=== PATIENT | male | born 1935 | race Caucasian/White ===

== ENCOUNTER 2017-09-28 14:34 | Emergency (ER) | payer MEDICARE ==
--- NOTE | 2017-09-28 15:14 | ERPHSYRPT ---
- History of Present Illness Time Seen by Provider: 09/28/17 15:03 Source: patient Exam Limitations: no limitations Patient Subjective Stated Complaint: APPROX 1300 TODAY PT BEGAN HAVING SOME VISUAL DISTURBANCES, REPORTS HEADACHE, REPORTS PRESSURE TO THE TEMPORAL REGION, STATES PREVIOUSLY LOST VISION IN THE LEFT EYE- 08/09/17 -STATES HE HAS MINMAL SIGHT WITH HIS RIGHT EYE CLOSED. STATES HE HAS HAD AN EEG RECENTLY WITH NO ACUTE FINDINGS. STATES HE HAS TROUBLE WITH PERIPHERAL VISION RECENTLY IN THE RIGHT EYE. Triage Nursing Assessment: PT IS AOX3, PUPILS PERRL, HAND DIRECTOR OF RETAIL OPERATIONS ARE STRONG AND EQUAL, FOOT PUSHES STRONG AND EQUAL BILAT, RESPS ARE EASY AND NON LABORED, LUNG SOUNDS ARE CLEAR THROUGHTOU ALL TRAMMELL. RADIAL PULSES STRONG AND EQUAL. PAIN TO THE BILAT TEMPORAL REGION DESCRIBED PRESSURE. Physician History: 82-year-old white male who states that he had a loss of vision in his left eye in August 2017. Arrives with complaint of a sudden onset of a blurry vision as if he was seeing heat waves, he states he could only see fingers directly in front of him associated with a frontal headache which occurred at approximately 3:00 lasted one hour. Patient states his vision is now clearing he does feel some stuffiness in his frontal head area. He has no nausea no vomiting he is having no problems moving. He feels like his vision changes around the right. He does state that he had a vision of loss in the left eye but had had a normal EEG in the past and carotids. Past medical history includes CVA, TIA, cataracts, pneumonia, hypercholesterolemia, high blood pressure, myocardial infarction, twisted bowel , pacer defibrillator, loss of vision in his left eye Past surgical history includes chest surgery, CABG, cardiac catheter, cardiac stent, defibrillator/pacer. Timing/Duration: today (1300 today) Severity: moderate Modifying Factors: Improves With: nothing Associated Symptoms: headaches, other (blurry vision left eye), No nausea, No vomiting, No abdominal pain, No shortness of breath, No heartburn, No diaphoresis, No cough, No chills, No chest pain, No fever, No syncope, No seizure, No weakness Allergies/Adverse Reactions: Iodinated Contrast- Oral and IV Dye Allergy (Verified 09/28/17 14:58) Iodine and Iodide Containing Produc Allergy (Verified 09/28/17 14:58) Home Medications: Albuterol 2.5 mg/3 ml Neb [Proventil 2.5 mg/3 ml Neb] 1 vial NEBULIZE Q6H 12/19/14 [History] Aspirin [Aspirin EC] 81 mg PO DAILY 12/19/14 [History] Lisinopril 10 mg [Zestril 10 MG] 10 mg PO HS 12/19/14 [History] Metoprolol Succinate 100 mg [Toprol Xl 100 MG] 100 mg PO HS 12/19/14 [ History] Rivaroxaban 10 mg Tablet [Xarelto 10 mg Tablet] 20 mg PO HS 12/19/14 [ History] Simvastatin [Zocor] 20 mg PO HS 12/19/14 [History] Spironolactone 25 mg [Aldactone 25 MG] 25 mg PO DAILY 12/19/14 [History] Tamsulosin HCl 0.4 mg [Flomax 0.4 MG] 0.4 mg PO DAILY 12/19/14 [History] Albuterol/Ipratropium 3ml Neb* [DUONEB 0.5-3 MG/3 ml Neb] 3 ml NEB QID [History] Cilostazol 100 mg [Pletal 100 MG] 50 mg PO BID 09/28/17 [History] Hx Tetanus, Diphtheria Vaccination/Date Given: No Hx Influenza Vaccination/Date Given: Yes Hx Pneumococcal Vaccination/Date Given: Yes Immunizations Up to Date: Yes - Review of Systems Constitutional: No Fever, No Chills Eyes: Vision Changes, No Discharge, No Eye Pain, No Eye Redness, No Itchy, No Photophobia, No Tearing, No Double Vision, No Foreign Body Sensation Ears, Nose, & Throat: No Symptoms, No Ear Pain, No Ear Discharge, No Hearing Changes, No Tinnitus, No Nose Pain, No Nose Congestion, No Nose Discharge, No Sinus Drainage, No Epistaxis, No Mouth Pain, No Mouth Swelling, No Loose Teeth, No Throat Pain, No Throat Swelling, No Hoarse, No Painful Swallowing, No Snoring Respiratory: No Cough, No Dyspnea Cardiac: No Chest Pain, No Edema, No Syncope Abdominal/Gastrointestinal: No Abdominal Pain, No Nausea, No Vomiting, No Diarrhea Genitourinary Symptoms: No Dysuria Musculoskeletal: No Back Pain, No Neck Pain Skin: No Rash Neurological: Headache, No Dizziness, No Focal Weakness, No Gait Changes, No Irritability, No Lethargy, No Paralysis, No Parasthesia, No Seizure, No Sensory Changes, No Speech Changes, No Tics, No Tremors, No Vertigo Psychological: No Symptoms Endocrine: No Symptoms All Other Systems: Reviewed and Negative - Past Medical History Pertinent Past Medical History: Yes Neurological History: Stroke, TIA ENT History: Cataracts Cardiac History: High Cholesterol, Hypertension, Myocardial Infarction (HI), Other Respiratory History: Pneumonia Endocrine Medical History: No Pertinent History Musculoskeletal History: No Pertinent History GI Medical History: Other History: No Pertinent History Psycho-Social History: No Pertinent History Male Reproductive Disorders: No Pertinent History Other Medical History: had a "twisted bowel". pacemaker/defibrillator. 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 - Past Surgical History Past Surgical History: Yes Neuro Surgical History: No Pertinent History Cardiac: CABG, Cardiac Catheterization, Cardiac Stent, Internal Defibrillator, Pacemaker Respiratory: Chest Surgery Gastrointestinal: No Pertinent History Genitourinary: No Pertinent History Musculoskeletal: No Pertinent History Male Surgical History: No Pertinent History - Social History Smoking Status: Never smoker Exposure to second hand smoke: No Drug Use: none Patient Lives Alone: No - Nursing Vital Signs Nursing Vital Signs: Initial Vital Signs Temperature 97.8 F 09/28/17 14:44 Pulse Rate 94 H 09/28/17 14:44 Respiratory Rate 20 09/28/17 14:44 Blood Pressure 154/69 09/28/17 14:44 O2 Sat by Pulse Oximetry 95 09/28/17 14:44 Pain Scale Pain Intensity 1 - Physical Exam General Appearance: no apparent distress, alert Eye Exam: PERRL/EOMI, eyes nml inspection Ears, Nose, Throat Exam: normal ENT inspection, TMs normal, pharynx normal, moist mucous membranes Neck Exam: normal inspection, non-tender, supple, full range of motion Respiratory Exam: normal breath sounds, lungs clear, No respiratory distress Cardiovascular Exam: regular rate/rhythm, normal heart sounds, normal peripheral pulses Gastrointestinal/Abdomen Exam: soft, normal bowel sounds, No tenderness, No mass Back Exam: normal inspection, normal range of motion, No CVA tenderness, No vertebral tenderness Extremity Exam: normal inspection, normal range of motion, pelvis stable Neurologic Exam: alert, oriented x 3, cooperative, normal mood/affect, nml cerebellar function, nml station & gait, sensation nml, No motor deficits Lymphatic Exam: No adenopathy SpO2 Interpretation: normal (95%) SpO2: 95 Oxygen Delivery: Room Air - Course Nursing assessment & vital signs reviewed: Yes EKG Interpreted by Me: RATE (80 bpm), Other (EKG atrial paced rhythm, 80 bpm, normal axis, right bundle babita block, PVC noted, no acute ST or T wave changes noted) - CT Exams Head CT Interpretation: Discussed w/radiologist (head CT: 1. Atrophy, old lacunar infarcts of the left caudate head/left external capsule, and old infarcts of the left parietal/left occipital lobes. 2. No acute intracranial abnormities. 3. Mild paranasal sinus disease. 4. Partial opacification of the right mastoid air cells presumably inflammatory) Ordered Tests: Active Orders 24 hr Category Date Time Status Accucheck STAT Care 09/28/17 15:07 Active EKG-ER Only STAT Care 09/28/17 15:07 Active IV Insertion STAT Care 09/28/17 15:07 Active Visual Acuity STAT Care 09/28/17 15:09 Active HEAD WITHOUT CONTRAST [CT] Stat Exams 09/28/17 15:08 Completed CBC W DIFF Stat Lab 09/28/17 15:15 Completed CMP Stat Lab 09/28/17 15:15 Completed PROTIME WITH INR Stat Lab 09/28/17 15:15 Completed PTT Stat Lab 09/28/17 15:15 Completed SED RATE [Erythrocyte Sedimentation Rate] Stat Lab 09/28/17 15:15 Completed Medication Summary Generic Name Dose Route Start Last Admin Trade Name Freq PRN Reason Stop Dose Admin Sodium Chloride 1,000 mls @ 100 mls/hr 09/28/17 17:15 09/28/17 17:18 Sodium Chloride 0.9% 1000 Ml IV 10/28/17 17:14 100 mls/hr .Q10H HARJINDER Administration Lab/Rad Data: Laboratory Result Diagrams 09/28/17 15:15 09/28/17 15:15 Laboratory Results 09/28/17 09/28/17 09/28/17 Range/Units 15:15 15:15 15:15 WBC (4.0-10.5) K/mm3 RBC (4.1-5.6) M/mm3 Hgb (12.5-18.0) gm/dl Hct (42-50) % MCV (78-100) fl MCH (26-32) pg MCHC (32-36) g/dl RDW (11.5-14.0) % Plt Count (150-450) K/mm3 MPV (6-9.5) fl Gran % (36.0-66.0) % Lymphocytes % (24.0-44.0) % Monocytes % (0.0-12.0) % Eosinophils % (0.00-5.0) % Basophils % (0.0-0.4) % Basophils # (0-0.4) ESR 17 H (0-15) mm/hr INR 1.47 (0.8-3.0) APTT 42.2 H (24.1-36.1) SECONDS Sodium 139 (136-145) mEq/L Potassium 4.0 (3.5-5.1) mEq/L Chloride 101 (98-107) mEq/L Carbon Dioxide 26.6 (21-32) mEq/L Anion Gap 15.1 H (5-15) MEQ/L BUN 17 (9-20) mg/dL Creatinine 1.41 H (0.55-1.30) mg/dl Estimated GFR 51 ML/MIN Glucose 109 (70-110) MG/DL Calcium 8.9 (8.5-10.1) mg/dL Total Bilirubin 0.30 (0.2-1.0) mg/dL AST 15 (15-37) U/L ALT 23 (12-78) U/L Alkaline Phosphatase 50 (46-116) U/L Serum Total Protein 6.8 (6.4-8.2) gm/dL Albumin 3.6 (3.4-5.0) g/dL 09/28/17 Range/Units 15:15 WBC 5.8 (4.0-10.5) K/mm3 RBC 3.71 L (4.1-5.6) M/mm3 Hgb 11.6 L (12.5-18.0) gm/dl Hct 35.9 L (42-50) % MCV 96.8 (78-100) fl MCH 31.2 (26-32) pg MCHC 32.3 (32-36) g/dl RDW 13.1 (11.5-14.0) % Plt Count 177 (150-450) K/mm3 MPV 9.6 H (6-9.5) fl Gran % 65.7 (36.0-66.0) % Lymphocytes % 19.2 L (24.0-44.0) % Monocytes % 12.0 (0.0-12.0) % Eosinophils % 2.4 (0.00-5.0) % Basophils % 0.7 (0.0-0.4) % Basophils # 0.04 (0-0.4) ESR (0-15) mm/hr INR (0.8-3.0) APTT (24.1-36.1) SECONDS Sodium (136-145) mEq/L Potassium (3.5-5.1) mEq/L Chloride (98-107) mEq/L Carbon Dioxide (21-32) mEq/L Anion Gap (5-15) MEQ/L BUN (9-20) mg/dL Creatinine (0.55-1.30) mg/dl Estimated GFR ML/MIN Glucose (70-110) MG/DL Calcium (8.5-10.1) mg/dL Total Bilirubin (0.2-1.0) mg/dL AST (15-37) U/L ALT (12-78) U/L Alkaline Phosphatase (46-116) U/L Serum Total Protein (6.4-8.2) gm/dL Albumin (3.4-5.0) g/dL - Progress Progress: improved Progress Note: 09/28/17 16:11 82-year-old white male with 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 Who is on Xaralto and aspirin. Patient arrives with complaints of vision disturbance described as blurry vision like heat waves in his right eye and a headache. Patient stable on arrival,. Patient's head CT remarkable for atrophy, old lacunar infarcts to the left caudate head, will left external capsule, and old infarcts in the left parietal/ left occipital lobes, no acute intracranial abnormalities on head CT Patient states his symptoms began at 1:00 lasted an hour. He states that 3:00 he feels as if his vision has returned to normal. 6Patient's vision is tested by the nurse right eye 20/50, left eye 20/200, both eyes 20/50. Patient states that his student counselor stated that he needed to see a neurologist. Will contact [facility] call this is where the patient wishes to be hospitalized if he is hospitalized. Impression 1 vision change 2. rule out CVA. 09/28/17 17:11 [facility] was contacted that I was informed that they did not have a neurologist available. I contacted Dr. Yepez who is consultant intern for Dr. Avelar she felt that the patient needed be transferred to [facility]. I discussed the case with , hospitalist at [address] [place] [address] I've discussed the case with him, as well as laboratory findings and radiographic findings. He accepted the patient for transfer diagnoses TIA rule out CVA, vision disturbance. Will give patient normal saline 100 mL per hour patient is already onXaralto and aspirin 81 mg a day. Patient is feeling much better at this time vitals are stable vision he states has returned to his normal - Departure Time of Disposition: 17:13 Departure Disposition: Transfer ([facility] Dr. Tilley) Clinical Impression: Vision disturbance, CVA versus TIA Condition: Fair Critical Care Time: No Referrals: YUE AVELAR MD [Primary Care Provider] -
[2017-09-28 15:22] LABS: BASOPHIL % 0.7 % (0.0-0.4); Eosinophil % 2.4 % (0.00-5.0); Granulocytes % 65.7 % (36.0-66.0); Lymphocytes % 19.2 % (24.0-44.0); Mean Cell Volume 96.8 fl (78-100); Mean Platelet Volume 9.6 fl (6-9.5); Platelet Count 177 K/mm3 (150-450); Red Blood Count 3.71 M/mm3 (4.1-5.6); Red Cell Distribution Width 13.1 % (11.5-14.0); White Blood Count 5.8 K/mm3 (4.0-10.5)
[2017-09-28 15:23] LABS: Mean Corpuscular Hemoglobin 31.2 pg (26-32)
[2017-09-28 15:39] LABS: INR 1.47 (0.8-3.0); PROTIME 16.4 SECONDS (8.83-12.87)
[2017-09-28 15:42] LABS: PTT 42.2 SECONDS (24.1-36.1)
[2017-09-28 15:46] LABS: ALBUMIN 3.6 g/dL (3.4-5.0); ANION GAP 15.1 MEQ/L (5-15); BILIRUBIN,TOTAL 0.3 mg/dL (0.2-1.0); Carbon Dioxide 26.6 mEq/L (21-32); Total Protein 6.8 gm/dL (6.4-8.2)
--- NOTE | 2017-09-28 15:53 | XRAY ---
Indication: Headache and difficulty right eye vision. Multiple contiguous axial images obtained through the head without contrast. Comparison: None Age-appropriate global atrophy and tiny remote lacunar infarcts left external capsule and left caudate head. Small focus of old left posterior parietal infarct. Minimal left occipital lobe encephalomalacia also presumed from old infarct. No acute intracranial hemorrhage, abnormal extra-axial fluid collection, or mass effect. Fourth ventricle is midline without hydrocephalus. Bony calvarium intact. Mild mucosal thickening of both ethmoid sinuses. Partial opacification of the inferior right mastoid air cells. Impression: 1. Atrophy, old lacunar infarcts of the left caudate head/left external capsule, and old infarcts of the left parietal/left occipital lobes. 2. No acute intracranial abnormalities. 3. Mild paranasal sinus disease. 4. Partial opacification of the right mastoid air cells presumed inflammatory. CT DI 67.41
[2017-09-28] MEDS ORDERED: Sodium Chloride 0.9% 1000 ML 1,000 ML ONE (17:13)
[2017-09-28] MEDS ORDERED: Sodium Chloride 0.9% 1000 ML 1,000 ML IV SCH (17:15)
[2017-09-28 17:52] VITALS: BP 133/54
[2017-09-28 17:58] VITALS: PULSE 83; O2SAT 95
[2017-09-28] MEDS ORDERED: NORCO 5/325 MG PO ONE (18:05)
[2017-09-28] MEDS ORDERED: NORCO 5/325 MG ONE (18:08)
== END 2017-09-28 18:19 | disposition short-term general hospital (02) ==
LOC: ED 14:34
DX: H53.9 Unspecified visual disturbance (principal); G45.9 Transient cerebral ischemic attack, unspecified; E78.00 Pure hypercholesterolemia, unspecified; I10 Essential (primary) hypertension; I25.2 Old myocardial infarction; Z95.810 Presence of automatic (implantable) cardiac defibrillator; Z95.1 Presence of aortocoronary bypass graft; Z98.61 Coronary angioplasty status
CPT/HCPCS: 36000; 36415; 70450; 80053; 82962; 85025; 85610; 85652; 85730; 93005; 96360; 99285; A9270-GY

== ENCOUNTER 2017-11-09 21:20 | Emergency (ER) | payer MEDICARE ==
[2017-11-09] MEDS ORDERED: Phenergan 25 MG INJ IV ONE (21:50)
[2017-11-09] MEDS ORDERED: Hydromorphone 1 mg/ml Ampule IV ONE (21:50)
--- NOTE | 2017-11-09 21:56 | ERPHSYRPT ---
- History of Present Illness Time Seen by Provider: 11/09/17 21:45 Historian: patient, family () Exam Limitations: no limitations Physician History: FOR ABOUT THE PAST 5 HOURS PT HAS HAD CONSTANT CRAMPING UPPER ABDOMINAL PAIN UP TO 10/10 IN SEVERITY WITH NAUSEA, CHILLS AND A MILD HEADACHE. LAST BM WAS TONIGHT & WNL. PT DENIES CHEST PAIN, SHORTNESS OF AIR, FEVER. Allergies/Adverse Reactions: Iodinated Contrast- Oral and IV Dye Allergy (Verified 09/28/17 14:58) Iodine and Iodide Containing Produc Allergy (Verified 09/28/17 14:58) Home Medications: Albuterol 2.5 mg/3 ml Neb [Proventil 2.5 mg/3 ml Neb] 1 vial NEBULIZE Q6H 12/19/14 [History] Aspirin [Aspirin EC] 81 mg PO DAILY 12/19/14 [History] Lisinopril 10 mg [Zestril 10 MG] 10 mg PO HS 12/19/14 [History] Metoprolol Succinate 100 mg [Toprol Xl 100 MG] 100 mg PO HS 12/19/14 [ History] Rivaroxaban 10 mg Tablet [Xarelto 10 mg Tablet] 20 mg PO HS 12/19/14 [ History] Simvastatin [Zocor] 20 mg PO HS 12/19/14 [History] Spironolactone 25 mg [Aldactone 25 MG] 25 mg PO DAILY 12/19/14 [History] Tamsulosin HCl 0.4 mg [Flomax 0.4 MG] 0.4 mg PO DAILY 12/19/14 [History] Albuterol/Ipratropium 3ml Neb* [DUONEB 0.5-3 MG/3 ml Neb] 3 ml NEB QID [History] Cilostazol 100 mg [Pletal 100 MG] 50 mg PO BID 09/28/17 [History] Hx Tetanus, Diphtheria Vaccination/Date Given: No Hx Influenza Vaccination/Date Given: Yes Hx Pneumococcal Vaccination/Date Given: Yes - Review of Systems Constitutional: Chills, No Fever Respiratory: No Dyspnea Cardiac: No Chest Pain Abdominal/Gastrointestinal: Abdominal Pain, Nausea Neurological: Headache All Other Systems: Reviewed and Negative - Past Medical History Pertinent Past Medical History: Yes Neurological History: Stroke, TIA ENT History: Cataracts Cardiac History: High Cholesterol, Hypertension, Myocardial Infarction (DE), Other Respiratory History: Pneumonia Endocrine Medical History: No Pertinent History Musculoskeletal History: No Pertinent History GI Medical History: Other History: No Pertinent History Psycho-Social History: No Pertinent History Male Reproductive Disorders: No Pertinent History Other Medical History: had a "twisted bowel". pacemaker/defibrillator. 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 - Past Surgical History Past Surgical History: Yes Neuro Surgical History: No Pertinent History Cardiac: CABG, Cardiac Catheterization, Cardiac Stent, Internal Defibrillator, Pacemaker Respiratory: Chest Surgery Gastrointestinal: No Pertinent History Genitourinary: No Pertinent History Musculoskeletal: No Pertinent History Male Surgical History: No Pertinent History - Social History Smoking Status: Never smoker Exposure to second hand smoke: No Drug Use: none Patient Lives Alone: No - Nursing Vital Signs Nursing Vital Signs: Initial Vital Signs Temperature 98.4 F 11/09/17 21:43 Pulse Rate 76 11/09/17 21:43 Respiratory Rate 20 11/09/17 21:43 Blood Pressure 144/50 11/09/17 21:43 O2 Sat by Pulse Oximetry 99 11/09/17 21:43 Pain Scale Pain Intensity 3 - Physical Exam General Appearance: alert Eye Exam: PERRL/EOMI Ears, Nose, Throat Exam: TMs normal, pharynx normal, moist mucous membranes Neck Exam: normal inspection Respiratory Exam: lungs clear Cardiovascular Exam: normal heart sounds Gastrointestinal/Abdomen Exam: soft, normal bowel sounds, tenderness (MODERATE UPPER ABDOMINAL TENDERNESS) Back Exam: normal inspection Extremity Exam: normal inspection, No pedal edema Neurologic Exam: alert, cooperative Skin Exam: warm, dry - Course Nursing assessment & vital signs reviewed: Yes - CT Exams Abdomen/Pelvis CT Interpretation: Tele-radiologist Report (CT FINDINGS SUGGESTIVE OF HIGH- GRADE SMALL BOWEL OBSTRUCTION.) Ordered Tests: Active Orders 24 hr Category Date Time Status Clean Catch Urine Specimen STAT Care 11/09/17 21:50 Active IV Insertion STAT Care 11/09/17 21:50 Active NG to Suction (Insertion) ROUTINE Care 11/09/17 23:35 Active ABDOMEN AND PELVIS W/0 CONTRAS [CT] Stat Exams 11/09/17 21:51 Taken AMYLASE Stat Lab 11/09/17 22:19 Completed CBC W DIFF Stat Lab 11/09/17 22:19 Completed CMP Stat Lab 11/09/17 22:19 Completed LIPASE Stat Lab 11/09/17 22:19 Completed MAGNESIUM Stat Lab 11/09/17 22:19 Completed PROTIME WITH INR Stat Lab 11/09/17 22:19 Completed PTT Stat Lab 11/09/17 22:19 Completed UA W/RFX UR CULTURE Stat Lab 11/09/17 21:51 Ordered Medication Summary Generic Name Dose Route Start Last Admin Trade Name Freq PRN Reason Stop Dose Admin Sodium Chloride 1,000 mls @ 100 mls/hr 11/09/17 22:00 11/09/17 22:22 Sodium Chloride 0.9% 1000 Ml IV 12/09/17 21:59 100 mls/hr .Q10H HARJINDER Administration Discontinued Medications Generic Name Dose Route Start Last Admin Trade Name Freq PRN Reason Stop Dose Admin Hydromorphone HCl 1 mg 11/09/17 21:50 11/09/17 22:23 Hydromorphone 1 Mg/Ml Ampule IV 11/09/17 21:51 1 mg STAT ONE Administration Hydromorphone HCl Confirm 11/09/17 22:19 Hydromorphone 1 Mg/Ml Ampule Administered 11/09/17 22:20 Dose 1 mg .ROUTE .STK-MED ONE Promethazine HCl 12.5 mg 11/09/17 21:50 11/09/17 22:23 Phenergan 25 Mg Inj IV 11/09/17 21:51 12.5 mg STAT ONE Administration Promethazine HCl Confirm 11/09/17 22:19 Phenergan 25 Mg Inj Administered 11/09/17 22:20 Dose 25 mg .ROUTE .STK-MED ONE Lab/Rad Data: Laboratory Result Diagrams 11/09/17 22:19 11/09/17 22:19 Laboratory Results 11/09/17 11/09/17 11/09/17 Range/Units 22:19 22:19 22:19 WBC (4.0-10.5) K/mm3 RBC (4.1-5.6) M/mm3 Hgb (12.5-18.0) gm/dl Hct (42-50) % MCV (78-100) fl MCH (26-32) pg MCHC (32-36) g/dl RDW (11.5-14.0) % Plt Count (150-450) K/mm3 MPV (6-9.5) fl Gran % (36.0-66.0) % Lymphocytes % (24.0-44.0) % Monocytes % (0.0-12.0) % Eosinophils % (0.00-5.0) % Basophils % (0.0-0.4) % Basophils # (0-0.4) INR 3.44 H (0.8-3.0) APTT 48.2 H (24.1-36.1) SECONDS Sodium (136-145) mEq/L Potassium (3.5-5.1) mEq/L Chloride (98-107) mEq/L Carbon Dioxide (21-32) mEq/L Anion Gap (5-15) MEQ/L BUN (9-20) mg/dL Creatinine (0.55-1.30) mg/dl Estimated GFR ML/MIN Glucose (70-110) MG/DL Calcium (8.5-10.1) mg/dL Magnesium 2.2 (1.8-2.4) mg/dL Total Bilirubin (0.2-1.0) mg/dL AST (15-37) U/L ALT (12-78) U/L Alkaline Phosphatase (46-116) U/L Serum Total Protein (6.4-8.2) gm/dL Albumin (3.4-5.0) g/dL Amylase (25-115) U/L Lipase (73-393) U/L 11/09/17 11/09/17 Range/Units 22:19 22:19 WBC 7.9 (4.0-10.5) K/mm3 RBC 3.88 L (4.1-5.6) M/mm3 Hgb 12.0 L (12.5-18.0) gm/dl Hct 37.9 L (42-50) % MCV 97.7 (78-100) fl MCH 30.9 (26-32) pg MCHC 31.7 L (32-36) g/dl RDW 13.9 (11.5-14.0) % Plt Count 157 (150-450) K/mm3 MPV 10.2 H (6-9.5) fl Gran % 78.7 H (36.0-66.0) % Lymphocytes % 11.8 L (24.0-44.0) % Monocytes % 7.2 (0.0-12.0) % Eosinophils % 1.9 (0.00-5.0) % Basophils % 0.4 (0.0-0.4) % Basophils # 0.03 (0-0.4) INR (0.8-3.0) APTT (24.1-36.1) SECONDS Sodium 140 (136-145) mEq/L Potassium 3.9 (3.5-5.1) mEq/L Chloride 101 (98-107) mEq/L Carbon Dioxide 31.4 (21-32) mEq/L Anion Gap 11.4 (5-15) MEQ/L BUN 17 (9-20) mg/dL Creatinine 1.28 (0.55-1.30) mg/dl Estimated GFR 57 ML/MIN Glucose 146 H (70-110) MG/DL Calcium 9.4 (8.5-10.1) mg/dL Magnesium (1.8-2.4) mg/dL Total Bilirubin 0.40 (0.2-1.0) mg/dL AST 25 (15-37) U/L ALT 16 (12-78) U/L Alkaline Phosphatase 53 (46-116) U/L Serum Total Protein 7.2 (6.4-8.2) gm/dL Albumin 3.9 (3.4-5.0) g/dL Amylase 32 (25-115) U/L Lipase 100 (73-393) U/L - Progress Discussed with : Other (SPOKE WITH DR ACOSTA([id number]) WHO ACCEPTED PT FOR TRANSFER TO [facility].) - Departure Time of Disposition: 00:52 Departure Disposition: Transfer ([facility]) Clinical Impression: SMALL BOWEL OBSTRUCTION., HTN, HX CVA Condition: Stable Critical Care Time: No Referrals: YUE AVELAR MD [Primary Care Provider] -
[2017-11-09] MEDS ORDERED: Sodium Chloride 0.9% 1000 ML 1,000 ML IV SCH (22:00)
[2017-11-09] MEDS ORDERED: Phenergan 25 MG INJ ONE (22:19)
[2017-11-09] MEDS ORDERED: Hydromorphone 1 mg/ml Ampule ONE (22:19)
[2017-11-09] MEDS ORDERED: Sodium Chloride 0.9% 1000 ML 1,000 ML ONE (22:19)
[2017-11-09 22:23] LABS: BASOPHIL % 0.4 % (0.0-0.4); Basophil (Absolute #) 0.03 (0-0.4); Eosinophil % 1.9 % (0.00-5.0); Eosinophil (Absolute #) 0.15 (0-0.5); Granulocytes % 78.7 % (36.0-66.0); Hematocrit 37.9 % (42-50); Lymphocyte (Absolute #) 0.93 (1.0-4.6); Lymphocytes % 11.8 % (24.0-44.0); Mean Cell Volume 97.7 fl (78-100); Mean Corpuscular Hemoglobin 30.9 pg (26-32); Mean Corpuscular Hgb Concent. 31.7 g/dl (32-36); Mean Platelet Volume 10.2 fl (6-9.5); Monocyte (Absolute #) 0.57 (0.0-1.3); Monocytes % 7.2 % (0.0-12.0); Platelet Count 157 K/mm3 (150-450); Red Blood Count 3.88 M/mm3 (4.1-5.6); Red Cell Distribution Width 13.9 % (11.5-14.0); White Blood Count 7.9 K/mm3 (4.0-10.5)
[2017-11-09 22:36] LABS: INR 3.44 (0.8-3.0)
[2017-11-09 22:45] LABS: ALBUMIN 3.9 g/dL (3.4-5.0); ANION GAP 11.4 MEQ/L (5-15); BILIRUBIN,TOTAL 0.4 mg/dL (0.2-1.0); Calcium 9.4 mg/dL (8.5-10.1); Carbon Dioxide 31.4 mEq/L (21-32); Creatinine 1 1.28 mg/dl (0.55-1.30); Potassium 3.9 mEq/L (3.5-5.1); Total Protein 7.2 gm/dL (6.4-8.2)
[2017-11-10 02:17] VITALS: BP 106/48; PULSE 66; O2SAT 97
--- NOTE | 2017-11-10 09:23 | XRAY ---
Indication: Abdominal pain. Nausea. Multiple contiguous axial images obtained through the abdomen and pelvis without contrast as ordered. Comparison: None. Lung bases hyperinflated with scattered calcific granulomas and left base dependent atelectasis. Heart is not enlarged. Stomach is markedly distended with food/fluid. Left abdominal jejunal small bowel loops are abnormally fluid distended up to 4 cm. The right abdominal small bowel loops are more normal in caliber. Findings concerning for partial obstruction versus focal ileus/enteritis. Normal appendix. Normal colonic bowel gas with scattered diverticulosis greatest in the descending colon. No free fluid/air. 1.5 cm right renal cortical cyst and small left urinary bladder diverticulum. Remaining liver, gallbladder, pancreas, spleen, adrenal glands, kidneys, ureters, and bladder appear unremarkable for noncontrast exam. Heavy aortoiliac calcifications without AAA. Osseous structures intact with mild lower lumbar degenerative changes. Tiny fatty left inguinal hernia. Impression: 1. Abnormal fluid distended left abdominal small bowel loops with normal caliber distal small bowel loops and normal colonic bowel gas. Rule out partial obstruction versus focal ileus/enteritis. 2. Colonic diverticulosis without diverticulitis. 3. Incidental right renal cyst and urinary bladder diverticulum. 4. Tiny fatty left inguinal hernia. Comment: Preliminary interpretation was made by [facility]. No discrepancy. CT DI 17.54
== END 2017-11-10 01:05 | disposition short-term general hospital (02) ==
LOC: ED 21:20
DX: K56.609 Unspecified intestinal obstruction, unspecified as to partial versus complete obstruction (principal); I10 Essential (primary) hypertension; Z86.73 Personal history of transient ischemic attack (TIA), and cerebral infarction without residual deficits; Z79.899 Other long term (current) drug therapy
CPT/HCPCS: 36000; 36415; 74176; 80053; 82150; 83690; 83735; 85025; 85610; 85730; 96360; 96361; 96374; 96375; 99285; J1170; J2550

== ENCOUNTER 2018-11-08 10:10 | Day surgery (SDC) | payer MEDICARE ==
--- NOTE | 2018-11-08 08:04 | HP ---
DATE OF SURGERY: 11/08/2018 HISTORY OF PRESENT ILLNESS: The patient is an 83 year-old with chronic skin lesion taken off by Dr. Tate in the past. He had bleeding nonhealing lesion in the past. There is a nonhealing scalp lesion or cyst in need of excision. PAST MEDICAL HISTORY: Multiple medical problems. Heart disease. Hypertension. Chronic obstructive pulmonary disease. History of bronchitis. Benign breast lesions in the past. Hypercholesterolemia. Hyperglycemia. Reflux. Atherosclerotic disease. History of transient ischemic attack in the past. CVA in the past. 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 Peripheral vascular disease. PAST SURGICAL HISTORY: Cardiac cath. Pacemaker. Cardiac stents. Hernia repair in the past. Lysis of adhesions from bowel obstruction in remote past. Multiple lesions removed from scrotal area per Dr. Tate in the past. MEDICATIONS: Breo Ellipta, Tamsulosin, Prean1 Susy Softgel vitamin, Combivent, Respimat, polyethylene glycol, Toprol XL, Os-Romario, vitamin D, Simvastatin, mucous relief tablet, albuterol sulfate, aspirin, lisinopril, allergy medicine [id number], Spironolactone and on Coumadin in the past. ALLERGIES: IV CONTRAST. FAMILY HISTORY: Heart disease, lung disease. History of myocardial infarction and transient ischemic attack in the past. Multiple medical problems as noted above. SOCIAL HISTORY: Former smoker. Denies alcohol abuse. REVIEW OF SYSTEMS: Twelve systems reviewed pertinent for as noted above per preadmission assessment. Pertinent for multiple medical problems noted above. PHYSICAL EXAMINATION: GENERAL: A chronically ill gentleman in no acute distress. HEENT: Scalp nonhealing lesion or cyst on his scalp of unclear etiology. Patient desires excision. NECK: No JVD. CHEST: Equal excursion. CVS: Regular rate and rhythm. ABDOMEN: Soft. EXTREMITIES: No current edema. NEURO: Alert, oriented. IMPRESSION: Nonhealing scalp lesion or cyst unclear etiology. The patient has cardiac clearance and will hold his thinner, will proceed with excisional biopsy of nonhealing scalp lesion or cyst which could require skin graft. Risks and benefits explained in detail including but not limited to bleeding or infection, risk of carcinoma with involved margins possibly requiring other treatments or wider excision, risk of nonhealing of the wound or skin graft pending given location and the type of spot on top of his scalp with skin graft donor site. General risk of aches, pains, burning or numbness and overall risk given all of his chronic skin changes with nonhealing. He may develop other lesion similar to, adjacent to or elsewhere on his body. He understands and agrees to the planned procedure, will proceed with excisional biopsy of nonhealing scalp lesion or cyst possible skin graft as an outpatient.
[~2018-11-08 10:10] MED LIST: Lactated Ringers 1,000 ML IV ONE; MINERAL OIL LIGHT 10 ML FOR SURGERY ONE; Sensorcaine 0.25% 10 ML ONE
[2018-11-08] MEDS ORDERED: DILAUDID 2 MG INJECTION IV ONE (10:11)
[2018-11-08] MEDS ORDERED: Decadron 4 MG INJ IV ONE (10:11)
[2018-11-08] MEDS ORDERED: DIPRIVAN 200 MG/20 ML IV ONE (10:11)
[2018-11-08] MEDS ORDERED: Zofran 4 MG/2 ML VIAL IV ONE (10:11)
[2018-11-08] MEDS ORDERED: SUBLIMAZE 100 MCG/2 ML IV ONE (10:11)
[2018-11-08] MEDS ORDERED: TORAdol 30 mg Injection IV ONE (10:11)
[2018-11-08] MEDS ORDERED: Lactated Ringers 1,000 ML IV SCH (11:00)
[2018-11-08] MEDS ORDERED: Lactated Ringers 1,000 ML IV ONE (11:03)
[2018-11-08] MEDS ORDERED: KEFZOL 1 GM ONE (12:34)
[2018-11-08] MEDS ORDERED: SUBLIMAZE 100 MCG/2 ML ONE (13:43)
[2018-11-08] MEDS ORDERED: TORAdol 30 mg Injection ONE (14:09)
[2018-11-08 16:28] VITALS: BP 116/66; PULSE 66; O2SAT 97
--- NOTE | 2018-11-09 08:28 | OP ---
SURGERY DATE/TIME: 11/08/2018 1235 PREOPERATIVE DIAGNOSIS: Nonhealing lesion or cyst scalp. History of chronic skin changes and/or skin cancer treated elsewhere. POSTOPERATIVE DIAGNOSIS: Nonhealing lesion or cyst scalp. History of chronic skin changes and/or skin cancer treated elsewhere, path pending. PROCEDURE: Excisional biopsy of nonhealing lesion or cyst scalp approximately 2.2 cm with margins with closure with both combination of intermediate closure in layers along with full thickness skin graft (approximately 2 cm/sq) with some donor site of left neck. SURGEON: Dr. Bertram Jeter. ANESTHESIA: General. ESTIMATED BLOOD LOSS: Minimal. INDICATIONS: As noted above. Risks and benefits explained in detail and not limited to and consent obtained. DESCRIPTION OF PROCEDURE AND FINDINGS: The patient is taken to the operating room. General anesthesia induced. The site had been confirmed and marked in the preoperative holding area. Prepped and draped in usual sterile fashion. After official time out and no disagreement with planned procedure, he seemed to have more loose skin towards the neck part of the scalp. It was elected to make a transverse incision. As it was unclear whether this is some sort of variation of atypical cyst versus malignancy, it was elected to go just to the outside of this tissue. Marking out to as normal appearing skin as the patient had available on the either side. A transverse incision made resulting in 2.2 cm with margins and about 4.5 cm long spindle-shaped excision pattern dissection carried down dissecting it off the underlying fascia and musculature. There was a small amount of cyst material but whether part of this was malignancy or part of it cyst unclear but will submit for pathology for further diagnosis. Again it measured about 2.2 cm with margins and about 4.5 cm spindle-shaped excision pattern. The flaps were undermined both anteriorly and posteriorly with the skin on the edges brought together in a new fashion with interrupted vertical mattress 2-0 Prolene. There was still not enough loose skin to close the center part. It was felt that this needs to be closed with skin graft from donor site of base of left neck and some loose wrinkle area. Careful spindle-shaped excision pattern allowing to widen the specimen. It was then defatted on the back table with scalpel to all for any drainage of this full thickness skin graft and sutured with interrupted 4-0 Prolene trying to get it down in the crevice of this defect. The flaps were then brought together as well as possible and skin graft used to cover the other place this was about 2 cm long by 1 cm wide so about 2 cm/sq skin graft coverage. The skin secured with Prolene and some mineral oil, Adaptic and small rolled Kittner sized gauze was then carefully tied as a compression dressing overlying the area about 1 cm wide compressing the graft down to the base of the wound as well as possible in interrupted fashion with 4-0 Prolene. Sterile dressings were then applied. Patient tolerated the procedure well. There were no immediate complications. 0.25% Marcaine local had been injected along the area. He was then extubated and transferred to the recovery room in stable condition. Findings were discussed with family out in the waiting area including the importance of avoiding taking this rolled gauze compression dressing off the graft otherwise if he needs to could change the outer dressing. Otherwise, he can change the neck dressing as needed starting tomorrow. He understands given his frail tissue there is a possibility may not heal and may become ischemic and fall off like a scab but it is worth a try and hopefully quicken the pace of healing. If skin graft fails to survive may like to try healing by secondary intent. I will see him back in the office next week. He was transferred to the recovery room in stable condition.
== END 2018-11-08 16:20 | disposition home or self-care (01) ==
LOC: SDC 10:10
PROVIDERS: ATTEND Surgery
DX: L72.0 Epidermal cyst (principal); L98.9 Disorder of the skin and subcutaneous tissue, unspecified; I10 Essential (primary) hypertension; I25.2 Old myocardial infarction; Z86.73 Personal history of transient ischemic attack (TIA), and cerebral infarction without residual deficits; Z79.01 Long term (current) use of anticoagulants; Z79.899 Other long term (current) drug therapy; I87.2 Venous insufficiency (chronic) (peripheral); I25.5 Ischemic cardiomyopathy; I48.0 Paroxysmal atrial fibrillation; E78.5 Hyperlipidemia, unspecified
CPT/HCPCS: 36415; 84132; 85610; 88305; 99100; J0690; J1100; J1170; J1885; J2405; J2704; J3010; A9270-GY

== ENCOUNTER 2019-03-29 09:37 | Inpatient (IN) | payer MEDICARE ==
[2019-03-29] MEDS ORDERED: MORPHINE SULFATE 4 MG INJ IV ONE (10:30)
[2019-03-29] MEDS ORDERED: Sodium Chloride 0.9% 1000 ML 1,000 ML IV SCH (10:30)
[2019-03-29] MEDS ORDERED: Zofran 4 MG/2 ML VIAL IV ONE (10:30)
--- NOTE | 2019-03-29 10:36 | ERPHSYRPT ---
- History of Present Illness Time Seen by Provider: 03/29/19 10:30 Historian: patient Exam Limitations: no limitations Patient Subjective Stated Complaint: Pt c/o of pain in the medial epigastric region that began yesterday evening and into today, hard to get information from , nausea, denies vomitting, has reflux, states that it feels like a lot of gas in his stomach Triage Nursing Assessment: Pt walks into the ER with a cane, grunting and stating that his stomach hurts, hypertensive, tender with palpatation in the epigastric region, rates pain 8/10, naseous, denies chest pain Physician History: 83-year-old white male arrives with complaint of pain in his epigastric region since last night he states he's had some nausea since this morning no vomiting. 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 August 09, 2017 Past surgical history includes CABG, cardiac catheter, cardiac stent, internal defibrillator, pacer, chest surgery Social history occasional alcohol denies tobacco or illicit drug use Timing/Duration: yesterday Activities at Onset: none Quality: cramping Abdominal Pain Onset Location: epigastric Pain Radiation: no radiation Severity of Pain-Max: moderate Severity of Pain-Current: moderate Modifying Factors: Improves With: nothing Associated Symptoms: other (nausea, contusion left jones), No back, No chest pain , No diaphoresis, No fever/chills, No fatigue, No headache, No heartburn, No loss of appetite, No nausea, No neck pain, No rash, No shortness of breath, No syncope, No testicular pain, No vomiting, No weakness Allergies/Adverse Reactions: Iodinated Contrast- Oral and IV Dye Allergy (Verified 03/29/19 10:24) Iodine and Iodide Containing Produc Allergy (Verified 11/08/18 10:26) Home Medications: Albuterol 2.5 mg/3 ml Neb [Proventil 2.5 mg/3 ml Neb] 1 vial NEBULIZE Q6H 12/19/14 [History] Aspirin [Aspirin EC] 81 mg PO DAILY 12/19/14 [History] Lisinopril 10 mg [Zestril 10 MG] 20 mg PO HS 12/19/14 [History] Metoprolol Succinate 100 mg [Toprol Xl 100 MG] 150 mg PO HS 12/19/14 [ History] Simvastatin [Zocor] 20 mg PO HS 12/19/14 [History] Spironolactone 25 mg [Aldactone 25 MG] 25 mg PO DAILY 12/19/14 [History] Tamsulosin HCl 0.4 mg [Flomax 0.4 MG] 0.4 mg PO DAILY 12/19/14 [History] Polyethylene Glycol 3350 [Clearlax] 17 gm PO DAILY 10/27/18 [History] Fluticasone/Umeclidin/Vilanter [Trelegy Ellipta 100-62.5-25] 1 each IH DAILY [History] Hx Tetanus, Diphtheria Vaccination/Date Given: No Hx Influenza Vaccination/Date Given: Yes Hx Pneumococcal Vaccination/Date Given: Yes - Review of Systems Constitutional: No Fever, No Chills Eyes: No Symptoms Ears, Nose, & Throat: No Symptoms Respiratory: No Cough, No Dyspnea Cardiac: No Chest Pain, No Edema, No Syncope Abdominal/Gastrointestinal: Abdominal Pain, Nausea, No Vomiting, No Diarrhea, No Constipation, No Hematemesis, No Hematochezia, No Melena, No Dysphagia, No Appetite Changes Genitourinary Symptoms: No Dysuria Musculoskeletal: No Back Pain, No Neck Pain Skin: Other (contusion left jones with hematoma after bottle fell on it) Neurological: No Dizziness, No Focal Weakness, No Sensory Changes Psychological: No Symptoms Endocrine: No Symptoms All Other Systems: Reviewed and Negative - Past Medical History Pertinent Past Medical History: Yes Neurological History: Stroke, TIA ENT History: Cataracts Cardiac History: Arrhythmia, High Cholesterol, Hypertension, Myocardial Infarction ([place]), Other Respiratory History: Pneumonia Endocrine Medical History: No Pertinent History Musculoskeletal History: No Pertinent History GI Medical History: Other History: No Pertinent History Psycho-Social History: No Pertinent History Male Reproductive Disorders: Prostate Problems Other Medical History: had a "twisted bowel". pacemaker/defibrillator. 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 - Past Surgical History Past Surgical History: Yes Neuro Surgical History: No Pertinent History Cardiac: CABG, Cardiac Catheterization, Cardiac Stent, Internal Defibrillator, Pacemaker, Other Respiratory: Chest Surgery Gastrointestinal: Hernia Repair Genitourinary: No Pertinent History Musculoskeletal: No Pertinent History Male Surgical History: No Pertinent History Other Surgical History: colonoscopy, right cea, - Social History Smoking Status: Former smoker Exposure to second hand smoke: Yes Drug Use: none Patient Lives Alone: No - Nursing Vital Signs Nursing Vital Signs: Initial Vital Signs Temperature 97.8 F 03/29/19 10:14 Pulse Rate 77 03/29/19 10:14 Blood Pressure 154/76 03/29/19 10:14 O2 Sat by Pulse Oximetry 95 03/29/19 10:14 Pain Scale Pain Intensity 8 - Physical Exam General Appearance: mild distress, alert Eye Exam: PERRL/EOMI, eyes nml inspection Ears, Nose, Throat Exam: normal ENT inspection, pharynx normal, moist mucous membranes Neck Exam: normal inspection, non-tender, supple, full range of motion Respiratory Exam: normal breath sounds, lungs clear, No respiratory distress Cardiovascular Exam: regular rate/rhythm, normal heart sounds, capillary refill <2 sec Gastrointestinal/Abdomen Exam: soft, tenderness, No mass Back Exam: normal inspection, normal range of motion, No CVA tenderness, No vertebral tenderness Extremity Exam: other (left anterior jones with hematoma approximately2 cm) Neurologic Exam: alert, oriented x 3, cooperative, 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 Fluid distended small bowel loops with synchronous fluid leveling, ileus versus enteritis. 2. New small hiatal hernia 3. New fecal stasis without obstruction. 4. Incidental clonic diverticulosis,, right renal cyst, urinary bladder diverticulum, and small fatty left inguinal hernia.) Ordered Tests: Active Orders 24 hr Category Date Time Status EKG-ER Only STAT Care 03/29/19 10:30 Active IV Insertion STAT Care 03/29/19 10:30 Active ABDOMEN AND PELVIS W/0 CONTRAS [CT] Stat Exams 03/29/19 10:30 Completed AMYLASE Stat Lab 03/29/19 10:55 Completed CBC W DIFF Stat Lab 03/29/19 10:55 Completed CMP Stat Lab 03/29/19 10:55 Completed LIPASE Stat Lab 03/29/19 10:55 Completed PROTIME WITH INR Stat Lab 03/29/19 10:55 Completed UA W/RFX UR CULTURE Stat Lab 03/29/19 11:50 Completed Medication Summary Generic Name Dose Route Start Last Admin Trade Name Freq PRN Reason Stop Dose Admin Sodium Chloride 1,000 mls @ 100 mls/hr 03/29/19 10:30 03/29/19 10:59 Sodium Chloride 0.9% 1000 Ml IV 04/28/19 10:29 100 mls/hr .Q10H HARJINDER Administration Discontinued Medications Generic Name Dose Route Start Last Admin Trade Name Freq PRN Reason Stop Dose Admin Morphine Sulfate 4 mg 03/29/19 10:30 03/29/19 10:59 Morphine Sulfate 4 Mg Inj IV 03/29/19 10:31 4 mg STAT ONE Administration Morphine Sulfate Confirm 03/29/19 10:46 Morphine Sulfate 4 Mg Inj Administered 03/29/19 10:47 Dose 4 mg .ROUTE .STK-MED ONE Ondansetron HCl 4 mg 03/29/19 10:30 03/29/19 10:59 Zofran 4 Mg/2 Ml Vial IV 03/29/19 10:31 4 mg STAT ONE Administration Ondansetron HCl Confirm 03/29/19 10:46 Zofran 4 Mg/2 Ml Vial Administered 03/29/19 10:47 Dose 4 mg .ROUTE .STK-MED ONE Lab/Rad Data: Laboratory Result Diagrams 03/29/19 10:55 03/29/19 10:55 Laboratory Results 03/29/19 03/29/19 03/29/19 Range/Units 11:50 10:55 10:55 WBC (4.0-10.5) K/mm3 RBC (4.1-5.6) M/mm3 Hgb (12.5-18.0) gm/dl Hct (42-50) % MCV (78-100) fl MCH (26-32) pg MCHC (32-36) g/dl RDW (11.5-14.0) % Plt Count (150-450) K/mm3 MPV (6-9.5) fl Gran % (36.0-66.0) % Eos # (Auto) (0-0.5) Absolute Lymphs (auto) (1.0-4.6) Absolute Monos (auto) (0.0-1.3) Lymphocytes % (24.0-44.0) % Monocytes % (0.0-12.0) % Eosinophils % (0.00-5.0) % Basophils % (0.0-0.4) % Absolute Granulocytes (1.4-6.9) Basophils # (0-0.4) PT 28.7 H (8.83-12.87) SECONDS INR 2.45 (0.8-3.0) Sodium 137 (137-145) mmol/L Potassium 4.7 (3.5-5.1) mmol/L Chloride 100 (98-107) mmol/L Carbon Dioxide 27 (22-30) mmol/L Anion Gap 14.2 (5-15) MEQ/L BUN 20 (9-20) mg/dL Creatinine 1.04 (0.66-1.25) mg/dL Estimated GFR > 60.0 ML/MIN Glucose 98 (74-106) mg/dL Calcium 9.6 (8.4-10.2) mg/dL Total Bilirubin 0.90 (0.2-1.3) mg/dL AST 29 (17-59) U/L ALT 17 (0-50) U/L Alkaline Phosphatase 63 (38-126) U/L Serum Total Protein 7.4 (6.3-8.2) g/dL Albumin 4.2 (3.5-5.0) g/dL Amylase 59 (30-110) U/L Lipase 63 (23-300) U/L Urine Color YELLOW (YELLOW) Urine Appearance CLEAR (CLEAR) Urine pH 6.0 (5-6) Ur Specific [place] 1.015 (1.005-1.025) Urine Protein NEGATIVE (Negative) Urine Ketones NEGATIVE (NEGATIVE) Urine Blood NEGATIVE (0-5) Shahram/ul Urine Nitrite NEGATIVE (NEGATIVE) Urine Bilirubin NEGATIVE (NEGATIVE) Urine Urobilinogen NEGATIVE (0-1) mg/dL Ur Leukocyte Esterase NEGATIVE (NEGATIVE) Urine WBC (Auto) NONE (0-5) /HPF Urine RBC (Auto) 0-2 (0-2) /HPF U Epithel Cells (Auto) NONE (FEW) /HPF Urine Bacteria (Auto) NONE (NEGATIVE) /HPF Urine Culture Reflexed NO (NO) Urine Glucose NEGATIVE (NEGATIVE) mg/dL 03/29/19 Range/Units 10:55 WBC 8.9 (4.0-10.5) K/mm3 RBC 4.32 (4.1-5.6) M/mm3 Hgb 14.1 (12.5-18.0) gm/dl Hct 43.7 (42-50) % MCV 101.2 H (78-100) fl MCH 32.6 H (26-32) pg MCHC 32.3 (32-36) g/dl RDW 13.1 (11.5-14.0) % Plt Count 158 (150-450) K/mm3 MPV 10.8 H (6-9.5) fl Gran % 78.7 H (36.0-66.0) % Eos # (Auto) 0.14 (0-0.5) Absolute Lymphs (auto) 0.90 L (1.0-4.6) Absolute Monos (auto) 0.82 (0.0-1.3) Lymphocytes % 10.2 L (24.0-44.0) % Monocytes % 9.3 (0.0-12.0) % Eosinophils % 1.6 (0.00-5.0) % Basophils % 0.2 (0.0-0.4) % Absolute Granulocytes 6.98 H (1.4-6.9) Basophils # 0.02 (0-0.4) PT (8.83-12.87) SECONDS INR (0.8-3.0) Sodium (137-145) mmol/L Potassium (3.5-5.1) mmol/L Chloride (98-107) mmol/L Carbon Dioxide (22-30) mmol/L Anion Gap (5-15) MEQ/L BUN (9-20) mg/dL Creatinine (0.66-1.25) mg/dL Estimated GFR ML/MIN Glucose (74-106) mg/dL Calcium (8.4-10.2) mg/dL Total Bilirubin (0.2-1.3) mg/dL AST (17-59) U/L ALT (0-50) U/L Alkaline Phosphatase (38-126) U/L Serum Total Protein (6.3-8.2) g/dL Albumin (3.5-5.0) g/dL Amylase (30-110) U/L Lipase (23-300) U/L Urine Color (YELLOW) Urine Appearance (CLEAR) Urine pH (5-6) Ur Specific [place] (1.005-1.025) Urine Protein (Negative) Urine Ketones (NEGATIVE) Urine Blood (0-5) Shahram/ul Urine Nitrite (NEGATIVE) Urine Bilirubin (NEGATIVE) Urine Urobilinogen (0-1) mg/dL Ur Leukocyte Esterase (NEGATIVE) Urine WBC (Auto) (0-5) /HPF Urine RBC (Auto) (0-2) /HPF U Epithel Cells (Auto) (FEW) /HPF Urine Bacteria (Auto) (NEGATIVE) /HPF Urine Culture Reflexed (NO) Urine Glucose (NEGATIVE) mg/dL - Progress Progress: improved Progress Note: 03/29/19 12:35 Patient feeling better but still some epigastric tenderness after IV normal saline morphine 4 mg and Zofran [address] of the abdomen remarkable for fluid distended small bowel loops with synchronous fluid leveling. L. he is to versus new enteritis. There is a new small hiatal hernia, new fecal stasis without obstruction, colonic diverticulosis right renal cyst urinary bladder diverticulum and small fatty left inguinal hernia Patient's labs essentially normal EKG no acute changes. I discussed the patient's case with Dr. Avelar he would like to place patient on observation keep him n.p.o. provide fluids pain medication and obtain surgery consult. - Departure Departure Disposition: Observation Clinical Impression: Abdominal pain Qualifiers: Abdominal location: epigastric Qualified Code(s): R10.13 - Epigastric pain Condition: Fair Critical Care Time: No Referrals: YUE AVELAR MD [Primary Care Provider] -
[2019-03-29] MEDS ORDERED: Sodium Chloride 0.9% 1000 ML 1,000 ML ONE (10:46)
[2019-03-29] MEDS ORDERED: MORPHINE SULFATE 4 MG INJ ONE (10:46)
[2019-03-29] MEDS ORDERED: Zofran 4 MG/2 ML VIAL ONE (10:46)
[2019-03-29 11:10] LABS: BASOPHIL % 0.2 % (0.0-0.4); Basophil (Absolute #) 0.02 (0-0.4); Eosinophil % 1.6 % (0.00-5.0); Eosinophil (Absolute #) 0.14 (0-0.5); Granulocyte Absolute (ANC) 6.98 (1.4-6.9); Granulocytes % 78.7 % (36.0-66.0); Hematocrit 43.7 % (42-50); Hemoglobin 14.1 gm/dl (12.5-18.0); Lymphocytes % 10.2 % (24.0-44.0); Mean Cell Volume 101.2 fl (78-100); Mean Corpuscular Hemoglobin 32.6 pg (26-32); Mean Corpuscular Hgb Concent. 32.3 g/dl (32-36); Mean Platelet Volume 10.8 fl (6-9.5); Monocyte (Absolute #) 0.82 (0.0-1.3); Monocytes % 9.3 % (0.0-12.0); Platelet Count 158 K/mm3 (150-450); Red Blood Count 4.32 M/mm3 (4.1-5.6); Red Cell Distribution Width 13.1 % (11.5-14.0); White Blood Count 8.9 K/mm3 (4.0-10.5)
[2019-03-29 11:16] LABS: INR 2.45 (0.8-3.0); PROTIME 28.7 SECONDS (8.83-12.87)
--- NOTE | 2019-03-29 11:17 | XRAY ---
Indication: Upper abdomen pain and nausea. Multiple contiguous axial images obtained through the abdomen and pelvis without contrast as ordered. Comparison: November 09, 2017. Lung bases again demonstrates bilateral calcified granulomas and dependent atelectasis, left greater than right. Heart is not enlarged. New small hiatal hernia. Noncontrasted stomach mildly distended with fluid leveling. Jejunal bowel loops again demonstrates mild fluid distention but less than before up to 3.5 cm in diameter. There is synchronous fluid leveling favoring ileus versus enteritis. Normal appendix. No free fluid/air. Mild diffuse scattered colonic fecal debris including rectum. There is mild diffuse scattered diverticulosis without diverticulitis. Stable small right renal cortical cyst and small left urinary bladder diverticulum. Remaining liver, gallbladder, pancreas, spleen, adrenal glands, kidneys, ureters, and bladder appear unremarkable for noncontrast exam. Stable heavy aortoiliac calcifications without AAA. Osseous structures again demonstrates osteopenia and old left lower rib fractures. Progressive worsening mild/moderate multilevel lumbar degenerative spondylosis. Stable small fatty left inguinal hernia. Impression: 1. Fluid distended small bowel loops with synchronous fluid leveling, ileus versus enteritis. 2. New small hiatal hernia. 3. New fecal stasis without obstruction. 4. Again incidental colonic diverticulosis, right renal cyst, urinary bladder diverticulum, and small fatty left inguinal hernia. CT DI 25.99
[2019-03-29 11:48] LABS: ALBUMIN 4.2 g/dL (3.5-5.0); ALKALINE PHOSPHATASE 63 U/L (38-126); AMYLASE 59 U/L (30-110); ANION GAP 14.2 MEQ/L (5-15); BLOOD UREA NITROGEN 20 mg/dL (9-20); CHLORIDE 100 mmol/L (98-107); Calcium 9.6 mg/dL (8.4-10.2); Carbon Dioxide 27 mmol/L (22-30); Creatinine 1 1.04 mg/dL (0.66-1.25); Glucose 98 mg/dL (74-106); LIPASE 63 U/L (23-300); Potassium 4.7 mmol/L (3.5-5.1); SGOT/AST 29 U/L (17-59); SGPT/ALT 17 U/L (0-50); SODIUM 137 mmol/L (137-145); Total Protein 7.4 g/dL (6.3-8.2)
[2019-03-29 12:07] LABS: Appearance CLEAR (CLEAR); Bilirubin NEGATIVE (NEGATIVE); Blood NEGATIVE Ery/ul (0-5); Glucose NEGATIVE (NEGATIVE); Ketones NEGATIVE (NEGATIVE); Leukocyte Esterase NEGATIVE (NEGATIVE); Nitrite NEGATIVE (NEGATIVE); Protein,Urine Dip NEGATIVE (Negative); RBC 0-2 /HPF (0-2); Specific Gravity 1.015 (1.005-1.025); Urobilinogen NEGATIVE mg/dL (0-1)
[2019-03-29] MEDS: Sodium Chloride 0.9% 1000 ML 1,000 ML IV SCH ×2 (13:45→20:57)
[2019-03-29] MEDS ORDERED: Miralax Powder 17GM PACKET PO PRN (16:01)
[2019-03-29] MEDS ORDERED: MEDICATION INTERVENTION MC SCH (16:15)
[2019-03-29] MEDS ORDERED: PROVENTIL 2.5 MG/3 ML NEB IH PRN (16:19)
[2019-03-29] MEDS: MORPHINE SULFATE 4 MG INJ IV PRN ×2 (17:06→21:11)
[2019-03-29] MEDS: Zofran 4 MG/2 ML VIAL IV PRN (17:23)
[2019-03-29] MEDS ORDERED: Coumadin 5 MG PO SCH (18:00)
[2019-03-29] MEDS: PATIENT OWN MEDICATION IH SCH (20:14)
[2019-03-29] MEDS: FLAGYL 500 MG IVPB 500 MG/100 ML BAG IV SCH (20:58)
[2019-03-29] MEDS: MEFOXIN 1 Gm/ D5W 50 Ml** 1 G/50 ML ML IV SCH (20:58)
[2019-03-29] MEDS: Toprol Xl 100 MG PO SCH (22:00)
[2019-03-29] MEDS: ZOCOR 20MG PO SCH (22:01)
[2019-03-29] MEDS: Zestril 10 MG PO SCH (22:01)
[2019-03-29] MEDS: Toprol Xl 50 MG PO SCH (22:01)
[2019-03-30] MEDS: Zofran 4 MG/2 ML VIAL IV PRN ×3 (02:20→22:29)
[2019-03-30] MEDS: MEFOXIN 1 Gm/ D5W 50 Ml** 1 G/50 ML ML IV SCH ×2 (03:24→07:40)
[2019-03-30] MEDS: FLAGYL 500 MG IVPB 500 MG/100 ML BAG IV SCH ×3 (05:02→22:23)
[2019-03-30] MEDS: MORPHINE SULFATE 4 MG INJ IV PRN ×2 (05:21→15:53)
--- NOTE | 2019-03-30 08:21 | CONS ---
CONSULT DATE: 03/29/2019 HISTORY: The patient is an 83 year-old gentleman who has past history reportedly of hernia repair per Dr. Worthington in the past. He had what sounds like chest wall reconstruction in the past as well. He had some cramping after eating some corn. He is passing flatus. He felt like he had a lot of gas. He had a CT scan show some fluid filled small bowel loops. No obvious hernia. No obvious anterior abdominal wall hernia. No free air collections. Radiologist questioned ileus versus enteritis, early partial obstruction could be in the differential but at this time he is passing flatus. PAST MEDICAL HISTORY: He had myocardial infarction in the past. He had a clot to his eye in the past. He is blind in one eye. He has been on Coumadin anticoagulation. He has a history of dysrhythmia, hyperlipidemia and hypertension. PAST SURGICAL HISTORY: Pacemaker/defibrillator. Cataract surgery. Chest wall reconstruction. Cardiac stents. Coronary artery bypass graft in the past. He had endarterectomy in the past. He had colonoscopy in the past. HOME MEDICATIONS: Albuterol, aspirin, lisinopril, metoprolol, simvastatin, Spironolactone, Tamsulosin, fluconazole, warfarin, polyethylene glycol. ALLERGIES: IV DYE IODINATED CONTRAST. FAMILY HISTORY: Negative in regards to this problem. SOCIAL HISTORY: Former smoker. No current alcohol abuse. REVIEW OF SYSTEMS: Twelve systems reviewed. No chest pain or palpitations. Again, he is passing flatus. He is feeling a little bit better. He was a little vague on details of surgical history. He did have prior hernia repair and chest wall reconstruction. I do not have the old records here. Dr. Worthington apparently did some sort of hernia repair or reconstruction on him in the past. Otherwise twelve systems reviewed negative or noncontributory as above and per preadmission questionnaire. PHYSICAL EXAMINATION: GENERAL: No acute distress. Hemodynamically stable, nontoxic. HEENT: Sclera nonicteric. NECK: No JVD. CHEST: Equal excursion, nonlabored breathing. CVS: Regular rate and rhythm. ABDOMEN: Soft. No significant tenderness on my exam. Mild distension. No rebound. No guarding. No peritoneal signs. No palpable incarcerated hernia. EXTREMITIES: No edema. NEURO: Alert, oriented. He is blind in one eye from what he said was from a clot going to his eye. A little bit limited historian. LAB DATA AND TESTS: CT scan as noted above. No free air. Question incarcerated hernia currently. His international normalized ratio is elevated being on Coumadin. He did receive a dose of Coumadin today apparently. Liver function test lipase within normal limits. White count 8.9, hemoglobin 14.1, PLT 158,000. IMPRESSION: Nontoxic 83 year-old gentleman with multiple medical problems with some fluid filled bowel loops on CT scan. It could be anything from enteritis, ileus versus early partial obstruction. Either way he has NG in position now. He reports he is passing flatus. He is nontoxic, normal white count. No need for any emergent surgical intervention. I recommend bowel rest, continue IV hydration and continue conservative management. If he fails to improve in two or three days might need to consider other intervention but at this time given his multiple medical problems will hold his Coumadin that he receives tonight and transition to Lovenox temporarily until we make sure he continues to significantly improve. If he does have enteritis could try some empiric antibiotics otherwise no emergent surgery necessary at this time, continue medical management, conservative management for now.
[2019-03-30] MEDS ORDERED: MEFOXIN 1 Gm/ D5W 50 Ml** 1 G/50 ML ML IV SCH (09:00)
[2019-03-30] MEDS: Zestril 10 MG PO SCH ×2 (09:04→21:27)
[2019-03-30] MEDS: Aldactone 25 MG PO SCH (09:04)
[2019-03-30] MEDS: PROTONIX 40 MG IV IV SCH (09:04)
[2019-03-30] MEDS: WATER IV SCH ×3 (09:57→21:22)
[2019-03-30] MEDS: DEXTROSE IV SCH ×3 (09:57→21:22)
[2019-03-30] MEDS: MEFOXIN IV SCH ×3 (09:57→21:22)
[2019-03-30] MEDS: Sodium Chloride 0.9% 1000 ML 1,000 ML IV SCH ×2 (09:58→21:22)
[2019-03-30] MEDS ORDERED: PATIENT OWN MEDICATION IH SCH (10:00)
[2019-03-30] MEDS ORDERED: ECOTRIN 81 MG PO SCH (10:00)
[2019-03-30] MEDS ORDERED: NON-FORMULARY ITEM (Fluticasone/Umeclidin/Vilanter [Trelegy Ellipta 100-62.5-25] 1 EACH) IH SCH (10:00)
--- NOTE | 2019-03-30 12:55 | PCM.HP ---
History of Present Illness - Chief Complaint Chief Complaint: ABD pain for 3 days History of Present Illness: 83-year-old white male arrives with complaint of pain in his epigastric region since last night he states he's had some nausea since this morning no vomiting. 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 August 09, 2017 Past surgical history includes CABG, cardiac catheter, cardiac stent, internal defibrillator, pacer, chest surgery - Review of Systems Constitutional: No Fever, No Chills Eyes: No Symptoms Ears, Nose, & Throat: No Symptoms Respiratory: No Cough, No Short Of Breath Cardiac: No Chest Pain, No Edema, No Syncope Abdominal/Gastrointestinal: Abdominal Pain, No Nausea, No Vomiting, No Diarrhea Genitourinary Symptoms: No Dysuria Musculoskeletal: No Back Pain, No Neck Pain Skin: No Rash Neurological: No Dizziness, No Focal Weakness, No Sensory Changes Psychological: No Symptoms Endocrine: No Symptoms Hematologic/Lymphatic: No Symptoms Immunological/Allergic: No Symptoms Medications & Allergies Home Medications: Home Medication List Albuterol 2.5 mg/3 ml Neb [Proventil 2.5 mg/3 ml Neb] 1 vial NEBULIZE Q6H 12/19/14 [History Confirmed 03/29/19] Aspirin [Aspirin EC] 81 mg PO DAILY 12/19/14 [History Confirmed 03/29/19] Lisinopril 10 mg [Zestril 10 MG] 10 mg PO BID 12/19/14 [History Confirmed 03/29/19] Metoprolol Succinate 100 mg [Toprol Xl 100 MG] 150 mg PO HS 12/19/14 [ History Confirmed 03/29/19] Simvastatin [Zocor] 20 mg PO HS 12/19/14 [History Confirmed 03/29/19] Spironolactone 25 mg [Aldactone 25 MG] 25 mg PO DAILY 12/19/14 [History Confirmed 03/29/19] Tamsulosin HCl 0.4 mg [Flomax 0.4 MG] 0.4 mg PO DAILY 12/19/14 [History Confirmed 03/29/19] Polyethylene Glycol 3350 [Clearlax] 17 gm PO DAILY PRN 10/27/18 [History Confirmed 03/29/19] Fluticasone/Umeclidin/Vilanter [Trelegy Ellipta 100-62.5-25] 1 each IH DAILY [History Confirmed 03/29/19] Warfarin Sodium 2.5 mg [Coumadin 2.5 MG] 2.5 mg PO UD 03/29/19 [History Confirmed 03/29/19] Warfarin Sodium 5 mg [Coumadin 5 MG] 5 mg PO UD 03/29/19 [History Confirmed 03/29/19] Allergies/Adverse Reactions: Allergies Allergy/AdvReac Type Severity Reaction Status Date / Time Iodinated Contrast- Oral and Allergy Verified 03/29/19 10:24 IV Dye Iodine and Iodide Containing Allergy Verified 11/08/18 10:26 Produc - Past Medical History Past Medical History: Yes Neurological History: TIA ENT History: No Pertinent History Cardiac History: Arrhythmia, High Cholesterol, Hypertension, Myocardial Infarction (NM), Other Respiratory History: Asthma, COPD Endocrine Medical History: No Pertinent History Musculoskelatal History: No Pertinent History GI Medical History: Diverticulosis, Other History: No Pertinent History Pyscho-Social History: No Pertinent History Male Reproductive Disorders: Prostate Problems Comment: had a bowel obstruction x 2. pacemaker/defibrillator. 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 - Past Surgical History Past Surgical History: Yes Neuro Surgical History: No Pertinent History Cardiac History: CABG, Cardiac Catheterization, Cardiac Stent, Internal Defibrillator, Pacemaker, Other Respiratory Surgery: Chest Surgery GI Surgical History: Hernia Repair Genitourinary Surgical Hx: No Pertinent History Musculskeletal Surgical Hx: No Pertinent History Male Surgical History: No Pertinent History Other Surgical History: colonoscopy, right cea, - Social History Smoking Status: Former smoker How long have you smoked: 40 years Exposure to second hand smoke: No Alcohol: None Drug Use: none - Physical Exam Vital Signs: Vital Signs - 24 hr Temp Pulse Resp BP Pulse Ox 03/30/19 12:13 98.4 F 73 20 120/58 93 L 03/30/19 06:56 97.8 F 69 20 116/58 96 03/30/19 06:43 68 16 94 L 03/30/19 04:00 97.5 F 72 17 142/60 96 03/30/19 00:00 97.8 F 80 19 116/58 95 03/29/19 20:14 78 18 94 L 03/29/19 20:00 97.5 F 90 14 134/53 95 03/29/19 16:36 76 18 94 L 03/29/19 16:00 98.1 F 79 18 134/58 95 03/29/19 13:35 95 03/29/19 13:04 98.2 F 77 17 157/77 98 03/29/19 13:00 98.2 F 77 17 157/67 91 L Oxygen-Last 24 hours O2 Percentage 3 Liters = 32% O2 Percentage 2 Liters = 28% O2 Percentage 2 Liters = 28% O2 Percentage 2 Liters = 28% O2 Percentage 2 Liters = 28% O2 Percentage 2 Liters = 28% Oxygen Flowrate (L/min)-RT 2 General Appearance: no apparent distress, alert Neurologic Exam: alert, oriented x 3, cooperative, normal mood/affect, nml cerebellar function, nml station & gait, sensation nml, No motor deficits Eye Exam: PERRL/EOMI, eyes nml inspection Ears, Nose, Throat Exam: normal ENT inspection, TMs normal, pharynx normal, moist mucous membranes Neck Exam: normal inspection, non-tender, supple, full range of motion Respiratory Exam: normal breath sounds, lungs clear, No respiratory distress Cardiovascular Exam: regular rate/rhythm, normal heart sounds, normal peripheral pulses Gastrointestinal/Abdomen Exam: soft, normal bowel sounds, No tenderness, No mass Back Exam: normal inspection, normal range of motion, No CVA tenderness, No vertebral tenderness Extremity Exam: normal inspection, normal range of motion, pelvis stable Skin Exam: normal color, warm, dry, No rash Lymphatic Exam: No adenopathy Results - Labs Lab/Micro Results: Lab Results-Last 24 Hours 03/30/19 Range/Units 07:37 Troponin I < 0.012 (0.000-0.034) ng/mL - Radiology Impressions Radiology Exams & Impressions: Radiology Procedures Category Date Time Status ABDOMEN AND PELVIS W/0 CONTRAS [CT] Stat Exams 03/29/19 10:30 Completed - Other Procedures and Tests Respiratory Therapy 03/29/19 16:12 Oxygen NASAL CANNULA 2 lpm 03/30/19 07:00 Respiratory Therapy Assessment DAILY Assessment/Plan (1) Adynamic ileus Current Visit: Yes Status: Acute Assessment & Plan: Chief Complaint Diagnosis ABD pain Allergies Allergy/AdvReac Type Severity Reaction Status Date / Time Iodinated Contrast- Oral and Allergy Verified 03/29/19 10:24 IV Dye Iodine and Iodide Containing Allergy Verified 11/08/18 10:26 Produc Vital Signs (Last 24 hours) Temp Pulse Resp BP Pulse Ox 03/30/19 12:13 98.4 F 73 20 120/58 93 L 03/30/19 06:56 97.8 F 69 20 116/58 96 03/30/19 06:43 68 16 94 L 03/30/19 04:00 97.5 F 72 17 142/60 96 03/30/19 00:00 97.8 F 80 19 116/58 95 03/29/19 20:14 78 18 94 L 03/29/19 20:00 97.5 F 90 14 134/53 95 03/29/19 16:36 76 18 94 L 03/29/19 16:00 98.1 F 79 18 134/58 95 03/29/19 13:35 95 03/29/19 13:04 98.2 F 77 17 157/77 98 03/29/19 13:00 98.2 F 77 17 157/67 91 L Home Medications Medication Instructions Recorded Confirmed Last Taken Type Fluticasone/Umeclidin/Vilanter 1 each IH DAILY 03/29/19 03/29/19 03/28/19 History [Trelegy Ellipta 100-62.5-25] Warfarin Sodium 2.5 mg 2.5 mg PO UD 03/29/19 03/29/19 03/28/19 17:00 History [Coumadin 2.5 MG] Warfarin Sodium 5 mg [Coumadin 5 mg PO UD 03/29/19 03/29/19 03/28/19 History 5 MG] Current Medications Generic Name Dose Route Start Last Admin Trade Name Freq PRN Reason Stop Dose Admin Albuterol Sulfate 2.5 mg 03/29/19 19:00 Proventil 2.5 Mg/3 Ml Neb 04/28/19 18:59 Q6HRT HARJINDER Albuterol Sulfate 2.5 mg 03/29/19 16:19 Proventil 2.5 Mg/3 Ml Neb IH 04/28/19 16:18 Q4HPRN PRN SHORTNESS OF BREATH Enoxaparin Sodium 30 mg 03/30/19 14:00 Enoxaparin Sodium SQ 04/29/19 13:59 DAILY HARJINDER Sodium Chloride 1,000 mls @ 100 mls/hr 03/29/19 13:01 03/30/19 09:58 Sodium Chloride 0.9% 1000 Ml IV 04/28/19 13:00 100 mls/hr .Q10H HARJINDER Administration Metronidazole 500 mg in 100 mls @ 200 mls/hr 03/30/19 14:00 Flagyl 500 Mg Ivpb IV 04/29/19 13:59 Q8HT HARJINDER Cefoxitin Sodium 1 gm/ 50 mls @ 100 mls/hr 03/30/19 10:00 03/30/19 09:57 Dextrose IV 04/29/19 09:59 100 mls/hr Q6H HARJINDER Administration Lisinopril 10 mg 03/29/19 22:00 03/30/19 09:04 Zestril 10 Mg PO 04/28/19 21:59 10 mg BID HARJINDER Administration Metoprolol Succinate 100 mg 03/29/19 22:00 03/29/19 22:00 Toprol Xl 100 Mg PO 04/28/19 21:59 100 mg HS HARJINDER Administration Metoprolol Succinate 50 mg 03/29/19 22:00 03/29/19 22:01 Toprol Xl 50 Mg PO 04/28/19 21:59 50 mg HS HARJINDER Administration Morphine Sulfate 4 mg 03/29/19 13:01 03/30/19 05:21 Morphine Sulfate 4 Mg Inj IV 04/03/19 13:00 4 mg Q4H PRN PRN Administration PAIN Ondansetron HCl 4 mg 03/29/19 13:01 03/30/19 10:29 Zofran 4 Mg/2 Ml Vial IV 04/28/19 13:00 4 mg Q6H PRN PRN Administration NAUSEA/VOMITING Pantoprazole Sodium 40 mg 03/30/19 10:00 03/30/19 09:04 Protonix 40 Mg Iv IV 04/29/19 09:59 40 mg Q24H10 HARJINDER Administration Trelegy Ellipta 1 each 03/29/19 17:00 03/29/19 20:14 Inhaler IH 04/28/19 16:59 1 each DAILY HARJINDER Administration Polyethylene Glycol 17 gm 03/29/19 16:01 Miralax Powder 17gm Packet PO 04/28/19 16:00 DAILY PRN PRN CONSTIPATION Simvastatin 20 mg 03/29/19 22:00 03/29/19 22:01 Zocor 20mg PO 04/28/19 21:59 20 mg HS HARJINDER Administration Spironolactone 25 mg 03/30/19 10:00 03/30/19 09:04 Aldactone 25 Mg PO 04/29/19 09:59 25 mg DAILY HARJINDER Administration Tamsulosin HCl 0.4 mg 03/30/19 17:00 Flomax 0.4 Mg PO 04/29/19 16:59 DAILY HARJINDER Discontinued Medications Generic Name Dose Route Start Last Admin Trade Name Freq PRN Reason Stop Dose Admin Aspirin 81 mg 03/30/19 10:00 03/30/19 11:14 Ecotrin 81 Mg PO 04/29/19 09:59 Not Given DAILY HARJINDER Sodium Chloride 1,000 mls @ 100 mls/hr 03/29/19 10:30 03/29/19 10:59 Sodium Chloride 0.9% 1000 Ml IV 04/28/19 10:29 100 mls/hr .Q10H HARJINDER Administration Sodium Chloride Confirm 03/29/19 10:46 Sodium Chloride 0.9% 1000 Ml Administered 03/29/19 10:47 Dose 1,000 mls @ ud .ROUTE .STK-MED ONE Cefoxitin Sodium 1 g in 50 mls @ 100 mls/hr 03/29/19 20:42 03/30/19 07:40 Mefoxin 1 Gm/ D5w 50 Ml IV 04/28/19 20:41 Not Given Q6HT HARJINDER Metronidazole 500 mg in 100 mls @ 200 mls/hr 03/29/19 20:45 03/30/19 05:02 Flagyl 500 Mg Ivpb IV 04/28/19 20:44 200 mls/hr Q8H HARJINDER Administration Cefoxitin Sodium 1 g in 50 mls @ 100 mls/hr 03/30/19 09:00 03/30/19 10:10 Mefoxin 1 Gm/ D5w 50 Ml IV 04/29/19 08:59 Not Given Q6H [facility] Miscellaneous Information 1 each 03/29/19 16:15 Medication Intervention 04/28/19 16:14 .RT TO CHECK ON HARJINDER Morphine Sulfate 4 mg 03/29/19 10:30 03/29/19 10:59 Morphine Sulfate 4 Mg Inj IV 03/29/19 10:31 4 mg STAT ONE Administration Morphine Sulfate Confirm 03/29/19 10:46 Morphine Sulfate 4 Mg Inj Administered 03/29/19 10:47 Dose 4 mg .ROUTE .STK-MED ONE Ondansetron HCl 4 mg 03/29/19 10:30 03/29/19 10:59 Zofran 4 Mg/2 Ml Vial IV 03/29/19 10:31 4 mg STAT ONE Administration Ondansetron HCl Confirm 03/29/19 10:46 Zofran 4 Mg/2 Ml Vial Administered 03/29/19 10:47 Dose 4 mg .ROUTE .STK-MED ONE Warfarin Sodium 2.5 mg 03/30/19 18:00 Coumadin 2.5 Mg PO 04/29/19 17:59 MoWe [facility] Warfarin Sodium 5 mg 03/29/19 18:00 03/29/19 17:02 Coumadin 5 Mg PO 04/28/19 17:59 5 mg SuTuThFrSa [facility] Administration Intake & Output (Last 24 hours) 03/28/19 03/29/19 03/30/19 03/31/19 11:59 11:59 11:59 11:59 Intake Total 1920 Output Total 1445 Balance 475 Weight 89.811 kg 88 kg Laboratory Results (Last 24 hours) 03/30/19 07:37 Troponin I < 0.012 Orders (Last 24 hours) Category Date Time Status Bedrest with BRP/BSC ROUTINE Activity 03/29/19 13:01 Active Up in Chair BID Activity 03/30/19 12:54 Active Call Admit Doctor for Orders ON ADMISSION Care 03/29/19 13:01 Active Code Status Order ROUTINE Care 03/29/19 13:01 Active IV Care Q6H Care 03/29/19 13:01 Active Ice Chips Only TOLERATED Care 03/30/19 12:52 Active Telemetry q6h Care 03/29/19 13:01 Active Weight,Daily 0600 Care 03/29/19 13:01 Active Consult Surgery ROUTINE Cons 03/29/19 13:01 Completed Linotypist/Discharge Plan ROUTINE Cons 03/29/19 13:42 Active NPO except Meds Diet 03/30/19 07:34 Active Nutritional Admission Screen Diet 03/29/19 13:42 Active TROPONIN Stat Lab 03/30/19 07:37 Completed Albuterol 2.5 mg/3 ml Neb [Proventil 2.5 mg/3 ml Neb Med 03/29/19 16:19 Active ] 2.5 mg IH Q4HPRN PRN Albuterol 2.5 mg/3 ml Neb [Proventil 2.5 mg/3 ml Neb Med 03/29/19 19:00 Active ] 2.5 mg IH Q6HRT Aspirin EC 81 mg [Ecotrin 81 mg] Med 03/30/19 10:00 Discontinued 81 mg PO DAILY Cefoxitin Sodium 1 gm/50 ml [MEFOXIN 1 Gm/ D5W 50 Ml* Med 03/30/19 09:00 Discontinued *] 1 g in 50 ml IV Q6H Cefoxitin Sodium 1 gm/50 ml [MEFOXIN 1 Gm/ D5W 50 Ml* Med 03/29/19 20:42 Discontinued *] 1 g in 50 ml IV Q6HT Cefoxitin Sodium 2 gm [Mefoxin 2 gm] 1 gm Med 03/30/19 10:00 Active D5w 50 ml [Dextrose 5%/Water IV Soln. 50 ML] 50 ml IV Q6H Enoxaparin Sodium [Enoxaparin Sodium] Med 03/30/19 14:00 Ordered 30 mg SQ DAILY Lisinopril 10 mg [Zestril 10 MG] Med 03/29/19 22:00 Active 10 mg PO BID Medication Intervention Med 03/29/19 16:15 Discontinued 1 each MC .RT TO CHECK ON Metoprolol Succinate 100 mg [Toprol Xl 100 MG] Med 03/29/19 22:00 Active 100 mg PO HS Metoprolol Succinate 50 mg [Toprol Xl 50 MG] Med 03/29/19 22:00 Active 50 mg PO HS Metronidazole 500 mg Premix [Flagyl 500 mg Ivpb] Med 03/29/19 20:45 Discontinued 500 mg in 100 ml IV Q8H Metronidazole 500 mg Premix [Flagyl 500 mg Ivpb] Med 03/30/19 14:00 Active 500 mg in 100 ml IV Q8HT Morphine Sulfate 4 mg Inj Med 03/29/19 13:01 Active 4 mg IV Q4H PRN PRN NaCl 0.9% 1000 ml [Sodium Chloride 0.9% 1000 ML] 1,000 Med 03/29/19 13:01 Active ml IV 100 mls/hr Ondansetron HCl 4 mg/2 ml [Zofran 4 MG/2 ML VIAL] Med 03/29/19 13:01 Active 4 mg IV Q6H PRN PRN Pantoprazole 40 mg [Protonix 40 mg IV] Med 03/30/19 10:00 Active 40 mg IV Q24H10 Patient Own Med [Patient Own Medication] Med 03/29/19 17:00 Active 1 each IH DAILY Polyethylene Glycol 3350 17 gm [Miralax Powder 17GM Med 03/29/19 16:01 Active PACKET] 17 gm PO DAILY PRN PRN Simvastatin 20Mg [Zocor 20Mg] Med 03/29/19 22:00 Active 20 mg PO HS Spironolactone 25 mg [Aldactone 25 MG] Med 03/30/19 10:00 Active 25 mg PO DAILY Tamsulosin HCl 0.4 mg [Flomax 0.4 MG] Med 03/30/19 17:00 Active 0.4 mg PO DAILY Warfarin Sodium 2.5 mg [Coumadin 2.5 MG] Med 03/30/19 18:00 Discontinued 2.5 mg PO MoWe Warfarin Sodium 5 mg [Coumadin 5 MG] Med 03/29/19 18:00 Discontinued 5 mg PO SuTuThFrSa EKG STAT RT 03/30/19 07:26 Completed Oxygen NASAL CANNULA 2 lpm RT 03/29/19 16:12 Active Pulse Oximetry CONTINUOUS RT 03/29/19 13:01 Active RT Screen per Nursing Assess ONCE RT 03/29/19 13:42 Completed Respiratory Therapy Assessment DAILY RT 03/30/19 07:00 Active Patient Care Notes (Last 24 hours) 03/30/19 12:06 Nursing Note by CARLENE VELAZQUEZ DR. CALLED AND NOTIFIED OF PT'S COMPLAINT OF CHEST/EPIGASTRIC PAIN. REPORTED EKG AND TROPONIN BOTH NEGATIVE. NEW ORDER RECEIVED FOR PROTONIX IV. Addendum entered by CARLENE VELAZQUEZ 03/30/19 12:09: CALLED AT 0930. Initialized on 03/30/19 12:06 - END OF NOTE 03/29/19 20:50 (created 03/30/19 06:18) Nursing Note by Rohith Childers 2015 Dr Corona muniz, he questioned pts blood thinners, would like the Coumadin to be held temp, orders on chart entered Initialized on 03/30/19 06:18 - END OF NOTE 03/29/19 17:37 Nursing Note by Maggie Goldsmith Pt. C/o intermittent ABD pain and nausea. Given PRN Morphine and Zofran per MD order. Pt. Tolerated well. NG continues with LIS. Pt tolerating well Initialized on 03/29/19 17:37 - END OF NOTE 03/29/19 15:44 Nursing Note by Maggie Goldsmith O2 weaned and oxygen sats 93% at this time. Pt. denies SOB. RT notified of RA status. Initialized on 03/29/19 15:44 - END OF NOTE 03/29/19 14:50 Nursing Note by Maggie Goldsmith Called and spoke to Dr Godinez. Reviewed home medicationsU and resumed all medications at this time. Updated Dr Godinez on the new order for NG Tube, LIS. Initialized on 03/29/19 14:50 - END OF NOTE 03/29/19 14:00 (created 03/29/19 14:52) Nursing Note by Maggie Goldsmith Rec'd order from Dr Ugarte office to anchor NG tube, LIS. Patient updated and informed of new orders. Pt remains NPO at this time. Initialized on 03/29/19 14:52 - END OF NOTE Code(s): K56.0 - PARALYTIC ILEUS
[2019-03-30] MEDS: ENOXAPARIN SODIUM SQ SCH (14:03)
[2019-03-30] MEDS: PATIENT OWN MEDICATION IH SCH ×2 (14:57→21:13)
[2019-03-30] MEDS: Flomax 0.4 MG PO SCH (17:41)
[2019-03-30] MEDS ORDERED: Coumadin 2.5 MG PO SCH (18:00)
[2019-03-30] MEDS: Toprol Xl 100 MG PO SCH (21:27)
[2019-03-30] MEDS: ZOCOR 20MG PO SCH (21:27)
[2019-03-30] MEDS: Toprol Xl 50 MG PO SCH (21:27)
[2019-03-31] MEDS: MORPHINE SULFATE 4 MG INJ IV PRN (02:23)
[2019-03-31] MEDS: DEXTROSE IV SCH ×4 (04:29→21:21)
[2019-03-31] MEDS: WATER IV SCH ×4 (04:29→21:21)
[2019-03-31] MEDS: MEFOXIN IV SCH ×4 (04:29→21:21)
[2019-03-31 05:41] LABS: Hematocrit 36.6 % (42-50); Hemoglobin 11.6 gm/dl (12.5-18.0); Mean Cell Volume 104.3 fl (78-100); Mean Corpuscular Hgb Concent. 31.7 g/dl (32-36); Mean Platelet Volume 10.1 fl (6-9.5); Platelet Count 111 K/mm3 (150-450); Red Blood Count 3.51 M/mm3 (4.1-5.6); White Blood Count 6.4 K/mm3 (4.0-10.5)
[2019-03-31] MEDS: FLAGYL 500 MG IVPB 500 MG/100 ML BAG IV SCH ×3 (05:52→21:21)
[2019-03-31 09:08] LABS: ANION GAP 15.7 MEQ/L (5-15); BLOOD UREA NITROGEN 21 mg/dL (9-20); CHLORIDE 104 mmol/L (98-107); Calcium 8.1 mg/dL (8.4-10.2); Carbon Dioxide 20 mmol/L (22-30); Creatinine 1 1.06 mg/dL (0.66-1.25); Glucose 82 mg/dL (74-106); SODIUM 136 mmol/L (137-145)
--- NOTE | 2019-03-31 09:13 | XRAY ---
Indication: Abdomen pain. Comparison: CT abdomen/pelvis March 29, 2019. 2 views of the abdomen demonstrates new NG tube tip in the stomach. There is again mild diffuse scattered colonic fecal debris without focal bowel dilatation, obstruction, or free air. Solid organs unremarkable. Again extensive scattered vascular calcifications. Osseous structures intact again with mild osteopenia and degenerative changes throughout the spine. Lung bases clear again with incidental calcified granulomas and blunting of left costophrenic angle. Impression: 1. New NG tube tip in the stomach. 2. Again mild diffuse fecal stasis and scattered arteriosclerotic disease.
[2019-03-31] MEDS: Aldactone 25 MG PO SCH (09:30)
[2019-03-31] MEDS: ENOXAPARIN SODIUM SQ SCH (09:30)
[2019-03-31] MEDS: Zestril 10 MG PO SCH ×2 (09:31→21:21)
[2019-03-31] MEDS: Flomax 0.4 MG PO SCH (09:31)
[2019-03-31] MEDS: PROTONIX 40 MG IV IV SCH (09:31)
--- NOTE | 2019-03-31 11:59 | PCM.NOTE ---
Date and Time: 03/31/19 1159 Subjective Assessment: doing ok - Review of Systems Constitutional: No Fever, No Chills Eyes: No Symptoms Ears, Nose, & Throat: No Symptoms Respiratory: No Cough, No Short Of Breath Cardiac: No Chest Pain, No Edema, No Syncope Abdominal/Gastrointestinal: No Abdominal Pain, No Nausea, No Vomiting, No Diarrhea Genitourinary Symptoms: No Dysuria Musculoskeletal: No Back Pain, No Neck Pain Skin: No Rash Neurological: No Dizziness, No Focal Weakness, No Sensory Changes Psychological: No Symptoms Endocrine: No Symptoms Hematologic/Lymphatic: No Symptoms Immunological/Allergic: No Symptoms Objective Exam General Appearance: no apparent distress, alert Neurologic Exam: alert, oriented x 3, cooperative, normal mood/affect, nml cerebellar function, sensation nml, No motor deficits Skin Exam: normal color, warm, dry Eye Exam: PERRL, EOMI, eyes nml inspection Ears, Nose, Throat Exam: normal ENT inspection, pharynx normal, moist mucous membranes Neck Exam: normal inspection, non-tender, supple, full range of motion Respiratory Exam: normal breath sounds, lungs clear, No respiratory distress Cardiovascular Exam: regular rate/rhythm, normal heart sounds Gastrointestinal/Abdomen Exam: soft, No tenderness, No mass Extremity Exam: normal inspection, normal range of motion Back Exam: normal inspection, normal range of motion, No CVA tenderness, No vertebral tenderness Male Genitalia Exam: deferred Rectal Exam: deferred OBJECTIVE DATA Vital Signs: Vital Signs - 24 hr Temp Pulse Resp BP Pulse Ox 03/31/19 11:29 98.2 F 75 18 117/56 94 L 03/31/19 07:14 98.4 F 79 19 100/55 93 L 03/31/19 07:05 72 18 93 L 03/31/19 04:17 98.2 F 76 20 98/47 93 L 03/31/19 00:00 98.0 F 77 18 104/56 95 03/30/19 21:14 80 16 96 03/30/19 19:59 99.2 F 78 16 138/60 90 L 03/30/19 16:14 98.2 F 79 20 109/53 95 03/30/19 12:13 98.4 F 73 20 120/58 93 L Oxygen-Last 24 hours O2 Percentage 4 Liters = 36% O2 Percentage 4 Liters = 36% O2 Percentage 4 Liters = 36% O2 Percentage 4 Liters = 36% O2 Percentage 3 Liters = 32% O2 Percentage 3 Liters = 32% O2 Percentage 3 Liters = 32% Pain Assessment - Last Documented Pain Intensity 2 Pain Scale Used 0-10 Pain Scale Intake and Output: Intake & Output 03/28/19 03/29/19 03/30/19 03/31/19 11:59 11:59 11:59 11:59 Intake Total 1920 2795 Output Total 1445 1300 Balance 475 1495 Weight 89.811 kg 88 kg 87 kg Lab Results: Lab Results-Last 24 Hours 03/31/19 03/31/19 Range/Units 05:30 05:30 WBC 6.4 (4.0-10.5) K/mm3 RBC 3.51 L (4.1-5.6) M/mm3 Hgb 11.6 L (12.5-18.0) gm/dl Hct 36.6 L (42-50) % MCV 104.3 H (78-100) fl MCH 33.0 H (26-32) pg MCHC 31.7 L (32-36) g/dl RDW 13.0 (11.5-14.0) % Plt Count 111 L (150-450) K/mm3 MPV 10.1 H (6-9.5) fl Sodium 136 L (137-145) mmol/L Potassium 4.0 (3.5-5.1) mmol/L Chloride 104 (98-107) mmol/L Carbon Dioxide 20 L (22-30) mmol/L Anion Gap 15.7 H (5-15) MEQ/L BUN 21 H (9-20) mg/dL Creatinine 1.06 (0.66-1.25) mg/dL Estimated GFR > 60.0 ML/MIN Glucose 82 (74-106) mg/dL Calcium 8.1 L D (8.4-10.2) mg/dL Radiology Exams: Radiology Procedures Category Date Time Status ABDOMEN 2 VIEW Routine Exams 03/31/19 08:00 Completed Multi-Disciplinary Progress Notes: Multi-Disciplinary Progress Notes 03/30/19 12:55 (created 03/30/19 13:11) Case Management Note by Nahed Moya DR. ROUNDED AND EVALUATED, DISCUSSED DX AND TREATMENT OF PARALYTIC ILEUS WITH PT AND FAMILY. ALL QUESTIONS WERE ANSWERED BY DR. AVELAR, FAMILY VERBALIZED UNDERSTANDING AND ABLE TO REPEAT INFORMATION BACK. NO ADDNL NEEDS IDENTIFIED AT PRESENT TIME. PT IS PLANNING TO RETURN HOME WITH TO PRE EPISODIC LEVEL OF FNX, NORMALLY INDEPENDENT WITH ALL ADL'S. Initialized on 03/30/19 13:11 - END OF NOTE Assessment/Plan (1) Adynamic ileus Current Visit: Yes Status: Acute Code(s): K56.0 - PARALYTIC ILEUS
[2019-03-31] MEDS: Sodium Chloride 0.9% 1000 ML 1,000 ML IV SCH (12:33)
[2019-03-31] MEDS: PATIENT OWN MEDICATION IH SCH (19:51)
[2019-03-31] MEDS: Toprol Xl 100 MG PO SCH (21:21)
[2019-03-31] MEDS: Toprol Xl 50 MG PO SCH (21:21)
[2019-03-31] MEDS: ZOCOR 20MG PO SCH (21:21)
[2019-04-01] MEDS: Sodium Chloride 0.9% 1000 ML 1,000 ML IV SCH (00:13)
[2019-04-01] MEDS: DEXTROSE IV SCH (04:22)
[2019-04-01] MEDS: MEFOXIN IV SCH (04:22)
[2019-04-01] MEDS: WATER IV SCH (04:22)
[2019-04-01] MEDS: PROVENTIL 2.5 MG/3 ML NEB IH SCH ×2 (06:08→06:09)
[2019-04-01] MEDS: FLAGYL 500 MG IVPB 500 MG/100 ML BAG IV SCH (06:46)
[2019-04-01] MEDS: Aldactone 25 MG PO SCH (09:38)
[2019-04-01] MEDS: Zestril 10 MG PO SCH (09:38)
[2019-04-01] MEDS: Flomax 0.4 MG PO SCH (09:38)
[2019-04-01] MEDS: PROTONIX 40 MG IV IV SCH (09:40)
[2019-04-01] MEDS: ENOXAPARIN SODIUM SQ SCH (09:43)
--- NOTE | 2019-04-01 12:46 | PCM.DS ---
Discharge Summary Date of Admission: 03/29/19 20:15 Admitting Physician: YUE AVELAR Consults: Consults on Case 03/29/19 13:01 Consult Surgery ROUTINE Primary Care Provider: YUE AVELAR Allergies Allergies Iodinated Contrast- Oral and IV Dye Allergy (Verified 03/29/19 10:24) Iodine and Iodide Containing Produc Allergy (Verified 11/08/18 10:26) Hospital Summary - Hospital Course Hospital Course: Last Vital Signs Temp 97.9 F 04/01/19 07:42 Pulse 71 04/01/19 07:42 Resp 16 04/01/19 07:42 BP 100/54 04/01/19 07:42 Pulse Ox 91 L 04/01/19 07:42 Allergies Iodinated Contrast- Oral and IV Dye Allergy (Verified 03/29/19 10:24) Iodine and Iodide Containing Produc Allergy (Verified 11/08/18 10:26) Active Medications Albuterol Sulfate (Proventil 2.5 Mg/3 Ml Neb) 2.5 mg IH Q6HRT HARJINDER Stop: 04/28/19 18:59 Last Admin: 04/01/19 06:09 Dose: Not Given Albuterol Sulfate (Proventil 2.5 Mg/3 Ml Neb) 2.5 mg IH Q4HPRN PRN PRN Reason: SHORTNESS OF BREATH Stop: 04/28/19 16:18 Enoxaparin Sodium (Enoxaparin Sodium) 30 mg SQ DAILY [facility] Stop: 04/29/19 13:59 Last Admin: 04/01/19 09:43 Dose: 30 mg Sodium Chloride (Sodium Chloride 0.9% 1000 Ml) 1,000 mls @ 100 mls/hr IV .Q10H HARJINDER Stop: 04/28/19 13:00 Last Admin: 04/01/19 00:13 Dose: 100 mls/hr Metronidazole (Flagyl 500 Mg Ivpb) 500 mg in 100 mls @ 200 mls/hr IV Q8HT HARJINDER Stop: 04/29/19 13:59 Last Admin: 04/01/19 06:46 Dose: 200 mls/hr Cefoxitin Sodium 1 gm/ (Dextrose) 50 mls @ 100 mls/hr IV Q6H HARJINDER Stop: 04/29/19 09:59 Last Admin: 04/01/19 04:22 Dose: 100 mls/hr Lisinopril (Zestril 10 Mg) 10 mg PO BID [facility] Stop: 04/28/19 21:59 Last Admin: 04/01/19 09:38 Dose: 10 mg Metoprolol Succinate (Toprol Xl 100 Mg) 100 mg PO HS [facility] Stop: 04/28/19 21:59 Last Admin: 03/31/19 21:21 Dose: 100 mg Metoprolol Succinate (Toprol Xl 50 Mg) 50 mg PO HS [facility] Stop: 04/28/19 21:59 Last Admin: 03/31/19 21:21 Dose: 50 mg Morphine Sulfate (Morphine Sulfate 4 Mg Inj) 4 mg IV Q4H PRN PRN PRN Reason: PAIN Stop: 04/03/19 13:00 Last Admin: 03/31/19 02:23 Dose: 4 mg Ondansetron HCl (Zofran 4 Mg/2 Ml Vial) 4 mg IV Q6H PRN PRN PRN Reason: NAUSEA/VOMITING Stop: 04/28/19 13:00 Last Admin: 03/30/19 22:29 Dose: 4 mg Pantoprazole Sodium (Protonix 40 Mg Iv) 40 mg IV Q24H10 [facility] Stop: 04/29/19 09:59 Last Admin: 04/01/19 09:40 Dose: 40 mg Trelegy Ellipta (Inhaler) 1 each IH 1700 [facility] Stop: 04/29/19 16:59 Last Admin: 03/31/19 19:51 Dose: 1 each Polyethylene Glycol (Miralax Powder 17gm Packet) 17 gm PO DAILY PRN PRN PRN Reason: CONSTIPATION Stop: 04/28/19 16:00 Simvastatin (Zocor 20mg) [address] [facility] Stop: 04/28/19 21:59 Last Admin: 03/31/19 21:21 Dose: 20 mg Spironolactone (Aldactone 25 Mg) 25 mg PO DAILY [facility] Stop: 04/29/19 09:59 Last Admin: 04/01/19 09:38 Dose: 25 mg Tamsulosin HCl (Flomax 0.4 Mg) 0.4 mg PO DAILY [facility] Stop: 04/29/19 16:59 Last Admin: 04/01/19 09:38 Dose: 0.4 mg Intake & Output 04/01/19 04/02/19 11:59 11:59 Intake Total 2216 Output Total 2200 Balance 16 Weight 87.6 kg Orders 04/01/19 Lunch Regular Diet Chief Complaint Diagnosis PARALYTIC ILEUS Allergies Allergy/AdvReac Type Severity Reaction Status Date / Time Iodinated Contrast- Oral and Allergy Verified 03/29/19 10:24 IV Dye Iodine and Iodide Containing Allergy Verified 11/08/18 10:26 Produc Vital Signs (Last 24 hours) Temp Pulse Resp BP Pulse Ox 04/01/19 07:42 97.9 F 71 16 100/54 91 L 04/01/19 04:15 98.6 F 72 16 112/58 95 04/01/19 00:00 97.9 F 79 18 101/53 94 L 03/31/19 20:00 98.7 F 80 18 93/47 97 03/31/19 19:54 80 18 97 03/31/19 16:00 98.2 F 75 18 117/56 94 L Home Medications Medication Instructions Recorded Confirmed Last Taken Type Fluticasone/Umeclidin/Vilanter 1 each IH DAILY 03/29/19 03/29/19 03/28/19 History [Trelegy Ellipta 100-62.5-25] Warfarin Sodium 2.5 mg 2.5 mg PO UD 03/29/19 03/29/19 03/28/19 17:00 History [Coumadin 2.5 MG] Warfarin Sodium 5 mg [Coumadin 5 mg PO UD 03/29/19 03/29/19 03/28/19 History 5 MG] Current Medications Generic Name Dose Route Start Last Admin Trade Name Freq PRN Reason Stop Dose Admin Albuterol Sulfate 2.5 mg 03/29/19 19:00 04/01/19 06:09 Proventil 2.5 Mg/3 Ml Neb IH 04/28/19 18:59 Not Given Q6HRT HARJINDER Albuterol Sulfate 2.5 mg 03/29/19 16:19 Proventil 2.5 Mg/3 Ml Neb IH 04/28/19 16:18 Q4HPRN PRN SHORTNESS OF BREATH Enoxaparin Sodium 30 mg 03/30/19 14:00 04/01/19 09:43 Enoxaparin Sodium SQ 04/29/19 13:59 30 mg DAILY [facility]JINDER Administration Sodium Chloride 1,000 mls @ 100 mls/hr 03/29/19 13:01 04/01/19 00:13 Sodium Chloride 0.9% 1000 Ml IV 04/28/19 13:00 100 mls/hr .Q10H HARJINDER Administration Metronidazole 500 mg in 100 mls @ 200 mls/hr 03/30/19 14:00 04/01/19 06:46 Flagyl 500 Mg Ivpb IV 04/29/19 13:59 200 mls/hr Q8HT HARJINDER Administration Cefoxitin Sodium 1 gm/ 50 mls @ 100 mls/hr 03/30/19 10:00 04/01/19 04:22 Dextrose IV 04/29/19 09:59 100 mls/hr Q6H HARJINDER Administration Lisinopril 10 mg 03/29/19 22:00 04/01/19 09:38 Zestril 10 Mg PO 04/28/19 21:59 10 mg BID HARJINDER Administration Metoprolol Succinate 100 mg 03/29/19 22:00 03/31/19 21:21 Toprol Xl 100 Mg PO 04/28/19 21:59 100 mg HS HARJINDER Administration Metoprolol Succinate 50 mg 03/29/19 22:00 03/31/19 21:21 Toprol Xl 50 Mg PO 04/28/19 21:59 50 mg HS HARJINDER Administration Morphine Sulfate 4 mg 03/29/19 13:01 03/31/19 02:23 Morphine Sulfate 4 Mg Inj IV 04/03/19 13:00 4 mg Q4H PRN PRN Administration PAIN Ondansetron HCl 4 mg 03/29/19 13:01 03/30/19 22:29 Zofran 4 Mg/2 Ml Vial IV 04/28/19 13:00 4 mg Q6H PRN PRN Administration NAUSEA/VOMITING Pantoprazole Sodium 40 mg 03/30/19 10:00 04/01/19 09:40 Protonix 40 Mg Iv IV 04/29/19 09:59 40 mg Q24H10 [facility]JINDER Administration Trelegy Ellipta 1 each 03/30/19 17:00 03/31/19 19:51 Inhaler IH 04/29/19 16:59 1 each 1700 [facility] Administration Polyethylene Glycol 17 gm 03/29/19 16:01 Miralax Powder 17gm Packet PO 04/28/19 16:00 DAILY PRN PRN CONSTIPATION Simvastatin 20 mg 03/29/19 22:00 03/31/19 21:21 Zocor 20mg PO 04/28/19 21:59 20 mg HS HARJINDER Administration Spironolactone 25 mg 03/30/19 10:00 04/01/19 09:38 Aldactone 25 Mg PO 04/29/19 09:59 25 mg DAILY [facility] Administration Tamsulosin HCl 0.4 mg 03/30/19 17:00 04/01/19 09:38 Flomax 0.4 Mg PO 04/29/19 16:59 0.4 mg DAILY [facility] Administration Discontinued Medications Generic Name Dose Route Start Last Admin Trade Name Freq PRN Reason Stop Dose Admin Aspirin 81 mg 03/30/19 10:00 03/30/19 11:14 Ecotrin 81 Mg PO 04/29/19 09:59 Not Given DAILY [facility] Sodium Chloride 1,000 mls @ 100 mls/hr 03/29/19 10:30 03/29/19 10:59 Sodium Chloride 0.9% 1000 Ml IV 04/28/19 10:29 100 mls/hr .Q10H HARJINDER Administration Sodium Chloride Confirm 03/29/19 10:46 Sodium Chloride 0.9% 1000 Ml Administered 03/29/19 10:47 Dose 1,000 mls @ ud .ROUTE .STK-MED ONE Cefoxitin Sodium 1 g in 50 mls @ 100 mls/hr 03/29/19 20:42 03/30/19 07:40 Mefoxin 1 Gm/ D5w 50 Ml IV 04/28/19 20:41 Not Given Q6HT HARJINDER Metronidazole 500 mg in 100 mls @ 200 mls/hr 03/29/19 20:45 03/30/19 05:02 Flagyl 500 Mg Ivpb IV 04/28/19 20:44 200 mls/hr Q8H HARJINDER Administration Cefoxitin Sodium 1 g in 50 mls @ 100 mls/hr 03/30/19 09:00 03/30/19 10:10 Mefoxin 1 Gm/ D5w 50 Ml IV 04/29/19 08:59 Not Given Q6H [facility] Miscellaneous Information 1 each 03/29/19 16:15 Medication Intervention 04/28/19 16:14 .RT TO CHECK ON HARJINDER Morphine Sulfate 4 mg 03/29/19 10:30 03/29/19 10:59 Morphine Sulfate 4 Mg Inj IV 03/29/19 10:31 4 mg STAT ONE Administration Morphine Sulfate Confirm 03/29/19 10:46 Morphine Sulfate 4 Mg Inj Administered 03/29/19 10:47 Dose 4 mg .ROUTE .STK-MED ONE Ondansetron HCl 4 mg 03/29/19 10:30 03/29/19 10:59 Zofran 4 Mg/2 Ml Vial IV 03/29/19 10:31 4 mg STAT ONE Administration Ondansetron HCl Confirm 03/29/19 10:46 Zofran 4 Mg/2 Ml Vial Administered 03/29/19 10:47 Dose 4 mg .ROUTE .STK-MED ONE Trelegy Ellipta 1 each 03/29/19 17:00 03/30/19 14:57 Inhaler IH 04/28/19 16:59 Not Given DAILY [facility] Warfarin Sodium 2.5 mg 03/30/19 18:00 Coumadin 2.5 Mg PO 04/29/19 17:59 MoWe [facility] Warfarin Sodium 5 mg 03/29/19 18:00 03/29/19 17:02 Coumadin 5 Mg PO 04/28/19 17:59 5 mg [id number] [facility] Administration Intake & Output (Last 24 hours) 03/30/19 03/31/19 04/01/19 04/02/19 11:59 11:59 11:59 11:59 Intake Total 1920 2795 2216 Output Total 1445 1300 2200 Balance 475 1495 16 Weight 88 kg 87 kg 87.6 kg Orders (Last 24 hours) Category Date Time Status Full Liquid Diet Diet 03/31/19 Dinner Completed Regular Diet Diet 04/01/19 Lunch Active - Vitals & Intake/Output Vital Signs: Vital Signs Temperature 97.9 F 04/01/19 07:42 Pulse Rate 71 04/01/19 07:42 Respiratory Rate 16 04/01/19 07:42 Blood Pressure 100/54 04/01/19 07:42 O2 Sat by Pulse Oximetry 91 L 04/01/19 07:42 Oxygen-Last Documented O2 Percentage 4 Liters = 36% Intake & Output: Intake & Output 03/30/19 03/31/19 04/01/19 04/02/19 11:59 11:59 11:59 11:59 Intake Total 1920 2795 2216 Output Total 1445 1300 2200 Balance 475 1495 16 Weight 88 kg 87 kg 87.6 kg - Lab Result Diagrams: 03/31/19 05:30 03/31/19 05:30 - Radiology Exams Ordered Rad Exams-Entire Visit: Radiology Procedures Category Date Time Status ABDOMEN 2 VIEW Routine Exams 03/31/19 08:00 Completed - Procedures and Test Procedures and Tests throughout Hospitalization: Therapy Orders & Screens 03/29/19 07:00 Respiratory MDI DAILY Comment: Yvonne 1 inhalation Daily Diagnosis: ABD pain 03/29/19 13:42 RT Screen per Nursing Assess ONCE Comment: Protocol Order Physician Instructions: Greater than 3 points order RT Admission Screen Reason For Exam: Triggered on Admission Diagnosis: ABD pain Diagnosis: ABD pain Pneumonia: No Home O2: No Asthma: Yes CHF: Yes Home CPAP/BIPAP: No Home Nebs/MDI: Yes Total Points: 12 03/29/19 16:12 Oxygen NASAL CANNULA 2 lpm Comment: Jennifergy 1 inhalation Daily Diagnosis: ABD pain 03/30/19 07:00 Respiratory Therapy Assessment DAILY Comment: Yvonne Reeves inhalation Daily Diagnosis: ABD pain 03/30/19 07:26 EKG STAT Comment: Diagnosis: ABD pain Discharge Exam General Appearance: no apparent distress, alert Neurologic Exam: alert, oriented x 3, cooperative, normal mood/affect, nml cerebellar function, sensation nml, No motor deficits Eye Exam: PERRL, EOMI, eyes nml inspection Ears, Nose, Throat Exam: normal ENT inspection, pharynx normal, moist mucous membranes Neck Exam: normal inspection, non-tender, supple, full range of motion Respiratory Exam: normal breath sounds, lungs clear, No respiratory distress Cardiovascular Exam: regular rate/rhythm, normal heart sounds Gastrointestinal/Abdomen Exam: soft, No tenderness, No mass Male Genitalia Exam: deferred Rectal Exam: deferred Back Exam: normal inspection, normal range of motion, No CVA tenderness, No vertebral tenderness Extremity Exam: normal inspection, normal range of motion Skin Exam: normal color, warm, dry Final Diagnosis/Problem List - Final Discharge Diagnosis/Problem (1) Adynamic ileus Current Visit: Yes Status: Resolved Code(s): K56.0 - PARALYTIC ILEUS - Discharge Discharge Date: 04/01/19 Disposition: Home, Self-Care Condition: Stable Prescriptions: Continue Aspirin [Aspirin EC] 81 mg PO DAILY Spironolactone 25 mg [Aldactone 25 MG] 25 mg PO DAILY Tamsulosin HCl 0.4 mg [Flomax 0.4 MG] 0.4 mg PO DAILY Metoprolol Succinate 100 mg [Toprol Xl 100 MG] 150 mg PO HS Lisinopril 10 mg [Zestril 10 MG] 10 mg PO BID Simvastatin [Zocor] 20 mg PO HS Albuterol 2.5 mg/3 ml Neb [Proventil 2.5 mg/3 ml Neb] 1 vial NEBULIZE Q6H Polyethylene Glycol 3350 [Clearlax] 17 gm PO DAILY PRN PRN Reason: Constipation Fluticasone/Umeclidin/Vilanter [Trelegy Ellipta 100-62.5-25] 1 each IH DAILY Warfarin Sodium 5 mg [Coumadin 5 MG] 5 mg PO UD Warfarin Sodium 2.5 mg [Coumadin 2.5 MG] 2.5 mg PO UD Follow up with: YUE AVELAR MD [Primary Care Provider] - 1 Week
[2019-04-01 13:31] VITALS: BP 97/51; PULSE 78; O2SAT 92
== END 2019-04-01 13:40 | disposition home or self-care (01) | DRG 390 ==
LOC: ED 09:37 → MED SURG 12:53 → UNDODISOB 13:00 → OBSVTOIN 20:15
PROVIDERS: ADMIT General Practice; ATTEND General Practice
DX: K56.0 Paralytic ileus (principal); I10 Essential (primary) hypertension; E78.00 Pure hypercholesterolemia, unspecified; J44.9 Chronic obstructive pulmonary disease, unspecified; H54.40 Blindness, one eye, unspecified eye; Z79.01 Long term (current) use of anticoagulants; Z86.73 Personal history of transient ischemic attack (TIA), and cerebral infarction without residual deficits; Z79.899 Other long term (current) drug therapy; Z95.1 Presence of aortocoronary bypass graft; I25.2 Old myocardial infarction
CPT/HCPCS: 36415; 74021; 74176; 80048; 80053; 81001; 82150; 83690; 84484; 85025; 85027; 85610; 93005; 94640; 94762; 96360; 96374; 96375; 99284; 99285; J0694; J1650; J2270; J2405; A9270-GY

== ENCOUNTER 2019-07-14 16:59 | Emergency (ER) | payer MEDICARE ==
[2019-07-14 17:13] VITALS: BP 121/79; PULSE 81; O2SAT 96
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
[2019-07-14 17:34] LABS: BASOPHIL % 0.3 % (0.0-0.4); Basophil (Absolute #) 0.02 (0-0.4); Eosinophil (Absolute #) 0.18 (0-0.5); Granulocyte Absolute (ANC) 3.96 (1.4-6.9); Hematocrit 34.4 % (42-50); Hemoglobin 11.1 gm/dl (12.5-18.0); Lymphocyte (Absolute #) 1.15 (1.0-4.6); Lymphocytes % 18.9 % (24.0-44.0); Mean Cell Volume 103.9 fl (78-100); Mean Corpuscular Hemoglobin 33.5 pg (26-32); Mean Corpuscular Hgb Concent. 32.3 g/dl (32-36); Monocyte (Absolute #) 0.78 (0.0-1.3); Monocytes % 12.8 % (0.0-12.0); Platelet Count 171 K/mm3 (150-450); Red Blood Count 3.31 M/mm3 (4.1-5.6); Red Cell Distribution Width 12.8 % (11.5-14.0); White Blood Count 6.1 K/mm3 (4.0-10.5)
[2019-07-14 17:40] LABS: INR 4.2 (0.8-3.0); PROTIME 48.9 SECONDS (8.83-12.87)
[2019-07-14 17:45] LABS: ANION GAP 15.8 MEQ/L (5-15); BILIRUBIN,TOTAL 0.3 mg/dL (0.2-1.3); Calcium 8.7 mg/dL (8.4-10.2); Creatinine 1 2.19 mg/dL (0.66-1.25); Potassium 4.8 mmol/L (3.5-5.1); Total Protein 6.8 g/dL (6.3-8.2)
--- NOTE | 2019-07-15 08:41 | XRAY ---
Indication: Pain and swelling following injury. Comparison: None 3 views of the right hand demonstrates osteopenia and moderate/advanced degenerative changes of all IP joints. Mild 3rd PIP joint erosions/remodeling with heterotopic ossification, possible erosive osteoarthritis vs rheumatoid arthritis vs psoriatic arthritis. Additional moderate degenerative changes 1st metacarpal triquetrum scaphoid articulation. Mild diffuse soft tissue swelling/edema and faint vascular calcifications. Remaining hand unremarkable.
== END 2019-07-14 18:14 | disposition home or self-care (01) ==
LOC: ED 16:59
DX: R79.1 Abnormal coagulation profile (principal); N28.9 Disorder of kidney and ureter, unspecified; S60.221A Contusion of right hand, initial encounter; I10 Essential (primary) hypertension
CPT/HCPCS: 36415; 73130; 80053; 85025; 85610; 99283

== ENCOUNTER 2020-04-04 21:06 | Observation (INO) | payer MEDICARE ==
--- NOTE | 2020-04-04 21:09 | ERPHSYRPT ---
- History of Present Illness Time Seen by Provider: 04/04/20 21:08 Source: patient, family Exam Limitations: no limitations Physician History: Is an 84-year-old gentleman who recently underwent a left side axillofemoral bypass graft. He has bruising present from that procedure and a left lower leg medial thigh incision site post his surgical procedure. Patient has significant history of peripheral vascular disease. Patient is on Coumadin, he has history of COPD and hypertension. Patient notes to the emergency department with right hip pain and sciatica. He has had this in the past. Patient denies any acute trauma or fall or injury. Patient is on pain medication post his surgical procedure but it did does not seem to be helping his right hip pain and sciatica. He denies shortness of breath, he denies chest pain, he denies abdominal pain. Pain is described as a 2 out of 10 when he is laying still. However, when he moves the right hip there is shooting pain is an 8 or 9. Timing/Duration: today Method of Injury: other (Denies injury) Quality: sharp, stabbing (Right hip and buttock) Back Pain Radiation: buttocks (Right side) Severity of Pain-Max: moderate Severity of Pain-Current: moderate Associated Symptoms: muscle spasms, No urinary incontinence, No loss of bowel control, No numbness in legs/feet, No weakness, No lower back pain Previous symptoms: no prior history Allergies/Adverse Reactions: Iodinated Contrast Media Allergy (Verified 04/05/20 00:01) Iodine and Iodide Containing Produc Allergy (Verified 04/05/20 00:01) Home Medications: Albuterol 2.5 mg/3 ml Neb [Proventil 2.5 mg/3 ml Neb] 1 vial NEBULIZE Q6H 12/19/14 [History] Aspirin [Aspirin EC] 81 mg PO DAILY 12/19/14 [History] Lisinopril 10 mg [Zestril 10 MG] 10 mg PO DAILY 12/19/14 [History] Tamsulosin HCl 0.4 mg [Flomax 0.4 MG] 0.4 mg PO DAILY 12/19/14 [History] Polyethylene Glycol 3350 [Clearlax] 17 gm PO DAILY PRN 10/27/18 [History] Warfarin Sodium 2.5 mg [Coumadin 2.5 MG] 2.5 mg PO UD 03/29/19 [History] Warfarin Sodium 5 mg [Coumadin 5 MG] 5 mg PO UD 03/29/19 [History] Furosemide 40 mg [Lasix 40 MG] 1 tab PO DAILY 04/05/20 [History] Gabapentin 1 tab PO BID 04/05/20 [History] Hydrocodone Bit/Acetaminophen [Hydrocodon-Acetaminoph 7.5-325] 2 tab PO Q6H PRN 04/05/20 [History] Metoprolol Succinate 1 tab PO BID 04/05/20 [History] Rosuvastatin Calcium 1 tab PO HS 04/05/20 [History] Sotalol HCl 80 mg [Betapace 80 MG] 1 tab PO DAILY 04/05/20 [History] Hx Tetanus, Diphtheria Vaccination/Date Given: No Hx Influenza Vaccination/Date Given: Yes Hx Pneumococcal Vaccination/Date Given: Yes Travel Risk - International Travel Have you traveled outside of the country in past 3 weeks: No Have you or anyone close to you been diagnosed with or: No Do your reside in a community with a known COVID-19 case?: Yes If Yes where:: [facility] - Coronavirus Screening Has patient experienced Coronavirus symptoms: No - Review of Systems Constitutional: No Symptoms Eyes: No Symptoms Ears, Nose, & Throat: No Symptoms Respiratory: No Symptoms Cardiac: No Symptoms Abdominal/Gastrointestinal: No Symptoms Genitourinary Symptoms: No Symptoms Musculoskeletal: Other (Right hip pain) Skin: No Symptoms Neurological: No Symptoms Psychological: No Symptoms Endocrine: No Symptoms Hematologic/Lymphatic: No Symptoms Immunological/Allergic: No Symptoms All Other Systems: Reviewed and Negative - Past Medical History Pertinent Past Medical History: Yes Neurological History: Stroke ENT History: No Pertinent History Cardiac History: Coronary Artery Disease, Hypertension Respiratory History: CHF, COPD Endocrine Medical History: No Pertinent History Musculoskeletal History: Osteoarthritis GI Medical History: Diverticulosis, Other History: No Pertinent History Psycho-Social History: No Pertinent History Male Reproductive Disorders: Prostate Problems Other Medical History: 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 ABOUT 1- 2 YEARS AGO HAD ANOTHER STROKE WHICH TOOK HIS VISION IN HIS LEFT EYE. - Past Surgical History Past Surgical History: Yes Neuro Surgical History: No Pertinent History Cardiac: CABG, Cardiac Catheterization, Cardiac Stent, Internal Defibrillator, Pacemaker, Other Respiratory: Chest Surgery Gastrointestinal: Hernia Repair Genitourinary: No Pertinent History Musculoskeletal: No Pertinent History Male Surgical History: No Pertinent History Other Surgical History: colonoscopy, right cea, - Social History Smoking Status: Former smoker How long have you smoked: 40 years Exposure to second hand smoke: No Drug Use: none Patient Lives Alone: No - Nursing Vital Signs Nursing Vital Signs: Initial Vital Signs Temperature 98.4 F 04/04/20 21:06 Pulse Rate 75 04/04/20 21:06 Respiratory Rate 18 04/04/20 21:06 Blood Pressure 119/63 04/04/20 21:06 O2 Sat by Pulse Oximetry 94 L 04/04/20 21:06 Pain Scale Pain Intensity 2 - Physical Exam General Appearance: mild distress, alert, anxiety Eye Exam: PERRL/EOMI, eyes nml inspection Ears, Nose, Throat Exam: normal ENT inspection, moist mucous membranes Neck Exam: normal inspection, non-tender, supple, full range of motion, thyromegaly Respiratory Exam: normal breath sounds, lungs clear, airway intact, No chest tenderness, No respiratory distress Cardiovascular Exam: regular rate/rhythm, normal heart sounds, normal peripheral pulses Gastrointestinal Exam: soft, normal bowel sounds, No tenderness Rectal Exam: not done Back Exam: normal inspection, normal range of motion, No CVA tenderness, No vertebral tenderness Extremity Exam: pelvis stable, limited range of motion (Right hip) Neurologic Exam: alert, oriented x 3, cooperative, 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 Incision site is healing well with sutures in place), other Lymphatic Exam: No adenopathy SpO2 Interpretation: normal O2 Delivery: Room Air Ordered Tests: Active Orders 24 hr Category Date Time Status HIP UNI (2V) INCL PEL IF DONE Stat Exams 04/04/20 21:56 Taken BMP Stat Lab 04/04/20 22:20 Completed CBC Stat Lab 04/04/20 22:20 Completed PT INR [PROTIME WITH INR] Stat Lab 04/04/20 22:20 Completed Transfer Order Routine Transfer 04/05/20 Ordered Medication Summary Discontinued Medications Generic Name Dose Route Start Last Admin Trade Name Lety PRN Reason Stop Dose Admin Sodium Chloride 500 mls @ 500 mls/hr 04/04/20 23:16 04/04/20 23:31 Sodium Chloride 0.9% 500 Ml IV 04/05/20 00:15 500 mls/hr .Q1H ONE Administration Sodium Chloride Confirm 04/04/20 23:26 Sodium Chloride 0.9% 500 Ml Administered 04/04/20 23:27 Dose 500 mls @ ud IV .STK-MED ONE Lorazepam 0.5 mg 04/04/20 22:00 04/04/20 22:30 Ativan 2 Mg/1 Ml Vial IV 04/04/20 22:01 0.5 mg STAT ONE Administration Lorazepam Confirm 04/04/20 22:24 Ativan 2 Mg/1 Ml Vial Administered 04/04/20 22:25 Dose 2 mg .ROUTE .STK-MED ONE Methylprednisolone Sodium Succinate 125 mg 04/04/20 21:59 04/04/20 22:29 Solu-Medrol 125 Mg IV 04/04/20 22:00 125 mg STAT ONE Administration Methylprednisolone Sodium Succinate Confirm 04/04/20 22:25 Solu-Medrol 125 Mg Administered 04/04/20 22:26 Dose 125 mg .ROUTE .STK-MED ONE Morphine Sulfate 2 mg 04/04/20 22:01 04/04/20 22:32 Morphine Sulfate 2 Mg Inj IV 04/04/20 22:02 2 mg STAT ONE Administration Morphine Sulfate Confirm 04/04/20 22:24 Morphine Sulfate 2 Mg Inj Administered 04/04/20 22:25 Dose 2 mg .ROUTE .STK-MED ONE Ondansetron HCl 4 mg 04/04/20 21:59 04/04/20 22:28 Zofran 4 Mg/2 Ml Vial IV 04/04/20 22:00 4 mg STAT ONE Administration Ondansetron HCl Confirm 04/04/20 22:24 Zofran 4 Mg/2 Ml Vial Administered 04/04/20 22:25 Dose 4 mg .ROUTE .STK-MED ONE Lab/Rad Data: Laboratory Result Diagrams 04/04/20 22:20 04/04/20 22:20 Laboratory Results 04/04/20 04/04/20 04/04/20 Range/Units 22:20 22:20 22:20 WBC 11.3 H (4.0-10.5) K/mm3 RBC 3.17 L (4.1-5.6) M/mm3 Hgb 10.1 L (12.5-18.0) gm/dl Hct 33.0 L (42-50) % MCV 104.1 H (78-100) fl MCH 31.9 (26-32) pg MCHC 30.6 L (32-36) g/dl RDW 15.4 H (11.5-14.0) % Plt Count 232 (150-450) K/mm3 MPV 10.9 (7.5-11.0) fl PT 21.6 H (8.83-12.87) SECONDS INR 1.89 (0.8-3.0) Sodium 136 L (137-145) mmol/L Potassium 4.9 (3.5-5.1) mmol/L Chloride 95 L (98-107) mmol/L Carbon Dioxide 31 H (22-30) mmol/L Anion Gap 14.8 (5-15) MEQ/L BUN 30 H (9-20) mg/dL Creatinine 1.21 (0.66-1.25) mg/dL Estimated GFR > 60.0 ML/MIN Glucose 125 H (74-106) mg/dL Calcium 8.7 (8.4-10.2) mg/dL - Progress Progress: improved, re-examined Progress Note: 04/04/20 23:17 Patient states that his pain is significantly improved.. Patient is very sleepy at this time his blood pressure is lower than when he came in. Likely this is secondary to his medication. We will give him a IV bolus. I will give Dr. flores a call and determine whether or not the patient can come into the hospital for monitoring and arrangements for physical therapy and discharge planning. 04/05/20 00:51 X-ray of pelvis and hip reveals no acute fracture or dislocation. Medical screening exam: Patient is hemodynamically stable. However, he is weak and having intractable pain in his right hip which has improved since he has been in the emergency department. However he is 84 years old as is his . She will be unable to care for him. Patient and his family would like him to be evaluated for physical therapy as well as possible longer term care and rehabilitation. I discussed with Dr. Flores this patient's history, condition, laboratory work-up and x-ray results. We will bring the patient in on a observation basis. We will obtain consultations with discharge planning as well as physical therapy. We will provide the patient with pain control. Did discuss this with the patient and the patient's spouse. I did tell them that there is no guarantee that he would qualify for a 3-day stay but he will be admitted now and be evaluated, managed and consultations will be obtained 04/05/20 00:54 Counseled pt/family regarding: lab results, diagnosis - Departure Departure Disposition: Observation Clinical Impression: Weakness, Hip pain, right Condition: Stable Critical Care Time: No Referrals: YUE AVELAR MD [Primary Care Provider] -
[2020-04-04] MEDS ORDERED: solu-MEDROL 125 MG IV ONE (21:59)
[2020-04-04] MEDS ORDERED: Zofran 4 MG/2 ML VIAL IV ONE (21:59)
[2020-04-04] MEDS ORDERED: Ativan 2 MG/1 ML VIAL IV ONE (22:00)
[2020-04-04] MEDS ORDERED: MORPHINE SULFATE 2 MG INJ IV ONE (22:01)
[2020-04-04 22:24] LABS: Hemoglobin 10.1 gm/dl (12.5-18.0); Mean Cell Volume 104.1 fl (78-100); Mean Corpuscular Hemoglobin 31.9 pg (26-32); Mean Corpuscular Hgb Concent. 30.6 g/dl (32-36); Mean Platelet Volume 10.9 fl (7.5-11.0); Platelet Count 232 K/mm3 (150-450); Red Blood Count 3.17 M/mm3 (4.1-5.6); Red Cell Distribution Width 15.4 % (11.5-14.0); White Blood Count 11.3 K/mm3 (4.0-10.5)
[2020-04-04] MEDS ORDERED: Ativan 2 MG/1 ML VIAL ONE (22:24)
[2020-04-04] MEDS ORDERED: Zofran 4 MG/2 ML VIAL ONE (22:24)
[2020-04-04] MEDS ORDERED: MORPHINE SULFATE 2 MG INJ ONE (22:24)
[2020-04-04] MEDS ORDERED: solu-MEDROL 125 MG ONE (22:25)
[2020-04-04 22:43] LABS: INR 1.89 (0.8-3.0); PROTIME 21.6 SECONDS (8.83-12.87)
[2020-04-04 22:48] LABS: ANION GAP 14.8 MEQ/L (5-15); BLOOD UREA NITROGEN 30 mg/dL (9-20); CHLORIDE 95 mmol/L (98-107); Calcium 8.7 mg/dL (8.4-10.2); Carbon Dioxide 31 mmol/L (22-30); Creatinine 1 1.21 mg/dL (0.66-1.25); Glucose 125 mg/dL (74-106); Potassium 4.9 mmol/L (3.5-5.1); SODIUM 136 mmol/L (137-145)
[2020-04-04] MEDS ORDERED: Sodium Chloride 0.9% 500 ML 500 ML IV ONE ×2 (23:16→23:26)
[2020-04-05] MEDS ORDERED: Ativan 2 MG/1 ML VIAL IV PRN (01:52)
[2020-04-05] MEDS ORDERED: Zofran 4 MG/2 ML VIAL IV PRN (01:52)
[2020-04-05] MEDS ORDERED: solu-MEDROL 125 MG IV SCH (01:52)
[2020-04-05] MEDS: Sodium Chloride 0.9% 1000 ML 1,000 ML IV SCH ×2 (04:09→17:58)
[2020-04-05 05:47] LABS: Absolute Neutrophil Ct (ANC) 9.69 (1.4-6.9); BASOPHIL % 0.1 % (0.0-0.4); Basophil (Absolute #) 0.01 (0-0.4); Eosinophil (Absolute #) 0 (0-0.5); Hematocrit 28.8 % (42-50); Lymphocyte (Absolute #) 0.43 (1.0-4.6); Lymphocytes % 4.1 % (24.0-44.0); Mean Cell Volume 104.7 fl (78-100); Mean Corpuscular Hemoglobin 31.3 pg (26-32); Mean Corpuscular Hgb Concent. 29.9 g/dl (32-36); Mean Platelet Volume 10.8 fl (7.5-11.0); Monocyte (Absolute #) 0.27 (0.0-1.3); Monocytes % 2.6 % (0.0-12.0); Neutrophil % 93.2 % (36.0-66.0); Platelet Count 155 K/mm3 (150-450); Red Blood Count 2.75 M/mm3 (4.1-5.6); Red Cell Distribution Width 14.9 % (11.5-14.0); White Blood Count 10.4 K/mm3 (4.0-10.5)
[2020-04-05 05:53] LABS: ANION GAP 11.9 MEQ/L (5-15); BLOOD UREA NITROGEN 31 mg/dL (9-20); CHLORIDE 97 mmol/L (98-107); Calcium 8.2 mg/dL (8.4-10.2); Carbon Dioxide 31 mmol/L (22-30); Creatinine 1 1.19 mg/dL (0.66-1.25); Glucose 151 mg/dL (74-106); Hemoglobin 8.6 gm/dl (12.5-18.0); Potassium 4.5 mmol/L (3.5-5.1); SODIUM 135 mmol/L (137-145)
[2020-04-05] MEDS ORDERED: NORCO 5/325 MG PO PRN (06:35)
[2020-04-05] MEDS: solu-MEDROL 125 MG IV SCH ×3 (07:51→22:36)
[2020-04-05] MEDS ORDERED: NORCO 7.5/325 MG TAB PO PRN (08:55)
[2020-04-05 09:11] LABS: Slide Review 1 YES
--- NOTE | 2020-04-05 09:18 | XRAY ---
Indication: Right hip pain. Comparison: None AP pelvis and 2 view right hip demonstrates mild osteopenia, mild bilateral hip degenerative joint space narrowing, mild lower lumbar degenerative spondylosis, and extensive arteriosclerotic calcifications with partially visualized left femoral stent graft. No other bony, articular, or soft tissue abnormalities.
[2020-04-05] MEDS ORDERED: PROVENTIL 2.5 MG/3 ML NEB IH ONE (09:39)
[2020-04-05] MEDS: PROVENTIL 2.5 MG/3 ML NEB IH SCH ×3 (09:42→19:59)
[2020-04-05 10:00] LABS: Iron 24 ug/dL (49-181); Iron Saturation 9 % (20-39); TIBC 271 ug/dL (261-497)
[2020-04-05] MEDS ORDERED: GABAPENTIN PO SCH (10:00)
[2020-04-05] MEDS: Lasix 40 MG PO SCH (10:16)
[2020-04-05] MEDS: ECOTRIN 81 MG PO SCH (10:16)
[2020-04-05] MEDS: Flomax 0.4 MG PO SCH (10:16)
[2020-04-05] MEDS: NEURONTIN 300 MG PO SCH ×2 (10:16→22:38)
[2020-04-05] MEDS: Zestril 10 MG PO SCH (10:16)
[2020-04-05] MEDS: Betapace 80 MG PO SCH (10:17)
[2020-04-05] MEDS: Toprol-Xl 25MG Tablets PO SCH ×2 (10:17→22:40)
[2020-04-05] MEDS: Miralax Powder 17GM PACKET PO PRN (10:17)
[2020-04-05 10:41] LABS: Ferritin 87.5 ng/mL (17.9-464)
[2020-04-05] MEDS ORDERED: NORCO 7.5/325 MG TAB PO ONE (14:02)
[2020-04-05] MEDS: Coumadin 5 MG PO SCH (17:56)
[2020-04-05] MEDS ORDERED: ROSUVASTATIN CALCIUM PO SCH (22:00)
[2020-04-05] MEDS: ZOCOR 20MG PO SCH (22:37)
[2020-04-05] MEDS: NORCO 7.5/325 MG TAB PO PRN (22:38)
[2020-04-06] MEDS: PROVENTIL 2.5 MG/3 ML NEB IH SCH ×4 (02:05→18:48)
[2020-04-06 07:13] LABS: Absolute Neutrophil Ct (ANC) 14.23 (1.4-6.9); BASOPHIL % 0.1 % (0.0-0.4); Basophil (Absolute #) 0.01 (0-0.4); Eosinophil (Absolute #) 0 (0-0.5); Hematocrit 26.1 % (42-50); Hemoglobin 7.9 gm/dl (12.5-18.0); Lymphocyte (Absolute #) 0.54 (1.0-4.6); Lymphocytes % 3.5 % (24.0-44.0); Mean Cell Volume 104.8 fl (78-100); Mean Corpuscular Hemoglobin 31.7 pg (26-32); Mean Corpuscular Hgb Concent. 30.3 g/dl (32-36); Monocyte (Absolute #) 0.58 (0.0-1.3); Monocytes % 3.8 % (0.0-12.0); Neutrophil % 92.6 % (36.0-66.0); Platelet Count 199 K/mm3 (150-450); Red Blood Count 2.49 M/mm3 (4.1-5.6); Red Cell Distribution Width 15.1 % (11.5-14.0); White Blood Count 15.4 K/mm3 (4.0-10.5)
[2020-04-06 07:57] LABS: INR 2.6 (0.8-3.0)
[2020-04-06 09:19] LABS: ANION GAP 11.9 MEQ/L (5-15); BLOOD UREA NITROGEN 45 mg/dL (9-20); CHLORIDE 104 mmol/L (98-107); Calcium 8.2 mg/dL (8.4-10.2); Carbon Dioxide 29 mmol/L (22-30); Creatinine 1 1.16 mg/dL (0.66-1.25); Glucose 130 mg/dL (74-106); Potassium 4.5 mmol/L (3.5-5.1); SODIUM 140 mmol/L (137-145)
[2020-04-06] MEDS: Miralax Powder 17GM PACKET PO PRN (09:58)
[2020-04-06] MEDS: DELTASONE 20 MG PO SCH (09:59)
[2020-04-06] MEDS: Zestril 10 MG PO SCH (09:59)
[2020-04-06] MEDS: Lasix 40 MG PO SCH (09:59)
[2020-04-06] MEDS: FEOSOL 325 MG PO SCH ×2 (09:59→21:44)
[2020-04-06] MEDS: Betapace 80 MG PO SCH (09:59)
[2020-04-06] MEDS: Flomax 0.4 MG PO SCH (09:59)
[2020-04-06] MEDS: ECOTRIN 81 MG PO SCH (09:59)
[2020-04-06] MEDS: NEURONTIN 300 MG PO SCH ×2 (10:00→21:46)
[2020-04-06] MEDS: Toprol-Xl 25MG Tablets PO SCH ×2 (10:00→21:45)
--- NOTE | 2020-04-06 10:42 | HP ---
HISTORY OF PRESENT ILLNESS: This is an 84 year old male who presented to the emergency department complaining of generalized weakness and right hip pain. He had been recently discharged from [facility] after having a left axillary-femoral bypass as he has a history of significant peripheral artery disease. The patient reports he is on Coumadin. He is unable to take care of himself at home. REVIEW OF SYSTEMS: He said he has right hip pain. No chest pain. No shortness of breath. He has sutures in his left arm. He reports he is supposed to have a follow up to have those removed. He has good appetite. No other concerns. He reports the pain medication is helping control his right hip pain. PAST MEDICAL HISTORY: Peripheral artery disease. Hyperlipidemia. PAST SURGICAL HISTORY: The patient reports he has had multiple surgeries and does not elaborate on the list. SOCIAL HISTORY: He lives with his . He denies any tobacco or alcohol use. FAMILY HISTORY: Noncontributory. PHYSICAL EXAMINATION: VITAL SIGNS: Temperature current 97.5F, heart rate 70, respiratory rate 22, blood pressure 126/58. Oxygen saturation 93% on room air. GENERAL: He is sitting up a pleasant talkative man in no acute distress. CVS: His heart has a regular rate and rhythm. No murmurs, gallops or rubs are appreciated. CHEST: Clear to auscultation bilaterally. EXTREMITIES: Left arm has a healing scar with sutures in place. No clubbing, cyanosis or edema. SKIN: Warm, dry and intact. LABORATORY DATA AND TESTS: He had a hip x-ray that did not show any acute fracture. Please see the radiologist report. ASSESSMENT AND PLAN: 1) PERIPHERAL ARTERY DISEASE WITH RECENT INTERVENTION: Will continue with Coumadin, will plan to check daily INR. He needs rehab but the rehab facility has told us that they would like to have a more recent COVID test so this is being sent off. 2) RIGHT HIP PAIN: Better controlled on hydrocodone. Again, he could not have any NSAID's because he is on Coumadin. 3) ANEMIA: Will plan to recheck his hemoglobin in the morning. He did report to me that he required transfusions at [facility]. 4) CODE STATUS: He reports that he wants to be SUPPORTIVE CARE ONLY. 5) GENERALIZED WEAKNESS: Again, he is going to require therapy to be able to be strong enough to take care of himself at home.
--- NOTE | 2020-04-06 18:10 | PCM.NOTE ---
Date and Time: 04/06/201805 Subjective Assessment: Patient does not have any concerns today. He states his right hip pain has gotten better. He would still like to go to [facility] for rehab. - Review of Systems Constitutional: Weakness Respiratory: No Symptoms Cardiac: No Symptoms Abdominal/Gastrointestinal: No Symptoms Genitourinary Symptoms: No Symptoms Objective Exam General Appearance: no apparent distress, other ( at bedside) Neurologic Exam: alert, cooperative Skin Exam: normal color, warm, other (sutues in place on left arm) Wound Assessment: Skin/Wound Assessment Wound/Incision Assessment Start: 04/05/20 03: 22 Text: Status: Active Freq: Q6H Protocol: Document 04/06/20 03:00 KX (Rec: 04/06/20 03:57 KX [id number]) Wound/Incision Assessment Left Lower Anterior Other Wound Assessment Shift Assessment Wound Type Stasis Ulcer Dressing Status Dry & Intact Drainage Amount None Surrounding Tissue Chevak Comment CHRONIC WOUND Left Lower Medial Ankle Wound Assessment Shift Assessment Wound Type Stasis Ulcer Wound Stage Non Pressure Wound Dressing Status Dry & Intact Drainage Amount None Surrounding Tissue [place] Comment CHRONIC WOUND Left Upper Medial Thigh Wound Assessment Shift Assessment Wound Type Incision Drainage Amount None General Appearance Sutures Intact Surrounding Tissue [place] Left Medial Arm Wound Assessment Shift Assessment Wound Type Incision Drainage Amount None General Appearance Sutures Intact Surrounding Tissue [place] Wound Photo Photo Taken No Respiratory Exam: normal breath sounds, lungs clear, No crackles/rales, No rhonchi, No wheezing Cardiovascular Exam: regular rate/rhythm, normal heart sounds, No murmur, No friction rub, No gallop Gastrointestinal/Abdomen Exam: soft, normal bowel sounds, No tenderness, No distention, No mass Extremity Exam: other (no c/c/e) OBJECTIVE DATA Vital Signs: Vital Signs - 24 hr Temp Pulse Resp BP Pulse Ox 04/06/20 16:00 97.4 F 67 20 119/58 100 04/06/20 13:53 74 22 94 L 04/06/20 12:00 97.6 F 75 18 124/60 96 04/06/20 07:59 97.9 F 70 20 102/50 98 04/06/20 07:41 71 18 94 L 04/06/20 04:00 97.7 F 70 20 110/54 95 04/06/20 00:00 97.8 F 70 18 107/44 94 L 04/05/20 20:01 68 17 93 L 04/05/20 20:00 97.9 F 64 16 99/47 93 L Oxygen-Last 24 hours Oxygen Flowrate (L/min)-RT 5 Oxygen Flowrate (L/min)-RT 2 Pain Assessment - Last Documented Pain Intensity 0 Pain Scale Used 0-10 Pain Scale Intake and Output: Intake & Output 04/04/20 04/05/20 04/06/20 04/07/20 06:59 06:59 06:59 06:59 Intake Total 3284 840 Output Total 300 450 Balance 2984 390 Weight 94.8 kg 96 kg Lab Results: Lab Results-Last 24 Hours 04/06/20 04/06/20 04/06/20 Range/Units 06:22 06:22 06:22 WBC 15.4 H (4.0-10.5) K/mm3 RBC 2.49 L (4.1-5.6) M/mm3 Hgb 7.9 L (12.5-18.0) gm/dl Hct 26.1 L (42-50) % MCV 104.8 H (78-100) fl MCH 31.7 (26-32) pg MCHC 30.3 L (32-36) g/dl RDW 15.1 H (11.5-14.0) % Plt Count 199 (150-450) K/mm3 MPV 11.0 (7.5-11.0) fl Gran % 92.6 H (36.0-66.0) % Eos # (Auto) 0 (0-0.5) Absolute Lymphs (auto) 0.54 L (1.0-4.6) Absolute Monos (auto) 0.58 (0.0-1.3) Lymphocytes % 3.5 L (24.0-44.0) % Monocytes % 3.8 (0.0-12.0) % Eosinophils % 0.0 (0.00-5.0) % Basophils % 0.1 (0.0-0.4) % Absolute Granulocytes 14.23 H (1.4-6.9) Basophils # 0.01 (0-0.4) PT 30.0 H (8.83-12.87) SECONDS INR 2.60 D (0.8-3.0) Sodium 140 (137-145) mmol/L Potassium 4.5 (3.5-5.1) mmol/L Chloride 104 (98-107) mmol/L Carbon Dioxide 29 (22-30) mmol/L Anion Gap 11.9 (5-15) MEQ/L BUN 45 H (9-20) mg/dL Creatinine 1.16 (0.66-1.25) mg/dL Estimated GFR > 60.0 ML/MIN Glucose 130 H (74-106) mg/dL Calcium 8.2 L (8.4-10.2) mg/dL Slides for Path Review Radiology Exams: Radiology Procedures Category Date Time Status HIP UNI (2V) INCL PEL IF DONE Stat Exams 04/04/20 21:56 Completed Multi-Disciplinary Progress Notes: Multi-Disciplinary Progress Notes 04/06/20 15:34 Case Management Note by Nahed Moya SPOKE WITH RONEL AT [facility], REPORTS THAT THEY WILL BE READY FOR PT SOON COVID-19 TESTING COMES BACK AND IS NEGATIVE. PLEASE SEND A COPY OF LAB ALONG WITH THE HOSPITAL POST ACUTE CARE TRANSFER FORM. Initialized on 04/06/20 15:34 - END OF NOTE 04/06/20 02:05 Respiratory Note by Rhoith Cabello PT STATED HE DID NOT WANT TO BE WOKE UP IN THE NIGHT FOR A NEB TX. HE AGREED TO CALL FOR RT IF HE FELT SOB OR IN NEED OF ONE. Initialized on 04/06/20 02:05 - END OF NOTE Assessment/Plan (1) Peripheral artery disease Current Visit: Yes Status: Acute Code(s): I73.9 - PERIPHERAL VASCULAR DISEASE, UNSPECIFIED (2) Hip pain, right Current Visit: Yes Status: Acute Assessment & Plan: Improved with current treatment; weaned IV steroids to oral steroids. Pain medication ordered. Code(s): M25.551 - PAIN IN RIGHT HIP (3) Anemia Current Visit: Yes Status: Acute Qualifiers: Iron deficiency anemia type: chronic blood loss Assessment & Plan: Will recheck cbc in am. If still dropping lower then will need transfusion. Iron levels low. Iron replacement oral started. Code(s): D64.9 - ANEMIA, UNSPECIFIED (4) Weakness Current Visit: Yes Status: Acute Assessment & Plan: Plan for rehab before return home. Code(s): R53.1 - WEAKNESS
[2020-04-06] MEDS: Coumadin 5 MG PO SCH (18:11)
[2020-04-06] MEDS: ZOCOR 20MG PO SCH (21:44)
[2020-04-07] MEDS: PROVENTIL 2.5 MG/3 ML NEB IH SCH ×4 (02:59→18:59)
[2020-04-07 06:46] LABS: Absolute Neutrophil Ct (ANC) 12.94 (1.4-6.9); BASOPHIL % 0.1 % (0.0-0.4); Basophil (Absolute #) 0.02 (0-0.4); Eosinophil % 0.1 % (0.00-5.0); Eosinophil (Absolute #) 0.01 (0-0.5); Hemoglobin 8.6 gm/dl (12.5-18.0); Lymphocyte (Absolute #) 0.83 (1.0-4.6); Lymphocytes % 5.7 % (24.0-44.0); Mean Cell Volume 106.6 fl (78-100); Mean Corpuscular Hemoglobin 31.6 pg (26-32); Mean Corpuscular Hgb Concent. 29.7 g/dl (32-36); Mean Platelet Volume 11.3 fl (7.5-11.0); Monocyte (Absolute #) 0.87 (0.0-1.3); Monocytes % 5.9 % (0.0-12.0); Neutrophil % 88.2 % (36.0-66.0); Platelet Count 216 K/mm3 (150-450); Red Blood Count 2.72 M/mm3 (4.1-5.6); Red Cell Distribution Width 15.5 % (11.5-14.0); White Blood Count 14.7 K/mm3 (4.0-10.5)
[2020-04-07 07:09] LABS: INR 3.32 (0.8-3.0)
--- NOTE | 2020-04-07 08:47 | PCM.NOTE ---
Date and Time: 04/07/20 0846 Subjective Assessment: Patient reported to his nurse last night that he has trouble swallowing. When I asked him, he stated it had been going on for about 2 months and will go down if he takes more sips of water. He reports it feels like it gets stuck in his chest area. He has never had a scope or imaging for this. I called radiology and they do not do esophograms on the weekend here. The patient does not want this to keep him here and is ready to go to [facility] as soon as possible. His covid test which is required for him to go is not back yet. Objective Exam General Appearance: no apparent distress Neurologic Exam: alert, cooperative, normal mood/affect Skin Exam: normal color, warm, dry, other (sutures in place in left forearm) Wound Assessment: Skin/Wound Assessment Wound/Incision Assessment Start: 04/05/20 03: 22 Text: Status: Active Freq: Q6H Protocol: Document 04/07/20 03:00 SG (Rec: 04/07/20 03:59 SG [id number]) Wound/Incision Assessment Left Lower Anterior Other Wound Assessment Shift Assessment Wound Type Stasis Ulcer Dressing Status Dry & Intact Drainage Amount Minimal Drainage Description Purulent Drainage Odor None/Absent General Appearance Draining Surrounding Tissue Hymera Macerated Primary Dressing tegaderm Comment chronic wound from PVD Left Lower Medial Ankle Wound Assessment Shift Assessment Wound Type Stasis Ulcer Wound Stage Non Pressure Wound Dressing Status Dry & Intact Drainage Amount None General Appearance Well Approximated Surrounding Tissue Hymera Primary Dressing tegaderm Comment chronic wound from PVD Left Upper Medial Thigh Wound Assessment Shift Assessment Wound Type Incision Drainage Amount None General Appearance Well Approximated Sutures Intact Open to air Surrounding Tissue Hymera Left Medial Arm Wound Assessment Shift Assessment Wound Type Incision Drainage Amount None General Appearance Well Approximated Sutures Intact Open to air Surrounding Tissue Hymera Wound Photo Photo Taken No Respiratory Exam: normal breath sounds, lungs clear, No crackles/rales, No rhonchi, No wheezing Cardiovascular Exam: regular rate/rhythm, normal heart sounds, No murmur, No friction rub, No gallop Gastrointestinal/Abdomen Exam: soft, normal bowel sounds OBJECTIVE DATA Vital Signs: Vital Signs - 24 hr Temp Pulse Resp BP Pulse Ox 04/07/20 07:02 98.6 F 72 17 115/54 97 04/07/20 05:58 75 24 2 L 04/07/20 04:19 97.7 F 70 19 108/54 94 L 04/06/20 23:23 98.0 F 77 16 135/54 97 04/06/20 20:44 100 04/06/20 20:00 97.7 F 75 16 136/59 99 04/06/20 18:49 74 16 100 04/06/20 16:00 97.4 F 67 20 119/58 100 04/06/20 13:53 74 22 94 L 04/06/20 12:00 97.6 F 75 18 124/60 96 Pain Assessment - Last Documented Pain Intensity 0 Pain Scale Used 0-10 Pain Scale Intake and Output: Intake & Output 04/05/20 04/06/20 04/07/20 04/08/20 06:59 06:59 06:59 06:59 Intake Total 3284 1520 Output Total 300 1150 Balance 2984 370 Weight 94.8 kg 96 kg Lab Results: Lab Results-Last 24 Hours 04/06/20 04/07/20 04/07/20 Range/Units 06:22 06:10 06:10 WBC 14.7 H (4.0-10.5) K/mm3 RBC 2.72 L (4.1-5.6) M/mm3 Hgb 8.6 L (12.5-18.0) gm/dl Hct 29.0 L (42-50) % MCV 106.6 H (78-100) fl MCH 31.6 (26-32) pg MCHC 29.7 L (32-36) g/dl RDW 15.5 H (11.5-14.0) % Plt Count 216 (150-450) K/mm3 MPV 11.3 H (7.5-11.0) fl Gran % 88.2 H (36.0-66.0) % Eos # (Auto) 0.01 (0-0.5) Absolute Lymphs (auto) 0.83 L (1.0-4.6) Absolute Monos (auto) 0.87 (0.0-1.3) Lymphocytes % 5.7 L (24.0-44.0) % Monocytes % 5.9 (0.0-12.0) % Eosinophils % 0.1 (0.00-5.0) % Basophils % 0.1 (0.0-0.4) % Absolute Granulocytes 12.94 H (1.4-6.9) Basophils # 0.02 (0-0.4) PT 39.0 H (8.83-12.87) SECONDS INR 3.32 H (0.8-3.0) Sodium 140 (137-145) mmol/L Potassium 4.5 (3.5-5.1) mmol/L Chloride 104 (98-107) mmol/L Carbon Dioxide 29 (22-30) mmol/L Anion Gap 11.9 (5-15) MEQ/L BUN 45 H (9-20) mg/dL Creatinine 1.16 (0.66-1.25) mg/dL Estimated GFR > 60.0 ML/MIN Glucose 130 H (74-106) mg/dL Calcium 8.2 L (8.4-10.2) mg/dL Multi-Disciplinary Progress Notes: Multi-Disciplinary Progress Notes 04/06/20 15:34 Case Management Note by Nahed Moya SPOKE WITH RONEL AT [facility], REPORTS THAT THEY WILL BE READY FOR PT SOON COVID-19 TESTING COMES BACK AND IS NEGATIVE. PLEASE SEND A COPY OF LAB ALONG WITH THE HOSPITAL POST ACUTE CARE TRANSFER FORM. Initialized on 04/06/20 15:34 - END OF NOTE Assessment/Plan (1) Peripheral artery disease Current Visit: Yes Status: Acute Assessment & Plan: Continue current medication; patient had recent surgical intervention at [facility]. Code(s): I73.9 - PERIPHERAL VASCULAR DISEASE, UNSPECIFIED (2) Hip pain, right Current Visit: Yes Status: Acute Assessment & Plan: Much improved patient reports. Code(s): M25.551 - PAIN IN RIGHT HIP (3) Anemia Current Visit: Yes Status: Acute Qualifiers: Iron deficiency anemia type: chronic blood loss Assessment & Plan: Stable. Code(s): D64.9 - ANEMIA, UNSPECIFIED (4) Weakness Current Visit: Yes Status: Acute Assessment & Plan: Awaiting covid test results for possible discharge to [facility]. Code(s): R53.1 - WEAKNESS
[2020-04-07] MEDS: Zestril 10 MG PO SCH (10:55)
[2020-04-07] MEDS: Betapace 80 MG PO SCH (10:55)
[2020-04-07] MEDS: Lasix 40 MG PO SCH (10:55)
[2020-04-07] MEDS: NEURONTIN 300 MG PO SCH ×2 (10:55→22:12)
[2020-04-07] MEDS: DELTASONE 20 MG PO SCH (10:56)
[2020-04-07] MEDS: FEOSOL 325 MG PO SCH ×2 (10:56→22:12)
[2020-04-07] MEDS: ECOTRIN 81 MG PO SCH (10:56)
[2020-04-07] MEDS: Toprol-Xl 25MG Tablets PO SCH ×2 (10:57→22:12)
[2020-04-07] MEDS: Flomax 0.4 MG PO SCH (10:57)
[2020-04-07] MEDS ORDERED: PHARMACY DOSING REQUEST MC ONE (11:58)
[2020-04-07] MEDS ORDERED: Coumadin 5 MG PO SCH (18:00)
[2020-04-07] MEDS ORDERED: Coumadin 2.5 MG PO SCH ×2 (18:00)
[2020-04-07] MEDS: ZOCOR 20MG PO SCH (22:11)
[2020-04-08] MEDS: PROVENTIL 2.5 MG/3 ML NEB IH SCH ×2 (01:04→10:30)
[2020-04-08 07:52] LABS: INR 4.3 (0.8-3.0)
[2020-04-08] MEDS: ECOTRIN 81 MG PO SCH (08:15)
[2020-04-08] MEDS: NORCO 7.5/325 MG TAB PO PRN (08:15)
[2020-04-08] MEDS: FEOSOL 325 MG PO SCH (08:15)
[2020-04-08] MEDS: Flomax 0.4 MG PO SCH (08:15)
[2020-04-08] MEDS: Lasix 40 MG PO SCH (08:16)
[2020-04-08] MEDS: DELTASONE 20 MG PO SCH (08:16)
[2020-04-08] MEDS: NEURONTIN 300 MG PO SCH (08:16)
[2020-04-08] MEDS: Betapace 80 MG PO SCH (08:16)
[2020-04-08] MEDS: Toprol-Xl 25MG Tablets PO SCH (08:17)
[2020-04-08] MEDS: Zestril 10 MG PO SCH (08:17)
[2020-04-08] MEDS ORDERED: NORCO 7.5/325 MG TAB PO PRN (08:29)
[2020-04-08 11:31] VITALS: BP 114/52; PULSE 70; O2SAT 95
--- NOTE | 2020-04-08 11:43 | PCM.DCORD ---
- Discharge Discharge Date: 04/08/20 Disposition: Home, Self-Care Condition: Fair Prescriptions: New Ferrous Sulfate 325 mg [Feosol 325 mg] 325 mg PO UD #30 tablet Continue Aspirin [Aspirin EC] 81 mg PO DAILY Tamsulosin HCl 0.4 mg [Flomax 0.4 MG] 0.4 mg PO DAILY Lisinopril 10 mg [Zestril 10 MG] 10 mg PO DAILY Albuterol 2.5 mg/3 ml Neb [Proventil 2.5 mg/3 ml Neb] 1 vial NEBULIZE Q6H Polyethylene Glycol 3350 [Clearlax] 17 gm PO DAILY PRN PRN Reason: Constipation Sotalol HCl 80 mg [Betapace 80 MG] 1 tab PO DAILY Rosuvastatin Calcium 1 tab PO HS Metoprolol Succinate 1 tab PO BID Hydrocodone Bit/Acetaminophen [Hydrocodon-Acetaminoph 7.5-325] 2 tab PO Q6H PRN PRN Reason: Pain Gabapentin 1 tab PO BID Furosemide 40 mg [Lasix 40 MG] 1 tab PO DAILY Warfarin Sodium 2.5 mg [Coumadin 2.5 MG] 2.5 mg PO UD #1 Warfarin Sodium 5 mg [Coumadin 5 MG] 5 mg PO UD #0 Additional Instructions: Do not take your coumadin today; check your INR at home tomorrow (04/09/20). Follow your detail manager's orders on further coumadin. Use your walker for ambulation. Return to ER or Dr. Avelar's office for any chest pain, shortness of breath, back pain or any other concerns. Keep your follow up with your surgeon to have your sutures removed. Follow up with: YUE AVELAR MD [Primary Care Provider] - 1 Week
[2020-04-08] MEDS ORDERED: Coumadin 5 MG PO SCH (18:00)
[2020-04-09] MEDS ORDERED: Coumadin 5 MG PO SCH (18:00)
[2020-04-09] MEDS ORDERED: Coumadin 2.5 MG PO SCH ×2 (18:00)
--- NOTE | 2020-04-10 17:10 | DS ---
DISCHARGE DIAGNOSIS: 1. PERIPHERAL ARTERY DISEASE. 2. RIGHT HIP PAIN. 3. ANEMIA DUE TO IRON DEFICIENCY. 4. GENERALIZED WEAKNESS. DISCHARGE PHYSICAL EXAM: VITALS: Temperature current 98.0, heart rate 70, respiratory rate 18, O2 saturation 95% on room air, BP 114/52. GENERAL: The patient is a pleasant, talkative man sitting up in no acute distress. CVS: He has a regular rate and rhythm. No murmurs, gallops, or rubs are appreciated. CHEST: Clear to auscultation bilaterally. No crackles or wheezes. ABDOMEN: Soft, nontender, nondistended with normal bowel sounds. EXTREMITIES: No clubbing, cyanosis, or edema. SKIN: Warm, dry, and intact. He does have sutures in place in his left forearm, left upper thigh, and special dressing on his left lower leg from a procedure that he had done at [facility] recently. HOSPITAL COURSE: 1. Peripheral artery disease. He was continued on his home medications. He recently had a procedure concerning the peripheral artery disease and has follow-up scheduled with his surgeon to have the sutures removed. 2. Right hip pain. He came in with right hip pain with the inability to care for himself at home requesting rehab stay. The patient reports the pain is gone now. He was given some IV steroids and then oral prednisone, but I am not discharging him on either of these as his pain is much better. He will need to follow-up with his regular doctor. The patient was schedule to go to [facility] as soon as his COVID test was negative. His COVID test did come back negative, but the patient states he is feeling so much better that he does not want to go to [facility] and his family is comfortable with him coming home as well, so he will be discharged to home. 3. Anemia. His Hgb at time of discharge was 8.6. He had had iron levels checked. His iron saturation was low 9, iron level 24, TIBC was normal at 271. He had a hemoccult that was negative. I started him on ferrous sulfate and gave him a prescription to take as an outpatient of ferrous sulfate 325 mg PO bid qod and he will need to follow-up with his primary care provider. 4. Weakness. Again, he reports he is able to care for himself now at home, so will plan to discharge him home per his wishes. 5. Long-term anticoagulation. His INR was elevated at time of discharge at 4.3. We told him not to take his Coumadin tonight, to recheck his INR at home. He says he can do this at home and then his client relationship consultant manages this and they will be able to tell him what to take next. DISCHARGE MEDICATIONS: Please see the discharge order. DISPOSITION: Patient is being discharged to home. FOLLOW-UP: He is to follow-up with his primary care doctor.
== END 2020-04-08 13:02 | disposition home or self-care (01) ==
LOC: ED 21:06 → MED SURG 04-05 01:40
PROVIDERS: ADMIT Internal Medicine; ATTEND Internal Medicine
DX: I73.9 Peripheral vascular disease, unspecified (principal); M25.551 Pain in right hip; D50.9 Iron deficiency anemia, unspecified; R53.1 Weakness; E78.5 Hyperlipidemia, unspecified; I83.023 Varicose veins of left lower extremity with ulcer of ankle; Z79.899 Other long term (current) drug therapy; Z79.01 Long term (current) use of anticoagulants; Z11.59 Encounter for screening for other viral diseases
CPT/HCPCS: 36000; 36415; 73502; 80048; 82270; 82607; 82728; 83540; 83550; 85025; 85027; 85610; 94150; 94640; 94762; 96360; 96374; 96375; 99285; G0378; U0003; J2060; J2270; J2405; J2930; J7609; A9270-GY

== ENCOUNTER 2020-06-22 07:30 | Emergency (ER) | payer MEDICARE ==
[2020-06-22 07:35] VITALS: O2SAT 98
[2020-06-22 08:12] VITALS: BP 126/61; PULSE 90
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
== END 2020-06-22 08:40 | disposition home or self-care (01) ==
LOC: ED 07:30
DX: K59.00 Constipation, unspecified (principal)
CPT/HCPCS: 99283

== ENCOUNTER 2022-01-06 04:46 | Inpatient (IN) | payer MEDICARE ==
[2022-01-06] MEDS ORDERED: DUONEB 0.5-3 MG/3 ml Neb IH ONE ×2 (04:51→04:55)
[2022-01-06] MEDS ORDERED: Zofran 4 MG/2 ML VIAL ONE (04:51)
[2022-01-06] MEDS ORDERED: Zofran 4 MG/2 ML VIAL IV ONE (04:52)
[2022-01-06] MEDS ORDERED: Lasix 40 MG/4 ML IV ONE (04:58)
[2022-01-06] MEDS ORDERED: NITRO-BID 2% UD PACKETS TOP ONE (05:00)
--- NOTE | 2022-01-06 05:06 | ERPHSYRPT ---
- History of Present Illness Source: patient, EMS Exam Limitations: no limitations Timing/Duration: today Severity of Dyspnea-Max: moderate Severity of Dyspnea-Current: moderate Possible Cause: frequent episodes Modifying Factors: Improves With: oxygen Associated Symptoms: edema, wheezing Hx Tetanus, Diphtheria Vaccination/Date Given: Yes Hx Influenza Vaccination/Date Given: Yes Hx Pneumococcal Vaccination/Date Given: No <SHAYE THAKKAR - Last Filed: 01/06/22 06:28> <LEXI COVINGTON - Last Filed: 01/06/22 10:30> - History of Present Illness Time Seen by Provider: 01/06/22 05:01 Physician History: pt developed n and V with SOBreath tonight and has Hx of CHF. No abd pain or tenderness. Fluid long term up chest with rales. LE edema. (SHAYE THAKKAR) Allergies/Adverse Reactions: Iodinated Contrast Media Allergy (Verified 04/05/20 00:01) Iodine and Iodide Containing Produc Allergy (Verified 04/05/20 00:01) Home Medications: Albuterol 2.5 mg/3 ml Neb [Proventil 2.5 mg/3 ml Neb] 1 vial NEBULIZE Q6H 12/19/14 [History] Aspirin [Aspirin EC] 81 mg PO DAILY 12/19/14 [History] Lisinopril 10 mg [Zestril 10 MG] 10 mg PO DAILY 12/19/14 [History] Tamsulosin HCl 0.4 mg [Flomax 0.4 MG] 0.4 mg PO DAILY 12/19/14 [History] Polyethylene Glycol 3350 [Clearlax] 17 gm PO DAILY PRN 10/27/18 [History] Furosemide 40 mg [Lasix 40 MG] 1 tab PO DAILY 04/05/20 [History] Gabapentin 1 tab PO BID 04/05/20 [History] Metoprolol Succinate 1 tab PO BID 04/05/20 [History] Rosuvastatin Calcium 1 tab PO HS 04/05/20 [History] Albuterol/Ipratropium cc [Combivent Inhaler COMMON CANISTER] 15 gm IH QID 11/13/21 [History] Docusate Sodium [Dulcolax Stool Softener] 100 mg PO DAILY PRN PRN 11/13/21 [History] - Review of Systems Constitutional: No Fever, No Chills Eyes: No Symptoms Ears, Nose, & Throat: No Symptoms Respiratory: No Cough, No Dyspnea Cardiac: Edema, No Chest Pain, No Syncope Abdominal/Gastrointestinal: Nausea, Vomiting, No Abdominal Pain, No Diarrhea Genitourinary Symptoms: No Dysuria Musculoskeletal: No Back Pain, No Neck Pain Skin: No Symptoms, No Rash Neurological: No Dizziness, No Focal Weakness, No Sensory Changes Psychological: No Symptoms Endocrine: No Symptoms All Other Systems: Reviewed and Negative <SHAYE THAKKAR - Last Filed: 01/06/22 06:28> - Past Medical History Pertinent Past Medical History: Yes Neurological History: Stroke ENT History: No Pertinent History Cardiac History: Coronary Artery Disease, Hypertension Respiratory History: CHF, COPD Endocrine Medical History: No Pertinent History Musculoskeletal History: Osteoarthritis GI Medical History: Diverticulosis, Other History: No Pertinent History Psycho-Social History: No Pertinent History Male Reproductive Disorders: Prostate Problems Other Medical History: 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 ABOUT 1- 2 YEARS AGO HAD ANOTHER STROKE WHICH TOOK HIS VISION IN HIS LEFT EYE. - Past Surgical History Past Surgical History: Yes Neuro Surgical History: No Pertinent History Cardiac: CABG, Cardiac Catheterization, Cardiac Stent, Internal Defibrillator, Pacemaker, Other Respiratory: Chest Surgery Gastrointestinal: Hernia Repair Genitourinary: No Pertinent History Musculoskeletal: No Pertinent History Male Surgical History: No Pertinent History Other Surgical History: colonoscopy, right cea, - Social History Smoking Status: Former smoker How long have you smoked: 10 yrs Exposure to second hand smoke: No Drug Use: none Patient Lives Alone: No <SHAYE THAKKAR - Last Filed: 01/06/22 06:28> - Physical Exam General Appearance: no apparent distress, alert Eye Exam: PERRL/EOMI Neck Exam: normal inspection, supple Respiratory Exam: airway intact, accessory muscle use, crackles/rales, wheezing Cardiovascular/Chest Exam: normal heart sounds, regular rate/rhythm, edema Abdominal/Gastrointestinal Exam: soft, No tenderness, No distention, No mass Rectal Exam: deferred Extremity Exam: non-tender, normal range of motion, normal inspection, no calf tenderness, no pedal edema Peripheral Pulses Exam: carotid (R): 2+, carotid (L): 2+, femoral (R): 2+, femoral (L): 2+, dorsalis-pedis (R): 2+, dorsalis-pedis (L): 2+ Neurologic Exam: alert, oriented x 3, cooperative, pot sander II-XII nml as tested, sensation nml, No motor deficits Skin Exam: normal color, warm, No dry SpO2 Interpretation: borderline oxygenation SpO2: 94 O2 Delivery: Oxymask <SHAYE THAKKAR - Last Filed: 01/06/22 06:28> - Nursing Vital Signs Nursing Vital Signs: Initial Vital Signs Temperature 100.9 F 01/06/22 04:46 Pulse Rate 142 H 01/06/22 04:46 Respiratory Rate 30 H 01/06/22 04:46 Blood Pressure 157/71 01/06/22 04:46 O2 Sat by Pulse Oximetry 91 L 01/06/22 04:46 Pain Scale Pain Intensity 0 - Course Nursing assessment & vital signs reviewed: Yes EKG Interpreted by Me: Sinus Rhythm, Non-specific ST Changes - Radiology Exams Chest X-ray Interpretation: Reviewed by me, Infiltrates <SHAYE THAKKAR - Last Filed: 01/06/22 06:28> - Course EKG Interpreted by Me: Sinus Rhythm <LEXI COVINGTON - Last Filed: 01/06/22 10:30> Ordered Tests: Active Orders 24 hr Category Date Time Status EKG-ER Only STAT Care 01/06/22 04:52 Active EKG-ER Only STAT Care 01/06/22 07:52 Active IV Insertion STAT Care 01/06/22 04:52 Active Oxygen-ED Only High Flow per RT 50% Care 01/06/22 04:55 Active Pulse Oximetry (ED) STAT Care 01/06/22 04:55 Active CHEST 1 VIEW (PORTABLE) Stat Exams 01/06/22 04:52 Completed CHEST WITHOUT CONTRAST [CT] Stat Exams 01/06/22 07:27 Completed PULMONARY PERF VENTILATION [NUCMED] Stat Exams 01/06/22 06:36 Ordered AMYLASE Stat Lab 01/06/22 05:20 Completed BLOOD CULTURE Stat Lab 01/06/22 05:15 Received CBC W DIFF Stat Lab 01/06/22 05:20 Completed CMP Stat Lab 01/06/22 05:20 Completed CULTURE,URINE Stat Lab 01/06/22 07:45 Received D-DIMER QUANTITATIVE Stat Lab 01/06/22 05:20 Completed LIPASE Stat Lab 01/06/22 05:20 Completed Lactic Acid Stat Lab 01/06/22 05:05 Completed NT PRO BNP Stat Lab 01/06/22 05:20 Completed PT INR [PROTIME WITH INR] Stat Lab 01/06/22 06:12 Completed TROPONIN Q3H Lab 01/06/22 05:20 Completed TROPONIN Q3H Lab 01/06/22 07:45 Completed TROPONIN Q3H Lab 01/06/22 11:00 Ordered TROPONIN Q3H Lab 01/06/22 14:00 Ordered TROPONIN Q3H Lab 01/06/22 17:00 Ordered UA W/RFX UR CULTURE Stat Lab 01/06/22 07:45 Completed Respiratory Therapy Assessment DAILY RT 01/06/22 05:06 Active Medication Summary Generic Name Dose Route Start Last Admin Trade Name Freq PRN Reason Stop Dose Admin Sodium Chloride 1,000 mls @ 50 mls/hr 01/06/22 05:00 01/06/22 05:27 Sodium Chloride 0.9% 1000 Ml IV 02/05/22 04:59 50 mls/hr .Q20H HARJINDER Administration Discontinued Medications Generic Name Dose Route Start Last Admin Trade Name Freq PRN Reason Stop Dose Admin Albuterol/Ipratropium Confirm 01/06/22 04:51 Ipratropium/Albuterol Sulfate 3 Ml Ampul.Neb Administered 01/06/22 04:52 Dose 3 ml IH .STK-MED ONE Albuterol/Ipratropium 3 ml 01/06/22 04:55 01/06/22 04:54 Ipratropium/Albuterol Sulfate 3 Ml Ampul.Neb IH 01/06/22 04:56 3 ml STAT ONE Administration Furosemide 40 mg 01/06/22 04:58 01/06/22 05:27 Furosemide 40 Mg/4 Ml Vial IV 01/06/22 04:59 40 mg STAT ONE Administration Furosemide Confirm 01/06/22 05:25 Furosemide 40 Mg/4 Ml Vial Administered 01/06/22 05:26 Dose 40 mg .ROUTE .STK-MED ONE Ceftriaxone Sodium/Dextrose 1 g in 50 mls @ 100 mls/hr 01/06/22 05:24 01/06/22 07:17 Rocephin 1 Gm-D5w 50 Ml Bag IV 01/06/22 05:53 Infused STAT STA Infusion Ceftriaxone Sodium/Dextrose Confirm 01/06/22 05:36 Rocephin 1 Gm-D5w 50 Ml Bag Administered 01/06/22 05:37 Dose 1 g in 50 mls @ ud IV .STK-MED ONE Nitroglycerin 1 gm 01/06/22 05:00 01/06/22 05:27 Nitroglycerin 1 Gm Packet TOP 01/06/22 05:01 1 gm STAT ONE Administration Nitroglycerin Confirm 01/06/22 05:24 Nitroglycerin 1 Gm Packet Administered 01/06/22 05:25 Dose 1 gm .ROUTE .STK-MED ONE Ondansetron HCl Confirm 01/06/22 04:51 Ondansetron Hcl 4 Mg/2 Ml Vial Administered 01/06/22 04:52 Dose 4 mg .ROUTE .STK-MED ONE Ondansetron HCl 4 mg 01/06/22 04:52 01/06/22 05:28 Ondansetron Hcl 4 Mg/2 Ml Vial IV 01/06/22 04:53 4 mg STAT ONE Administration Lab/Rad Data: Laboratory Result Diagrams 01/06/22 05:20 01/06/22 05:20 Laboratory Results 01/06/22 01/06/22 01/06/22 Range/Units 07:45 07:45 07:45 WBC (4.0-10.5) K/mm3 RBC (4.1-5.6) M/mm3 Hgb (12.5-18.0) gm/dl Hct (42-50) % MCV (78-100) fl MCH (26-32) pg MCHC (32-36) g/dl RDW (11.5-14.0) % Plt Count (150-450) K/mm3 MPV (7.5-11.0) fl Gran % (36.0-66.0) % Eos # (Auto) (0-0.5) Absolute Lymphs (auto) (1.0-4.6) Absolute Monos (auto) (0.0-1.3) Lymphocytes % (24.0-44.0) % Monocytes % (0.0-12.0) % Eosinophils % (0.00-5.0) % Basophils % (0.0-0.4) % Absolute Granulocytes (1.4-6.9) Basophils # (0-0.4) PT (9.4-12.5) SECONDS INR (0.8-3.0) D-Dimer (215-500) ng/mL Sodium (137-145) mmol/L Potassium (3.5-5.1) mmol/L Chloride (98-107) mmol/L Carbon Dioxide (22-30) mmol/L Anion Gap (5-15) MEQ/L BUN (9-20) mg/dL Creatinine (0.66-1.25) mg/dL Estimated GFR ML/MIN Glucose (74-106) mg/dL Lactic Acid (0.4-2.0) Calcium (8.4-10.2) mg/dL Total Bilirubin (0.2-1.3) mg/dL AST (17-59) U/L ALT (0-50) U/L Alkaline Phosphatase (38-126) U/L Troponin I 0.051 H* (0.000-0.034) ng/mL NT-Pro-B Natriuret Pep (0-1800) pg/mL Serum Total Protein (6.3-8.2) g/dL Albumin (3.5-5.0) g/dL Amylase (30-110) U/L Lipase (23-300) U/L Urine Color RED (YELLOW) Urine Appearance SLIGHTLY CLOUDY (CLEAR) Urine pH 5.0 (5-6) Ur Specific Huffman 1.011 (1.005-1.025) Urine Protein 30 (Negative) Urine Ketones NEGATIVE (NEGATIVE) Urine Blood MODERATE (0-5) Shahram/ul Urine Nitrite NEGATIVE (NEGATIVE) Urine Bilirubin NEGATIVE (NEGATIVE) Urine Urobilinogen NEGATIVE (0-1) mg/dL Ur Leukocyte Esterase SMALL (NEGATIVE) Urine WBC (Auto) >100 (0-5) /HPF Urine RBC (Auto) 3-5 (0-2) /HPF U Epithel Cells (Auto) FEW (FEW) /HPF Urine Bacteria (Auto) FEW (NEGATIVE) /HPF Urine Mucus (Auto) SLIGHT (NEGATIVE) /HPF Urine Culture Reflexed YES (NO) Urine Glucose NEGATIVE (NEGATIVE) mg/dL Influenza Type A Ag NEGATIVE (NEGATIVE) Influenza Type B Ag NEGATIVE (NEGATIVE) RSV (PCR) NEGATIVE (Negative) SARS-CoV-2 (PCR) NEGATIVE (NEGATIVE) 01/06/22 01/06/22 01/06/22 Range/Units 06:12 05:20 05:20 WBC (4.0-10.5) K/mm3 RBC (4.1-5.6) M/mm3 Hgb (12.5-18.0) gm/dl Hct (42-50) % MCV (78-100) fl MCH (26-32) pg MCHC (32-36) g/dl RDW (11.5-14.0) % Plt Count (150-450) K/mm3 MPV (7.5-11.0) fl Gran % (36.0-66.0) % Eos # (Auto) (0-0.5) Absolute Lymphs (auto) (1.0-4.6) Absolute Monos (auto) (0.0-1.3) Lymphocytes % (24.0-44.0) % Monocytes % (0.0-12.0) % Eosinophils % (0.00-5.0) % Basophils % (0.0-0.4) % Absolute Granulocytes (1.4-6.9) Basophils # (0-0.4) PT 21.5 H (9.4-12.5) SECONDS INR 1.82 (0.8-3.0) D-Dimer 1965 H* (215-500) ng/mL Sodium (137-145) mmol/L Potassium (3.5-5.1) mmol/L Chloride (98-107) mmol/L Carbon Dioxide (22-30) mmol/L Anion Gap (5-15) MEQ/L BUN (9-20) mg/dL Creatinine (0.66-1.25) mg/dL Estimated GFR ML/MIN Glucose (74-106) mg/dL Lactic Acid (0.4-2.0) Calcium (8.4-10.2) mg/dL Total Bilirubin (0.2-1.3) mg/dL AST (17-59) U/L ALT (0-50) U/L Alkaline Phosphatase (38-126) U/L Troponin I (0.000-0.034) ng/mL NT-Pro-B Natriuret Pep 1640 (0-1800) pg/mL Serum Total Protein (6.3-8.2) g/dL Albumin (3.5-5.0) g/dL Amylase (30-110) U/L Lipase (23-300) U/L Urine Color (YELLOW) Urine Appearance (CLEAR) Urine pH (5-6) Ur Specific Huffman (1.005-1.025) Urine Protein (Negative) Urine Ketones (NEGATIVE) Urine Blood (0-5) Shahram/ul Urine Nitrite (NEGATIVE) Urine Bilirubin (NEGATIVE) Urine Urobilinogen (0-1) mg/dL Ur Leukocyte Esterase (NEGATIVE) Urine WBC (Auto) (0-5) /HPF Urine RBC (Auto) (0-2) /HPF U Epithel Cells (Auto) (FEW) /HPF Urine Bacteria (Auto) (NEGATIVE) /HPF Urine Mucus (Auto) (NEGATIVE) /HPF Urine Culture Reflexed (NO) Urine Glucose (NEGATIVE) mg/dL Influenza Type A Ag (NEGATIVE) Influenza Type B Ag (NEGATIVE) RSV (PCR) (Negative) SARS-CoV-2 (PCR) (NEGATIVE) 01/06/22 01/06/22 01/06/22 Range/Units 05:20 05:20 05:20 WBC 9.7 (4.0-10.5) K/mm3 RBC 4.42 (4.1-5.6) M/mm3 Hgb 14.2 (12.5-18.0) gm/dl Hct 45.3 (42-50) % MCV 102.5 H (78-100) fl MCH 32.1 H (26-32) pg MCHC 31.3 L (32-36) g/dl RDW 14.4 H (11.5-14.0) % Plt Count 165 (150-450) K/mm3 MPV 10.0 (7.5-11.0) fl Gran % 87.5 H (36.0-66.0) % Eos # (Auto) 0.07 (0-0.5) Absolute Lymphs (auto) 0.85 L (1.0-4.6) Absolute Monos (auto) 0.28 (0.0-1.3) Lymphocytes % 8.8 L (24.0-44.0) % Monocytes % 2.9 (0.0-12.0) % Eosinophils % 0.7 (0.00-5.0) % Basophils % 0.1 (0.0-0.4) % Absolute Granulocytes 8.49 H (1.4-6.9) Basophils # 0.01 (0-0.4) PT (9.4-12.5) SECONDS INR (0.8-3.0) D-Dimer (215-500) ng/mL Sodium 138 (137-145) mmol/L Potassium 4.3 (3.5-5.1) mmol/L Chloride 97 L (98-107) mmol/L Carbon Dioxide 31 H (22-30) mmol/L Anion Gap 14.0 (5-15) MEQ/L BUN 22 H (9-20) mg/dL Creatinine 1.32 H (0.66-1.25) mg/dL Estimated GFR 54.4 ML/MIN Glucose 94 (74-106) mg/dL Lactic Acid (0.4-2.0) Calcium 8.8 (8.4-10.2) mg/dL Total Bilirubin 1.20 (0.2-1.3) mg/dL AST 28 (17-59) U/L ALT 20 (0-50) U/L Alkaline Phosphatase 85 (38-126) U/L Troponin I < 0.012 (0.000-0.034) ng/mL NT-Pro-B Natriuret Pep (0-1800) pg/mL Serum Total Protein 7.7 (6.3-8.2) g/dL Albumin 4.4 (3.5-5.0) g/dL Amylase 48 (30-110) U/L Lipase 48 (23-300) U/L Urine Color (YELLOW) Urine Appearance (CLEAR) Urine pH (5-6) Ur Specific Huffman (1.005-1.025) Urine Protein (Negative) Urine Ketones (NEGATIVE) Urine Blood (0-5) Shahram/ul Urine Nitrite (NEGATIVE) Urine Bilirubin (NEGATIVE) Urine Urobilinogen (0-1) mg/dL Ur Leukocyte Esterase (NEGATIVE) Urine WBC (Auto) (0-5) /HPF Urine RBC (Auto) (0-2) /HPF U Epithel Cells (Auto) (FEW) /HPF Urine Bacteria (Auto) (NEGATIVE) /HPF Urine Mucus (Auto) (NEGATIVE) /HPF Urine Culture Reflexed (NO) Urine Glucose (NEGATIVE) mg/dL Influenza Type A Ag (NEGATIVE) Influenza Type B Ag (NEGATIVE) RSV (PCR) (Negative) SARS-CoV-2 (PCR) (NEGATIVE) 01/06/22 Range/Units 05:05 WBC (4.0-10.5) K/mm3 RBC (4.1-5.6) M/mm3 Hgb (12.5-18.0) gm/dl Hct (42-50) % MCV (78-100) fl MCH (26-32) pg MCHC (32-36) g/dl RDW (11.5-14.0) % Plt Count (150-450) K/mm3 MPV (7.5-11.0) fl Gran % (36.0-66.0) % Eos # (Auto) (0-0.5) Absolute Lymphs (auto) (1.0-4.6) Absolute Monos (auto) (0.0-1.3) Lymphocytes % (24.0-44.0) % Monocytes % (0.0-12.0) % Eosinophils % (0.00-5.0) % Basophils % (0.0-0.4) % Absolute Granulocytes (1.4-6.9) Basophils # (0-0.4) PT (9.4-12.5) SECONDS INR (0.8-3.0) D-Dimer (215-500) ng/mL Sodium (137-145) mmol/L Potassium (3.5-5.1) mmol/L Chloride (98-107) mmol/L Carbon Dioxide (22-30) mmol/L Anion Gap (5-15) MEQ/L BUN (9-20) mg/dL Creatinine (0.66-1.25) mg/dL Estimated GFR ML/MIN Glucose (74-106) mg/dL Lactic Acid 1.5 (0.4-2.0) Calcium (8.4-10.2) mg/dL Total Bilirubin (0.2-1.3) mg/dL AST (17-59) U/L ALT (0-50) U/L Alkaline Phosphatase (38-126) U/L Troponin I (0.000-0.034) ng/mL NT-Pro-B Natriuret Pep (0-1800) pg/mL Serum Total Protein (6.3-8.2) g/dL Albumin (3.5-5.0) g/dL Amylase (30-110) U/L Lipase (23-300) U/L Urine Color (YELLOW) Urine Appearance (CLEAR) Urine pH (5-6) Ur Specific Huffman (1.005-1.025) Urine Protein (Negative) Urine Ketones (NEGATIVE) Urine Blood (0-5) Shahram/ul Urine Nitrite (NEGATIVE) Urine Bilirubin (NEGATIVE) Urine Urobilinogen (0-1) mg/dL Ur Leukocyte Esterase (NEGATIVE) Urine WBC (Auto) (0-5) /HPF Urine RBC (Auto) (0-2) /HPF U Epithel Cells (Auto) (FEW) /HPF Urine Bacteria (Auto) (NEGATIVE) /HPF Urine Mucus (Auto) (NEGATIVE) /HPF Urine Culture Reflexed (NO) Urine Glucose (NEGATIVE) mg/dL Influenza Type A Ag (NEGATIVE) Influenza Type B Ag (NEGATIVE) RSV (PCR) (Negative) SARS-CoV-2 (PCR) (NEGATIVE) - Progress Progress: improved, re-examined Air Movement: good Blood Culture(s) Obtained: No Antibiotics given: Yes Counseled pt/family regarding: lab results, diagnosis, need for follow-up, rad results <SHAYE THAKKAR - Last Filed: 01/06/22 06:28> <LEXI COVINGTON - Last Filed: 01/06/22 10:30> - Progress Progress Note: 01/06/22 06:10 discussed the additional risks for CT PE with pts slight at border RFTs and pt wishes to continue. However iodine allergy noted, so ventilation perfusion test order instead to help rule out PE. Will also check INR to see if therapeutic on coumadin Tx. 01/06/22 06:28 Pt will be turned over to Dr. Colindres at change of shift to complete workup and make final disposition, after discussion of remaining pending tests and current findings. 01/06/22 06:37 (SHAYE THAKKAR) 01/06/22 07:30 Assumed care of pt at 7:00AM w fever/N/chills/dyspnea. Pt has h/o CHF/Afib on coumadin. WF on 10L O2 oximask Lung rales at bases B Heart tachy Abdomen obese, soft, NTTP B pretibial erythema 01/06/22 10:[address] Escudero (LEXI COVINGTON) <SHAYE THAKKAR - Last Filed: 01/06/22 06:28> - Departure Departure Disposition: Observation Critical Care Time: Yes Critical Care Time(excluding separately billable procedures): Critical 30-74 mins <LEXI COVINGTON - Last Filed: 01/06/22 10:30> - Departure Clinical Impression: CHF (congestive heart failure), UTI (urinary tract infection), Elevated troponin, Pneumonia Condition: Stable Referrals: [facility]SAIX [Primary Care Provider] - Follow up/PCP as directed Instructions: Heart Failure
[2022-01-06 05:23] LABS: Absolute Neutrophil Ct (ANC) 8.49 (1.4-6.9); Basophil (Absolute #) 0.01 (0-0.4); Eosinophil % 0.7 % (0.00-5.0); Eosinophil (Absolute #) 0.07 (0-0.5); Hematocrit 45.3 % (42-50); Hemoglobin 14.2 gm/dl (12.5-18.0); Lymphocyte (Absolute #) 0.85 (1.0-4.6); Lymphocytes % 8.8 % (24.0-44.0); Mean Cell Volume 102.5 fl (78-100); Mean Corpuscular Hemoglobin 32.1 pg (26-32); Mean Corpuscular Hgb Concent. 31.3 g/dl (32-36); Monocyte (Absolute #) 0.28 (0.0-1.3); Monocytes % 2.9 % (0.0-12.0); Neutrophil % 87.5 % (36.0-66.0); Platelet Count 165 K/mm3 (150-450); Red Blood Count 4.42 M/mm3 (4.1-5.6); Red Cell Distribution Width 14.4 % (11.5-14.0); White Blood Count 9.7 K/mm3 (4.0-10.5)
[2022-01-06] MEDS ORDERED: ROCEPHIN 1 Gm-D5w 50 ml Bag** 1 G/50 ML IVPB IV STA (05:24)
[2022-01-06] MEDS ORDERED: NITRO-BID 2% UD PACKETS ONE (05:24)
[2022-01-06] MEDS ORDERED: Lasix 40 MG/4 ML ONE (05:25)
[2022-01-06] MEDS: Sodium Chloride 0.9% 1000 ML 1,000 ML IV SCH (05:27)
[2022-01-06] MEDS ORDERED: ROCEPHIN 1 Gm-D5w 50 ml Bag** 1 G/50 ML IVPB IV ONE (05:36)
[2022-01-06 05:39] LABS: ALBUMIN 4.4 g/dL (3.5-5.0); BILIRUBIN,TOTAL 1.2 mg/dL (0.2-1.3); Calcium 8.8 mg/dL (8.4-10.2); Creatinine 1 1.32 mg/dL (0.66-1.25); EST GLOMERULAR FILTRATION RATE 54.4 ML/MIN; Potassium 4.3 mmol/L (3.5-5.1); Total Protein 7.7 g/dL (6.3-8.2)
[2022-01-06 06:38] LABS: INR 1.82 (0.8-3.0); PROTIME 21.5 SECONDS (9.4-12.5)
[2022-01-06 08:07] LABS: Appearance SLIGHTLY CLOUDY (CLEAR); Bacteria FEW /HPF (NEGATIVE); Bilirubin NEGATIVE (NEGATIVE); Blood MODERATE Ery/ul (0-5); Epithelial Cells FEW /HPF (FEW); Glucose NEGATIVE (NEGATIVE); Ketones NEGATIVE (NEGATIVE); Leukocyte Esterase SMALL (NEGATIVE); Mucus SLIGHT /HPF (NEGATIVE); Nitrite NEGATIVE (NEGATIVE); Protein,Urine Dip 30 (Negative); Specific Gravity 1.011 (1.005-1.025); Urobilinogen NEGATIVE mg/dL (0-1); WBC >100 /HPF (0-5)
--- NOTE | 2022-01-06 08:45 | XRAY ---
Indication: Short of breath. Abnormal chest radiograph. Multiple contiguous axial images obtained through the chest without contrast. Comparison: March 04, 2019. Heart is now borderline enlarged again with scattered coronary calcifications, CABG surgery, and left AICD. No pericardial effusion/thickening. 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 Stable tiny mediastinal and bilateral hilar calcified nodes. No pathologic mediastinal lymphadenopathy. Lungs again demonstrates scattered pleural parenchymal fibrosis/scarring and tiny calcified granulomas. Moderate bilateral dependent atelectasis. New mild interstitial edema and tiny bilateral effusions. No suspicious pulmonary mass, nodule, or pneumothorax. Bony thorax again dense areas osteopenia, partial resection right 9 rib, and old left rib fractures. New finding subacute to chronic appearing T12 superior endplate fracture with approximately 25% height loss. Limited upper abdomen unremarkable. Impression: 1. New borderline cardiomegaly, interstitial edema, and bilateral effusions favoring cardiac decompensation/CHF. Superimposed pneumonia not completely excluded. 2. Stable diffuse scattered arteriosclerotic disease with 2 cm aortic arch saccular-like aneurysm. 3. New finding CABG subacute to chronic appearing T12 endplate fracture. 4. Again scattered pulmonary fibrosis/scarring, chronic bony findings, and old granulomatous disease.
--- NOTE | 2022-01-06 08:45 | XRAY ---
Indication: Short of breath. Comparison: June 18, 2021. Portable chest now demonstrates borderline cardiomegaly, central vascular congestion, interstitial edema, and tiny bibasilar effusions favoring cardiac decompensation/CHF. Superimposed pneumonia not completely excluded. Again incidental CABG, left AICD, osteopenia, and old granulomatous disease.
[2022-01-06 08:56] LABS: INFLUENZA A NEGATIVE (NEGATIVE); INFLUENZA B NEGATIVE (NEGATIVE); RESPIRATORY SYNCTIAL VIRUS NEGATIVE (Negative); SARS-CoV-2 Xpert Express NEGATIVE (NEGATIVE)
[2022-01-06] MEDS ORDERED: Zofran 4 MG/2 ML VIAL IV PRN (10:32)
[2022-01-06] MEDS ORDERED: TYLENOL 325 MG PO PRN (10:32)
[2022-01-06] MEDS ORDERED: BABY ASPIRIN 81 MG CHEW PO ONE (10:37)
[2022-01-06] MEDS ORDERED: BABY ASPIRIN 81 MG CHEW ONE (10:56)
[2022-01-06] MEDS: DUONEB 0.5-3 MG/3 ml Neb IH SCH ×4 (11:43→19:33)
[2022-01-06] MEDS ORDERED: Zosyn 3.375 GM Vial 3.375 GM in Sodium Chloride 100ML MINI-BAG PLUS 100 ML IV SCH (12:00)
[2022-01-06] MEDS: Zosyn 2.25 GM 2.25 GM in Sodium Chloride 100ML MINI-BAG PLUS 100 ML IV SCH ×2 (13:16→18:49)
[2022-01-06] MEDS: PROTONIX 40 MG IV IV SCH (13:17)
--- NOTE | 2022-01-06 13:26 | XRAY ---
Indication: Short of breath, low blood oxygen, chest discomfort, and elevated d-dimer. COPD. Comparison: None Patient received 5.6 mCi technetium 99 MAA for the perfusion portion of exam. Patient inhaled 36.7 mCi aerosolized technetium 99 DTPA for the ventilation portion. Multiple planar images obtained. Perfusion images demonstrate homogeneous radiopharmaceutical activity. Right midlung demonstrates linear perfusion defect anteriorly, possible subsegmental atelectasis. No other segmental or subsegmental perfusion defect. Ventilation images demonstrates homogeneous radiopharmaceutical activity. Right midlung demonstrates matched linear ventilation defect anteriorly. No other ventilation defect. Impression: Right midlung matched linear ventilation/perfusion defect, possible subsegmental atelectasis. PIOPED criteria for pulmonary embolus is low probability.
--- NOTE | 2022-01-06 17:20 | PCM.BN ---
Brief Admission Note - Admission Note Brief Admisson Note: Patient admitted @ 01/06/22 11:10 to [facility]. Medication List reviewed and reconciled. Coumadin dose is 3 mg daily but INR low in ER and will give 5mg today and do daily INR and call PCP for dose Coumadin until regulated. Cellulitis,PVD ptn agrees to Podiatry consult.
[2022-01-06] MEDS ORDERED: Colace 100 MG PO PRN (17:22)
[2022-01-06] MEDS ORDERED: Miralax Powder 17GM PACKET PO PRN (17:22)
[2022-01-06] MEDS ORDERED: Coumadin 5 MG PO SCH ×2 (18:00)
[2022-01-06] MEDS: Flomax 0.4 MG PO SCH (18:48)
[2022-01-06] MEDS: ECOTRIN 81 MG PO SCH (18:48)
[2022-01-06] MEDS: Lasix 40 MG/4 ML IV SCH (18:48)
[2022-01-06] MEDS: Advair Hfa 115/21 Common canister IH SCH (19:37)
[2022-01-06] MEDS: ZOCOR 20MG PO SCH (21:31)
[2022-01-06] MEDS: Toprol-Xl 25MG Tablets PO SCH (21:31)
[2022-01-06] MEDS: NEURONTIN 300 MG PO SCH (21:31)
[2022-01-06] MEDS ORDERED: NON-FORMULARY ITEM (Rosuvastatin Calcium [Rosuvastatin Calcium] 10 MG Tablet) PO SCH (22:00)
[2022-01-06] MEDS ORDERED: NON-FORMULARY ITEM (Gabapentin [Gabapentin] 600 MG Tablet) PO SCH (22:00)
[2022-01-07] MEDS: Zosyn 2.25 GM 2.25 GM in Sodium Chloride 100ML MINI-BAG PLUS 100 ML IV SCH ×4 (00:41→17:17)
[2022-01-07] MEDS: Sodium Chloride 0.9% 1000 ML 1,000 ML IV SCH (04:35)
[2022-01-07 05:03] LABS: INR 2.11 (0.8-3.0); PROTIME 24.9 SECONDS (9.4-12.5)
[2022-01-07 05:09] LABS: ALBUMIN 3.4 g/dL (3.5-5.0); ANION GAP 7.4 MEQ/L (5-15); BILIRUBIN,TOTAL 0.7 mg/dL (0.2-1.3); Calcium 7.8 mg/dL (8.4-10.2); Creatinine 1 1.4 mg/dL (0.66-1.25); EST GLOMERULAR FILTRATION RATE 50.8 ML/MIN; Potassium 3.2 mmol/L (3.5-5.1); Total Protein 6.2 g/dL (6.3-8.2)
[2022-01-07] MEDS: Lasix 40 MG/4 ML IV SCH ×2 (06:21→17:17)
[2022-01-07] MEDS: DUONEB 0.5-3 MG/3 ml Neb IH SCH ×3 (07:32→19:07)
[2022-01-07] MEDS: Advair Hfa 115/21 Common canister IH SCH ×2 (07:36→19:07)
--- NOTE | 2022-01-07 08:08 | PCM.CONS ---
Podiatry HPI - Consult Date of Consultation Date: 01/07/22 Reason for Consult: Bilateral leg ulcers, PVD, Calf pain, elevated d-dimer Consulting Provider: ADELE MORROW DPM - [facility] History of Present Illness: is a 86 year old male. Mr. Jacobson is a very pleasant 86-year-old male who presents with admission for exacerbation of congestive heart failure, UTI, elevated troponins and pneumonia. Seen at bedside this a.m. for concerns of ulcerations to the bilateral lower extremity with corresponding cellulitis. On admission he does have elevated temperature pulse rate respiratory rate and oxygen saturation is 91 L he has stabilized over the last 24 hours. Patient has been seeing [facility] wound care for the last 2 months for the bilateral leg wounds. Patient does have an extensive history per subjective examination of vascular intervention from a surgical perspective that is no longer operable according to the patient. No vascular studies are on file as far as I can tell. Patient does have a a noted allergy to iodine. He endorses shortness of breath he denies any other pedal complaints at this time Medications & Allergies Home Medications: Home Medication List Albuterol 2.5 mg/3 ml Neb [Proventil 2.5 mg/3 ml Neb] 1 vial NEBULIZE Q6H 12/19/14 [History Confirmed 01/06/22] Aspirin [Aspirin EC] 81 mg PO DAILY 12/19/14 [History Confirmed 01/06/22] Tamsulosin HCl 0.4 mg [Flomax 0.4 MG] 0.4 mg PO DAILY 12/19/14 [History Confirmed 01/06/22] Polyethylene Glycol 3350 [Clearlax] 17 gm PO DAILY PRN 10/27/18 [History Confirmed 01/06/22] Furosemide 40 mg [Lasix 40 MG] 1 tab PO DAILY 04/05/20 [History Confirmed 01/06/22] Gabapentin 1 tab PO BID 04/05/20 [History Confirmed 01/06/22] Metoprolol Succinate 1 tab PO BID 04/05/20 [History Confirmed 01/06/22] Rosuvastatin Calcium 1 tab PO HS 04/05/20 [History Confirmed 01/06/22] Albuterol/Ipratropium cc [Combivent Inhaler COMMON CANISTER] 15 gm IH QID 11/13/21 [History Confirmed 01/06/22] Docusate Sodium [Dulcolax Stool Softener] 100 mg PO DAILY PRN PRN 11/13/21 [History Confirmed 01/06/22] Warfarin Sodium 1 tab PO DAILY 01/06/22 [History Confirmed 01/06/22] Allergies/Adverse Reactions: Allergies Allergy/AdvReac Type Severity Reaction Status Date / Time Iodinated Contrast Media Allergy Verified 04/05/20 00:01 Iodine and Iodide Containing Allergy Verified 04/05/20 00:01 Produc - Past Medical History Past Medical History: Yes Neurological History: Stroke ENT History: No Pertinent History Cardiac History: Coronary Artery Disease, Hypertension Respiratory History: CHF, COPD Endocrine Medical History: No Pertinent History Musculoskelatal History: Osteoarthritis GI Medical History: Diverticulosis, Other History: No Pertinent History Pyscho-Social History: No Pertinent History Male Reproductive Disorders: Prostate Problems Comment: 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 ABOUT 1-2 YEARS AGO HAD ANOTHER STROKE WHICH TOOK HIS VISION IN HIS LEFT EYE. - Past Surgical History Past Surgical History: Yes Neuro Surgical History: No Pertinent History Cardiac History: CABG, Cardiac Catheterization, Cardiac Stent, Internal Defibrillator, Pacemaker, Other Respiratory Surgery: Chest Surgery GI Surgical History: Hernia Repair Genitourinary Surgical Hx: No Pertinent History Musculskeletal Surgical Hx: No Pertinent History Male Surgical History: No Pertinent History Other Surgical History: colonoscopy, right cea, - Social History Smoking Status: Former smoker How long have you smoked: 10 yrs Exposure to second hand smoke: No Alcohol: None Drug Use: none Physical Exam - General General Appearance: no apparent distress, alert - Neuro Neurologic: Epicritic and protopathic - Vascular Peripheral Pulses: Posterior tibialis: 0, Dorsalis-Pedis: 0 Capillary Refill Time: Delayed Varicosities: Positive Edema: Non-pitting Skin Temperature: Warm to touch - Muscular Muscle Strength: 5/5 on all 4 quadrants - Narrative Narrative Physical Exam: Podiatry Physical Exam Results - Labs Lab/Micro Results: Lab Results-Last 24 Hours 01/06/22 01/06/22 01/06/22 Range/Units 07:45 07:45 07:45 PT (9.4-12.5) SECONDS INR (0.8-3.0) Sodium (137-145) mmol/L Potassium (3.5-5.1) mmol/L Chloride (98-107) mmol/L Carbon Dioxide (22-30) mmol/L Anion Gap (5-15) MEQ/L BUN (9-20) mg/dL Creatinine (0.66-1.25) mg/dL Estimated GFR ML/MIN Glucose (74-106) mg/dL Calcium (8.4-10.2) mg/dL Total Bilirubin (0.2-1.3) mg/dL AST (17-59) U/L ALT (0-50) U/L Alkaline Phosphatase (38-126) U/L Troponin I 0.051 H* (0.000-0.034) ng/mL Serum Total Protein (6.3-8.2) g/dL Albumin (3.5-5.0) g/dL Urine Color RED (YELLOW) Urine Appearance SLIGHTLY CLOUDY (CLEAR) Urine pH 5.0 (5-6) Ur Specific [place] 1.011 (1.005-1.025) Urine Protein 30 (Negative) Urine Ketones NEGATIVE (NEGATIVE) Urine Blood MODERATE (0-5) Shahram/ul Urine Nitrite NEGATIVE (NEGATIVE) Urine Bilirubin NEGATIVE (NEGATIVE) Urine Urobilinogen NEGATIVE (0-1) mg/dL Ur Leukocyte Esterase SMALL (NEGATIVE) Urine WBC (Auto) >100 (0-5) /HPF Urine RBC (Auto) 3-5 (0-2) /HPF U Epithel Cells (Auto) FEW (FEW) /HPF Urine Bacteria (Auto) FEW (NEGATIVE) /HPF Urine Mucus (Auto) SLIGHT (NEGATIVE) /HPF Urine Culture Reflexed YES (NO) Urine Glucose NEGATIVE (NEGATIVE) mg/dL Influenza Type A Ag NEGATIVE (NEGATIVE) Influenza Type B Ag NEGATIVE (NEGATIVE) RSV (PCR) NEGATIVE (Negative) SARS-CoV-2 (PCR) NEGATIVE (NEGATIVE) 01/06/22 01/06/22 01/06/22 Range/Units 11:11 14:01 16:05 PT (9.4-12.5) SECONDS INR (0.8-3.0) Sodium (137-145) mmol/L Potassium (3.5-5.1) mmol/L Chloride (98-107) mmol/L Carbon Dioxide (22-30) mmol/L Anion Gap (5-15) MEQ/L BUN (9-20) mg/dL Creatinine (0.66-1.25) mg/dL Estimated GFR ML/MIN Glucose (74-106) mg/dL Calcium (8.4-10.2) mg/dL Total Bilirubin (0.2-1.3) mg/dL AST (17-59) U/L ALT (0-50) U/L Alkaline Phosphatase (38-126) U/L Troponin I 0.079 H* 0.068 H* 0.056 H* (0.000-0.034) ng/mL Serum Total Protein (6.3-8.2) g/dL Albumin (3.5-5.0) g/dL Urine Color (YELLOW) Urine Appearance (CLEAR) Urine pH (5-6) Ur Specific [place] (1.005-1.025) Urine Protein (Negative) Urine Ketones (NEGATIVE) Urine Blood (0-5) Shahram/ul Urine Nitrite (NEGATIVE) Urine Bilirubin (NEGATIVE) Urine Urobilinogen (0-1) mg/dL Ur Leukocyte Esterase (NEGATIVE) Urine WBC (Auto) (0-5) /HPF Urine RBC (Auto) (0-2) /HPF U Epithel Cells (Auto) (FEW) /HPF Urine Bacteria (Auto) (NEGATIVE) /HPF Urine Mucus (Auto) (NEGATIVE) /HPF Urine Culture Reflexed (NO) Urine Glucose (NEGATIVE) mg/dL Influenza Type A Ag (NEGATIVE) Influenza Type B Ag (NEGATIVE) RSV (PCR) (Negative) SARS-CoV-2 (PCR) (NEGATIVE) 01/06/22 01/06/22 01/07/22 Range/Units 20:20 22:30 04:15 PT (9.4-12.5) SECONDS INR (0.8-3.0) Sodium 136 L (137-145) mmol/L Potassium 3.2 L D (3.5-5.1) mmol/L Chloride 98 (98-107) mmol/L Carbon Dioxide 34 H (22-30) mmol/L Anion Gap 7.4 (5-15) MEQ/L BUN 25 H (9-20) mg/dL Creatinine 1.40 H (0.66-1.25) mg/dL Estimated GFR 50.8 ML/MIN Glucose 95 (74-106) mg/dL Calcium 7.8 L (8.4-10.2) mg/dL Total Bilirubin 0.70 (0.2-1.3) mg/dL AST 32 (17-59) U/L ALT 12 (0-50) U/L Alkaline Phosphatase 52 (38-126) U/L Troponin I 0.042 H* 0.040 H* (0.000-0.034) ng/mL Serum Total Protein 6.2 L (6.3-8.2) g/dL Albumin 3.4 L (3.5-5.0) g/dL Urine Color (YELLOW) Urine Appearance (CLEAR) Urine pH (5-6) Ur Specific [place] (1.005-1.025) Urine Protein (Negative) Urine Ketones (NEGATIVE) Urine Blood (0-5) Shahram/ul Urine Nitrite (NEGATIVE) Urine Bilirubin (NEGATIVE) Urine Urobilinogen (0-1) mg/dL Ur Leukocyte Esterase (NEGATIVE) Urine WBC (Auto) (0-5) /HPF Urine RBC (Auto) (0-2) /HPF U Epithel Cells (Auto) (FEW) /HPF Urine Bacteria (Auto) (NEGATIVE) /HPF Urine Mucus (Auto) (NEGATIVE) /HPF Urine Culture Reflexed (NO) Urine Glucose (NEGATIVE) mg/dL Influenza Type A Ag (NEGATIVE) Influenza Type B Ag (NEGATIVE) RSV (PCR) (Negative) SARS-CoV-2 (PCR) (NEGATIVE) 01/07/22 Range/Units 04:15 PT 24.9 H (9.4-12.5) SECONDS INR 2.11 (0.8-3.0) Sodium (137-145) mmol/L Potassium (3.5-5.1) mmol/L Chloride (98-107) mmol/L Carbon Dioxide (22-30) mmol/L Anion Gap (5-15) MEQ/L BUN (9-20) mg/dL Creatinine (0.66-1.25) mg/dL Estimated GFR ML/MIN Glucose (74-106) mg/dL Calcium (8.4-10.2) mg/dL Total Bilirubin (0.2-1.3) mg/dL AST (17-59) U/L ALT (0-50) U/L Alkaline Phosphatase (38-126) U/L Troponin I (0.000-0.034) ng/mL Serum Total Protein (6.3-8.2) g/dL Albumin (3.5-5.0) g/dL Urine Color (YELLOW) Urine Appearance (CLEAR) Urine pH (5-6) Ur Specific [place] (1.005-1.025) Urine Protein (Negative) Urine Ketones (NEGATIVE) Urine Blood (0-5) Shahram/ul Urine Nitrite (NEGATIVE) Urine Bilirubin (NEGATIVE) Urine Urobilinogen (0-1) mg/dL Ur Leukocyte Esterase (NEGATIVE) Urine WBC (Auto) (0-5) /HPF Urine RBC (Auto) (0-2) /HPF U Epithel Cells (Auto) (FEW) /HPF Urine Bacteria (Auto) (NEGATIVE) /HPF Urine Mucus (Auto) (NEGATIVE) /HPF Urine Culture Reflexed (NO) Urine Glucose (NEGATIVE) mg/dL Influenza Type A Ag (NEGATIVE) Influenza Type B Ag (NEGATIVE) RSV (PCR) (Negative) SARS-CoV-2 (PCR) (NEGATIVE) Microbiology 01/06/22 05:15 Blood Culture - Preliminary Blood NO GROWTH TO DATE 01/06/22 05:00 Blood Culture - Preliminary Blood NO GROWTH TO DATE - Radiology Impressions Radiology Exams & Impressions: Radiology Procedures Category Date Time Status AMY/LIMB PRESSURES BILATERAL [US] Routine Exams 01/07/22 Ordered ARTERIAL BILAT LOWER EXTREMITY [US] Routine Exams 01/07/22 Ordered CHEST 1 VIEW (PORTABLE) Stat Exams 01/06/22 04:52 Completed CHEST WITHOUT CONTRAST [CT] Stat Exams 01/06/22 07:27 Completed PULMONARY PERF VENTILATION [NUCMED] Stat Exams 01/06/22 11:23 Completed ULTRASOUND BILATERAL LOWER EXTREMITY [VENOUS BILATERAL Exams 01/07/22 Ordered EXTREMITY] [US] Routine - Other Procedures and Tests Respiratory Therapy 01/06/22 19:41 Oxygen Nasal Cannula 5 lpm Assessment/Plan (1) Cellulitis of leg, except foot Current Visit: Yes Status: Acute Code(s): L03.119 - CELLULITIS OF UNSPECIFIED PART OF LIMB (2) Pain in right leg Current Visit: Yes Status: Acute Code(s): M79.604 - PAIN IN RIGHT LEG (3) Pain in left leg Current Visit: Yes Status: Acute Code(s): M79.605 - PAIN IN LEFT LEG (4) Chronic cutaneous venous stasis ulcer Current Visit: Yes Status: Acute Assessment & Plan: Initial patient examination evaluation. Patient's venous insufficiency ulcers are chronic at this time noting that he has been dealing with this for approximately 3 months. He has been seeing her [facility] wound care in that time. 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 The right leg demonstrates less occlusive disease however monophasic waveforms throughout the entire extremity. Ultrasound obtained demonstrating negative for DVT of the bilateral lower extremity. Patient would benefit from bilateral Unna boot therapy with minimal compression to the right moderate compression to the left. Patient does have an iodine allergy therefore Hibiclens versus chlorhexidine would be beneficial in sterilization of the wounds. Wounds draining serous fluid at this time would benefit from application of Aquacel Ag as an absorptive dressing. We will plan for dressing changes every other day to assess improvement of cellulitis. IV ABX per medicine appreciate recommendations. Cultures to be obtained of ulcers to anterior pretibial areas bilaterally We will continue to follow while in-house Code(s): I83.009 - VARICOSE VEINS OF UNSP LOWER EXTREMITY W ULCER OF UNSP SITE; L97.909 - NON-PRS CHRONIC ULC UNSP PRT OF UNSP LOW LEG W UNSP SEVERITY (5) Peripheral artery disease Current Visit: No Status: Acute Code(s): I73.9 - PERIPHERAL VASCULAR DISEASE, UNSPECIFIED (6) CHF (congestive heart failure) Current Visit: Yes Status: Acute Code(s): I50.9 - HEART FAILURE, UNSPECIFIED (7) UTI (urinary tract infection) Current Visit: Yes Status: Acute Code(s): N39.0 - URINARY TRACT INFECTION, SITE NOT SPECIFIED
[2022-01-07] MEDS: ECOTRIN 81 MG PO SCH (10:18)
[2022-01-07] MEDS: NEURONTIN 300 MG PO SCH ×2 (10:18→21:44)
[2022-01-07] MEDS: Flomax 0.4 MG PO SCH (10:18)
[2022-01-07] MEDS: K-LYTE 25 MEQ PO SCH (10:18)
[2022-01-07] MEDS: Toprol-Xl 25MG Tablets PO SCH ×2 (10:18→21:44)
[2022-01-07] MEDS: PROTONIX 40 MG IV IV SCH (10:18)
[2022-01-07] MEDS ORDERED: K-LYTE 25 MEQ PO ONE (10:20)
--- NOTE | 2022-01-07 12:13 | XRAY ---
Indication: Calf pain. Two-dimensional sonogram and color Doppler imaging of the major venous vessels of the left and right leg performed. Comparison: None No thrombus seen in the examined deep venous vessels of the left and right leg including greater saphenous vein. Veins demonstrate normal compressibility. Venous waveforms are normal with and without augmentation. Impression: Left and right legs negative for DVT.
--- NOTE | 2022-01-07 12:15 | XRAY ---
Indication: Calf pain. Bilateral ankle brachial index exam performed. Comparison: None Right arm brachial pressure is 114. Right ankle pressure is 113. Ankle-brachial index is 0.87 favoring mild ischemic disease. Left arm brachial pressure is 130. Left ankle pressure is 127. Ankle-brachial index is 0.98, normal. Impression: Right AMY 0.87 favors mild ischemic disease. Left AMY 0.98 is normal.
--- NOTE | 2022-01-07 12:32 | XRAY ---
Indication: Peripheral vascular disease. History left SFA stent. Two-dimensional sonogram and color Doppler imaging of the major arteries of the left and right leg performed. Comparison: None Examination of the left leg demonstrates patent common femoral and deep femoral arteries. Superficial femoral artery including mid to distal stent graft and popliteal artery is occluded. Mild arteriosclerotic disease in the remaining posterior tibial and dorsal pedal arteries. Patent arteries demonstrates monophasic arterial waveforms throughout the right leg. Examination of the right leg demonstrates mild scattered arteriosclerotic disease in the common femoral, deep femoral, superficial femoral, popliteal, posterior tibial, dorsal pedal arteries without critical stenosis/obstruction. Arterial waveforms are monophasic throughout the right leg. Impression: 1. Entire left superficial femoral including stent graft and popliteal arteries are occluded. 2. Right leg scattered arteriosclerotic disease without critical stenosis/obstruction. 3. CTA abdominal aorta with bilateral runoff may yield further information.
--- NOTE | 2022-01-07 14:06 | PCM.HP ---
History of Present Illness - Chief Complaint Chief Complaint: Pneumonia, UTI Cellulitis History of Present Illness: is an 86 year old male patient of Dr Godinez who presented to ER with nausea and vomiting/ dry heaves Medications & Allergies Home Medications: Home Medication List Albuterol 2.5 mg/3 ml Neb [Proventil 2.5 mg/3 ml Neb] 1 vial NEBULIZE Q6H 12/19/14 [History Confirmed 01/06/22] Aspirin [Aspirin EC] 81 mg PO DAILY 12/19/14 [History Confirmed 01/06/22] Tamsulosin HCl 0.4 mg [Flomax 0.4 MG] 0.4 mg PO DAILY 12/19/14 [History Confirmed 01/06/22] Polyethylene Glycol 3350 [Clearlax] 17 gm PO DAILY PRN 10/27/18 [History Confirmed 01/06/22] Furosemide 40 mg [Lasix 40 MG] 1 tab PO DAILY 04/05/20 [History Confirmed 01/06/22] Gabapentin 1 tab PO BID 04/05/20 [History Confirmed 01/06/22] Metoprolol Succinate 1 tab PO BID 04/05/20 [History Confirmed 01/06/22] Rosuvastatin Calcium 1 tab PO HS 04/05/20 [History Confirmed 01/06/22] Albuterol/Ipratropium cc [Combivent Inhaler COMMON CANISTER] 15 gm IH QID 11/13/21 [History Confirmed 01/06/22] Docusate Sodium [Dulcolax Stool Softener] 100 mg PO DAILY PRN PRN 11/13/21 [History Confirmed 01/06/22] Warfarin Sodium 1 tab PO DAILY 01/06/22 [History Confirmed 01/06/22] Allergies/Adverse Reactions: Allergies Allergy/AdvReac Type Severity Reaction Status Date / Time Iodinated Contrast Media Allergy Verified 04/05/20 00:01 Iodine and Iodide Containing Allergy Verified 04/05/20 00:01 Produc - Past Medical History Past Medical History: Yes Neurological History: Stroke ENT History: No Pertinent History Cardiac History: Coronary Artery Disease, Hypertension Respiratory History: CHF, COPD Endocrine Medical History: No Pertinent History Musculoskelatal History: Osteoarthritis GI Medical History: Diverticulosis, Other History: No Pertinent History Pyscho-Social History: No Pertinent History Male Reproductive Disorders: Prostate Problems Comment: 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 ABOUT 1-2 YEARS AGO HAD ANOTHER STROKE WHICH TOOK HIS VISION IN HIS LEFT EYE. - Past Surgical History Past Surgical History: Yes Neuro Surgical History: No Pertinent History Cardiac History: CABG, Cardiac Catheterization, Cardiac Stent, Internal Defibrillator, Pacemaker, Other Respiratory Surgery: Chest Surgery GI Surgical History: Hernia Repair Genitourinary Surgical Hx: No Pertinent History Musculskeletal Surgical Hx: No Pertinent History Male Surgical History: No Pertinent History Other Surgical History: colonoscopy, right cea, - Social History Smoking Status: Former smoker How long have you smoked: 10 yrs Exposure to second hand smoke: No Alcohol: None Drug Use: none - Physical Exam Vital Signs: Vital Signs - 24 hr Temp Pulse Resp BP Pulse Ox 01/07/22 13:48 96 01/07/22 11:49 96.5 F 71 22 115/54 96 01/07/22 07:33 69 16 97 01/07/22 07:15 98.0 F 75 16 125/61 94 L 01/07/22 04:00 97.1 F 70 18 114/52 96 01/07/22 00:00 97.5 F 72 18 135/62 92 L 01/06/22 19:49 96.9 F 69 20 112/57 95 01/06/22 19:43 69 20 95 01/06/22 19:28 96.9 F 71 18 112/57 96 01/06/22 16:00 98.2 F 70 16 112/58 98 Wound Assessment: Skin/Wound Assessment Wound/Incision Assessment Start: 01/06/22 19:50 Text: Status: Active Freq: Q6H Protocol: Document 01/07/22 08:00 DS (Rec: 01/07/22 11:00 DS [id number]) Wound/Incision Assessment Right Anterior Other Wound Assessment Shift Assessment Wound Type cellulitis open area Wound Stage Non Pressure Wound Drainage Amount None Wound Bed Greatest Portion Red (Granulation) Surrounding Tissue Dark Red Comment jones Left Anterior Other Wound Assessment Shift Assessment Wound Type cellulitis open area Wound Stage Non Pressure Wound Drainage Amount None General Appearance Open to air Wound Bed Greatest Portion Red (Granulation) Wound Bed Lesser Portion Red (Granulation) Surrounding Tissue Dark Red Comment jones open area. ble Wound Assessment Shift Assessment Wound Type Skin Tear Comment MEPLEX PLACED IN ED BY WOUND CARE-[facility] Wound Photo Photo Taken No Results - Labs Lab/Micro Results: Lab Results-Last 24 Hours 01/06/22 01/06/22 01/06/22 Range/Units 14:01 16:05 20:20 PT (9.4-12.5) SECONDS INR (0.8-3.0) Sodium (137-145) mmol/L Potassium (3.5-5.1) mmol/L Chloride (98-107) mmol/L Carbon Dioxide (22-30) mmol/L Anion Gap (5-15) MEQ/L BUN (9-20) mg/dL Creatinine (0.66-1.25) mg/dL Estimated GFR ML/MIN Glucose (74-106) mg/dL Calcium (8.4-10.2) mg/dL Total Bilirubin (0.2-1.3) mg/dL AST (17-59) U/L ALT (0-50) U/L Alkaline Phosphatase (38-126) U/L Troponin I 0.068 H* 0.056 H* 0.042 H* (0.000-0.034) ng/mL Serum Total Protein (6.3-8.2) g/dL Albumin (3.5-5.0) g/dL 01/06/22 01/07/22 01/07/22 Range/Units 22:30 04:15 04:15 PT 24.9 H (9.4-12.5) SECONDS INR 2.11 (0.8-3.0) Sodium 136 L (137-145) mmol/L Potassium 3.2 L D (3.5-5.1) mmol/L Chloride 98 (98-107) mmol/L Carbon Dioxide 34 H (22-30) mmol/L Anion Gap 7.4 (5-15) MEQ/L BUN 25 H (9-20) mg/dL Creatinine 1.40 H (0.66-1.25) mg/dL Estimated GFR 50.8 ML/MIN Glucose 95 (74-106) mg/dL Calcium 7.8 L (8.4-10.2) mg/dL Total Bilirubin 0.70 (0.2-1.3) mg/dL AST 32 (17-59) U/L ALT 12 (0-50) U/L Alkaline Phosphatase 52 (38-126) U/L Troponin I 0.040 H* (0.000-0.034) ng/mL Serum Total Protein 6.2 L (6.3-8.2) g/dL Albumin 3.4 L (3.5-5.0) g/dL Microbiology 01/06/22 07:45 Urine Culture - Preliminary Urine, Void GRAM NEGATIVE ID AND SENSITIVITY PENDING 01/06/22 05:15 Blood Culture - Preliminary Blood NO GROWTH TO DATE 01/06/22 05:00 Blood Culture - Preliminary Blood NO GROWTH TO DATE - Radiology Impressions Radiology Exams & Impressions: Radiology Procedures Category Date Time Status AMY/LIMB PRESSURES BILATERAL [US] Routine Exams 01/07/22 Completed ARTERIAL BILAT LOWER EXTREMITY [US] Routine Exams 01/07/22 Completed CHEST 1 VIEW (PORTABLE) Stat Exams 01/06/22 04:52 Completed CHEST WITHOUT CONTRAST [CT] Stat Exams 01/06/22 07:27 Completed PULMONARY PERF VENTILATION [NUCMED] Stat Exams 01/06/22 11:23 Completed ULTRASOUND BILATERAL LOWER EXTREMITY [VENOUS BILATERAL Exams 01/07/22 Completed EXTREMITY] [US] Routine - Other Procedures and Tests Respiratory Therapy 01/06/22 19:41 Oxygen Nasal Cannula 5 lpm
[2022-01-07] MEDS ORDERED: Coumadin 5 MG PO ONE ×2 (14:19→14:20)
[2022-01-07] MEDS ORDERED: Coumadin 5 MG PO SCH (18:00)
[2022-01-07] MEDS ORDERED: Advair Hfa 115/21 Mcg Inhaler IH ONE (19:06)
[2022-01-07] MEDS: ZOCOR 20MG PO SCH (21:46)
[2022-01-08] MEDS: Zosyn 2.25 GM 2.25 GM in Sodium Chloride 100ML MINI-BAG PLUS 100 ML IV SCH ×3 (00:23→11:42)
[2022-01-08] MEDS ORDERED: PROVENTIL Solution 2.5 MG/0.5 ML IH ONE (02:16)
[2022-01-08] MEDS ORDERED: PROVENTIL 2.5 MG/3 ML NEB IH PRN (02:21)
[2022-01-08] MEDS: Sodium Chloride 0.9% 1000 ML 1,000 ML IV SCH ×2 (03:14→22:54)
[2022-01-08 05:06] LABS: Absolute Neutrophil Ct (ANC) 5.24 (1.4-6.9); Basophil (Absolute #) 0.01 (0-0.4); Eosinophil % 2.1 % (0.00-5.0); Eosinophil (Absolute #) 0.15 (0-0.5); Hemoglobin 11.6 gm/dl (12.5-18.0); Lymphocyte (Absolute #) 0.79 (1.0-4.6); Mean Cell Volume 103.5 fl (78-100); Mean Corpuscular Hemoglobin 31.6 pg (26-32); Mean Corpuscular Hgb Concent. 30.5 g/dl (32-36); Mean Platelet Volume 10.2 fl (7.5-11.0); Monocyte (Absolute #) 0.96 (0.0-1.3); Monocytes % 13.4 % (0.0-12.0); Neutrophil % 73.4 % (36.0-66.0); Platelet Count 128 K/mm3 (150-450); Red Blood Count 3.67 M/mm3 (4.1-5.6); Red Cell Distribution Width 14.1 % (11.5-14.0); White Blood Count 7.2 K/mm3 (4.0-10.5)
[2022-01-08 05:27] LABS: INR 2.32 (0.8-3.0); PROTIME 27.4 SECONDS (9.4-12.5)
[2022-01-08 06:03] LABS: ALBUMIN 3.6 g/dL (3.5-5.0); ANION GAP 6.6 MEQ/L (5-15); BILIRUBIN,TOTAL 0.7 mg/dL (0.2-1.3); Calcium 7.5 mg/dL (8.4-10.2); Creatinine 1 1.22 mg/dL (0.66-1.25); EST GLOMERULAR FILTRATION RATE 59.6 ML/MIN; Potassium 3.4 mmol/L (3.5-5.1); Total Protein 6.7 g/dL (6.3-8.2)
[2022-01-08] MEDS: Lasix 40 MG/4 ML IV SCH ×2 (06:20→17:21)
[2022-01-08] MEDS: Advair Hfa 115/21 Common canister IH SCH ×2 (07:45→18:47)
[2022-01-08] MEDS: DUONEB 0.5-3 MG/3 ml Neb IH SCH ×3 (07:45→18:47)
[2022-01-08] MEDS: K-LYTE 25 MEQ PO SCH (09:56)
[2022-01-08] MEDS: NEURONTIN 300 MG PO SCH ×2 (09:56→21:45)
[2022-01-08] MEDS: Toprol-Xl 25MG Tablets PO SCH ×2 (09:57→21:45)
[2022-01-08] MEDS: ECOTRIN 81 MG PO SCH (09:57)
[2022-01-08] MEDS: Flomax 0.4 MG PO SCH (09:57)
[2022-01-08] MEDS: PROTONIX 40 MG IV IV SCH (09:58)
--- NOTE | 2022-01-08 13:13 | PCM.NOTE ---
Date and Time: 01/08/22 1311 Subjective Assessment: doing little better - Review of Systems Constitutional: No Fever, No Chills Eyes: No Symptoms Ears, Nose, & Throat: No Symptoms Respiratory: No Cough, No Short Of Breath Cardiac: No Chest Pain, No Edema, No Syncope Abdominal/Gastrointestinal: No Abdominal Pain, No Nausea, No Vomiting, No Diarrhea Genitourinary Symptoms: No Dysuria Musculoskeletal: No Back Pain, No Neck Pain Skin: Cellulitis, No Rash Neurological: No Dizziness, No Focal Weakness, No Sensory Changes Psychological: No Symptoms Endocrine: No Symptoms Hematologic/Lymphatic: No Symptoms Immunological/Allergic: No Symptoms Objective Exam General Appearance: no apparent distress, alert Neurologic Exam: alert, oriented x 3, cooperative, normal mood/affect, nml cerebellar function, sensation nml, No motor deficits Skin Exam: normal color, warm, dry Wound Assessment: Skin/Wound Assessment Wound/Incision Assessment Start: 01/06/22 19:50 Text: Status: Active Freq: Q6H Protocol: Document 01/08/22 08:00 (Rec: 01/08/22 09:04 [id number]) Wound/Incision Assessment Right Anterior Other Wound Assessment Shift Assessment Wound Type cellulitis open area Wound Stage Non Pressure Wound Dressing Status Dry & Intact Drainage Amount Minimal Drainage Description Serous Drainage Odor None/Absent Surrounding Tissue Bright Red,Shiny,Taut, Edematous Primary Dressing Bandaid Comment jones bandaid cdi Left Anterior Other Wound Assessment Shift Assessment Wound Type cellulitis open area Wound Stage Non Pressure Wound Drainage Amount None Surrounding Tissue Bright Red,Shiny,Taut, Edematous Primary Dressing Bandaid Comment jones open area. Bandaid cdi ble Wound Assessment Shift Assessment Wound Type Skin Tear Comment MEPLEX CDI Wound Photo Photo Taken No Eye Exam: PERRL, EOMI, eyes nml inspection Ears, Nose, Throat Exam: normal ENT inspection, pharynx normal, moist mucous membranes Neck Exam: normal inspection, non-tender, supple, full range of motion Respiratory Exam: diminished breath sounds, crackles/rales, rhonchi, No respiratory distress Cardiovascular Exam: regular rate/rhythm, normal heart sounds Gastrointestinal/Abdomen Exam: soft, No tenderness, No mass Extremity Exam: normal inspection, normal range of motion Back Exam: normal inspection, normal range of motion, No CVA tenderness, No vertebral tenderness Male Genitalia Exam: deferred Rectal Exam: deferred OBJECTIVE DATA Vital Signs: Vital Signs - 24 hr Temp Pulse Resp BP Pulse Ox 01/08/22 11:54 97.3 F 83 17 116/57 94 L 01/08/22 08:10 73 22 97 01/08/22 07:37 96.9 F 79 18 121/61 93 L 01/08/22 03:29 97.7 F 88 14 150/86 95 01/08/22 02:22 67 18 95 01/07/22 23:42 98.0 F 69 19 135/58 95 01/07/22 19:58 97.7 F 80 18 109/54 92 L 01/07/22 19:07 62 18 95 01/07/22 15:58 97.7 F 80 18 113/55 99 01/07/22 13:48 96 Pain Assessment - Last Documented Pain Intensity 0 Intake and Output: Intake & Output 01/06/22 01/07/22 01/08/22 01/09/22 11:59 11:59 11:59 11:59 Intake Total 2736 3701 360 Output Total 3850 2100 1500 Balance -1114 1601 -1140 Weight 92.8 kg Lab Results: Lab Results-Last 24 Hours 01/08/22 01/08/22 01/08/22 Range/Units 05:00 05:00 05:00 WBC 7.2 (4.0-10.5) K/mm3 RBC 3.67 L (4.1-5.6) M/mm3 Hgb 11.6 L (12.5-18.0) gm/dl Hct 38.0 L (42-50) % MCV 103.5 H (78-100) fl MCH 31.6 (26-32) pg MCHC 30.5 L (32-36) g/dl RDW 14.1 H (11.5-14.0) % Plt Count 128 L (150-450) K/mm3 MPV 10.2 (7.5-11.0) fl Gran % 73.4 H (36.0-66.0) % Eos # (Auto) 0.15 (0-0.5) Absolute Lymphs (auto) 0.79 L (1.0-4.6) Absolute Monos (auto) 0.96 (0.0-1.3) Lymphocytes % 11.0 L (24.0-44.0) % Monocytes % 13.4 H (0.0-12.0) % Eosinophils % 2.1 (0.00-5.0) % Basophils % 0.1 (0.0-0.4) % Absolute Granulocytes 5.24 (1.4-6.9) Basophils # 0.01 (0-0.4) PT 27.4 H (9.4-12.5) SECONDS INR 2.32 (0.8-3.0) Sodium 131 L (137-145) mmol/L Potassium 3.4 L (3.5-5.1) mmol/L Chloride 93 L (98-107) mmol/L Carbon Dioxide 34 H (22-30) mmol/L Anion Gap 6.6 (5-15) MEQ/L BUN 23 H (9-20) mg/dL Creatinine 1.22 (0.66-1.25) mg/dL Estimated GFR 59.6 ML/MIN Glucose 103 (74-106) mg/dL Calcium 7.5 L (8.4-10.2) mg/dL Total Bilirubin 0.70 (0.2-1.3) mg/dL AST 40 (17-59) U/L ALT 15 (0-50) U/L Alkaline Phosphatase 59 (38-126) U/L Serum Total Protein 6.7 (6.3-8.2) g/dL Albumin 3.6 (3.5-5.0) g/dL Radiology Exams: Radiology Procedures Category Date Time Status AMY/LIMB PRESSURES BILATERAL [US] Routine Exams 01/07/22 Completed ARTERIAL BILAT LOWER EXTREMITY [US] Routine Exams 01/07/22 Completed ULTRASOUND BILATERAL LOWER EXTREMITY [VENOUS BILATERAL Exams 01/07/22 Completed EXTREMITY] [US] Routine Multi-Disciplinary Progress Notes: Multi-Disciplinary Progress Notes 01/08/22 11:05 Case Management Note by Ariadne Flaherty S/W PATIENT AND - THEY BOTH CONTINUE TO DECLINE [facility]. THEY PLAN FOR PATIENT TO RETURN HOME TO HER PRIOR LEVEL OF FUNCTIONING Initialized on 01/08/22 11:05 - END OF NOTE Assessment/Plan (1) UTI (urinary tract infection) Current Visit: Yes Status: Acute Qualifiers: Urinary tract infection type: acute pyelonephritis Qualified Code(s): N10 - Acute pyelonephritis Code(s): N39.0 - URINARY TRACT INFECTION, SITE NOT SPECIFIED (2) CHF (congestive heart failure) Current Visit: Yes Status: Acute Qualifiers: Heart failure type: combined systolic and diastolic Heart failure chronicity: chronic Qualified Code(s): I50.42 - Chronic combined systolic (congestive) and diastolic (congestive) heart failure Code(s): I50.9 - HEART FAILURE, UNSPECIFIED (3) Chronic cutaneous venous stasis ulcer Current Visit: Yes Status: Acute Code(s): I83.009 - VARICOSE VEINS OF UNSP LOWER EXTREMITY W ULCER OF UNSP SITE; L97.909 - NON-PRS CHRONIC ULC UNSP PRT OF UNSP LOW LEG W UNSP SEVERITY (4) Elevated troponin Current Visit: Yes Status: Acute Code(s): R77.8 - OTHER SPECIFIED ABNO RMALITIES OF PLASMA PROTEINS
--- NOTE | 2022-01-08 16:51 | PCM.NOTE ---
Date and Time: 01/08/22 165 Subjective Assessment: Resting at chair side peacefully. Legs elevated to hip height. In no acute distress Physical Exam - General General Appearance: no apparent distress - Neuro Neurologic: Epicritic and protopathic - Vascular Peripheral Pulses: Posterior tibialis: 0, Dorsalis-Pedis: 0 Capillary Refill Time: < 3 seconds Varicosities: Positive Edema: Pitting Edema Degree: 3+ Skin: Supple, not atrophic Skin Temperature: Warm to touch - Narrative Narrative Physical Exam: Podiatry Physical Exam OBJECTIVE DATA Vital Signs: Vital Signs - 24 hr Temp Pulse Resp BP Pulse Ox 01/08/22 16:00 97.5 F 95 H 18 140/64 95 01/08/22 14:04 84 18 94 L 01/08/22 11:54 97.3 F 83 17 116/57 94 L 01/08/22 08:10 73 22 97 01/08/22 07:37 96.9 F 79 18 121/61 93 L 01/08/22 03:29 97.7 F 88 14 150/86 95 01/08/22 02:22 67 18 95 01/07/22 23:42 98.0 F 69 19 135/58 95 01/07/22 19:58 97.7 F 80 18 109/54 92 L 01/07/22 19:07 62 18 95 Pain Assessment - Last Documented Pain Intensity 0 Intake and Output: Intake & Output 01/06/22 01/07/22 01/08/22 01/09/22 11:59 11:59 11:59 11:59 Intake Total 2736 3701 360 Output Total 3850 2100 1500 Balance -1114 1601 -1140 Weight 92.8 kg Lab Results: Lab Results-Last 24 Hours 01/08/22 01/08/22 01/08/22 Range/Units 05:00 05:00 05:00 WBC 7.2 (4.0-10.5) K/mm3 RBC 3.67 L (4.1-5.6) M/mm3 Hgb 11.6 L (12.5-18.0) gm/dl Hct 38.0 L (42-50) % MCV 103.5 H (78-100) fl MCH 31.6 (26-32) pg MCHC 30.5 L (32-36) g/dl RDW 14.1 H (11.5-14.0) % Plt Count 128 L (150-450) K/mm3 MPV 10.2 (7.5-11.0) fl Gran % 73.4 H (36.0-66.0) % Eos # (Auto) 0.15 (0-0.5) Absolute Lymphs (auto) 0.79 L (1.0-4.6) Absolute Monos (auto) 0.96 (0.0-1.3) Lymphocytes % 11.0 L (24.0-44.0) % Monocytes % 13.4 H (0.0-12.0) % Eosinophils % 2.1 (0.00-5.0) % Basophils % 0.1 (0.0-0.4) % Absolute Granulocytes 5.24 (1.4-6.9) Basophils # 0.01 (0-0.4) PT 27.4 H (9.4-12.5) SECONDS INR 2.32 (0.8-3.0) Sodium 131 L (137-145) mmol/L Potassium 3.4 L (3.5-5.1) mmol/L Chloride 93 L (98-107) mmol/L Carbon Dioxide 34 H (22-30) mmol/L Anion Gap 6.6 (5-15) MEQ/L BUN 23 H (9-20) mg/dL Creatinine 1.22 (0.66-1.25) mg/dL Estimated GFR 59.6 ML/MIN Glucose 103 (74-106) mg/dL Calcium 7.5 L (8.4-10.2) mg/dL Total Bilirubin 0.70 (0.2-1.3) mg/dL AST 40 (17-59) U/L ALT 15 (0-50) U/L Alkaline Phosphatase 59 (38-126) U/L Serum Total Protein 6.7 (6.3-8.2) g/dL Albumin 3.6 (3.5-5.0) g/dL Radiology Exams: Radiology Procedures Category Date Time Status AMY/LIMB PRESSURES BILATERAL [US] Routine Exams 01/07/22 Completed ARTERIAL BILAT LOWER EXTREMITY [US] Routine Exams 01/07/22 Completed ULTRASOUND BILATERAL LOWER EXTREMITY [VENOUS BILATERAL Exams 01/07/22 Completed EXTREMITY] [US] Routine Multi-Disciplinary Progress Notes: Multi-Disciplinary Progress Notes 01/08/22 11:05 Case Management Note by Ariadne Flaherty S/W PATIENT AND - THEY BOTH CONTINUE TO DECLINE [facility]. THEY PLAN FOR PATIENT TO RETURN HOME TO HER PRIOR LEVEL OF FUNCTIONING Initialized on 01/08/22 11:05 - END OF NOTE Assessment/Plan (1) Cellulitis of leg, except foot Current Visit: Yes Status: Acute Assessment & Plan: Patient's venous insufficiency ulcers are chronic at this time noting that he has been dealing with this for approximately 3 months. He has been seeing her [facility] wound care in that time. 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 The right leg demonstrates less occlusive disease however monophasic waveforms throughout the entire extremity. Ultrasound obtained demonstrating negative for DVT of the bilateral lower extremity. Patient's power of business attorney is daughter Regina who defers compression therapy at this time at the behest of vascular surgeon who recommended no compression therapy. Vascular surgeon is Dr. Lexx Omer out [facility] in [place]. Will call with my current recommendations given vascular surgeons concerns. Patient does have an iodine allergy therefore Hibiclens versus chlorhexidine would be beneficial in sterilization of the wounds. Wounds draining serous fluid at this time would benefit from application of Aquacel Ag as an absorptive dressing. Dressing changes daily consisting of Hibiclens versus chlorhexidine to sterilize the wounds Aquacel Ag and a bandage. Avoid compression in the intermediate. Until issue has been discussed with Dr. Hallman.Nurse to change dressings IV ABX per medicine appreciate recommendations. Cultures to be obtained of ulcers to anterior pretibial areas bilaterally We will continue to follow while in-house Code(s): L03.119 - CELLULITIS OF UNSPECIFIED PART OF LIMB (2) Pain in right leg Current Visit: Yes Status: Acute Code(s): M79.604 - PAIN IN RIGHT LEG (3) Pain in left leg Current Visit: Yes Status: Acute Code(s): M79.605 - PAIN IN LEFT LEG (4) Chronic cutaneous venous stasis ulcer Current Visit: Yes Status: Acute Code(s): I83.009 - VARICOSE VEINS OF UNSP LOWER EXTREMITY W ULCER OF UNSP SITE; L97.909 - NON-PRS CHRONIC ULC UNSP PRT OF UNSP LOW LEG W UNSP SEVERITY (5) Peripheral artery disease Current Visit: No Status: Acute Code(s): I73.9 - PERIPHERAL VASCULAR DISEASE, UNSPECIFIED (6) CHF (congestive heart failure) Current Visit: Yes Status: Acute Qualifiers: Heart failure type: combined systolic and diastolic Heart failure chronicity: chronic Qualified Code(s): I50.42 - Chronic combined systolic (congestive) and diastolic (congestive) heart failure Code(s): I50.9 - HEART FAILURE, UNSPECIFIED (7) UTI (urinary tract infection) Current Visit: Yes Status: Acute Qualifiers: Urinary tract infection type: acute pyelonephritis Qualified Code(s): N10 - Acute pyelonephritis Code(s): N39.0 - URINARY TRACT INFECTION, SITE NOT SPECIFIED
[2022-01-08] MEDS: Coumadin 3 MG PO SCH (17:22)
[2022-01-08] MEDS: Merrem 1 GM 1 G in Sodium Chloride 100ML MINI-BAG PLUS 100 ML IV SCH (17:22)
[2022-01-08] MEDS ORDERED: Tums EX 750 MG ONE (19:48)
[2022-01-08] MEDS: ZOCOR 20MG PO SCH (21:45)
[2022-01-09] MEDS: Lasix 40 MG/4 ML IV SCH ×2 (06:26→18:03)
[2022-01-09] MEDS: DUONEB 0.5-3 MG/3 ml Neb IH SCH ×3 (06:50→18:53)
[2022-01-09] MEDS: Advair Hfa 115/21 Common canister IH SCH ×2 (06:50→18:56)
[2022-01-09] MEDS: K-LYTE 25 MEQ PO SCH (09:33)
[2022-01-09] MEDS: Toprol-Xl 25MG Tablets PO SCH ×2 (09:33→21:38)
[2022-01-09] MEDS: PROTONIX 40 MG IV IV SCH (09:33)
[2022-01-09] MEDS: NEURONTIN 300 MG PO SCH ×2 (09:34→21:38)
[2022-01-09] MEDS: ECOTRIN 81 MG PO SCH (09:34)
[2022-01-09] MEDS: Flomax 0.4 MG PO SCH (09:34)
[2022-01-09] MEDS: Coumadin 3 MG PO SCH (18:03)
[2022-01-09] MEDS: Merrem 1 GM 1 G in Sodium Chloride 100ML MINI-BAG PLUS 100 ML IV SCH (18:04)
[2022-01-09] MEDS: Sodium Chloride 0.9% 1000 ML 1,000 ML IV SCH (19:26)
[2022-01-09] MEDS: ZOCOR 20MG PO SCH (21:38)
[2022-01-10 05:02] LABS: Hemoglobin 11.2 gm/dl (12.5-18.0); Mean Cell Volume 102.8 fl (78-100); Mean Corpuscular Hemoglobin 31.1 pg (26-32); Mean Corpuscular Hgb Concent. 30.3 g/dl (32-36); Mean Platelet Volume 10.4 fl (7.5-11.0); Platelet Count 137 K/mm3 (150-450); Red Cell Distribution Width 13.8 % (11.5-14.0); White Blood Count 4.8 K/mm3 (4.0-10.5)
[2022-01-10 05:16] LABS: ALBUMIN 3.5 g/dL (3.5-5.0); ALKALINE PHOSPHATASE 64 U/L (38-126); ANION GAP 7.9 MEQ/L (5-15); BLOOD UREA NITROGEN 22 mg/dL (9-20); CHLORIDE 93 mmol/L (98-107); Carbon Dioxide 37 mmol/L (22-30); Creatinine 1 1.01 mg/dL (0.66-1.25); EST GLOMERULAR FILTRATION RATE > 60.0 ML/MIN; Glucose 105 mg/dL (74-106); SGOT/AST 39 U/L (17-59); SGPT/ALT 26 U/L (0-50); SODIUM 135 mmol/L (137-145); Total Protein 6.4 g/dL (6.3-8.2)
[2022-01-10] MEDS ORDERED: K-LYTE 25 MEQ PO ONE (05:41)
[2022-01-10] MEDS: Lasix 40 MG/4 ML IV SCH (05:47)
[2022-01-10] MEDS: DUONEB 0.5-3 MG/3 ml Neb IH SCH ×2 (06:47→12:33)
[2022-01-10] MEDS: Advair Hfa 115/21 Common canister IH SCH (06:47)
[2022-01-10 07:27] VITALS: BP 125/65
[2022-01-10] MEDS: PROTONIX 40 MG IV IV SCH (09:00)
[2022-01-10] MEDS: K-LYTE 25 MEQ PO SCH (09:00)
[2022-01-10] MEDS: ECOTRIN 81 MG PO SCH (09:00)
[2022-01-10] MEDS: Toprol-Xl 25MG Tablets PO SCH (09:00)
[2022-01-10] MEDS: Flomax 0.4 MG PO SCH (09:00)
[2022-01-10] MEDS: NEURONTIN 300 MG PO SCH (09:00)
[2022-01-10 12:36] VITALS: PULSE 80; O2SAT 95
--- NOTE | 2022-01-10 12:43 | PCM.NOTE ---
Date and Time: 01/09/22 1242 Subjective Assessment: doing better - Review of Systems Constitutional: No Fever, No Chills Eyes: No Symptoms Ears, Nose, & Throat: No Symptoms Respiratory: No Cough, No Short Of Breath Cardiac: No Chest Pain, No Edema, No Syncope Abdominal/Gastrointestinal: No Abdominal Pain, No Nausea, No Vomiting, No Diarrhea Genitourinary Symptoms: No Dysuria Musculoskeletal: No Back Pain, No Neck Pain Skin: No Rash Neurological: No Dizziness, No Focal Weakness, No Sensory Changes Psychological: No Symptoms Endocrine: No Symptoms Hematologic/Lymphatic: No Symptoms Immunological/Allergic: No Symptoms Objective Exam General Appearance: no apparent distress, alert Neurologic Exam: alert, oriented x 3, cooperative, normal mood/affect, nml cerebellar function, sensation nml, No motor deficits Skin Exam: normal color, warm, dry Wound Assessment: Skin/Wound Assessment Wound/Incision Assessment Start: 01/06/22 19:50 Text: Status: Active Freq: Q6H Protocol: Document 01/10/22 08:00 (Rec: 01/10/22 10:30 [id number]) Wound/Incision Assessment Right Anterior Other Wound Assessment Shift Assessment Wound Type cellulitis open area Wound Stage Non Pressure Wound Dressing Status Dry & Intact Drainage Odor None/Absent Surrounding Tissue Bright Red,Shiny,Taut, Edematous Primary Dressing Non-Adherent Gauze Pads Secondary Dressing Gauze Roll/Wrap Comment non adherent pad applied after hibicleans wash, secured with loose coban Left Anterior Other Wound Assessment Shift Assessment Wound Type cellulitis open area Wound Stage Non Pressure Wound Dressing Status Dry & Intact Drainage Amount None Surrounding Tissue Bright Red,Shiny,Taut, Edematous Primary Dressing Non-Adherent Gauze Pads Secondary Dressing Gauze Roll/Wrap Comment non adherent pad applied after hibicleans wash, secured with loose coban ble Wound Assessment Shift Assessment Wound Type Skin Tear Eye Exam: PERRL, EOMI, eyes nml inspection Ears, Nose, Throat Exam: normal ENT inspection, pharynx normal, moist mucous membranes Neck Exam: normal inspection, non-tender, supple, full range of motion Respiratory Exam: normal breath sounds, lungs clear, No respiratory distress Cardiovascular Exam: regular rate/rhythm, normal heart sounds Gastrointestinal/Abdomen Exam: soft, No tenderness, No mass Extremity Exam: normal inspection, normal range of motion Back Exam: normal inspection, normal range of motion, No CVA tenderness, No vertebral tenderness Male Genitalia Exam: deferred Rectal Exam: deferred OBJECTIVE DATA Vital Signs: Vital Signs - 24 hr Temp Pulse Resp BP Pulse Ox 01/10/22 12:35 80 18 95 01/10/22 07:25 97.9 F 95 H 18 125/65 96 01/10/22 06:51 82 16 91 L 01/10/22 04:00 98.4 F 70 18 109/53 93 L 01/10/22 00:00 66 24 01/09/22 20:00 97.4 F 87 18 101/51 91 L 01/09/22 18:53 65 28 H 93 L 01/09/22 16:00 97.7 F 76 18 116/77 90 L 01/09/22 12:50 70 18 93 L Pain Assessment - Last Documented Pain Intensity 0 Intake and Output: Intake & Output 01/08/22 01/09/22 01/10/22 01/11/22 11:59 11:59 11:59 11:59 Intake Total 3701 1845 2667 Output Total 2100 4325 1945 Balance 1601 -2480 722 Weight 92.8 kg Lab Results: Lab Results-Last 24 Hours 01/09/22 01/10/22 01/10/22 Range/Units 21:23 04:30 04:30 WBC 4.8 (4.0-10.5) K/mm3 RBC 3.60 L (4.1-5.6) M/mm3 Hgb 11.2 L (12.5-18.0) gm/dl Hct 37.0 L (42-50) % MCV 102.8 H (78-100) fl MCH 31.1 (26-32) pg MCHC 30.3 L (32-36) g/dl RDW 13.8 (11.5-14.0) % Plt Count 137 L (150-450) K/mm3 MPV 10.4 (7.5-11.0) fl Sodium 135 L (137-145) mmol/L Potassium 3.0 L* (3.5-5.1) mmol/L Chloride 93 L (98-107) mmol/L Carbon Dioxide 37 H (22-30) mmol/L Anion Gap 7.9 (5-15) MEQ/L BUN 22 H (9-20) mg/dL Creatinine 1.01 (0.66-1.25) mg/dL Estimated GFR > 60.0 ML/MIN Glucose 105 (74-106) mg/dL POC Glucometer 120 H (74 to 106) mg/dL Calcium 8.0 L (8.4-10.2) mg/dL Total Bilirubin 0.60 (0.2-1.3) mg/dL AST 39 (17-59) U/L ALT 26 (0-50) U/L Alkaline Phosphatase 64 (38-126) U/L Serum Total Protein 6.4 (6.3-8.2) g/dL Albumin 3.5 (3.5-5.0) g/dL Multi-Disciplinary Progress Notes: Multi-Disciplinary Progress Notes 01/10/22 10:09 Case Management Note by Ariadne Flaherty S/W PATIENT ABOUT SWINGBED- HE IS AGREEABLE TO DO [facility] HERE. PATIENT TO SWING TODAY Initialized on 01/10/22 10:09 - END OF NOTE 01/09/22 15:37 Occupational Therapy Note by Rae Caputo Occupational Therapy Evaluation completed with patient this afternoon. Evaluation and Plan of Care written and established with patient and . Please see documentation for details. Addendum entered and electronically signed by Rae Caputo OT 01/09/22 15:39: Occupational Therapy to see patient 1x/day, 5 days/week through duration of stay including Evaluation/Re-Assessment, Therapeutic Activity/ADL, Therapeutic Exercise, Manual Therapy, AE/AD/DME Education/Training to address decreased functional strength, decreased BUE ROM, decreased functional encurance, decreased independence and safety with I/ADL performance for facilitation of safe return to home with assistance from family and possible Home Health Services. Initialized on 01/09/22 15:37 - END OF NOTE Assessment/Plan (1) UTI (urinary tract infection) Current Visit: Yes Status: Acute Qualifiers: Urinary tract infection type: acute pyelonephritis Qualified Code(s): N10 - Acute pyelonephritis Code(s): N39.0 - URINARY TRACT INFECTION, SITE NOT SPECIFIED (2) CHF (congestive heart failure) Current Visit: Yes Status: Acute Qualifiers: Heart failure type: combined systolic and diastolic Heart failure chronic ity: chronic Qualified Code(s): I50.42 - Chronic combined systolic (congestive) and diastolic (congestive) heart failure Code(s): I50.9 - HEART FAILURE, UNSPECIFIED (3) Chronic cutaneous venous stasis ulcer Current Visit: Yes Status: Acute Code(s): I83.009 - VARICOSE VEINS OF UNSP LOWER EXTREMITY W ULCER OF UNSP SITE; L97.909 - NON-PRS CHRONIC ULC UNSP PRT OF UNSP LOW LEG W UNSP SEVERITY (4) Elevated troponin Current Visit: Yes Status: Acute Code(s): R77.8 - OTHER SPECIFIED ABNORMALITIES OF PLASMA PROTEINS
--- NOTE | 2022-01-10 12:44 | PCM.DS ---
Discharge Summary Date of Admission: 01/06/22 17:17 Admitting Physician: IMANI SANFORD DO Consults: Consults on Case 01/06/22 17:20 Consult Podiatry ROUTINE Primary Care Provider: LISBET AVELARYESH Allergies Allergies Iodinated Contrast Media Allergy (Verified 04/05/20 00:01) Iodine and Iodide Containing Produc Allergy (Verified 04/05/20 00:01) Hospital Summary - Hospital Course Hospital Course: Chief Complaint Diagnosis Pneumonia, UTI, CHF, Cellulitis Allergies Allergy/AdvReac Type Severity Reaction Status Date / Time Iodinated Contrast Media Allergy Verified 04/05/20 00:01 Iodine and Iodide Containing Allergy Verified 04/05/20 00:01 Produc Vital Signs (Last 24 hours) Temp Pulse Resp BP Pulse Ox 01/10/22 12:35 80 18 95 01/10/22 07:25 97.9 F 95 H 18 125/65 96 01/10/22 06:51 82 16 91 L 01/10/22 04:00 98.4 F 70 18 109/53 93 L 01/10/22 00:00 66 24 01/09/22 20:00 97.4 F 87 18 101/51 91 L 01/09/22 18:53 65 28 H 93 L 01/09/22 16:00 97.7 F 76 18 116/77 90 L 01/09/22 12:50 70 18 93 L Home Medications Medication Instructions Recorded Confirmed Last Taken Type Warfarin Sodium 1 tab PO DAILY 01/06/22 01/06/22 01/05/22 History Current Medications Generic Name Dose Route Start Last Admin Trade Name Freq PRN Reason Stop Dose Admin Acetaminophen 650 mg 01/06/22 10:32 01/10/22 01:39 Acetaminophen 325 Mg Tablet PO 02/05/22 10:31 650 mg Q4H PRN PRN Administration PAIN AND/OR FEVER Albuterol Sulfate 2.5 mg 01/08/22 02:21 01/08/22 02:22 Albuterol Sulfate 2.5 Mg/3 Ml [facility] 02/07/22 02:20 2.5 mg Q4H PRN PRN Administration SHORTNESS OF BREATH/WHEEZING Albuterol/Ipratropium 3 ml 01/06/22 13:00 01/10/22 12:33 Ipratropium/Albuterol Sulfate 3 Ml Amp[facility] 02/05/22 12:59 3 ml TIDRT HARJINDER Administration Aspirin 81 mg 01/06/22 19:00 01/10/22 09:00 Aspirin 81 Mg Tablet.Ec PO 02/05/22 18:59 81 mg DAILY HARJINDER Administration Docusate Sodium 100 mg 01/06/22 17:22 01/09/22 16:18 Docusate Sodium 100 Mg Capsule PO 02/05/22 17:21 100 mg DAILY PRN PRN Administration CONSTIPATION Furosemide 40 mg 01/06/22 18:00 01/10/22 05:47 Furosemide 40 Mg/4 Ml Vial IV 02/05/22 17:59 40 mg Q12H HARJINDER Administration Gabapentin 600 mg 01/06/22 22:00 01/10/22 09:00 Gabapentin 300 Mg Capsule PO 02/05/22 21:59 600 mg BID HARJINDER Administration Sodium Chloride 1,000 mls @ 50 mls/hr 01/06/22 05:00 01/09/22 19:26 Sodium Chloride 0.9% 1000 Ml IV 02/05/22 04:59 50 mls/hr .Q20H HARJINDER Administration Meropenem 1 g/ Sodium Chloride 100 mls @ 200 mls/hr 01/08/22 18:00 01/09/22 18:04 IV 01/11/22 17:59 200 mls/hr Q24H HARJINDER Administration Metoprolol Succinate 25 mg 01/06/22 22:00 01/10/22 09:00 Metoprolol Succinate 25 Mg Xl Tab PO 02/05/22 21:59 25 mg BID HARJINDER Administration Ondansetron HCl 4 mg 01/06/22 10:32 Ondansetron Hcl 4 Mg/2 Ml Vial IV 02/05/22 10:31 Q6H PRN PRN NAUSEA/VOMITING Pantoprazole Sodium 40 mg 01/06/22 12:00 01/10/22 09:00 Pantoprazole 40 Mg Vial IV 02/05/22 11:59 40 mg Q24H10 HARJINDER Administration Polyethylene Glycol 17 gm 01/06/22 17:22 01/09/22 16:18 Polyethylene Glycol 3350 17 Gm Packet PO 02/05/22 17:21 17 gm DAILY PRN PRN Administration CONSTIPATION Potassium Bicarbonate 25 meq 01/07/22 10:00 01/10/22 09:00 Potassium Bicarbonate 25 Meq Tab PO 02/06/22 09:59 25 meq DAILY HARJNIDER Administration Fluticasone/Salmeterol 2 puff 01/06/22 19:00 01/10/22 06:47 Fluticasone/Salmeterol 115/21 - 120 Puff Common Canister IH 02/05/22 18:59 2 puff BIDRT HARJINDER Administration Simvastatin 20 mg 01/06/22 22:00 01/09/22 21:38 Simvastatin 20 Mg Tablet PO 02/05/22 21:59 20 mg HS HARJINDER Administration Tamsulosin HCl 0.4 mg 01/06/22 19:00 01/10/22 09:00 Tamsulosin Hcl 0.4 Mg Cap PO 02/05/22 18:59 0.4 mg DAILY HARJINDER Administration Warfarin Sodium 3 mg 01/08/22 18:00 01/09/22 18:03 Warfarin Sodium 3 Mg Tablet PO 02/07/22 17:59 3 mg DAILY@1800 HARJINDER Administration Discontinued Medications Generic Name Dose Route Start Last Admin Trade Name Freq PRN Reason Stop Dose Admin Albuterol Sulfate Confirm 01/08/22 02:16 Albuterol Solution 2.5 Mg/0.5 Ml Ud Solution Administered 01/08/22 02:17 Dose 2.5 mg IH .STK-MED ONE Albuterol/Ipratropium Confirm 01/06/22 04:51 Ipratropium/Albuterol Sulfate 3 Ml Ampul.Neb Administered 01/06/22 04:52 Dose 3 ml IH .STK-MED ONE Albuterol/Ipratropium 3 ml 01/06/22 04:55 01/06/22 04:54 Ipratropium/Albuterol Sulfate 3 Ml Ampul.Neb IH 01/06/22 04:56 3 ml STAT ONE Administration Albuterol/Ipratropium 3 ml 01/06/22 11:00 01/06/22 18:53 Ipratropium/Albuterol Sulfate 3 Ml Ampul.Neb 02/05/22 10:59 Not Given Q4HRT [facility] Aspirin 324 mg 01/06/22 10:37 01/06/22 10:56 Aspirin 81 Mg Tab.Chew PO 01/06/22 10:38 324 mg STAT ONE Administration Aspirin Confirm 01/06/22 10:56 Aspirin 81 Mg Tab.Chew Administered 01/06/22 10:57 Dose 324 mg .ROUTE .STK-MED ONE Calcium Carbonate/Glycine Confirm 01/08/22 19:48 Calcium Carbonate 750 Mg 750 Mg Tab.Chew Administered 01/08/22 19:49 Dose 750 mg .ROUTE .STK-MED ONE Furosemide 40 mg 01/06/22 04:58 01/06/22 05:27 Furosemide 40 Mg/4 Ml Vial IV 01/06/22 04:59 40 mg STAT ONE Administration Furosemide Confirm 01/06/22 05:25 Furosemide 40 Mg/4 Ml Vial Administered 01/06/22 05:26 Dose 40 mg .ROUTE .STK-MED ONE Ceftriaxone Sodium/Dextrose 1 g in 50 mls @ 100 mls/hr 01/06/22 05:24 01/06/22 07:17 Rocephin 1 Gm-D5w 50 Ml Bag IV 01/06/22 05:53 Infused STAT STA Infusion Ceftriaxone Sodium/Dextrose Confirm 01/06/22 05:36 Rocephin 1 Gm-D5w 50 Ml Bag Administered 01/06/22 05:37 Dose 1 g in 50 mls @ ud IV .STK-MED ONE Piperacillin Sod/Tazobactam 100 mls @ 200 mls/hr 01/06/22 12:00 01/08/22 11:42 Sod 2.25 gm/ Sodium Chloride IV 02/05/22 11:59 200 mls/hr Q6HT HARJINDER Administration Nitroglycerin 1 gm 01/06/22 05:00 01/06/22 05:27 Nitroglycerin 1 Gm Packet TOP 01/06/22 05:01 1 gm STAT ONE Administration Nitroglycerin Confirm 01/06/22 05:24 Nitroglycerin 1 Gm Packet Administered 01/06/22 05:25 Dose 1 gm .ROUTE .STK-MED ONE Ondansetron HCl Confirm 01/06/22 04:51 Ondansetron Hcl 4 Mg/2 Ml Vial Administered 01/06/22 04:52 Dose 4 mg .ROUTE .STK-MED ONE Ondansetron HCl 4 mg 01/06/22 04:52 01/06/22 05:28 Ondansetron Hcl 4 Mg/2 Ml Vial IV 01/06/22 04:53 4 mg STAT ONE Administration Potassium Bicarbonate 25 meq 01/07/22 10:20 01/07/22 10:25 Potassium Bicarbonate 25 Meq Tab PO 01/07/22 10:21 25 meq STAT ONE Administration Potassium Bicarbonate 25 meq 01/10/22 05:41 01/10/22 05:47 Potassium Bicarbonate 25 Meq Tab PO 01/10/22 05:42 25 meq ONCE ONE Administration Fluticasone/Salmeterol Confirm 01/07/22 19:06 Fluticasone/Salmeterol 120 Puff Aer.W.Adap Administered 01/07/22 19:07 Dose 1 puff IH .STK-MED ONE Warfarin Sodium 10 mg 01/06/22 18:00 Warfarin Sodium 5 Mg Tablet PO 02/05/22 17:59 DAILY AT 1800 HARJINDER Warfarin Sodium 5 mg 01/06/22 18:00 01/06/22 18:49 Warfarin Sodium 5 Mg Tablet PO 01/06/22 18:01 5 mg COU HARJINDER Administration Warfarin Sodium 10 mg 01/07/22 14:20 Warfarin Sodium 5 Mg Tablet PO 01/07/22 14:21 ONCE ONE Warfarin Sodium 5 mg 01/07/22 18:00 01/07/22 17:17 Warfarin Sodium 5 Mg Tablet PO 01/07/22 18:01 5 mg COU HARJINDER Administration Intake & Output (Last 24 hours) 01/08/22 01/09/22 01/10/22 01/11/22 11:59 11:59 11:59 11:59 Intake Total 3701 1845 2667 Output Total 0745 4325 1945 Balance 1601 -2480 722 Weight 92.8 kg Microbiology Results (Last 24 hours) 01/06/22 05:15 Blood Blood Culture Gram Stain - Final Not Reportable 01/06/22 05:15 Blood Blood Culture - Final NO GROWTH 01/06/22 05:00 Blood Blood Culture Gram Stain - Final Not Reportable 01/06/22 05:00 Blood Blood Culture - Final NO GROWTH 01/06/22 07:45 Urine, Void Urine Culture - Final Escherichia Coli Laboratory Results (Last 24 hours) 01/10/22 01/10/22 01/09/22 04:30 04:30 21:23 WBC 4.8 RBC 3.60 L Hgb 11.2 L Hct 37.0 L MCV 102.8 H MCH 31.1 MCHC 30.3 L RDW 13.8 Plt Count 137 L MPV 10.4 Sodium 135 L Potassium 3.0 L* Chloride 93 L Carbon Dioxide 37 H Anion Gap 7.9 BUN 22 H Creatinine 1.01 Estimated GFR > 60.0 Glucose 105 POC Glucometer 120 H Calcium 8.0 L Total Bilirubin 0.60 AST 39 ALT 26 Alkaline Phosphatase 64 Serum Total Protein 6.4 Albumin 3.5 Orders (Last 24 hours) Category Date Time Status Prostat 64 Diet 01/09/22 Dinner Active Discharge Routine Discharge 01/10/22 12:18 Ordered CBC AM.LAB Lab 01/10/22 04:30 Completed CMP AM.LAB Lab 01/10/22 04:30 Completed POCT GLUCOSE Stat Lab 01/09/22 21:23 Completed Potassium Bicarbonate 25 MEQ [K-Lyte 25 Meq] Med 01/10/22 05:41 Discontinued 25 meq PO ONCE ONE OT Eval and Treat (MD Order) ROUTINE OT 01/09/22 12:52 Active PT Eval & Treat ( Order) ONCE PT 01/09/22 12:51 Active Discharge Transfer Routine Transfer 01/10/22 Ordered Patient Care Notes (Last 24 hours) 01/10/22 10:09 Case Management Note by Ariadne Flaherty S/W PATIENT ABOUT SWINGBED- HE IS AGREEABLE TO DO REAH[facility] HERE. PATIENT TO SWING TODAY Initialized on 01/10/22 10:09 - END OF NOTE 01/10/22 05:40 Nursing Note by Maggie Martínez Called Dr Avelar with critical K level of 3.0. Pt on K-Lyte 25 meq daily. New order received to give one additional dose now Initialized on 01/10/22 05:40 - END OF NOTE 01/09/22 15:37 Occupational Therapy Note by Rae Caputo Occupational Therapy Evaluation completed with patient this afternoon. Evaluation and Plan of Care written and established with patient and . Please see documentation for details. Addendum entered and electronically signed by Rae Caputo OT 01/09/22 15:39: Occupational Therapy to see patient 1x/day, 5 days/week through duration of stay including Evaluation/Re-Assessment, Therapeutic Activity/ADL, Therapeutic Exercise, Manual Therapy, AE/AD/DME Education/Training to address decreased functional strength, decreased BUE ROM, decreased functional encurance, decreased independence and safety with I/ADL performance for facilitation of safe return to home with assistance from family and possible Home Health Services. Initialized on 01/09/22 15:37 - END OF NOTE 01/09/22 12:49 Nursing Note by Eldon Martinez Rounded with Dr Avelar. new orders for PT/OT and a.m. labs. Dr Avelar also wants to look into transitioning pt to swinfbed. Initialized on 01/09/22 12:49 - END OF NOTE - Vitals & Intake/Output Vital Signs: Vital Signs Temperature 97.9 F 01/10/22 07:25 Pulse Rate 80 01/10/22 12:35 Respiratory Rate 18 01/10/22 12:35 Blood Pressure 125/65 01/10/22 07:25 O2 Sat by Pulse Oximetry 95 01/10/22 12:35 Intake & Output: Intake & Output 01/08/22 01/09/22 01/10/22 01/11/22 11:59 11:59 11:59 11:59 Intake Total 3701 1845 2667 Output Total 2100 4325 1945 Balance 1601 -2480 722 Weight 92.8 kg - Lab Result Diagrams: 01/10/22 04:30 01/10/22 04:30 Lab Results-Last 24 Hrs: Lab Results-Last 24 Hours 01/09/22 01/10/22 01/10/22 Range/Units 21:23 04:30 04:30 WBC 4.8 (4.0-10.5) K/mm3 RBC 3.60 L (4.1-5.6) M/mm3 Hgb 11.2 L (12.5-18.0) gm/dl Hct 37.0 L (42-50) % MCV 102.8 H (78-100) fl MCH 31.1 (26-32) pg MCHC 30.3 L (32-36) g/dl RDW 13.8 (11.5-14.0) % Plt Count 137 L (150-450) K/mm3 MPV 10.4 (7.5-11.0) fl Sodium 135 L (137-145) mmol/L Potassium 3.0 L* (3.5-5.1) mmol/L Chloride 93 L (98-107) mmol/L Carbon Dioxide 37 H (22-30) mmol/L Anion Gap 7.9 (5-15) MEQ/L BUN 22 H (9-20) mg/dL Creatinine 1.01 (0.66-1.25) mg/dL Estimated GFR > 60.0 ML/MIN Glucose 105 (74-106) mg/dL POC Glucometer 120 H (74 to 106) mg/dL Calcium 8.0 L (8.4-10.2) mg/dL Total Bilirubin 0.60 (0.2-1.3) mg/dL AST 39 (17-59) U/L ALT 26 (0-50) U/L Alkaline Phosphatase 64 (38-126) U/L Serum Total Protein 6.4 (6.3-8.2) g/dL Albumin 3.5 (3.5-5.0) g/dL Micro Results-Entire Visit: Microbiology 01/06/22 05:15 Blood Culture Gram Stain - Final Blood Not Reportable Blood Culture - Final NO GROWTH 01/06/22 05:00 Blood Culture Gram Stain - Final Blood Not Reportable Blood Culture - Final NO GROWTH 01/06/22 07:45 Urine Culture - Final Urine, Void Escherichia Coli - Procedures and Test Procedures and Tests throughout Hospitalization: Therapy Orders & Screens 01/06/22 05:06 Respiratory Therapy Assessment DAILY Comment: 01/06/22 10:32 Oxygen Oxymask LPM 10 lpm Comment: 01/06/22 11:26 Respiratory Therapy Assessment DAILY Comment: 01/06/22 12:00 OT Screen per Nursing Assess ONCE Comment: Protocol Order Physician Instructions: Greater than 3 points order OT Admission Screening Reason For Exam: Triggered on Admission Diagnosis: Pneumonia, UTI Cellulitis Open Wound/Cellutlitis/Pressure Ulcers: Yes Acute Fx/ORIF/Change in wt bearing status: No Severe MUSCULOSKELETAL pain: No ADL Dysfunction: Yes Acute CVA w/Hemiparesis/Hemiplegia: No Decreased Functional Mobility/Strength: Yes Sprain/Strain: No Acute Post-op Mobility Dysfunction: No Total Points: 9 PT Screen per Nursing Assess ONCE Comment: Protocol Order Physician Instructions: Greater than 3 points order PT Admission Screenin Reason For Exam: Triggered on Admission Diagnosis: Pneumonia, UTI Cellulitis Open Wound/Cellutlitis/Pressure Ulcers: Yes Acute Fx/ORIF/Change in wt bearing status: No Severe MUSCULOSKELETAL pain: No ADL Dysfunction: Yes Acute CVA w/Hemiparesis/Hemiplegia: No Decreased Functional Mobility/Strength: Yes Sprain/Strain: No Acute Post-op Mobility Dysfunction: No Total Points: 9 RT Screen per Nursing Assess ONCE Comment: Protocol Order Physician Instructions: Greater than 3 points order RT Admission Screen Reason For Exam: Triggered on Admission Diagnosis: Pneumonia, UTI Cellulitis Diagnosis: Pneumonia, UTI Cellulitis Pneumonia: Yes Home O2: Yes Asthma: No CHF: Yes Home CPAP/BIPAP: No Home Nebs/MDI: Yes Total Points: 16 01/06/22 19:41 Oxygen Nasal Cannula 5 lpm Comment: Diagnosis: Pneumonia, UTI Cellulitis 01/08/22 02:21 Flutter Therapy UD Comment: Diagnosis: Pneumonia, UTI Cellulitis 01/09/22 12:51 PT Eval & Treat (MD Order) ONCE Reason for Eval:: decreased functional strength and mobility; unsteady gait; difficulty with ADL's Diagnosis: Pneumonia, UTI, CHF, Cellulitis 01/09/22 12:52 OT Eval and Treat (MD Order) ROUTINE Comment: Consulting Provider: Physician Instructions: Reason For Exam: difficulty with ADL's; decreased strength Diagnosis: Pneumonia, UTI, CHF, Cellulitis Discharge Exam General Appearance: no apparent distress, alert Neurologic Exam: alert, oriented x 3, cooperative, normal mood/affect, nml cerebellar function, sensation nml, No motor deficits Eye Exam: PERRL, EOMI, eyes nml inspection Ears, Nose, Throat Exam: normal ENT inspection, pharynx normal, moist mucous membranes Neck Exam: normal inspection, non-tender, supple, full range of motion Respiratory Exam: normal breath sounds, lungs clear, No respiratory distress Cardiovascular Exam: regular rate/rhythm, normal heart sounds Gastrointestinal/Abdomen Exam: soft, No tenderness, No mass Male Genitalia Exam: deferred Rectal Exam: deferred Back Exam: normal inspection, normal range of motion, No CVA tenderness, No vertebral tenderness Extremity Exam: normal inspection, normal range of motion Skin Exam: normal color, warm, dry Wound Assessment: Skin/Wound Assessment Wound/Incision Assessment Start: 01/06/22 19:50 Text: Status: Active Freq: Q6H Protocol: Document 01/10/22 08:00 (Rec: 01/10/22 10:30 [email or web address]) Wound/Incision Assessment Right Anterior Other Wound Assessment Shift Assessment Wound Type cellulitis open area Wound Stage Non Pressure Wound Dressing Status Dry & Intact Drainage Odor None/Absent Surrounding Tissue Bright Red,Shiny,Taut, Edematous Primary Dressing Non-Adherent Gauze Pads Secondary Dressing Gauze Roll/Wrap Comment non adherent pad applied after hibicleans wash, secured with loose coban Left Anterior Other Wound Assessment Shift Assessment Wound Type cellulitis open area Wound Stage Non Pressure Wound Dressing Status Dry & Intact Drainage Amount None Surrounding Tissue Bright Red,Shiny,Taut, Edematous Primary Dressing Non-Adherent Gauze Pads Secondary Dressing Gauze Roll/Wrap Comment non adherent pad applied after hibicleans wash, secured with loose coban ble Wound Assessment Shift Assessment Wound Type Skin Tear Final Diagnosis/Problem List - Final Discharge Diagnosis/Problem (1) UTI (urinary tract infection) Current Visit: Yes Status: Acute Code(s): N39.0 - URINARY TRACT INFECTION, SITE NOT SPECIFIED (2) CHF (congestive heart failure) Current Visit: Yes Status: Acute Code(s): I50.9 - HEART FAILURE, UNSPECIFIED (3) Chronic cutaneous venous stasis ulcer Current Visit: Yes Status: Acute Code(s): I83.009 - VARICOSE VEINS OF UNSP LOWER EXTREMITY W ULCER OF UNSP SITE; L97.909 - NON-PRS CHRONIC ULC UNSP PRT OF UNSP LOW LEG W UNSP SEVERITY (4) Elevated troponin Current Visit: Yes Status: Acute Code(s): R77.8 - OTHER SPECIFIED ABNORMALITIES OF PLASMA PROTEINS - Discharge Discharge Date: 01/10/22 [facility] Condition: Stable Prescriptions: No Action Aspirin [Aspirin EC] 81 mg PO DAILY Tamsulosin HCl 0.4 mg [Flomax 0.4 MG] 0.4 mg PO DAILY Albuterol 2.5 mg/3 ml Neb [Proventil 2.5 mg/3 ml Neb] 1 vial NEBULIZE Q6H Polyethylene Glycol 3350 [Clearlax] 17 gm PO DAILY PRN PRN Reason: Constipation Rosuvastatin Calcium 1 tab PO HS Metoprolol Succinate 1 tab PO BID Gabapentin 1 tab PO BID Furosemide 40 mg [Lasix 40 MG] 1 tab PO DAILY Albuterol/Ipratropium cc [Combivent Inhaler COMMON CANISTER] 15 gm IH QID Docusate Sodium [Dulcolax Stool Softener] 100 mg PO DAILY PRN PRN PRN Reason: Constipation Warfarin Sodium 1 tab PO DAILY Follow up with: YUE AVELAR MD [Primary Care Provider] -
== END 2022-01-10 14:00 | disposition swing bed (61) | DRG 689 ==
LOC: ED 04:46 → MED SURG 11:10 → OBSVTOIN 17:17
PROVIDERS: ADMIT Family Medicine; ATTEND General Practice
DX: N39.0 Urinary tract infection, site not specified (principal); J18.9 Pneumonia, unspecified organism; L03.115 Cellulitis of right lower limb; L03.116 Cellulitis of left lower limb; L97.929 Non-pressure chronic ulcer of unspecified part of left lower leg with unspecified severity; L97.919 Non-pressure chronic ulcer of unspecified part of right lower leg with unspecified severity; I11.0 Hypertensive heart disease with heart failure; I50.9 Heart failure, unspecified; I25.10 Atherosclerotic heart disease of native coronary artery without angina pectoris; N10 Acute pyelonephritis; R77.8 Other specified abnormalities of plasma proteins; I73.9 Peripheral vascular disease, unspecified; M79.604 Pain in right leg; M79.605 Pain in left leg; Z79.899 Other long term (current) drug therapy; Z79.01 Long term (current) use of anticoagulants
CPT/HCPCS: 0241U; 29580; 36000; 36415; 71045; 71250; 78582; 80053; 81001; 82150; 82947; 83605; 83690; 83880; 84484; 85025; 85027; 85379; 85610; 87040; 87077; 87086; 87186; 93005; 93268; 93922; 93925; 93970; 94640; 94667; 94668; 94760; 94762; 96365; 96374; 96375; 99222; 99233; 99285; 99291; A9540; A9567; J0696; J1940; J2405; J2543; J7609; 97110-GP; A9270-GY

== ENCOUNTER 2022-01-10 10:27 | Inpatient (IN) | payer MEDICARE ==
[2022-01-10] MEDS ORDERED: Miralax Powder 17GM PACKET PO PRN (14:07)
[2022-01-10] MEDS ORDERED: TYLENOL 325 MG PO PRN (14:07)
[2022-01-10] MEDS ORDERED: Colace 100 MG PO PRN (14:07)
[2022-01-10] MEDS ORDERED: Aplisol ID ONE (14:07)
[2022-01-10] MEDS ORDERED: PROVENTIL 2.5 MG/3 ML NEB IH PRN (14:07)
[2022-01-10] MEDS ORDERED: MUCINEX DM 600/30MG PO ONE (15:42)
[2022-01-10] MEDS: Lasix 40 MG PO SCH (16:15)
[2022-01-10] MEDS: MUCINEX DM 600/30MG PO SCH (16:15)
[2022-01-10] MEDS: CEFTIN 500 MG PO SCH (16:15)
[2022-01-10] MEDS: Coumadin 3 MG PO SCH (18:28)
[2022-01-10] MEDS: DUONEB 0.5-3 MG/3 ml Neb IH SCH (18:30)
[2022-01-10] MEDS: Advair Hfa 115/21 Common canister IH SCH (18:40)
[2022-01-10] MEDS: NEURONTIN 300 MG PO SCH (21:07)
[2022-01-10] MEDS: ZOCOR 20MG PO SCH (21:07)
[2022-01-10] MEDS: Toprol-Xl 25MG Tablets PO SCH (21:07)
[2022-01-11 06:35] LABS: ANION GAP 7.9 MEQ/L (5-15); BLOOD UREA NITROGEN 18 mg/dL (9-20); CHLORIDE 91 mmol/L (98-107); Calcium 8.5 mg/dL (8.4-10.2); Carbon Dioxide 39 mmol/L (22-30); Creatinine 1 0.92 mg/dL (0.66-1.25); EST GLOMERULAR FILTRATION RATE > 60.0 ML/MIN; Glucose 98 mg/dL (74-106); Potassium 3.3 mmol/L (3.5-5.1); SODIUM 134 mmol/L (137-145)
[2022-01-11] MEDS: DUONEB 0.5-3 MG/3 ml Neb IH SCH ×3 (06:39→19:21)
[2022-01-11] MEDS: Advair Hfa 115/21 Common canister IH SCH ×2 (06:39→19:21)
[2022-01-11] MEDS: CEFTIN 500 MG PO SCH ×2 (08:02→17:40)
[2022-01-11] MEDS ORDERED: Aplisol ID SCH (10:00)
[2022-01-11] MEDS ORDERED: K-LYTE 25 MEQ PO SCH (10:00)
[2022-01-11] MEDS: K-LYTE 25 MEQ PO SCH ×2 (10:21→21:07)
[2022-01-11] MEDS: Protonix 40MG Tablet PO SCH (10:22)
[2022-01-11] MEDS: Lasix 40 MG PO SCH ×2 (10:22→17:40)
[2022-01-11] MEDS: Toprol-Xl 25MG Tablets PO SCH ×2 (10:22→21:08)
[2022-01-11] MEDS: NEURONTIN 300 MG PO SCH ×2 (10:22→21:08)
[2022-01-11] MEDS: Flomax 0.4 MG PO SCH (10:22)
[2022-01-11] MEDS: MUCINEX DM 600/30MG PO SCH ×2 (10:22→21:08)
[2022-01-11] MEDS: ECOTRIN 81 MG PO SCH (10:22)
[2022-01-11] MEDS: Coumadin 3 MG PO SCH (17:40)
[2022-01-11] MEDS: ZOCOR 20MG PO SCH (21:08)
[2022-01-12 06:10] LABS: INR 2.36 (0.8-3.0); PROTIME 27.9 SECONDS (9.4-12.5)
[2022-01-12] MEDS: DUONEB 0.5-3 MG/3 ml Neb IH SCH ×3 (07:33→19:39)
[2022-01-12] MEDS: Advair Hfa 115/21 Common canister IH SCH ×2 (07:35→19:39)
[2022-01-12] MEDS: MUCINEX DM 600/30MG PO SCH ×2 (08:24→21:08)
[2022-01-12] MEDS: K-LYTE 25 MEQ PO SCH ×2 (08:24→21:07)
[2022-01-12] MEDS: Lasix 40 MG PO SCH ×2 (08:25→17:54)
[2022-01-12] MEDS: Flomax 0.4 MG PO SCH (08:25)
[2022-01-12] MEDS: ECOTRIN 81 MG PO SCH (08:25)
[2022-01-12] MEDS: NEURONTIN 300 MG PO SCH ×2 (08:25→21:08)
[2022-01-12] MEDS: Protonix 40MG Tablet PO SCH (08:25)
[2022-01-12] MEDS: CEFTIN 500 MG PO SCH ×2 (08:25→17:53)
[2022-01-12] MEDS: Toprol-Xl 25MG Tablets PO SCH ×2 (08:26→21:08)
[2022-01-12] MEDS: Coumadin 3 MG PO SCH (17:53)
[2022-01-12] MEDS: ZOCOR 20MG PO SCH (21:08)
[2022-01-13 05:28] LABS: Potassium 3.6 mmol/L (3.5-5.1)
[2022-01-13 05:35] LABS: BLOOD UREA NITROGEN 21 mg/dL (9-20); CHLORIDE 92 mmol/L (98-107); Calcium 8.5 mg/dL (8.4-10.2); Carbon Dioxide 40 mmol/L (22-30); Creatinine 1 0.89 mg/dL (0.66-1.25); EST GLOMERULAR FILTRATION RATE > 60.0 ML/MIN; Glucose 106 mg/dL (74-106); NT PRO BNP 986 pg/mL (0-1800); SODIUM 135 mmol/L (137-145)
[2022-01-13 05:46] LABS: INR 2.3 (0.8-3.0); PROTIME 27.1 SECONDS (9.4-12.5)
[2022-01-13 06:10] LABS: ANION GAP 6.6 MEQ/L (5-15)
[2022-01-13] MEDS: DUONEB 0.5-3 MG/3 ml Neb IH SCH ×3 (07:35→19:05)
[2022-01-13] MEDS: Advair Hfa 115/21 Common canister IH SCH ×2 (07:56→19:06)
[2022-01-13] MEDS: CEFTIN 500 MG PO SCH ×2 (07:59→17:53)
[2022-01-13] MEDS: Protonix 40MG Tablet PO SCH (09:11)
[2022-01-13] MEDS: K-LYTE 25 MEQ PO SCH ×2 (09:11→21:38)
[2022-01-13] MEDS: Flomax 0.4 MG PO SCH (09:11)
[2022-01-13] MEDS: NEURONTIN 300 MG PO SCH ×2 (09:11→21:38)
[2022-01-13] MEDS: Toprol-Xl 25MG Tablets PO SCH ×2 (09:11→21:38)
[2022-01-13] MEDS: Lasix 40 MG PO SCH ×2 (09:11→17:53)
[2022-01-13] MEDS: MUCINEX DM 600/30MG PO SCH ×2 (09:11→21:38)
[2022-01-13] MEDS: ECOTRIN 81 MG PO SCH (09:11)
[2022-01-13] MEDS: Coumadin 3 MG PO SCH (17:53)
--- NOTE | 2022-01-13 18:10 | PCM.HP.ADD ---
Addendum to History & Physical - History & Physical Addendum Addendum to History & Physical: This certifies that the History & Physical in the electronic chart reflects the current health status of the patient. If there are changes in the H&P these changes/exceptions are listed as follows.
[2022-01-13] MEDS: ZOCOR 20MG PO SCH (21:38)
[2022-01-14] MEDS: DUONEB 0.5-3 MG/3 ml Neb IH SCH ×3 (06:30→18:42)
[2022-01-14] MEDS: Advair Hfa 115/21 Common canister IH SCH ×2 (06:30→18:42)
[2022-01-14 06:42] LABS: INR 2.53 (0.8-3.0); PROTIME 29.8 SECONDS (9.4-12.5)
[2022-01-14] MEDS: CEFTIN 500 MG PO SCH ×2 (07:45→16:35)
[2022-01-14] MEDS: ECOTRIN 81 MG PO SCH (09:12)
[2022-01-14] MEDS: NEURONTIN 300 MG PO SCH ×2 (09:13→21:37)
[2022-01-14] MEDS: K-LYTE 25 MEQ PO SCH ×2 (09:13→21:37)
[2022-01-14] MEDS: Lasix 40 MG PO SCH ×2 (09:13→16:35)
[2022-01-14] MEDS: MUCINEX DM 600/30MG PO SCH ×2 (09:13→21:37)
[2022-01-14] MEDS: Flomax 0.4 MG PO SCH (09:13)
[2022-01-14] MEDS: Toprol-Xl 25MG Tablets PO SCH ×2 (09:13→21:37)
[2022-01-14] MEDS: Protonix 40MG Tablet PO SCH (09:13)
--- NOTE | 2022-01-14 12:51 | PCM.NOTE ---
Date and Time: 01/14/22 1250 Subjective Assessment: doing better. - Review of Systems Constitutional: No Fever, No Chills Eyes: No Symptoms Ears, Nose, & Throat: No Symptoms Respiratory: No Cough, No Short Of Breath Cardiac: No Chest Pain, No Edema, No Syncope Abdominal/Gastrointestinal: No Abdominal Pain, No Nausea, No Vomiting, No Diarrhea Genitourinary Symptoms: No Dysuria Musculoskeletal: No Back Pain, No Neck Pain Skin: No Rash Neurological: No Dizziness, No Focal Weakness, No Sensory Changes Psychological: No Symptoms Endocrine: No Symptoms Hematologic/Lymphatic: No Symptoms Immunological/Allergic: No Symptoms Objective Exam General Appearance: no apparent distress, alert Neurologic Exam: alert, oriented x 3, cooperative, normal mood/affect, nml cerebellar function, sensation nml, No motor deficits Skin Exam: normal color, warm, dry Wound Assessment: Skin/Wound Assessment Wound/Incision Assessment Start: 01/10/22 21:52 Text: Status: Active Freq: Q12H Protocol: Document 01/14/22 08:00 EK (Rec: 01/14/22 09:56 EK [id number]) Wound/Incision Assessment ABBE SHINS Wound Assessment Shift Assessment Wound Type Stasis Ulcer Dressing Status Dry & Intact Drainage Amount None Primary Dressing Non-Adherent Gauze Pads Comment dressing CDI - remains true Wound Photo Photo Taken No Eye Exam: PERRL, EOMI, eyes nml inspection Ears, Nose, Throat Exam: normal ENT inspection, pharynx normal, moist mucous membranes Neck Exam: normal inspection, non-tender, supple, full range of motion Respiratory Exam: normal breath sounds, lungs clear, No respiratory distress Cardiovascular Exam: regular rate/rhythm, normal heart sounds Gastrointestinal/Abdomen Exam: soft, No tenderness, No mass Extremity Exam: normal inspection, normal range of motion Back Exam: normal inspection, normal range of motion, No CVA tenderness, No vertebral tenderness Male Genitalia Exam: deferred Rectal Exam: deferred OBJECTIVE DATA Vital Signs: Vital Signs - 24 hr Temp Pulse Resp BP Pulse Ox 01/14/22 12:46 88 20 95 01/14/22 07:00 97.1 F 79 22 119/58 92 L 01/14/22 06:48 80 20 93 L 01/13/22 19:08 100 H 18 91 L 01/13/22 19:00 97.6 F 91 H 18 126/68 100 01/13/22 13:30 76 16 93 L Pain Assessment - Last Documented Pain Intensity 0 Pain Scale Used 0-10 Pain Scale Intake and Output: Intake & Output 01/12/22 01/13/22 01/14/22 01/15/22 11:59 11:59 11:59 11:59 Intake Total 700 780 Output Total 1425 1400 Balance -725 -620 Weight 97.8 kg 93 kg Lab Results: Lab Results-Last 24 Hours 01/14/22 Range/Units 04:30 PT 29.8 H (9.4-12.5) SECONDS INR 2.53 (0.8-3.0) Multi-Disciplinary Progress Notes: Multi-Disciplinary Progress Notes 01/13/22 17:24 OT Outpatient POC Note by Rae Caputo OCCUPATIONAL THERAPY PLAN OF CARE FOR SWINGBED STAY Mr. Jacobson to be seen 1x/weekday throughout duration of Swingbed stay to address decreased functional strength, decreased BUE ROM, decreased functional encurance, decreased independence and safety with I/ADL performance, and p atient/caregiver education including Evaluation/Re-Assessment, Therapeutic Activity/ADL, Therapeutic Exercise, Manual Therapy, AE/AD/DME Education/Training. Established Goals are as follows: 1. Mr. Jacobson will demonstrate independence with established HEP using written, illustrated handout(s) as needed by time of discharge. 2. Mr. Jacobson will demonstrate improved functional endurance to complete 5 minutes standing grooming/hygiene tasks with SBA by time of discharge. 3. Mr. Jacobson will demonstrate improved UB strength to at least 4-/5 in order to improve functional transfer safety and performance by time of discharge. 4. Mr. Jacobson and /caregiver will verbalize understanding of community resources for assistance as needed to reduce burnout by time of discharge. Initialized on 01/13/22 17:24 - END OF NOTE 01/13/22 16:15 Occupational Therapy Note by Rae Caputo Mr. Jacobson seated in armchair with O2 on 2.0L via nasal cannula upon OTR approach and was agreeable to OT treatment session this date. He reported that he would like to take a shower and change into his clothes today. Mr. Jacobson participated in toileting task in sitting using urinal with Welches followed by functional mobility to bathroom for toilet use with SBA. OTR facilitated participation in showering in walk-in shower with bench this date. Mr. Jacobson performed showering in standing with SBA and verbal cueing provided by OTR for safety, activity pacing, and breathing technique coordination with functional tasks to address energy conservation, breathing, and safety. He completed showering in standing for 15+ minutes including washing B feet by standing on one leg while using grab bars for balance despite OTR encouragement to perform in sitting. Following showering, OTR encouraged Mr. Jacobson to perform breathing exercises in sitting to address SOB and O2 saturation of 81% prior to continuing with drying. O2 returned to 96% with seated rest break and 2 mins of breathing exercises. He reported he preferred hospital gown and socks vs clothing as decided prior to shower and performed UB dressing with setup and MAX A to complete LB dressing to don socks. Mr. Jacobson performed functional mobility using rollator back to his room and was seated in armchair with BLE elevated, O2 on 2.0L via nasal cannula, and call light within reach. Following shower MR. Jacobson Tegaderm dressing to BLE still in place following shower and return to r oom. OT will continue to see patient 1x/weekday throughout duration of stay to address functional strength, functional endurance, safety awareness, energy conservation, and independence with I/ADL performance in order to promote safe return home. Initialized on 01/13/22 16:15 - END OF NOTE Assessment/Plan (1) Debilitated patient Current Visit: Yes Status: Acute Assessment & Plan: Chief Complaint Diagnosis DECONDITIONING R/T CHF, PNEUMONIA, UTI, CELLULITIS Allergies Allergy/AdvReac Type Severity Reaction Status Date / Time Iodinated Contrast Media Allergy Verified 04/05/20 00:01 Iodine and Iodide Containing Allergy Verified 04/05/20 00:01 Produc Vital Signs (Last 24 hours) Temp Pulse Resp BP Pulse Ox 01/14/22 12:46 88 20 95 01/14/22 07:00 97.1 F 79 22 119/58 92 L 01/14/22 06:48 80 20 93 L 01/13/22 19:08 100 H 18 91 L 01/13/22 19:00 97.6 F 91 H 18 126/68 100 01/13/22 13:30 76 16 93 L Current Medications Generic Name Dose Route Start Last Admin Trade Name Lety PRN Reason Stop Dose Admin Acetaminophen 650 mg 01/10/22 14:07 01/12/22 00:01 Acetaminophen 325 Mg Tablet PO 02/05/22 10:31 650 mg Q4H PRN PRN Administration PAIN AND/OR FEVER Albuterol Sulfate 2.5 mg 01/10/22 14:07 Albuterol Sulfate 2.5 Mg/3 Ml Neb 02/07/22 02:20 Q4H PRN PRN SHORTNESS OF BREATH/WHEEZING Albuterol/Ipratropium 3 ml 01/10/22 19:00 01/14/22 12:43 Ipratropium/Albuterol Sulfate 3 Ml Ampul.Neb 02/05/22 12:59 3 ml TIDRT HARJINDER Administration Aspirin 81 mg 01/11/22 10:00 01/14/22 09:12 Aspirin 81 Mg Tablet.Ec PO 02/05/22 18:59 81 mg DAILY HARJINDER Administration Cefuroxime Axetil 500 mg 01/10/22 17:00 01/14/22 07:45 Cefuroxime Axetil 500 Mg Tablet PO 02/09/22 16:59 500 mg BIDWMEALS HARJINDER Administration Docusate Sodium 100 mg 01/10/22 14:07 Docusate Sodium 100 Mg Capsule PO 02/05/22 17:21 DAILY PRN PRN CONSTIPATION Furosemide 40 mg 01/10/22 17:00 01/14/22 09:13 Furosemide 40 Mg Tablet PO 02/09/22 16:59 40 mg BID DIURETIC HARJINDER Administration Gabapentin 600 mg 01/10/22 22:00 01/14/22 09:13 Gabapentin 300 Mg Capsule PO 02/05/22 21:59 600 mg BID HARJINDER Administration Guaifenesin/Dextromethorphan 1 tablet 01/10/22 22:00 01/14/22 09:13 Guaifenesin Dm 600mg/30 Mg Tablet PO 02/09/22 21:59 1 tablet BID HARJINDER Administration Metoprolol Succinate 25 mg 01/10/22 22:00 01/14/22 09:13 Metoprolol Succinate 25 Mg Xl Tab PO 02/05/22 21:59 25 mg BID HARJINDER Administration Pantoprazole Sodium 40 mg 01/11/22 10:00 01/14/22 09:13 Protonix (Pantoprazole) 40 Mg Tablet PO 02/10/22 09:59 40 mg DAILY HARJINDER Administration Polyethylene Glycol 17 gm 01/10/22 14:07 Polyethylene Glycol 3350 17 Gm Packet PO 02/05/22 17:21 DAILY PRN PRN CONSTIPATION Potassium Bicarbonate 25 meq 01/11/22 10:00 01/14/22 09:13 Potassium Bicarbonate 25 Meq Tab PO 02/10/22 09:59 25 meq BID HARJINDER Administration Fluticasone/Salmeterol 2 puff 01/10/22 19:00 01/14/22 06:30 Fluticasone/Salmeterol 115/21 - 120 Puff Common Canister IH 02/05/22 18:59 2 puff BIDRT HARJINDER Administration Simvastatin 20 mg 01/10/22 22:00 01/13/22 21:38 Simvastatin 20 Mg Tablet PO 02/05/22 21:59 20 mg HS HARJINDER Administration Tamsulosin HCl 0.4 mg 01/11/22 10:00 01/14/22 09:13 Tamsulosin Hcl 0.4 Mg Cap PO 02/05/22 18:59 0.4 mg DAILY HARJINDER Administration Tuberculin PPD 5 unit 01/22/22 10:00 Aplisol (Tuberculin,Purif.Prot.Deriv.) 5 Unit/0.1 Ml Ml ID 01/22/22 10:01 DAILY [facility] Warfarin Sodium 3 mg 01/10/22 18:00 01/13/22 17:53 Warfarin Sodium 3 Mg Tablet PO 02/07/22 17:59 3 mg DAILY@1800 HARJINDER Administration Discontinued Medications Generic Name Dose Route Start Last Admin Trade Name Freq PRN Reason Stop Dose Admin Guaifenesin/Dextromethorphan Confirm 01/10/22 15:42 Guaifenesin Dm 600mg/30 Mg Tablet Administered 01/10/22 15:43 Dose 1 tablet PO .STK-MED ONE Potassium Bicarbonate 25 meq 01/11/22 10:00 Potassium Bicarbonate 25 Meq Tab PO 02/06/22 09:59 DAILY [facility] Tuberculin PPD 5 unit 01/11/22 10:00 01/11/22 17:46 Aplisol (Tuberculin,Purif.Prot.Deriv.) 5 Unit/0.1 Ml Ml ID 01/11/22 10:01 5 unit DAILY HARJINDER Administration Intake & Output (Last 24 hours) 01/12/22 01/13/22 01/14/22 01/15/22 11:59 11:59 11:59 11:59 Intake Total 700 780 Output Total 1425 1400 Balance -725 -620 Weight 97.8 kg 93 kg Laboratory Results (Last 24 hours) 01/14/22 04:30 PT 29.8 H INR 2.53 Orders (Last 24 hours) Category Date Time Status BMP Q14D Lab 01/24/22 04:00 Ordered PT INR [PROTIME WITH INR] AM.LAB Lab 01/14/22 04:30 Completed Tuberculin,Purif.prot.deriv. [Aplisol] Med 01/22/22 10:00 Active 5 unit ID DAILY OT Clarification Order ROUTINE Ther 01/13/22 17:17 Completed Patient Care Notes (Last 24 hours) 01/13/22 17:24 OT Outpatient POC Note by Rae Caputo OCCUPATIONAL THERAPY PLAN OF CARE FOR SWINGBED STAY Mr. Jacobson to be seen 1x/weekday throughout duration of Swingbed stay to address decreased functional strength, decreased BUE ROM, decreased functional encurance, decreased independence and safety with I/ADL performance, and pa tient/caregiver education including Evaluation/Re-Assessment, Therapeutic Activity/ADL, Therapeutic Exercise, Manual Therapy, AE/AD/DME Education/Training. Established Goals are as follows: 1. Mr. Jacobson will demonstrate independence with established HEP using written, illustrated handout(s) as needed by time of discharge. 2. Mr. Jacobson will demonstrate improved functional endurance to complete 5 minutes standing grooming/hygiene tasks with SBA by time of discharge. 3. Mr. Jacobson will demonstrate improved UB strength to at least 4-/5 in order to improve functional transfer safety and performance by time of discharge. 4. Mr. Jacobson and /caregiver will verbalize understanding of community resources for assistance as needed to reduce burnout by time of discharge. Initialized on 01/13/22 17:24 - END OF NOTE 03/14/22 16:15 Occupational Therapy Note by Rae Caputo Mr. Jacobson seated in armchair with O2 on 2.0L via nasal cannula upon OTR approach and was agreeable to OT treatment session this date. He reported that he would like to take a shower and change into his clothes today. Mr. Jacobson participated in toileting task in sitting using urinal with Welches followed by functional mobility to bathroom for toilet use with SBA. OTR facilitated participation in showering in walk-in shower with bench this date. Mr. Jacobson performed showering in standing with SBA and verbal cueing provided by OTR for safety, activity pacing, and breathing technique coordination with functional tasks to address energy conservation, breathing, and safety. He completed showering in standing for 15+ minutes including washing B feet by standing on one leg while using grab bars for balance despite OTR encouragement to perform in sitting. Following showering, OTR encouraged Mr. Jacobson to perform breathing exercises in sitting to address SOB and O2 saturation of 81% prior to continuing with drying. O2 returned to 96% with seated rest break and 2 mins of breathing exercises. He reported he preferred hospital gown and socks vs clothing as decided prior to shower and performed UB dressing with setup and MAX A to complete LB dressing to don socks. Mr. Jacobson performed functional mobility using rollator back to his room and was seated in armchair with BLE elevated, O2 on 2.0L via nasal cannula, and call light within reach. Following shower MR. Jacobson Tegaderm dressing to BLE still in place following shower and return to room. OT will continue to see patient 1x/weekday throughout duration of stay to address functional strength, functional endurance, safety awareness, energy conservation, and independence with I/ADL performance in order to promote safe return home. Initialized on 01/13/22 16:15 - END OF NOTE Code(s): R53.81 - OTHER MALAISE (2) Peripheral artery disease Current Visit: No Status: Acute Code(s): I73.9 - PERIPHERAL VASCULAR DISEASE, UNSPECIFIED (3) Pneumonia Current Visit: No Status: Acute Code(s): J18.9 - PNEUMONIA, UNSPECIFIED ORGANISM (4) UTI (urinary tract infection) Current Visit: No Status: Acute Qualifiers: Code(s): N39.0 - URINARY TRACT INFECTION, SITE NOT SPECIFIED
[2022-01-14] MEDS: Coumadin 3 MG PO SCH (18:18)
[2022-01-14] MEDS: ZOCOR 20MG PO SCH (21:37)
[2022-01-15] MEDS: DUONEB 0.5-3 MG/3 ml Neb IH SCH ×3 (06:57→18:37)
[2022-01-15] MEDS: Advair Hfa 115/21 Common canister IH SCH ×2 (07:00→18:37)
[2022-01-15] MEDS: CEFTIN 500 MG PO SCH ×2 (08:18→17:35)
--- NOTE | 2022-01-15 08:37 | PCM.NOTE ---
Date and Time: 01/15/22835 Subjective Assessment: doing ok - Review of Systems Constitutional: No Fever, No Chills Eyes: No Symptoms Ears, Nose, & Throat: No Symptoms Respiratory: No Cough, No Short Of Breath Cardiac: No Chest Pain, No Edema, No Syncope Abdominal/Gastrointestinal: No Abdominal Pain, No Nausea, No Vomiting, No Diarrhea Genitourinary Symptoms: No Dysuria Musculoskeletal: No Back Pain, No Neck Pain Skin: No Rash Neurological: No Dizziness, No Focal Weakness, No Sensory Changes Psychological: No Symptoms Endocrine: No Symptoms Hematologic/Lymphatic: No Symptoms Immunological/Allergic: No Symptoms Objective Exam General Appearance: no apparent distress, alert Neurologic Exam: alert, oriented x 3, cooperative, normal mood/affect, nml cerebellar function, sensation nml, No motor deficits Skin Exam: normal color, warm, dry Wound Assessment: Skin/Wound Assessment Wound/Incision Assessment Start: 01/10/22 21:52 Text: Status: Active Freq: Q12H Protocol: Document 01/14/22 20:00 MG (Rec: 01/14/22 22:14 MG [id number]) Wound/Incision Assessment ABBE SHINS Wound Assessment Shift Assessment Wound Type Stasis Ulcer Dressing Status Changed Drainage Amount Minimal Drainage Description Yellow Primary Dressing Non-Adherent Gauze Pads Comment Cleaned with hibiclens and changed dressing on each leg. Pt tolerated well Eye Exam: PERRL, EOMI, eyes nml inspection Ears, Nose, Throat Exam: normal ENT inspection, pharynx normal, moist mucous membranes Neck Exam: normal inspection, non-tender, supple, full range of motion Respiratory Exam: normal breath sounds, lungs clear, No respiratory distress Cardiovascular Exam: regular rate/rhythm, normal heart sounds Gastrointestinal/Abdomen Exam: soft, No tenderness, No mass Extremity Exam: normal inspection, normal range of motion Back Exam: normal inspection, normal range of motion, No CVA tenderness, No vert ebral tenderness Male Genitalia Exam: deferred Rectal Exam: deferred OBJECTIVE DATA Vital Signs: Vital Signs - 24 hr Temp Pulse Resp BP Pulse Ox 01/15/22 07:01 72 20 95 01/15/22 07:00 97.6 F 62 16 122/62 96 01/14/22 19:00 97.8 F 68 20 121/60 95 01/14/22 18:46 77 20 96 01/14/22 12:46 88 20 95 Pain Assessment - Last Documented Pain Intensity 0 Pain Scale Used 0-10 Pain Scale Intake and Output: Intake & Output 01/12/22 01/13/22 01/14/22 01/15/22 11:59 11:59 11:59 11:59 Intake Total 700 780 580 Output Total 1425 8630 600 Balance -725 -620 -20 Weight 97.8 kg 93 kg 92.6 kg Multi-Disciplinary Progress Notes: Multi-Disciplinary Progress Notes 01/14/22 14:30 Occupational Therapy Note by Rae Caputo Mr. Jacobson seen this afternoon for skilled OT treatment session to address functional strength, functional endurance, and independence and safety with I/ADLs. Patient seated in armchair watching a show on his phone and O2 via nasal cannula on 2.0L upon OTR approach. He reported that he had worked with Physical Therapy in the therapy room earlier today and feels "pretty good" about that. OTR facilitated participation in grooming/hygiene tasks while standing at sink with SBA with rollator use for functional mobility within the room followed by participation in dynamic functional tasks in standing to address safety, endurance, strength, and I/ADL performance. Mr. Jacobson tolerated today's treatment session well and participated in standing ADLs x12 mins prior to requiring seated rest break. OTR provided education on safety awareness with AE/AD use including ensuring brakes are applied on rollator, minimizing 360 degrees turns with O2 tubing, and energy conservation strategies. Mr. Jacobson reported that he was feeling tired from today's activities and would like to rest. Treatment session ended and Mr. Jacobson seated in armchair with call light, phone, and bedside table within reach and O2 via nasal cannula on 2.0L in place. Addendum entered and electronically signed by Rae Caputo OT 01/14/22 14:41: Will continue to see patient 1x/weekday to address functional strength, functional endurance, I/ADL independence and safety, patient/caregiver education, and AE/AD/DME training and needs and needed. Initialized on 01/14/22 14:30 - END OF NOTE Assessment/Plan (1) Debilitated patient Current Visit: Yes Status: Acute Code(s): R53.81 - OTHER MALAISE (2) Peripheral artery disease Current Visit: No Status: Acute Code(s): I73.9 - PERIPHERAL VASCULAR DISEASE, UNSPECIFIED (3) Pneumonia Current Visit: No Status: Acute Code(s): J18.9 - PNEUMONIA, UNSPECIFIED ORGANISM (4) UTI (urinary tract infection) Current Visit: No Status: Acute Qualifiers: Code(s): N39.0 - URINARY TRACT INFECTION, SITE NOT SPECIFIED
[2022-01-15] MEDS: K-LYTE 25 MEQ PO SCH ×2 (09:08→21:32)
[2022-01-15] MEDS: Toprol-Xl 25MG Tablets PO SCH ×2 (09:09→21:32)
[2022-01-15] MEDS: ECOTRIN 81 MG PO SCH (09:09)
[2022-01-15] MEDS: NEURONTIN 300 MG PO SCH ×2 (09:09→21:32)
[2022-01-15] MEDS: MUCINEX DM 600/30MG PO SCH ×2 (09:09→21:32)
[2022-01-15] MEDS: Flomax 0.4 MG PO SCH (09:09)
[2022-01-15] MEDS: Lasix 40 MG PO SCH ×2 (09:09→17:35)
[2022-01-15] MEDS: Protonix 40MG Tablet PO SCH (09:09)
[2022-01-15] MEDS: Coumadin 3 MG PO SCH (17:35)
[2022-01-15] MEDS: ZOCOR 20MG PO SCH (21:33)
[2022-01-16] MEDS: DUONEB 0.5-3 MG/3 ml Neb IH SCH (06:38)
[2022-01-16] MEDS: Advair Hfa 115/21 Common canister IH SCH (06:42)
[2022-01-16 06:44] VITALS: O2SAT 94
[2022-01-16 07:37] VITALS: BP 112/57; PULSE 114
[2022-01-16] MEDS: CEFTIN 500 MG PO SCH (08:10)
[2022-01-16] MEDS: K-LYTE 25 MEQ PO SCH (09:24)
[2022-01-16] MEDS: ECOTRIN 81 MG PO SCH (09:24)
[2022-01-16] MEDS: MUCINEX DM 600/30MG PO SCH (09:24)
[2022-01-16] MEDS: Flomax 0.4 MG PO SCH (09:24)
[2022-01-16] MEDS: Protonix 40MG Tablet PO SCH (09:24)
[2022-01-16] MEDS: NEURONTIN 300 MG PO SCH (09:25)
[2022-01-16] MEDS: Toprol-Xl 25MG Tablets PO SCH (09:25)
[2022-01-16] MEDS: Lasix 40 MG PO SCH (09:26)
--- NOTE | 2022-01-16 09:48 | PCM.DS ---
Discharge Summary Date of Admission: 01/10/22 14:00 Admitting Physician: YUE AVELAR Primary Care Provider: YUE AVELAR Allergies Allergies Iodinated Contrast Media Allergy (Verified 04/05/20 00:01) Iodine and Iodide Containing Produc Allergy (Verified 04/05/20 00:01) Hospital Summary - Hospital Course Hospital Course: Chief Complaint Diagnosis DECONDITIONING R/T CHF, PNEUMONIA, UTI, CELLULITIS Allergies Allergy/AdvReac Type Severity Reaction Status Date / Time Iodinated Contrast Media Allergy Verified 04/05/20 00:01 Iodine and Iodide Containing Allergy Verified 04/05/20 00:01 Produc Vital Signs (Last 24 hours) Temp Pulse Resp BP Pulse Ox 01/16/22 07:00 97.7 F 114 H 20 112/57 94 L 01/16/22 06:42 76 18 94 L 01/15/22 19:00 97.2 F 79 22 121/70 96 01/15/22 18:39 80 18 96 01/15/22 14:48 97 H 18 96 Home Medications Medication Instructions Recorded Confirmed Last Taken Type Guaifenesin Dextromethorphan 1 tablet PO BIDPRN PRN #60 tablet 01/16/22 Unknown Rx [MUCINEX Dm 600/30MG] Potassium Bicarbonate 25 MEQ 25 meq PO DAILY #30 tab 01/16/22 Unknown Rx [K-Lyte 25 Meq] Current Medications Generic Name Dose Route Start Last Admin Trade Name Freq PRN Reason Stop Dose Admin Acetaminophen 650 mg 01/10/22 14:07 01/12/22 00:01 Acetaminophen 325 Mg Tablet PO 02/05/22 10:31 650 mg Q4H PRN PRN Administration PAIN AND/OR FEVER Albuterol Sulfate 2.5 mg 01/10/22 14:07 Albuterol Sulfate 2.5 Mg/3 Ml [facility] 02/07/22 02:20 Q4H PRN PRN SHORTNESS OF BREATH/WHEEZING Albuterol/Ipratropium 3 ml 01/10/22 19:00 01/16/22 06:38 Ipratropium/Albuterol Sulfate 3 Ml [facility] 02/05/22 12:59 3 ml TIDRT HARJINDER Administration Aspirin 81 mg 01/11/22 10:00 01/16/22 09:24 Aspirin 81 Mg Tablet.Ec PO 02/05/22 18:59 81 mg DAILY HARJINDER Administration Cefuroxime Axetil 500 mg 01/10/22 17:00 01/16/22 08:10 Cefuroxime Axetil 500 Mg Tablet PO 02/09/22 16:59 500 mg BIDWMEALS HARJINDER Administration Docusate Sodium 100 mg 01/10/22 14:07 Docusate Sodium 100 Mg Capsule PO 02/05/22 17:21 DAILY PRN PRN CONSTIPATION Furosemide 40 mg 01/10/22 17:00 01/16/22 09:26 Furosemide 40 Mg Tablet PO 02/09/22 16:59 40 mg BID DIURETIC HARJINDER Administration Gabapentin 600 mg 01/10/22 22:00 01/16/22 09:25 Gabapentin 300 Mg Capsule PO 02/05/22 21:59 600 mg BID HARJINDER Administration Guaifenesin/Dextromethorphan 1 tablet 01/10/22 22:00 01/16/22 09:24 Guaifenesin Dm 600mg/30 Mg Tablet PO 02/09/22 21:59 1 tablet BID HARJINDER Administration Metoprolol Succinate 25 mg 01/10/22 22:00 01/16/22 09:25 Metoprolol Succinate 25 Mg Xl Tab PO 02/05/22 21:59 25 mg BID HARJINDER Administration Pantoprazole Sodium 40 mg 01/11/22 10:00 01/16/22 09:24 Protonix (Pantoprazole) 40 Mg Tablet PO 02/10/22 09:59 40 mg DAILY HARJINDER Administration Polyethylene Glycol 17 gm 01/10/22 14:07 Polyethylene Glycol 3350 17 Gm Packet PO 02/05/22 17:21 DAILY PRN PRN CONSTIPATION Potassium Bicarbonate 25 meq 01/11/22 10:00 01/16/22 09:24 Potassium Bicarbonate 25 Meq Tab PO 02/10/22 09:59 25 meq BID HARJINDER Administration Fluticasone/Salmeterol 2 puff 01/10/22 19:00 01/16/22 06:42 Fluticasone/Salmeterol 115/21 - 120 Puff [facility] Can[facility] 02/05/22 18:59 2 puff BIDRT HARJINDER Administration Simvastatin 20 mg 01/10/22 22:00 01/15/22 21:33 Simvastatin 20 Mg Tablet PO 02/05/22 21:59 20 mg HS HARJINDER Administration Tamsulosin HCl 0.4 mg 01/11/22 10:00 01/16/22 09:24 Tamsulosin Hcl 0.4 Mg Cap PO 02/05/22 18:59 0.4 mg DAILY HARJINDER Administration Tuberculin PPD 5 unit 01/22/22 10:00 Aplisol (Tuberculin,Purif.Prot.Deriv.) 5 Unit/0.1 Ml Ml ID 01/22/22 10:01 DAILY HARJINDER Warfarin Sodium 3 mg 01/10/22 18:00 01/15/22 17:35 Warfarin Sodium 3 Mg Tablet PO 02/07/22 17:59 3 mg DAILY@1800 HARJINDER Administration Discontinued Medications Generic Name Dose Route Start Last Admin Trade Name Lety PRN Reason Stop Dose Admin Guaifenesin/Dextromethorphan Confirm 01/10/22 15:42 Guaifenesin Dm 600mg/30 Mg Tablet Administered 01/10/22 15:43 Dose 1 tablet PO .STK-MED ONE Potassium Bicarbonate 25 meq 01/11/22 10:00 Potassium Bicarbonate 25 Meq Tab PO 02/06/22 09:59 DAILY [facility] Tuberculin PPD 5 unit 01/11/22 10:00 01/11/22 17:46 Aplisol (Tuberculin,Purif.Prot.Deriv.) 5 Unit/0.1 Ml Ml ID 01/11/22 10:01 5 unit DAILY HARJINDER Administration Intake & Output (Last 24 hours) 01/13/22 01/14/22 01/15/22 01/16/22 11:59 11:59 11:59 11:59 Intake Total 700 780 580 680 Output Total 1425 1400 600 875 [facility] -725 -620 -20 -195 Weight 97.8 kg 93 kg 92.6 kg Orders (Last 24 hours) Category Date Time Status [facility] Q14D Lab 01/24/22 04:00 Ordered Tuberculin,Purif.prot.deriv. [Aplisol] Med 01/22/22 10:00 Active 5 unit ID DAILY Patient Care Notes (Last 24 hours) 01/16/22 08:30 Case Management Note by Ariadne Flaherty S/W PATIENT- HE CONTINUES TO DENY C. HE PLANS TO DC HOME TODAY WITH HIS TO ASSIST HIM. IMMEDIATELY AFTER DC HE WILL GO TO HIS WOUND CARE APPOINTMENT. PATIENT REPORTS HIS OXYGEN IS ALL IN GOOD CONDITION AND HE HAS MULTIPLE WALKERS TO USE AT HOME. NO OTHER NEW NEEDS IDENTIFIED AT THIS TIME Initialized on 01/16/22 08:30 - END OF NOTE 01/15/22 17:19 Occupational Therapy Note by Rae Caputo Mr. Jacobson seen for skilled Occupational Therapy treatment session this afternoon. He was napping in armchair with call light within reach and was agreeable to treatment session. OTR facilitated participation in dynamic standing functional reaching activities with rollator present to steady self as needed and rest breaks for PLB techniques followed by seated rest break and participation in BUE strengthening and endurance ther ex's with 1# added resistance. OTR educated Mr. Jacobson on exercises to perform at home and encouragement to incorporate into daily activities. He verbalized understanding. OTR reviewed energy conservation techniques and asked patient if he had further questions in prep for anticipated discharge tomorrow. He declined having further questions and stated that he is looking forward to going home. Mr. Jacobson seated in armchair with callight within reach and O2 via nasal cannula on 2.0L at end of treatment session. Initialized on 01/15/22 17:19 - END OF NOTE 01/15/22 10:38 Case Management Note by Ariadne Flaherty S/Tung PATIENT- HE PLANS TO DC HOME TOMORROW TO HIS PRIOR LEVEL OF FUNCTIONING. HE DECLINES HHC. HE PLANS TO GO HOME WITH HIS TO HIS PRIOR LEVEL OF FUNCTIONING AT TIME OF DC. PATIENT ALREADY HAS AN APT WITH WOUND CARE TOMORROW AT 11. HE WISHES TO KEEP THAT APPOINTMENT. PATIENT ALREADY HAS HOME OXYGEN AT HOME WELL Initialized on 01/15/22 10:38 - END OF NOTE - Vitals & Intake/Output Vital Signs: Vital Signs Temperature 97.7 F 01/16/22 07:00 Pulse Rate 114 H 01/16/22 07:00 Respiratory Rate 20 01/16/22 07:00 Blood Pressure 112/57 01/16/22 07:00 O2 Sat by Pulse Oximetry 94 L 01/16/22 07:00 Intake & Output: Intake & Output 01/13/22 01/14/22 01/15/22 01/16/22 11:59 11:59 11:59 11:59 Intake Total 700 780 580 680 Output Total 1425 2512 600 875 [facility] -725 -620 -20 -195 Weight 97.8 kg 93 kg 92.6 kg - Lab Result Diagrams: 01/13/22 05:04 - Procedures and Test Procedures and Tests throughout Hospitalization: Therapy Orders & Screens 01/10/22 14:07 OT Eval and Treat ( Order) ROUTINE Comment: Consulting Provider: Physician Instructions: Reason For Exam: difficulty with ADL's; decreased strength Diagnosis: Pneumonia, UTI, CHF, Cellulitis PT Eval & Treat (MD Order) ONCE Reason for Eval:: decreased functional strength and mobility; unsteady gait; difficulty with ADL's Diagnosis: Pneumonia, UTI, CHF, Cellulitis Oxygen Nasal Cannula 5 lpm Comment: Diagnosis: Pneumonia, UTI Cellulitis Respiratory Therapy Assessment DAILY Comment: 01/10/22 15:26 PT Clarification Order ROUTINE Comment: Physician Instructions: Reason For Exam: PT Clarification: P.T. TO RX 5X/WK UNTIL D/C TO ADDRESS FUNCTIONAL MOBILITY AND GAIT TRAINING, THER EX, BALANCE ACTIVITIES, ENDURANCE TRAINING, AND PT. ED. RE: HEP, SAFETY AWARENESS, AND ENERGY CONSERVATION TO MAXIMIZE FUNCTIONAL POTENTIAL FOR SAFET RETURN HOME. 01/10/22 15:45 OT Clarification Order ROUTINE Comment: Physician Instructions: Reason For Exam: OT Clarification: OT to treat 5x/week to address activity tolerance, strengthening, ADL re-training, functional mobility, and functional balance with goal to return home at prior level of function. 01/13/22 17:17 OT Clarification Order ROUTINE Comment: Physician Instructions: Reason For Exam: OT Clarification: OT TO PROVIDE TREATMENT 1X/WEEKDAY UNTIL DISCHARGE TO ADDRESS ADL RE-TRAINING, FUNCTIONAL STRENGTH, ACTIVITY TOLERANCE, FALL RISK PREVENTION, AND FUNCTIONAL TRANSFERS TO FACILITATE QUALITY OF LIFE AND INCREASE INDEPENDENCE WITH I/ADLS; PREVENT CAREGIVER INJURY AND BURNOUT. EFFECTIVE 01/09/22. 01/15/22 07:00 Oxygen Nasal Cannula 2 lpm Comment: Diagnosis: DECONDITIONING R/T CHF, PNEUMONIA, UTI, CELLULITIS Discharge Exam General Appearance: no apparent distress, alert Neurologic Exam: alert, oriented x 3, cooperative, normal mood/affect, nml cerebellar function, sensation nml, No motor deficits Eye Exam: PERRL, EOMI, eyes nml inspection Ears, Nose, Throat Exam: normal ENT inspection, pharynx normal, moist mucous membranes Neck Exam: normal inspection, non-tender, supple, full range of motion Respiratory Exam: normal breath sounds, lungs clear, No respiratory distress Cardiovascular Exam: regular rate/rhythm, normal heart sounds Gastrointestinal/Abdomen Exam: soft, No tenderness, No mass Male Genitalia Exam: deferred Rectal Exam: deferred Back Exam: normal inspection, normal range of motion, No CVA tenderness, No vertebral tenderness Extremity Exam: normal inspection, normal range of motion Skin Exam: normal color, warm, dry Wound Assessment: Skin/Wound Assessment Wound/Incision Assessment Start: 01/10/22 21:52 Text: Status: Active Freq: Q12H Protocol: Document 01/15/22 20:00 MG (Rec: 01/15/22 22:07 MG [id number]) Wound/Incision Assessment ABBE SHINS Wound Assessment Shift Assessment Wound Type Stasis Ulcer Dressing Status Dry & Intact Drainage Amount None Primary Dressing Bandaid Comment dressing CDI Final Diagnosis/Problem List - Final Discharge Diagnosis/Problem (1) Debilitated patient Current Visit: Yes Status: Chronic Code(s): R53.81 - OTHER MALAISE (2) Peripheral artery disease Current Visit: No Status: Chronic Code(s): I73.9 - PERIPHERAL VASCULAR DISEASE, UNSPECIFIED (3) Pneumonia Current Visit: No Status: Resolved Code(s): J18.9 - PNEUMONIA, UNSPECIFIED ORGANISM (4) UTI (urinary tract infection) Current Visit: No Status: Resolved Code(s): N39.0 - URINARY TRACT INFECTION, SITE NOT SPECIFIED - Discharge Discharge Date: 01/16/22 Disposition: Home, Self-Care Condition: Stable Prescriptions: New Potassium Bicarbonate 25 MEQ [K-Lyte 25 Meq] 25 meq PO DAILY #30 tab Guaifenesin Dextromethorphan [MUCINEX Dm 600/30MG] 1 tablet PO BIDPRN PRN #60 tablet PRN Reason: Cough Continue Aspirin [Aspirin EC] 81 mg PO DAILY Tamsulosin HCl 0.4 mg [Flomax 0.4 MG] 0.4 mg PO DAILY Albuterol 2.5 mg/3 ml Neb [Proventil 2.5 mg/3 ml Neb] 1 vial NEBULIZE Q6H Polyethylene Glycol 3350 [Clearlax] 17 gm PO DAILY PRN PRN Reason: Constipation Rosuvastatin Calcium 1 tab PO HS Metoprolol Succinate 1 tab PO BID Gabapentin 1 tab PO BID Furosemide 40 mg [Lasix 40 MG] 1 tab PO DAILY Albuterol/Ipratropium cc [Combivent Inhaler COMMON CANISTER] 15 gm IH QID Docusate Sodium [Dulcolax Stool Softener] 100 mg PO DAILY PRN PRN PRN Reason: Constipation Warfarin Sodium 1 tab PO DAILY Instructions: Heart Failure, Adult (DC), Cellulitis (Skin Infection), Adult (DC) Follow up with: YUE AVELAR MD [Primary Care Provider] - 01/23/22 1:30 pm Forms: Discharge Instructions
[2022-01-22] MEDS ORDERED: Aplisol ID SCH (10:00)
== END 2022-01-16 10:15 | disposition home or self-care (01) | DRG 947 ==
LOC: MED SURG 14:00
PROVIDERS: ADMIT General Practice; ATTEND General Practice
DX: R53.81 Other malaise (principal); J18.9 Pneumonia, unspecified organism; N39.0 Urinary tract infection, site not specified; L97.919 Non-pressure chronic ulcer of unspecified part of right lower leg with unspecified severity; L97.929 Non-pressure chronic ulcer of unspecified part of left lower leg with unspecified severity; I73.9 Peripheral vascular disease, unspecified; Z79.899 Other long term (current) drug therapy; Z79.01 Long term (current) use of anticoagulants; I25.10 Atherosclerotic heart disease of native coronary artery without angina pectoris; J44.9 Chronic obstructive pulmonary disease, unspecified; I11.0 Hypertensive heart disease with heart failure; I50.9 Heart failure, unspecified
CPT/HCPCS: 36415; 80048; 83880; 85610; 94640; 94760; 97110-GP; A9270-GY

== ENCOUNTER 2022-03-25 09:46 | Observation (INO) | payer MEDICARE ==
--- NOTE | 2022-03-25 10:13 | ERPHSYRPT ---
- History of Present Illness Time Seen by Provider: 03/25/22 10:10 Source: patient Physician History: Patient is a 86-year-old male presents to ED via EMS for evaluation of a headache and blurred vision to his left eye that has now resolved. Symptoms started at 6 AM this morning. patient states he has a history of a stroke approximately 10 years ago. Patient had a second stroke 2 years ago. The last stroke left patient with visual deficits of his left eye. Patient states that he felt as though this left visual deficit worsened but has now gotten back to its baseline. Patient is on Coumadin. Patient mentions that he has a history of atrial fibrillation. 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 Patient otherwise feels well. Patient has chronic back pain. states pain is significantly worse than his baseline. Pain worsens with activity. The pain level is higher than normal. However patient currently rates his back pain 1 out of 10. Patient voices no other complaints or concerns at this time. at bedside Timing/Duration: today Severity: moderate Modifying Factors: Improves With: nothing Associated Symptoms: denies symptoms Allergies/Adverse Reactions: Iodinated Contrast Media Allergy (Verified 03/25/22 09:59) Iodine and Iodide Containing Produc Allergy (Verified 03/25/22 09:59) Home Medications: Albuterol 2.5 mg/3 ml Neb [Proventil 2.5 mg/3 ml Neb] 1 vial NEBULIZE Q6H 12/19/14 [History] Aspirin [Aspirin EC] 81 mg PO DAILY 12/19/14 [History] Tamsulosin HCl 0.4 mg [Flomax 0.4 MG] 0.4 mg PO DAILY 12/19/14 [History] Polyethylene Glycol 3350 [Clearlax] 17 gm PO DAILY PRN 10/27/18 [History] Furosemide 40 mg [Lasix 40 MG] 1 tab PO DAILY 04/05/20 [History] Gabapentin 1 tab PO BID 04/05/20 [History] Metoprolol Succinate 1 tab PO BID 04/05/20 [History] Rosuvastatin Calcium 1 tab PO HS 04/05/20 [History] Albuterol/Ipratropium cc [Combivent Inhaler COMMON CANISTER] 15 gm IH QID 11/13/21 [History] Docusate Sodium [Dulcolax Stool Softener] 100 mg PO DAILY PRN PRN 11/13/21 [History] Warfarin Sodium 1 tab PO DAILY 01/06/22 [History] Hx Tetanus, Diphtheria Vaccination/Date Given: Yes Hx Influenza Vaccination/Date Given: Yes Hx Pneumococcal Vaccination/Date Given: No Travel Risk - Vaccine Status Have you recieved a Covid-19 vaccination: Yes Administrative And Program Specialist: Dupliaa - Vaccination Dates Date of 2cond Vaccination (if applicable): 12/07/20 - Review of Systems Constitutional: No Symptoms, No Fever, No Chills Eyes: No Symptoms Ears, Nose, & Throat: No Symptoms Respiratory: No Symptoms, No Cough, No Dyspnea Cardiac: No Symptoms, No Chest Pain, No Edema, No Syncope Abdominal/Gastrointestinal: Appetite Changes, No Abdominal Pain, No Nausea, No Vomiting, No Diarrhea Genitourinary Symptoms: No Symptoms, No Dysuria Musculoskeletal: No Symptoms, No Back Pain, No Neck Pain Skin: No Symptoms, No Rash Neurological: No Symptoms, No Dizziness, No Focal Weakness, No Sensory Changes Psychological: No Symptoms Endocrine: No Symptoms Hematologic/Lymphatic: No Symptoms Immunological/Allergic: No Symptoms All Other Systems: Reviewed and Negative - Past Medical History Pertinent Past Medical History: Yes Neurological History: Stroke ENT History: No Pertinent History Cardiac History: Coronary Artery Disease, Hypertension Respiratory History: CHF, COPD Endocrine Medical History: No Pertinent History Musculoskeletal History: Osteoarthritis GI Medical History: Diverticulosis, Other History: No Pertinent History Psycho-Social History: No Pertinent History Male Reproductive Disorders: Prostate Problems Other Medical History: 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 ABOUT 1- 2 YEARS AGO HAD ANOTHER STROKE WHICH TOOK HIS VISION IN HIS LEFT EYE. - Past Surgical History Past Surgical History: Yes Neuro Surgical History: No Pertinent History Cardiac: CABG, Cardiac Catheterization, Cardiac Stent, Internal Defibrillator, Pacemaker, Other Respiratory: Chest Surgery Gastrointestinal: Hernia Repair Genitourinary: No Pertinent History Musculoskeletal: No Pertinent History Male Surgical History: No Pertinent History Other Surgical History: colonoscopy, right cea, - Social History Smoking Status: Former smoker How long have you smoked: 10 yrs Exposure to second hand smoke: No Drug Use: none Patient Lives Alone: No - Nursing Vital Signs Nursing Vital Signs: Initial Vital Signs Temperature 97.2 F 03/25/22 10:00 Pulse Rate 89 03/25/22 10:00 Respiratory Rate 18 03/25/22 10:00 Blood Pressure 132/73 03/25/22 10:00 O2 Sat by Pulse Oximetry 96 03/25/22 10:00 Pain Scale Pain Intensity 1 - Physical Exam General Appearance: no apparent distress, alert Eye Exam: PERRL/EOMI, eyes nml inspection Ears, Nose, Throat Exam: normal ENT inspection, TMs normal, pharynx normal, moist mucous membranes Neck Exam: normal inspection, non-tender, supple, full range of motion Respiratory Exam: normal breath sounds, lungs clear, airway intact, No respiratory distress Cardiovascular Exam: regular rate/rhythm, normal heart sounds, normal peripheral pulses Gastrointestinal/Abdomen Exam: soft, normal bowel sounds, No tenderness, No mass Back Exam: normal inspection, normal range of motion, No CVA tenderness, No vertebral tenderness Extremity Exam: normal inspection, normal range of motion, pelvis stable Neurologic Exam: alert, oriented x 3, cooperative, normal mood/affect, nml cerebellar function, nml station & gait, sensation nml, No motor deficits Skin Exam: normal color, warm, dry, No rash Lymphatic Exam: No adenopathy SpO2 Interpretation: normal, airway management int. (96) SpO2: 96 O2 Delivery: Room Air - Course Nursing assessment & vital signs reviewed: Yes EKG Interpreted by Me: RATE (85), A-fib, NORMAL AXIS, Right Bundle Branch Block - Radiology Exams Chest X-ray Interpretation: Teleradiologist Report (Chronic lung markings. Tiny calcified granulomas. Cardiomegaly CABG AICD osteopenia nonacute chest with chronic features) - CT Exams Head CT Interpretation: Tele-radiologist Report (Begin atrophy within normal limits for patient's age. Stable old infarct left parietal lobe and tiny remote lacunar infarct left external capsule/left caudate head. Again incidental paranasal sinus disease. Remaining CT head without contrast exam negative.) Lumbar Spine CT Interpretation: Tele-radiologist Report (Osseous structures demonstrate osteopenia L2-S1 broad-based disc bulge with vacuum phenomena new T11-T12 degenerative vacuum disc phenomena facets are symmetric with L4 S1 degenerative facet arthropathy. Mild dextroscoliosis superior endplate T12 and inferior endplate L1 demonstrates new mild mayelin) Ordered Tests: Active Orders 24 hr Category Date Time Status Material Stress Tester STAT Care 03/25/22 09:51 Active EKG-ER Only STAT Care 03/25/22 09:50 Active IV Insertion STAT Care 03/25/22 09:50 Active Pulse Oximetry (ED) STAT Care 03/25/22 09:50 Active Consult Neurology ROUTINE Cons 03/25/22 11:40 Completed CHEST 1 VIEW (PORTABLE) Stat Exams 03/25/22 11:47 Completed HEAD WITHOUT CONTRAST [CT] Stat Exams 03/25/22 09:48 Completed LUMBAR SPINE W/O [CT] Stat Exams 03/25/22 10:53 Completed CBC W DIFF Stat Lab 03/25/22 10:10 Completed CMP Stat Lab 03/25/22 10:10 Completed NT PRO BNP Stat Lab 03/25/22 10:10 Completed PROTIME WITH INR Stat Lab 03/25/22 10:10 Completed PTT Stat Lab 03/25/22 10:10 Completed TROPONIN Q3H Lab 03/25/22 10:14 Received TROPONIN Q3H Lab 03/25/22 16:00 Ordered TROPONIN Q3H Lab 03/25/22 19:00 Ordered TROPONIN Q3H Lab 03/25/22 22:00 Ordered TROPONIN Q3H Lab 03/26/22 01:00 Ordered UA W/RFX CULTURE Stat Lab 03/25/22 Ordered Transfer Order Routine Transfer 03/25/22 Ordered Lab/Rad Data: Laboratory Result Diagrams 03/25/22 10:10 03/25/22 10:10 Laboratory Results 03/25/22 03/25/22 03/25/22 Range/Units 11:10 10:10 10:10 WBC (4.0-10.5) x10^3/uL RBC (4.1-5.6) x10^6/uL Hgb (12.5-18.0) g/dL Hct (42-50) % MCV (78-100) fL MCH (26-32) pg MCHC (32-36) g/dL RDW (11.5-14.0) % Plt Count (150-450) x10^3/uL MPV (7.5-11.0) fL Gran % (36.0-66.0) % Immature Gran % (Auto) (0.00-0.4) % Nucleat RBC Rel Count (0.00-0.1) % Eos # (Auto) (0-0.5) x10^3/uL Immature Gran # (Auto) (0.00-0.03) x10^3u/L Absolute Lymphs (auto) (1.0-4.6) x10^3/uL Absolute Monos (auto) (0.0-1.3) x10^3/uL Absolute Nucleated RBC (0.00-0.01) x10^3u/L Lymphocytes % (24.0-44.0) % Monocytes % (0.0-12.0) % Eosinophils % (0.00-5.0) % Basophils % (0.0-0.4) % Absolute Granulocytes (1.4-6.9) x10^3/uL Basophils # (0-0.4) x10^3/uL PT 22.7 H (9.4-12.5) SECONDS INR 2.31 (0.8-3.0) APTT 42.9 H (25.1-36.5) SECONDS Sodium 138 (137-145) mmol/L Potassium 3.8 (3.5-5.1) mmol/L Chloride 96 L (98-107) mmol/L Carbon Dioxide 32 H (22-30) mmol/L Anion Gap 15.0 (5-15) MEQ/L BUN 19 (9-20) mg/dL Creatinine 1.06 (0.66-1.25) mg/dL Estimated GFR > 60.0 ML/MIN Glucose 95 (74-106) mg/dL Calcium 8.9 (8.4-10.2) mg/dL Total Bilirubin 0.80 (0.2-1.3) mg/dL AST 30 (17-59) U/L ALT 13 (0-50) U/L Alkaline Phosphatase 81 (38-126) U/L NT-Pro-B Natriuret Pep 1410 (0-1800) pg/mL Serum Total Protein 6.9 (6.3-8.2) g/dL Albumin 4.0 (3.5-5.0) g/dL Influenza Type A Ag NEGATIVE (NEGATIVE) Influenza Type B Ag NEGATIVE (NEGATIVE) RSV (PCR) NEGATIVE (Negative) SARS-CoV-2 (PCR) NEGATIVE (NEGATIVE) 03/25/22 Range/Units 10:10 WBC 7.1 (4.0-10.5) x10^3/uL RBC 4.19 (4.1-5.6) x10^6/uL Hgb 12.9 (12.5-18.0) g/dL Hct 41.9 L (42-50) % MCV 100.0 (78-100) fL MCH 30.8 (26-32) pg MCHC 30.8 L (32-36) g/dL RDW 13.8 (11.5-14.0) % Plt Count 154 (150-450) x10^3/uL MPV 9.7 (7.5-11.0) fL Gran % 70.4 H (36.0-66.0) % Immature Gran % (Auto) 0.6 H (0.00-0.4) % Nucleat RBC Rel Count 0.0 (0.00-0.1) % Eos # (Auto) 0.21 (0-0.5) x10^3/uL Immature Gran # (Auto) 0.04 H (0.00-0.03) x10^3u/L Absolute Lymphs (auto) 1.20 (1.0-4.6) x10^3/uL Absolute Monos (auto) 0.61 (0.0-1.3) x10^3/uL Absolute Nucleated RBC 0.00 (0.00-0.01) x10^3u/L Lymphocytes % 16.9 L (24.0-44.0) % Monocytes % 8.6 (0.0-12.0) % Eosinophils % 2.9 (0.00-5.0) % Basophils % 0.6 (0.0-0.4) % Absolute Granulocytes 5.02 (1.4-6.9) x10^3/uL Basophils # 0.04 (0-0.4) x10^3/uL PT (9.4-12.5) SECONDS INR (0.8-3.0) APTT (25.1-36.5) SECONDS Sodium (137-145) mmol/L Potassium (3.5-5.1) mmol/L Chloride (98-107) mmol/L Carbon Dioxide (22-30) mmol/L Anion Gap (5-15) MEQ/L BUN (9-20) mg/dL Creatinine (0.66-1.25) mg/dL Estimated GFR ML/MIN Glucose (74-106) mg/dL Calcium (8.4-10.2) mg/dL Total Bilirubin (0.2-1.3) mg/dL AST (17-59) U/L ALT (0-50) U/L Alkaline Phosphatase (38-126) U/L NT-Pro-B Natriuret Pep (0-1800) pg/mL Serum Total Protein (6.3-8.2) g/dL Albumin (3.5-5.0) g/dL Influenza Type A Ag (NEGATIVE) Influenza Type B Ag (NEGATIVE) RSV (PCR) (Negative) SARS-CoV-2 (PCR) (NEGATIVE) - Progress Progress: improved Progress Note: Patient informed telemetry neurologist that he has been experiencing some shortness of breath. Chest x-ray ordered and pending. Telemetry neurologist feels that patient is not a candidate for tPA. However patient will be admitted for observation and further work-up. 03/25/22 11:[address] Avelar who accepts admission to observation. Plan of care discussed with patient. Patient agrees to admission at [facility] for further evaluation and treatment. Portions of this note were created with voice recognition technology. There may be grammatical, spelling, punctuation or sound alike errors 03/25/22 12:[address] L-spine shows normal endplate fractures. See radiology note for details 03/25/22 13:[address] Ankit Will see patient in: hospital (observation) Counseled pt/family regarding: lab results, diagnosis - Departure Departure Disposition: Observation Clinical Impression: TIA (transient ischemic attack), Right maxillary sinus disease, Acute exacerbation of chronic low back pain, Stable scoliosis, Osteopenia, Degenerative disc disease, Remote T12-L1 endplate fractures, Extensive arteriosclerotic disease Condition: Stable Critical Care Time: No Referrals: YUE AVELAR MD [Primary Care Provider] - Follow up/PCP as directed
--- NOTE | 2022-03-25 10:14 | XRAY ---
Indication: Resolving left vision blurry. Multiple contiguous axial images obtained through the head without contrast. 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 No acute intracranial hemorrhage, abnormal extra-axial fluid collection, or mass effect. Fourth ventricle is midline without hydrocephalus. Bony calvarium intact. Again mild mucosal thickening both ethmoid sinuses. New near complete opacification of right maxillary sinus. Mastoid air cells are clear. Impression: 1. Again atrophy within normal limits for patient's age. 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 2. Again incidental paranasal sinus disease. 3. Remaining CT head without contrast exam is negative.
[2022-03-25 10:19] LABS: Absolute Neutrophil Ct (ANC) 5.02 x10^3/uL (1.4-6.9); Basophil (Absolute #) 0.04 x10^3/uL (0-0.4); Eosinophil % 2.9 % (0.00-5.0); Eosinophil (Absolute #) 0.21 x10^3/uL (0-0.5); Hematocrit 41.9 % (42-50); Hemoglobin 12.9 g/dL (12.5-18.0); Lymphocytes % 16.9 % (24.0-44.0); Mean Corpuscular Hemoglobin 30.8 pg (26-32); Mean Corpuscular Hgb Concent. 30.8 g/dL (32-36); Mean Platelet Volume 9.7 fL (7.5-11.0); Monocyte (Absolute #) 0.61 x10^3/uL (0.0-1.3); Monocytes % 8.6 % (0.0-12.0); Neutrophil % 70.4 % (36.0-66.0); Platelet Count 154 x10^3/uL (150-450); Red Blood Count 4.19 x10^6/uL (4.1-5.6); Red Cell Distribution Width 13.8 % (11.5-14.0); White Blood Count 7.1 x10^3/uL (4.0-10.5)
[2022-03-25 10:48] LABS: ALKALINE PHOSPHATASE 81 U/L (38-126); BLOOD UREA NITROGEN 19 mg/dL (9-20); CHLORIDE 96 mmol/L (98-107); Calcium 8.9 mg/dL (8.4-10.2); Carbon Dioxide 32 mmol/L (22-30); Creatinine 1 1.06 mg/dL (0.66-1.25); EST GLOMERULAR FILTRATION RATE > 60.0 ML/MIN; Glucose 95 mg/dL (74-106); NT PRO BNP 1410 pg/mL (0-1800); Potassium 3.8 mmol/L (3.5-5.1); SGOT/AST 30 U/L (17-59); SGPT/ALT 13 U/L (0-50); Total Protein 6.9 g/dL (6.3-8.2)
[2022-03-25 11:18] LABS: INR 2.31 (0.8-3.0); PROTIME 22.7 SECONDS (9.4-12.5); PTT 42.9 SECONDS (25.1-36.5)
[2022-03-25 11:52] LABS: INFLUENZA A NEGATIVE (NEGATIVE); INFLUENZA B NEGATIVE (NEGATIVE); RESPIRATORY SYNCTIAL VIRUS NEGATIVE (Negative); SARS-CoV-2 Xpert Express NEGATIVE (NEGATIVE)
[2022-03-25 11:53] LABS: SODIUM 138 mmol/L (137-145)
--- NOTE | 2022-03-25 12:12 | XRAY ---
Indication: Low back pain radiating both legs. Double contiguous axial images obtained through the lumbar spine. Sagittal and coronal reformatted images obtained. Comparison: CT abdomen/pelvis March 29, 2019. Osseous structures again demonstrates osteopenia and L2-S1 degenerative broad-based disc bulge with vacuum disc phenomena. New T11-T12 degenerative vacuum disc phenomena. Facets are symmetric again with L4-S1 degenerative facet arthropathy. Sagittal and coronal reformatted images again demonstrates mild dextroscoliosis and L2-S1 disc space narrowing. Superior endplate T12 and inferior endplate L1 demonstrates new mild remote appearing endplate fractures with less than 25% height loss. No acute compression fracture or subluxation. Visualized noncontrasted soft tissues again demonstrates extensive scattered vascular calcifications including both renal arteries and distal aortic ectasia. Impression: 1. Stable scoliosis, osteopenia, and L2-S1 degenerative disc disease with new T11-T12 degenerative disc disease. 2. New remote appearing T12 and L1 endplate fractures. 3. Again extensive arteriosclerotic disease with distal aortic ectasia.
--- NOTE | 2022-03-25 12:14 | XRAY ---
Indication: Short of breath. Comparison: January 06, 2022 Portable chest again demonstrates chronic lung markings with tiny calcified granulomas. No focal infiltrate, consolidation, or large effusion. 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 Bony thorax intact again with osteopenia and degenerative changes. Imperson: Nonacute chest with chronic features.
[2022-03-25] MEDS ORDERED: MORPHINE SULFATE 2 MG INJ IV ONE (13:13)
[2022-03-25] MEDS ORDERED: MORPHINE SULFATE 2 MG INJ ONE (13:18)
[2022-03-25] MEDS ORDERED: MAALOX ES 30 ML UNIT DOSE PO PRN (13:47)
[2022-03-25] MEDS ORDERED: MILK OF MAGNESIA 30 ML PO PRN (13:47)
[2022-03-25] MEDS ORDERED: Senokot-S Tablet PO PRN (13:47)
[2022-03-25] MEDS ORDERED: TYLENOL 325 MG PO PRN (13:47)
[2022-03-25] MEDS ORDERED: Zofran 4 MG/2 ML VIAL IV PRN (13:47)
[2022-03-25 14:39] LABS: Appearance CLEAR (CLEAR); Bacteria RARE /HPF (NEGATIVE); Bilirubin NEGATIVE (NEGATIVE); Dipstick done @ ? MAIN LAB; Glucose NEGATIVE (NEGATIVE); Ketones NEGATIVE (NEGATIVE); Nitrite NEGATIVE (NEGATIVE); Protein,Urine Dip NEGATIVE (Negative); RBC TRACE-INTACT Ery/ul (0-5); Urine Cultured Indicated? NO; Urobilinogen 1 mg/dL (0-1); WBC 0-2 /HPF (0-5)
[2022-03-25] MEDS: Hydromorphone 1 mg/ml Injection IV PRN ×2 (16:00→20:13)
[2022-03-25] MEDS ORDERED: Docusate Sodium 100 MG PO PRN (16:29)
[2022-03-25] MEDS ORDERED: Miralax Powder 17GM PACKET PO PRN (16:29)
[2022-03-25] MEDS ORDERED: MEDICATION INTERVENTION MC SCH (16:45)
[2022-03-25] MEDS ORDERED: NON-FORMULARY ITEM (Albuterol/Ipratropium Cc** [Combivent Inhaler Common Canister**] 1 PUF IH SCH (17:00)
[2022-03-25] MEDS: ECOTRIN 81 MG PO SCH (17:25)
[2022-03-25] MEDS: Klor Con PO SCH (17:25)
[2022-03-25] MEDS: Coumadin 3 MG PO SCH (17:25)
[2022-03-25] MEDS: Toprol-Xl 25MG Tablets PO SCH (17:25)
[2022-03-25] MEDS: Lasix 40 MG PO SCH (17:25)
[2022-03-25] MEDS: Flomax 0.4 MG PO SCH (17:25)
--- NOTE | 2022-03-25 18:13 | PCM.HP ---
History of Present Illness - Chief Complaint Chief Complaint: transient loss of vision. c/o backpainfor 3 hours History of Present Illness: is a 86 year old male.presents to ED via EMS for evaluation of a headache and blurred vision to his left eye that has now resolved. Symptoms started at 6 AM this morning. patient states he has a history of a stroke approximately 10 years ago. Patient had a second stroke 2 years ago. The last stroke left patient with visual deficits of his left eye. Patient states that he felt as though this left visual deficit worsened but has now gotten back to its baseline. Patient is on Coumadin. Patient mentions that he has a history of atrial fibrillation. 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 Patient otherwise feels well. Patient has chronic back pain. states pain is significantly worse than his baseline. Pain worsens with activity. The pain level is higher than normal. However patient currently rates his back pain 1 out of 10. Patient voices no other complaints or concerns at this time - Review of Systems Constitutional: No Fever, No Chills Eyes: Vision Changes Ears, Nose, & Throat: No Symptoms Respiratory: Orthopnea, Short Of Breath, No Cough Cardiac: No Chest Pain, No Edema, No Syncope Abdominal/Gastrointestinal: No Abdominal Pain, No Nausea, No Vomiting, No Diarrhea Genitourinary Symptoms: No Dysuria Musculoskeletal: No Back Pain, No Neck Pain Skin: No Rash Neurological: No Dizziness, No Focal Weakness, No Sensory Changes Psychological: No Symptoms Endocrine: No Symptoms Hematologic/Lymphatic: No Symptoms Immunological/Allergic: No Symptoms Medications & Allergies Home Medications: Home Medication List Albuterol 2.5 mg/3 ml Neb [Proventil 2.5 mg/3 ml Neb] 1 vial NEBULIZE Q6H 12/19/14 [History Confirmed 03/25/22] Aspirin [Aspirin EC] 81 mg PO DAILY 12/19/14 [History Confirmed 03/25/22] Tamsulosin HCl 0.4 mg [Flomax 0.4 MG] 0.4 mg PO DAILY 12/19/14 [History Confirmed 03/25/22] Polyethylene Glycol 3350 [Clearlax] 17 gm PO DAILY PRN 10/27/18 [History Confirmed 03/25/22] Furosemide 40 mg [Lasix 40 MG] 40 mg PO DAILY 04/05/20 [History Confirmed 03/25/22] Gabapentin 600 mg PO BID 04/05/20 [History Confirmed 03/25/22] Metoprolol Succinate 25 mg PO DAILY 04/05/20 [History Confirmed 03/25/22] Rosuvastatin Calcium 10 mg PO HS 04/05/20 [History Confirmed 03/25/22] Albuterol/Ipratropium cc [Combivent Inhaler COMMON CANISTER] 1 puff IH QID 11/13/21 [History Confirmed 03/25/22] Docusate Sodium [Dulcolax Stool Softener] 100 mg PO DAILY PRN PRN 11/13/21 [History Confirmed 03/25/22] Warfarin Sodium 3 mg PO DAILY 01/06/22 [History Confirmed 03/25/22] Budesonide/Formoterol Fumarate [Budesonide-Formoterol 160-4.5] 2 puff IH BID 03/25/22 [History Confirmed 03/25/22] Guaifenesin 600 mg ER [Mucinex 600MG ER Tabs] 600 mg PO BID 03/25/22 [History Confirmed 03/25/22] Potassium Chloride Tab* [Klor Con] 20 meq PO DAILY 03/25/22 [History Confirmed 03/25/22] Allergies/Adverse Reactions: Allergies Allergy/AdvReac Type Severity Reaction Status Date / Time Iodinated Contrast Media Allergy Verified 03/25/22 09:59 Iodine and Iodide Containing Allergy Verified 03/25/22 09:59 Produc - Past Medical History Past Medical History: Yes Neurological History: Stroke ENT History: No Pertinent History Cardiac History: Coronary Artery Disease, Hypertension Respiratory History: CHF, COPD Endocrine Medical History: No Pertinent History Musculoskelatal History: Osteoarthritis GI Medical History: Diverticulosis, Other History: No Pertinent History Pyscho-Social History: No Pertinent History Male Reproductive Disorders: Prostate Problems Comment: 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 ABOUT 1-2 YEARS AGO HAD ANOTHER STROKE WHICH TOOK HIS VISION IN HIS LEFT EYE. States he feels he had TIA x 1 wk ago - Past Surgical History Past Surgical History: Yes Neuro Surgical History: No Pertinent History Cardiac History: CABG, Cardiac Catheterization, Cardiac Stent, Internal Defibrillator, Pacemaker, Other Respiratory Surgery: Chest Surgery GI Surgical History: Hernia Repair Genitourinary Surgical Hx: No Pertinent History Musculskeletal Surgical Hx: No Pertinent History Male Surgical History: No Pertinent History Other Surgical History: colonoscopy, right cea, - Social History Smoking Status: Former smoker How long have you smoked: 10 yrs Exposure to second hand smoke: No Alcohol: None Drug Use: none - Physical Exam Vital Signs: Vital Signs - 24 hr Temp Pulse Resp BP Pulse Ox 03/25/22 16:00 98.3 F 68 16 129/61 95 03/25/22 14:00 98.4 F 46 L 16 146/58 96 03/25/22 13:47 98.4 F 46 L 16 146/58 96 03/25/22 13:13 96 03/25/22 13:00 77 16 124/60 97 03/25/22 12:00 84 114/65 97 03/25/22 11:00 86 136/73 97 03/25/22 10:16 97 03/25/22 10:00 97.2 F 89 18 132/73 96 General Appearance: no apparent distress, alert Neurologic Exam: alert, oriented x 3, cooperative, normal mood/affect, nml cerebellar function, nml station & gait, sensation nml, No motor deficits Eye Exam: PERRL/EOMI, eyes nml inspection Ears, Nose, Throat Exam: normal ENT inspection, TMs normal, pharynx normal, moist mucous membranes Neck Exam: normal inspection, non-tender, supple, full range of motion Respiratory Exam: normal breath sounds, lungs clear, No respiratory distress Cardiovascular Exam: irregular Gastrointestinal/Abdomen Exam: soft, normal bowel sounds, No tenderness, No mass Back Exam: normal inspection, normal range of motion, No CVA tenderness, No vertebral tenderness Extremity Exam: normal inspection, normal range of motion, pelvis stable Skin Exam: normal color, warm, dry, No rash Lymphatic Exam: No adenopathy Results - Labs Lab/Micro Results: Lab Results-Last 24 Hours 03/25/22 03/25/22 03/25/22 Range/Units 10:10 10:10 10:10 WBC 7.1 (4.0-10.5) x10^3/uL RBC 4.19 (4.1-5.6) x10^6/uL Hgb 12.9 (12.5-18.0) g/dL Hct 41.9 L (42-50) % MCV 100.0 (78-100) fL MCH 30.8 (26-32) pg MCHC 30.8 L (32-36) g/dL RDW 13.8 (11.5-14.0) % Plt Count 154 (150-450) x10^3/uL MPV 9.7 (7.5-11.0) fL Gran % 70.4 H (36.0-66.0) % Immature Gran % (Auto) 0.6 H (0.00-0.4) % Nucleat RBC Rel Count 0.0 (0.00-0.1) % Eos # (Auto) 0.21 (0-0.5) x10^3/uL Immature Gran # (Auto) 0.04 H (0.00-0.03) x10^3u/L Absolute Lymphs (auto) 1.20 (1.0-4.6) x10^3/uL Absolute Monos (auto) 0.61 (0.0-1.3) x10^3/uL Absolute Nucleated RBC 0.00 (0.00-0.01) x10^3u/L Lymphocytes % 16.9 L (24.0-44.0) % Monocytes % 8.6 (0.0-12.0) % Eosinophils % 2.9 (0.00-5.0) % Basophils % 0.6 (0.0-0.4) % Absolute Granulocytes 5.02 (1.4-6.9) x10^3/uL Basophils # 0.04 (0-0.4) x10^3/uL PT 22.7 H (9.4-12.5) SECONDS INR 2.31 (0.8-3.0) APTT 42.9 H (25.1-36.5) SECONDS Sodium 138 (137-145) mmol/L Potassium 3.8 (3.5-5.1) mmol/L Chloride 96 L (98-107) mmol/L Carbon Dioxide 32 H (22-30) mmol/L Anion Gap 15.0 (5-15) MEQ/L BUN 19 (9-20) mg/dL Creatinine 1.06 (0.66-1.25) mg/dL Estimated GFR > 60.0 ML/MIN Glucose 95 (74-106) mg/dL Calcium 8.9 (8.4-10.2) mg/dL Total Bilirubin 0.80 (0.2-1.3) mg/dL AST 30 (17-59) U/L ALT 13 (0-50) U/L Alkaline Phosphatase 81 (38-126) U/L Troponin I (0.000-0.034) ng/mL NT-Pro-B Natriuret Pep 1410 (0-1800) pg/mL Serum Total Protein 6.9 (6.3-8.2) g/dL Albumin 4.0 (3.5-5.0) g/dL Urinalys Dipstick Clnc Urine Color (YELLOW) Urine Appearance (CLEAR) Urine pH (5-6) Ur Specific [place] (1.005-1.025) POC Urine Protein Conf (Negative) Urine Ketones (NEGATIVE) Urine Nitrite (NEGATIVE) Urine Bilirubin (NEGATIVE) Urine Urobilinogen (0-1) mg/dL Urine Leukocytes (NEGATIVE) Urine WBC (Auto) (0-5) /HPF Urine RBC (Auto) (0-2) /HPF U Epithel Cells (Auto) (FEW) /HPF Urine Bacteria (Auto) (NEGATIVE) /HPF Urine RBC (0-5) Shahram/ul Ur Culture Indicated? Urine Glucose (NEGATIVE) mg/dL Influenza Type A Ag (NEGATIVE) Influenza Type B Ag (NEGATIVE) RSV (PCR) (Negative) SARS-CoV-2 (PCR) (NEGATIVE) 03/25/22 03/25/22 03/25/22 Range/Units 10:14 11:10 16:40 WBC (4.0-10.5) x10^3/uL RBC (4.1-5.6) x10^6/uL Hgb (12.5-18.0) g/dL Hct (42-50) % MCV (78-100) fL MCH (26-32) pg MCHC (32-36) g/dL RDW (11.5-14.0) % Plt Count (150-450) x10^3/uL MPV (7.5-11.0) fL Gran % (36.0-66.0) % Immature Gran % (Auto) (0.00-0.4) % Nucleat RBC Rel Count (0.00-0.1) % Eos # (Auto) (0-0.5) x10^3/uL Immature Gran # (Auto) (0.00-0.03) x10^3u/L Absolute Lymphs (auto) (1.0-4.6) x10^3/uL Absolute Monos (auto) (0.0-1.3) x10^3/uL Absolute Nucleated RBC (0.00-0.01) x10^3u/L Lymphocytes % (24.0-44.0) % Monocytes % (0.0-12.0) % Eosinophils % (0.00-5.0) % Basophils % (0.0-0.4) % Absolute Granulocytes (1.4-6.9) x10^3/uL Basophils # (0-0.4) x10^3/uL PT (9.4-12.5) SECONDS INR (0.8-3.0) APTT (25.1-36.5) SECONDS Sodium (137-145) mmol/L Potassium (3.5-5.1) mmol/L Chloride (98-107) mmol/L Carbon Dioxide (22-30) mmol/L Anion Gap (5-15) MEQ/L BUN (9-20) mg/dL Creatinine (0.66-1.25) mg/dL Estimated GFR ML/MIN Glucose (74-106) mg/dL Calcium (8.4-10.2) mg/dL Total Bilirubin (0.2-1.3) mg/dL AST (17-59) U/L ALT (0-50) U/L Alkaline Phosphatase (38-126) U/L Troponin I < 0.012 < 0.012 (0.000-0.034) ng/mL NT-Pro-B Natriuret Pep (0-1800) pg/mL Serum Total Protein (6.3-8.2) g/dL Albumin (3.5-5.0) g/dL Urinalys Dipstick Clnc Urine Color (YELLOW) Urine Appearance (CLEAR) Urine pH (5-6) Ur Specific [place] (1.005-1.025) POC Urine Protein Conf (Negative) Urine Ketones (NEGATIVE) Urine Nitrite (NEGATIVE) Urine Bilirubin (NEGATIVE) Urine Urobilinogen (0-1) mg/dL Urine Leukocytes (NEGATIVE) Urine WBC (Auto) (0-5) /HPF Urine RBC (Auto) (0-2) /HPF U Epithel Cells (Auto) (FEW) /HPF Urine Bacteria (Auto) (NEGATIVE) /HPF Urine RBC (0-5) Shahram/ul Ur Culture Indicated? Urine Glucose (NEGATIVE) mg/dL Influenza Type A Ag NEGATIVE (NEGATIVE) Influenza Type B Ag NEGATIVE (NEGATIVE) RSV (PCR) NEGATIVE (Negative) SARS-CoV-2 (PCR) NEGATIVE (NEGATIVE) 03/25/22 Range/Units Unknown WBC (4.0-10.5) x10^3/uL RBC (4.1-5.6) x10^6/uL Hgb (12.5-18.0) g/dL Hct (42-50) % MCV (78-100) fL MCH (26-32) pg MCHC (32-36) g/dL RDW (11.5-14.0) % Plt Count (150-450) x10^3/uL MPV (7.5-11.0) fL Gran % (36.0-66.0) % Immature Gran % (Auto) (0.00-0.4) % Nucleat RBC Rel Count (0.00-0.1) % Eos # (Auto) (0-0.5) x10^3/uL Immature Gran # (Auto) (0.00-0.03) x10^3u/L Absolute Lymphs (auto) (1.0-4.6) x10^3/uL Absolute Monos (auto) (0.0-1.3) x10^3/uL Absolute Nucleated RBC (0.00-0.01) x10^3u/L Lymphocytes % (24.0-44.0) % Monocytes % (0.0-12.0) % Eosinophils % (0.00-5.0) % Basophils % (0.0-0.4) % Absolute Granulocytes (1.4-6.9) x10^3/uL Basophils # (0-0.4) x10^3/uL PT (9.4-12.5) SECONDS INR (0.8-3.0) APTT (25.1-36.5) SECONDS Sodium (137-145) mmol/L Potassium (3.5-5.1) mmol/L Chloride (98-107) mmol/L Carbon Dioxide (22-30) mmol/L Anion Gap (5-15) MEQ/L BUN (9-20) mg/dL Creatinine (0.66-1.25) mg/dL Estimated GFR ML/MIN Glucose (74-106) mg/dL Calcium (8.4-10.2) mg/dL Total Bilirubin (0.2-1.3) mg/dL AST (17-59) U/L ALT (0-50) U/L Alkaline Phosphatase (38-126) U/L Troponin I (0.000-0.034) ng/mL NT-Pro-B Natriuret Pep (0-1800) pg/mL Serum Total Protein (6.3-8.2) g/dL Albumin (3.5-5.0) g/dL Urinalys Dipstick Clnc MAIN LAB Urine Color YELLOW (YELLOW) Urine Appearance CLEAR (CLEAR) Urine pH 6.0 (5-6) Ur Specific [place] 1.020 (1.005-1.025) POC Urine Protein Conf NEGATIVE (Negative) Urine Ketones NEGATIVE (NEGATIVE) Urine Nitrite NEGATIVE (NEGATIVE) Urine Bilirubin NEGATIVE (NEGATIVE) Urine Urobilinogen 1 (0-1) mg/dL Urine Leukocytes NEGATIVE (NEGATIVE) Urine WBC (Auto) 0-2 (0-5) /HPF Urine RBC (Auto) 6-10 (0-2) /HPF U Epithel Cells (Auto) NONE (FEW) /HPF Urine Bacteria (Auto) RARE (NEGATIVE) /HPF Urine RBC TRACE-INTACT (0-5) Shahram/ul Ur Culture Indicated? NO Urine Glucose NEGATIVE (NEGATIVE) mg/dL Influenza Type A Ag (NEGATIVE) Influenza Type B Ag (NEGATIVE) RSV (PCR) (Negative) SARS-CoV-2 (PCR) (NEGATIVE) - Radiology Impressions Radiology Exams & Impressions: Radiology Procedures Category Date Time Status CHEST 1 VIEW (PORTABLE) Stat Exams 03/25/22 11:47 Completed HEAD WITHOUT CONTRAST [CT] Stat Exams 03/25/22 09:48 Completed LUMBAR SPINE W/O [CT] Stat Exams 03/25/22 10:53 Completed - Other Procedures and Tests Respiratory Therapy 03/25/22 13:47 EKG Q8HX2,QAMX3,PRN 03/25/22 17:50 EKG ONCE 03/26/22 05:00 EKG ONCE 03/27/22 05:00 EKG ONCE 03/28/22 05:00 EKG ONCE Assessment/Plan (1) TIA (transient ischemic attack) Current Visit: Yes Status: Acute Assessment & Plan: Chief Complaint Diagnosis TIA, back pain Allergies Allergy/AdvReac Type Severity Reaction Status Date / Time Iodinated Contrast Media Allergy Verified 03/25/22 09:59 Iodine and Iodide Containing Allergy Verified 03/25/22 09:59 Produc Vital Signs (Last 24 hours) Temp Pulse Resp BP Pulse Ox 03/25/22 16:00 98.3 F 68 16 129/61 95 03/25/22 14:00 98.4 F 46 L 16 146/58 96 03/25/22 13:47 98.4 F 46 L 16 146/58 96 03/25/22 13:13 96 03/25/22 13:00 77 16 124/60 97 03/25/22 12:00 84 114/65 97 03/25/22 11:00 86 136/73 97 03/25/22 10:16 97 03/25/22 10:00 97.2 F 89 18 132/73 96 Home Medications Medication Instructions Recorded Confirmed Last Taken Type Budesonide/Formoterol Fumarate 2 puff IH BID 03/25/22 03/25/22 03/24/22 History [Budesonide-Formoterol 160-4.5] Guaifenesin 600 mg ER [Mucinex 600 mg PO BID 03/25/22 03/25/22 03/24/22 History 600MG ER Tabs] Potassium Chloride Tab* [Klor Con] 20 meq PO DAILY 03/25/22 03/25/22 03/24/22 History Current Medications Generic Name Dose Route Start Last Admin Trade Name Freq PRN Reason Stop Dose Admin Acetaminophen 650 mg 03/25/22 13:47 Acetaminophen 325 Mg Tablet PO 04/24/22 13:46 Q4H PRN PRN PAIN AND/OR FEVER Al Hydrox/Mg Hydrox/Simethicone 30 ml 03/25/22 13:47 Mag Hydrox/Al Hydrox/Simeth 30 Ml Udcup PO 04/24/22 13:46 Q4H PRN PRN INDIGESTION Albuterol Sulfate 2.5 mg 03/25/22 19:00 Albuterol Sulfate 2.5 Mg/3 Ml Neb IH 04/24/22 18:59 Q6HRT HARJINDER Aspirin 81 mg 03/25/22 17:00 03/25/22 17:25 Aspirin 81 Mg Tablet.Ec PO 04/24/22 16:59 81 mg DAILY HARJINDER Administration Docusate Sodium 100 mg 03/25/22 16:29 Docusate Sodium 100 Mg Capsule PO 04/24/22 16:28 DAILY PRN PRN CONSTIPATION Furosemide 40 mg 03/25/22 17:00 03/25/22 17:25 Furosemide 40 Mg Tablet PO 04/24/22 16:59 40 mg DAILY HARJINDER Administration Gabapentin 600 mg 03/25/22 22:00 Gabapentin 300 Mg Capsule PO 04/24/22 21:59 BID HARJINDER Guaifenesin 600 mg 03/25/22 22:00 Guaifenesin 600 Mg Tablet Er PO 04/24/22 21:59 BID HARJINDER Hydromorphone HCl 0.5 mg 03/25/22 15:43 03/25/22 16:00 Hydromorphone 1 Mg/1ml Inj 1 Mg/Ml Syringe IV 03/30/22 15:42 0.5 mg Q4H PRN PRN Administration PAIN Magnesium Hydroxide 30 - 60 ml 03/25/22 13:47 Magnesium Hydroxide 30 Ml Udcup PO 04/24/22 13:46 QDP PRN CONSTIPATION Metoprolol Succinate 25 mg 03/25/22 17:00 03/25/22 17:25 Metoprolol Succinate 25 Mg Xl Tab PO 04/24/22 16:59 25 mg DAILY HARJINDER Administration Miscellaneous Information 1 each 03/25/22 16:45 Medication Intervention 1 Each Each 04/24/22 16:44 .RT TO CHECK HARJINDER Ondansetron HCl 4 mg 03/25/22 13:47 Ondansetron Hcl 4 Mg/2 Ml Vial IV 04/24/22 13:46 Q4H PRN PRN NAUSEA/VOMITING Polyethylene Glycol 17 gm 03/25/22 16:29 Polyethylene Glycol 3350 17 Gm Packet PO 04/24/22 16:28 DAILY PRN PRN CONSTIPATION Potassium Chloride 20 meq 03/25/22 17:00 03/25/22 17:25 Potassium Chloride Tab 10 Meq Tab PO 04/24/22 16:59 20 meq DAILY HARJINDER Administration Senna/Docusate Sodium 2 udtab 03/25/22 13:47 Senna/Docusate Sodium 1 Udtab Tablet PO 04/24/22 13:46 BID PRN PRN CONSTIPATION Simvastatin 20 mg 03/25/22 22:00 Simvastatin 20 Mg Tablet PO 04/24/22 21:59 HS HARJINDER Tamsulosin HCl 0.4 mg 03/25/22 17:00 03/25/22 17:25 Tamsulosin Hcl 0.4 Mg Cap PO 04/24/22 16:59 0.4 mg DAILY HARJINDER Administration Warfarin Sodium 3 mg 03/25/22 18:00 03/25/22 17:25 Warfarin Sodium 3 Mg Tablet PO 04/24/22 17:59 3 mg COU HARJINDER Administration Discontinued Medications Generic Name Dose Route Start Last Admin Trade Name Thomasq PRN Reason Stop Dose Admin Morphine Sulfate 2 mg 03/25/22 13:13 03/25/22 13:19 Morphine Sulfate 2 Mg/Ml Inj IV 03/25/22 13:14 2 mg STAT ONE Administration Morphine Sulfate Confirm 03/25/22 13:18 Morphine Sulfate 2 Mg/Ml Inj Administered 03/25/22 13:19 Dose 2 mg .ROUTE .STK-MED ONE Intake & Output (Last 24 hours) 03/23/22 03/24/22 03/25/22 03/26/22 11:59 11:59 11:59 11:59 Intake Total 380 Balance 380 Weight 93.185 kg 94.3 kg Laboratory Results (Last 24 hours) 03/25/22 03/25/22 03/25/22 Unknown 16:40 11:10 WBC RBC Hgb Hct MCV MCH MCHC RDW Plt Count MPV Gran % Immature Gran % (Auto) Nucleat RBC Rel Count Eos # (Auto) Immature Gran # (Auto) Absolute Lymphs (auto) Absolute Monos (auto) Absolute Nucleated RBC Lymphocytes % Monocytes % Eosinophils % Basophils % Absolute Granulocytes Basophils # PT INR APTT Sodium Potassium Chloride Carbon Dioxide Anion Gap BUN Creatinine Estimated GFR Glucose Calcium Total Bilirubin AST ALT Alkaline Phosphatase Troponin I < 0.012 NT-Pro-B Natriuret Pep Serum Total Protein Albumin Urinalys Dipstick Clnc MAIN LAB Urine Color YELLOW Urine Appearance CLEAR Urine pH 6.0 Ur Specific [place] 1.020 POC Urine Protein Conf NEGATIVE Urine Ketones NEGATIVE Urine Nitrite NEGATIVE Urine Bilirubin NEGATIVE Urine Urobilinogen 1 Urine Leukocytes NEGATIVE Urine WBC (Auto) 0-2 Urine RBC (Auto) 6-10 U Epithel Cells (Auto) NONE Urine Bacteria (Auto) RARE Urine RBC TRACE-INTACT Ur Culture Indicated? NO Urine Glucose NEGATIVE Influenza Type A Ag NEGATIVE Influenza Type B Ag NEGATIVE RSV (PCR) NEGATIVE SARS-CoV-2 (PCR) NEGATIVE 03/25/22 03/25/22 03/25/22 10:14 10:10 10:10 WBC RBC Hgb Hct MCV MCH MCHC RDW Plt Count MPV Gran % Immature Gran % (Auto) Nucleat RBC Rel Count Eos # (Auto) Immature Gran # (Auto) Absolute Lymphs (auto) Absolute Monos (auto) Absolute Nucleated RBC Lymphocytes % Monocytes % Eosinophils % Basophils % Absolute Granulocytes Basophils # PT 22.7 H INR 2.31 APTT 42.9 H Sodium 138 Potassium 3.8 Chloride 96 L Carbon Dioxide 32 H Anion Gap 15.0 BUN 19 Creatinine 1.06 Estimated GFR > 60.0 Glucose 95 Calcium 8.9 Total Bilirubin 0.80 AST 30 ALT 13 Alkaline Phosphatase 81 Troponin I < 0.012 NT-Pro-B Natriuret Pep 1410 Serum Total Protein 6.9 Albumin 4.0 Urinalys Dipstick Clnc Urine Color Urine Appearance Urine pH Ur Specific [place] POC Urine Protein Conf Urine Ketones Urine Nitrite Urine Bilirubin Urine Urobilinogen Urine Leukocytes Urine WBC (Auto) Urine RBC (Auto) U Epithel Cells (Auto) Urine Bacteria (Auto) Urine RBC Ur Culture Indicated? Urine Glucose Influenza Type A Ag Influenza Type B Ag RSV (PCR) SARS-CoV-2 (PCR) 03/25/22 10:10 WBC 7.1 RBC 4.19 Hgb 12.9 Hct 41.9 L MCV 100.0 MCH 30.8 MCHC 30.8 L RDW 13.8 Plt Count 154 MPV 9.7 Gran % 70.4 H Immature Gran % (Auto) 0.6 H Nucleat RBC Rel Count 0.0 Eos # (Auto) 0.21 Immature Gran # (Auto) 0.04 H Absolute Lymphs (auto) 1.20 Absolute Monos (auto) 0.61 Absolute Nucleated RBC 0.00 Lymphocytes % 16.9 L Monocytes % 8.6 Eosinophils % 2.9 Basophils % 0.6 Absolute Granulocytes 5.02 Basophils # 0.04 PT INR APTT Sodium Potassium Chloride Carbon Dioxide Anion Gap BUN Creatinine Estimated GFR Glucose Calcium Total Bilirubin AST ALT Alkaline Phosphatase Troponin I NT-Pro-B Natriuret Pep Serum Total Protein Albumin Urinalys Dipstick Clnc Urine Color Urine Appearance Urine pH Ur Specific [place] POC Urine Protein Conf Urine Ketones Urine Nitrite Urine Bilirubin Urine Urobilinogen Urine Leukocytes Urine WBC (Auto) Urine RBC (Auto) U Epithel Cells (Auto) Urine Bacteria (Auto) Urine RBC Ur Culture Indicated? Urine Glucose Influenza Type A Ag Influenza Type B Ag RSV (PCR) SARS-CoV-2 (PCR) Orders (Last 24 hours) Category Date Time Status Bedrest with BRP/BSC ROUTINE Activity 03/25/22 13:47 Active [employer] STAT Care 03/25/22 09:51 Completed Code Status Order ROUTINE Care 03/25/22 13:47 Active EKG-ER Only STAT Care 03/25/22 09:50 Completed IV Care Q6H Care 03/25/22 13:47 Active IV Insertion STAT Care 03/25/22 09:50 Completed Implement Chest Pain Pathway ROUTINE Care 03/25/22 13:47 Active Neuro Checks Q4H Care 03/25/22 13:[address] in Observation ROUTINE Care 03/25/22 13:47 Active Pulse Oximetry (ED) STAT Care 03/25/22 09:50 Completed [place], Apply ROUTINE Care 03/25/22 13:47 Active Telemetry q6h Care 03/25/22 13:47 Active Weight,Daily 0600 Care 03/25/22 13:47 Active Consult Neurology ROUTINE Cons 03/25/22 11:40 Completed Agency Sales Director/Discharge Plan ROUTINE Cons 03/25/22 15:28 Active Consistent Carbohydrate Diet 1800 Calorie Diet 03/25/22 Dinner Completed House Regular Diet Diet 03/25/22 Dinner Active CHEST 1 VIEW (PORTABLE) Stat Exams 03/25/22 11:47 Completed HEAD WITHOUT CONTRAST [CT] Stat Exams 03/25/22 09:48 Completed LUMBAR SPINE W/O [CT] Stat Exams 03/25/22 10:53 Completed CBC W DIFF Stat Lab 03/25/22 10:10 Completed CMP Stat Lab 03/25/22 10:10 Completed COVID/FLU/RSV Panel Stat Lab 03/25/22 11:10 Completed LIPID PROFILE AM.LAB Lab 03/26/22 04:00 Ordered NT PRO BNP Stat Lab 03/25/22 10:10 Completed PROTIME WITH INR Stat Lab 03/25/22 10:10 Completed PTT Stat Lab 03/25/22 10:10 Completed TROPONIN Q3H Lab 03/25/22 10:14 Completed TROPONIN Q3H Lab 03/25/22 16:40 Completed TROPONIN Q3H Lab 03/25/22 19:00 Ordered TROPONIN Q3H Lab 03/25/22 22:00 Ordered TROPONIN Q3H Lab 03/26/22 01:00 Ordered UA W/RFX CULTURE Stat Lab 03/25/22 Completed Acetaminophen 325 mg [Tylenol 325 mg] Med 03/25/22 13:47 Active 650 mg PO Q4H PRN PRN Albuterol 2.5 mg/3 ml Neb [Proventil 2.5 mg/3 ml Neb Med 03/25/22 19:00 Active ] 2.5 mg IH Q6HRT Aspirin EC 81 mg [Ecotrin 81 mg] Med 03/25/22 17:00 Active 81 mg PO DAILY Docusate Sodium 100 mg [Docusate Sodium 100 MG] Med 03/25/22 16:29 Active 100 mg PO DAILY PRN PRN Furosemide 40 mg [Lasix 40 MG] Med 03/25/22 17:00 Active 40 mg PO DAILY Gabapentin [Neurontin ] Med 03/25/22 22:00 Active 600 mg PO BID Guaifenesin 600 mg ER [Mucinex 600MG ER Tabs] Med 03/25/22 22:00 Active 600 mg PO BID Hydromorphone 1 mg/1Ml Inj [Hydromorphone 1 mg/ml Med 03/25/22 15:43 Active Injection] 0.5 mg IV Q4H PRN PRN Mag Hydrox/Al Hydrox/Simeth [Maalox Es 30 ml Unit Med 03/25/22 13:47 Active Dose] 30 ml PO Q4H PRN PRN Magnesium Hydroxide 30 ml [Milk of Magnesia 30 ml Med 03/25/22 13:47 Active ] 30 - 60 ml PO QDP PRN Medication Intervention Med 03/25/22 16:45 Active 1 each MC .RT TO CHECK Metoprolol Succinate 25 mg Xl* [Toprol-Xl 25MG Tablets* Med 03/25/22 17:00 Active ] 25 mg PO DAILY Morphine Sulfate 2 mg Inj Med 03/25/22 13:18 Discontinued 2 mg .ROUTE .STK-MED ONE Morphine Sulfate 2 mg Inj Med 03/25/22 13:13 Discontinued 2 mg IV STAT ONE Ondansetron HCl 4 mg/2 ml [Zofran 4 MG/2 ML VIAL] Med 03/25/22 13:47 Active 4 mg IV Q4H PRN PRN Polyethylene Glycol 3350 17 gm [Miralax Powder 17GM Med 03/25/22 16:29 Active PACKET] 17 gm PO DAILY PRN PRN Potassium Chloride Tab* [Klor Con] Med 03/25/22 17:00 Active 20 meq PO DAILY Senna/Docusate Sodium Tab [Senokot-S Tablet] Med 03/25/22 13:47 Active 2 udtab PO BID PRN PRN Simvastatin 20Mg [Zocor 20Mg] Med 03/25/22 22:00 Active 20 mg PO HS Tamsulosin HCl 0.4 mg [Flomax 0.4 MG] Med 03/25/22 17:00 Active 0.4 mg PO DAILY Warfarin Sodium 3 mg [Coumadin 3 MG] Med 03/25/22 18:00 Active 3 mg PO COU PT Screen per Nursing Assess ONCE PT 03/25/22 15:29 Completed EKG ONCE RT 03/25/22 17:50 Active EKG ONCE RT 03/26/22 05:00 Active EKG ONCE RT 03/27/22 05:00 Active EKG ONCE RT 03/28/22 05:00 Active EKG Q8HX2,QAMX3,PRN RT 03/25/22 13:47 Active Pulse Oximetry Q4H RT 03/25/22 13:47 Active Transfer Order Routine Transfer 03/25/22 Completed Code(s): G45.9 - TRANSIENT CEREBRAL ISCHEMIC ATTACK, UNSPECIFIED (2) Acute exacerbation of chronic low back pain Current Visit: Yes Status: Acute Code(s): M54.50 - LOW BACK PAIN, UNSPECIFIED; G89.29 - OTHER CHRONIC PAIN (3) CHF (congestive heart failure) Current Visit: Yes Status: Chronic Qualifiers: Heart failure type: combined systolic and diastolic Heart failure chronicity: chronic Qualified Code(s): I50.42 - Chronic combined systolic (congestive) and diastolic (congestive) heart failure Code(s): I50.9 - HEART FAILURE, UNSPECIFIED
[2022-03-25] MEDS: VENTOLIN COMMON CANISTER IH SCH (18:43)
[2022-03-25] MEDS: Advair Hfa 230/21 Mcg COMMON CANISTER IH SCH (18:43)
[2022-03-25] MEDS ORDERED: PROVENTIL 2.5 MG/3 ML NEB IH SCH (19:00)
[2022-03-25] MEDS: NEURONTIN PO SCH (21:54)
[2022-03-25] MEDS: ZOCOR 20MG PO SCH (21:54)
[2022-03-25] MEDS: Mucinex 600MG ER Tabs PO SCH (21:54)
[2022-03-25] MEDS ORDERED: NON-FORMULARY ITEM (Budesonide/Formoterol Fumarate [Budesonide-Formoterol 160-4.5] 10.2 GM IH SCH (22:00)
[2022-03-25] MEDS ORDERED: NON-FORMULARY ITEM (Gabapentin [Gabapentin] 600 MG Tablet) PO SCH (22:00)
[2022-03-25] MEDS ORDERED: NON-FORMULARY ITEM (Rosuvastatin Calcium [Rosuvastatin Calcium] 10 MG Tablet) PO SCH (22:00)
[2022-03-26 05:36] LABS: Risk Ratio 2.7
[2022-03-26] MEDS: Advair Hfa 230/21 Mcg COMMON CANISTER IH SCH ×2 (07:04→19:07)
[2022-03-26] MEDS: VENTOLIN COMMON CANISTER IH SCH ×4 (07:04→19:06)
[2022-03-26] MEDS: Hydromorphone 1 mg/ml Injection IV PRN ×2 (07:45→11:33)
[2022-03-26] MEDS: Toprol-Xl 25MG Tablets PO SCH (10:18)
[2022-03-26] MEDS: Klor Con PO SCH (10:18)
[2022-03-26] MEDS: ECOTRIN 81 MG PO SCH (10:18)
[2022-03-26] MEDS: NEURONTIN PO SCH ×2 (10:18→21:41)
[2022-03-26] MEDS: Lasix 40 MG PO SCH (10:18)
[2022-03-26] MEDS: Flomax 0.4 MG PO SCH (10:19)
[2022-03-26] MEDS: Mucinex 600MG ER Tabs PO SCH ×2 (10:19→21:40)
--- NOTE | 2022-03-26 14:20 | PCM.NOTE ---
Date and Time: 03/26/221417 Subjective Assessment: doing better - Review of Systems Constitutional: Weakness, No Fever, No Chills Eyes: No Symptoms, Vision Changes Ears, Nose, & Throat: No Symptoms Respiratory: No Cough, No Short Of Breath Cardiac: No Chest Pain, No Edema, No Syncope Abdominal/Gastrointestinal: No Abdominal Pain, No Nausea, No Vomiting, No Diarrhea Genitourinary Symptoms: No Dysuria Musculoskeletal: Back Pain, No Neck Pain Skin: No Rash Neurological: No Dizziness, No Focal Weakness, No Sensory Changes Psychological: No Symptoms Endocrine: No Symptoms Hematologic/Lymphatic: No Symptoms Immunological/Allergic: No Symptoms Objective Exam General Appearance: no apparent distress, alert Neurologic Exam: alert, oriented x 3, cooperative, normal mood/affect, nml cerebellar function, sensation nml, No motor deficits Skin Exam: normal color, warm, dry Eye Exam: PERRL, EOMI, eyes nml inspection Ears, Nose, Throat Exam: normal ENT inspection, pharynx normal, moist mucous membranes Neck Exam: normal inspection, non-tender, supple, full range of motion Respiratory Exam: normal breath sounds, lungs clear, No respiratory distress Cardiovascular Exam: regular rate/rhythm, normal heart sounds Gastrointestinal/Abdomen Exam: soft, No tenderness, No mass Extremity Exam: normal inspection, normal range of motion Back Exam: normal inspection, normal range of motion, No CVA tenderness, No vertebral tenderness Male Genitalia Exam: deferred Rectal Exam: deferred OBJECTIVE DATA Vital Signs: Vital Signs - 24 hr Temp Pulse Resp BP Pulse Ox 03/26/22 12:00 98.4 F 83 18 121/59 94 L 03/26/22 11:04 84 18 95 03/26/22 08:00 97.5 F 79 18 155/68 96 03/26/22 07:09 64 16 92 L 03/26/22 04:00 97.5 F 63 18 116/52 96 03/25/22 23:53 98.4 F 92 H 20 91/52 97 03/25/22 19:24 99.6 F 83 20 120/67 96 03/25/22 18:44 107 H 18 94 L 03/25/22 16:00 98.3 F 68 16 129/61 95 Pain Assessment - Last Documented Pain Intensity 3 Pain Scale Used 0-10 Pain Scale Intake and Output: Intake & Output 05/23/03/25/22 03/26/22 03/27/22 11:59 11:59 11:59 11:59 Intake Total 720 Output Total 1750 Balance -1030 Weight 93.185 kg 94.2 kg Lab Results: Lab Results-Last 24 Hours 03/25/22 03/25/22 03/25/22 Range/Units 16:40 20:04 Unknown Troponin I < 0.012 < 0.012 (0.000-0.034) ng/mL Prealbumin (17.6-36.0) mg/dL Triglycerides (30-150) mg/dL Cholesterol (50-200) mg/dL LDL Cholesterol (30-100) mg/dL HDL Cholesterol (40-60) mg/dL Heart Disease Risk Ratio Urinalys Dipstick Clnc MAIN LAB Urine Color YELLOW (YELLOW) Urine Appearance CLEAR (CLEAR) Urine pH 6.0 (5-6) Ur Specific [place]ott 1.020 (1.005-1.025) POC Urine Protein Conf NEGATIVE (Negative) Urine Ketones NEGATIVE (NEGATIVE) Urine Nitrite NEGATIVE (NEGATIVE) Urine Bilirubin NEGATIVE (NEGATIVE) Urine Urobilinogen 1 (0-1) mg/dL Urine Leukocytes NEGATIVE (NEGATIVE) Urine WBC (Auto) 0-2 (0-5) /HPF Urine RBC (Auto) 6-10 (0-2) /HPF U Epithel Cells (Auto) NONE (FEW) /HPF Urine Bacteria (Auto) RARE (NEGATIVE) /HPF Urine RBC TRACE-INTACT (0-5) Shahram/ul Ur Culture Indicated? NO Urine Glucose NEGATIVE (NEGATIVE) mg/dL 03/26/22 03/26/22 Range/Units 04:30 10:10 Troponin I (0.000-0.034) ng/mL Prealbumin 14.30 L (17.6-36.0) mg/dL Triglycerides 76 (30-150) mg/dL Cholesterol 87 (50-200) mg/dL LDL Cholesterol 42 (30-100) mg/dL HDL Cholesterol 32 L (40-60) mg/dL Heart Disease Risk Ratio 2.7 Urinalys Dipstick Clnc Urine Color (YELLOW) Urine Appearance (CLEAR) Urine pH (5-6) Ur Specific [place] (1.005-1.025) POC Urine Protein Conf (Negative) Urine Ketones (NEGATIVE) Urine Nitrite (NEGATIVE) Urine Bilirubin (NEGATIVE) Urine Urobilinogen (0-1) mg/dL Urine Leukocytes (NEGATIVE) Urine WBC (Auto) (0-5) /HPF Urine RBC (Auto) (0-2) /HPF U Epithel Cells (Auto) (FEW) /HPF Urine Bacteria (Auto) (NEGATIVE) /HPF Urine RBC (0-5) Shahram/ul Ur Culture Indicated? Urine Glucose (NEGATIVE) mg/dL Radiology Exams: Radiology Procedures Category Date Time Status CHEST 1 VIEW (PORTABLE) Stat Exams 03/25/22 11:47 Completed HEAD WITHOUT CONTRAST [CT] Stat Exams 03/25/22 09:48 Completed LUMBAR SPINE W/O [CT] Stat Exams 03/25/22 10:53 Completed Assessment/Plan (1) Acute exacerbation of chronic low back pain Current Visit: Yes Status: Acute Assessment & Plan: Chief Complaint Diagnosis transient loss of vision. c/o backpainfor 3 hours Allergies Allergy/AdvReac Type Severity Reaction Status Date / Time Iodinated Contrast Media Allergy Verified 03/25/22 09:59 Iodine and Iodide Containing Allergy Verified 03/25/22 09:59 Produc Vital Signs (Last 24 hours) Temp Pulse Resp BP Pulse Ox 03/26/22 12:00 98.4 F 83 18 121/59 94 L 03/26/22 11:04 84 18 95 03/26/22 08:00 97.5 F 79 18 155/68 96 03/26/22 07:09 64 16 92 L 03/26/22 04:00 97.5 F 63 18 116/52 96 03/25/22 23:53 98.4 F 92 H 20 91/52 97 03/25/22 19:24 99.6 F 83 20 120/67 96 03/25/22 18:44 107 H 18 94 L 03/25/22 16:00 98.3 F 68 16 129/61 95 Home Medications Medication Instructions Recorded Confirmed Last Taken Type Budesonide/Formoterol Fumarate 2 puff IH BID 03/25/22 03/25/22 03/24/22 History [Budesonide-Formoterol 160-4.5] Guaifenesin 600 mg ER [Mucinex 600 mg PO BID 03/25/22 03/25/22 03/24/22 History 600MG ER Tabs] Potassium Chloride Tab* [Klor Con] 20 meq PO DAILY 03/25/22 03/25/2222 History Current Medications Generic Name Dose Route Start Last Admin Trade Name Freq PRN Reason Stop Dose Admin Acetaminophen 650 mg 03/25/22 13:47 03/25/22 18:52 Acetaminophen 325 Mg Tablet PO 04/24/22 13:46 650 mg Q4H PRN PRN Administration PAIN AND/OR FEVER Hydrocodone Bitart/Acetaminophen 1 tab 03/26/22 12:58 Hydrocodone/Apap 5/325 Mg Tablet PO 03/31/22 12:57 Q4H PRN PRN PAIN Al Hydrox/Mg Hydrox/Simethicone 30 ml 03/25/22 13:47 Mag Hydrox/Al Hydrox/Simeth 30 Ml Udcup PO 04/24/22 13:46 Q4H PRN PRN INDIGESTION Albuterol Sulfate 4 puff 03/25/22 19:00 03/26/22 11:00 Albuterol Common Canister Inhaler IH 04/24/22 18:59 4 puff QIDRT HARJINDER Administration Aspirin 81 mg 03/25/22 17:00 03/26/22 10:18 Aspirin 81 Mg Tablet.Ec PO 04/24/22 16:59 81 mg DAILY HARJINDER Administration Docusate Sodium 100 mg 03/25/22 16:29 Docusate Sodium 100 Mg Capsule PO 04/24/22 16:28 DAILY PRN PRN CONSTIPATION Furosemide 40 mg 03/25/22 17:00 03/26/22 10:18 Furosemide 40 Mg Tablet PO 04/24/22 16:59 40 mg DAILY HARJINDER Administration Gabapentin 600 mg 03/25/22 22:00 03/26/22 10:18 Gabapentin 300 Mg Capsule PO 04/24/22 21:59 600 mg BID HARJINDER Administration Guaifenesin 600 mg 03/25/22 22:00 03/26/22 10:19 Guaifenesin 600 Mg Tablet Er PO 04/24/22 21:59 600 mg BID HARJINDER Administration Magnesium Hydroxide 30 - 60 ml 03/25/22 13:47 Magnesium Hydroxide 30 Ml Udcup PO 04/24/22 13:46 QDP PRN CONSTIPATION Metoprolol Succinate 25 mg 03/25/22 17:00 03/26/22 10:18 Metoprolol Succinate 25 Mg Xl Tab PO 04/24/22 16:59 25 mg DAILY HARJINDER Administration Miscellaneous Information 1 each 03/25/22 16:45 Medication Intervention 1 Each Each 04/24/22 16:44 .RT TO CHECK HARJINDER Ondansetron HCl 4 mg 03/25/22 13:47 03/25/22 21:53 Ondansetron Hcl 4 Mg/2 Ml Vial IV 04/24/22 13:46 4 mg Q4H PRN PRN Administration NAUSEA/VOMITING Polyethylene Glycol 17 gm 03/25/22 16:29 Polyethylene Glycol 3350 17 Gm Packet PO 04/24/22 16:28 DAILY PRN PRN CONSTIPATION Potassium Chloride 20 meq 03/25/22 17:00 03/26/22 10:18 Potassium Chloride Tab 10 Meq Tab PO 04/24/22 16:59 20 meq DAILY HARJINDER Administration Fluticasone/Salmeterol 2 puff 03/25/22 19:00 03/26/22 07:04 Fluticasone/Salmeterol / Common Canister IH 04/24/22 18:59 2 puff BIDRT HARJINDER Administration Senna/Docusate Sodium 2 udtab 03/25/22 13:47 Senna/Docusate Sodium 1 Udtab Tablet PO 04/24/22 13:46 BID PRN PRN CONSTIPATION Simvastatin 20 mg 03/25/22 22:00 03/25/22 21:54 Simvastatin 20 Mg Tablet PO 04/24/22 21:59 20 mg HS HARJINDER Administration Tamsulosin HCl 0.4 mg 03/25/22 17:00 03/26/22 10:19 Tamsulosin Hcl 0.4 Mg Cap PO 04/24/22 16:59 0.4 mg DAILY HARJINDER Administration Warfarin Sodium 3 mg 03/25/22 18:00 03/25/22 17:25 Warfarin Sodium 3 Mg Tablet PO 04/24/22 17:59 3 mg COU HARJINDER Administration Discontinued Medications Generic Name Dose Route Start Last Admin Trade Name Freq PRN Reason Stop Dose Admin Albuterol Sulfate 2.5 mg 03/25/22 19:00 Albuterol Sulfate 2.5 Mg/3 Ml Neb IH 04/24/22 18:59 Q6HRT HARJINDER Hydromorphone HCl 0.5 mg 03/25/22 15:43 03/26/22 11:33 Hydromorphone 1 Mg/1ml Inj 1 Mg/Ml Syringe IV 03/30/22 15:42 0.5 mg Q4H PRN PRN Administration PAIN Morphine Sulfate 2 mg 03/25/22 13:13 03/25/22 13:19 Morphine Sulfate 2 Mg/Ml Inj IV 03/25/22 13:14 2 mg STAT ONE Administration Morphine Sulfate Confirm 03/25/22 13:18 Morphine Sulfate 2 Mg/Ml Inj Administered 03/25/22 13:19 Dose 2 mg .ROUTE .STK-MED ONE Intake & Output (Last 24 hours) 03/24/22 03/25/22 03/26/22 03/27/22 11:59 11:59 11:59 11:59 Intake Total 720 Output Total 1750 Balance -1030 Weight 93.185 kg 94.2 kg Laboratory Results (Last 24 hours) 03/26/22 03/26/22 03/25/22 10:10 04:30 Unknown Troponin I Prealbumin 14.30 L Triglycerides 76 Cholesterol 87 LDL Cholesterol 42 HDL Cholesterol 32 L Heart Disease Risk Ratio 2.7 Urinalys Dipstick Clnc MAIN LAB Urine Color YELLOW Urine Appearance CLEAR Urine pH 6.0 Ur Specific [place]ott 1.020 POC Urine Protein Conf NEGATIVE Urine Ketones NEGATIVE Urine Nitrite NEGATIVE Urine Bilirubin NEGATIVE Urine Urobilinogen 1 Urine Leukocytes NEGATIVE Urine WBC (Auto) 0-2 Urine RBC (Auto) 6-10 U Epithel Cells (Auto) NONE Urine Bacteria (Auto) RARE Urine RBC TRACE-INTACT Ur Culture Indicated? NO Urine Glucose NEGATIVE 03/25/22 03/25/22 20:04 16:40 Troponin I < 0.012 < 0.012 Prealbumin Triglycerides Cholesterol LDL Cholesterol HDL Cholesterol Heart Disease Risk Ratio Urinalys Dipstick Clnc Urine Color Urine Appearance Urine pH Ur Specific Cadott POC Urine Protein Conf Urine Ketones Urine Nitrite Urine Bilirubin Urine Urobilinogen Urine Leukocytes Urine WBC (Auto) Urine RBC (Auto) U Epithel Cells (Auto) Urine Bacteria (Auto) Urine RBC Ur Culture Indicated? Urine Glucose Orders (Last 24 hours) Category Date Time Status Bedrest with BRP/BSC ROUTINE Activity 03/25/22 13:47 Active Code Status Order ROUTINE Care 03/25/22 13:47 Active IV Care Q6H Care 03/25/22 13:47 Active Implement Chest Pain Pathway ROUTINE Care 03/25/22 13:47 Active Neuro Checks Q4H Care 03/25/22 13:[address] in Observation ROUTINE Care 03/25/22 13:47 Active Rosales Hose, Apply ROUTINE Care 03/25/22 13:47 Active Telemetry q6h Care 03/25/22 13:47 Active Weight,Daily 0600 Care 03/25/22 13:47 Active Roll Panner/Discharge Plan ROUTINE Cons 03/25/22 15:28 Active Consistent Carbohydrate Diet 1800 Calorie Diet 03/25/22 Dinner Completed House Regular Diet Diet 03/25/22 Dinner Active LIPID PROFILE AM.LAB Lab 03/26/22 04:30 Completed PREALBUMIN Routine Lab 03/26/22 10:10 Completed TROPONIN Q3H Lab 03/25/22 16:40 Completed TROPONIN Q3H Lab 03/25/22 20:04 Completed Acetaminophen 325 mg [Tylenol 325 mg] Med 03/25/22 13:47 Active 650 mg PO Q4H PRN PRN Albuterol 2.5 mg/3 ml Neb [Proventil 2.5 mg/3 ml Neb Med 03/25/22 19:00 Discontinued ] 2.5 mg IH Q6HRT Albuterol Common Canister [Ventolin Common Canister* Med 03/25/22 19:00 Active ] 4 puff IH QIDRT Aspirin EC 81 mg [Ecotrin 81 mg] Med 03/25/22 17:00 Active 81 mg PO DAILY Docusate Sodium 100 mg [Docusate Sodium 100 MG] Med 03/25/22 16:29 Active 100 mg PO DAILY PRN PRN Fluticasone/Salmeterol 230/21 [Advair Hfa 230/21 Mcg Med 03/25/22 19:00 Active COMMON CANISTER*] 2 puff IH BIDRT Furosemide 40 mg [Lasix 40 MG] Med 03/25/22 17:00 Active 40 mg PO DAILY Gabapentin [Neurontin ] Med 03/25/22 22:00 Active 600 mg PO BID Guaifenesin 600 mg ER [Mucinex 600MG ER Tabs] Med 03/25/22 22:00 Active 600 mg PO BID Hydrocodone/APAP 5/325 [[place] 5/325 mg] Med 03/26/22 12:58 Active 1 tab PO Q4H PRN PRN Hydromorphone 1 mg/1Ml Inj [Hydromorphone 1 mg/ml Med 03/25/22 15:43 Discontinued Injection] 0.5 mg IV Q4H PRN PRN Mag Hydrox/Al Hydrox/Simeth [Maalox Es 30 ml Unit Med 03/25/22 13:47 Active Dose] 30 ml PO Q4H PRN PRN Magnesium Hydroxide 30 ml [Milk of Magnesia 30 ml Med 03/25/22 13:47 Active ] 30 - 60 ml PO QDP PRN Medication Intervention Med 03/25/22 16:45 Active 1 each MC .RT TO CHECK Metoprolol Succinate 25 mg Xl* [Toprol-Xl 25MG Tablets* Med 03/25/22 17:00 Active ] 25 mg PO DAILY Ondansetron HCl 4 mg/2 ml [Zofran 4 MG/2 ML VIAL] Med 03/25/22 13:47 Active 4 mg IV Q4H PRN PRN Polyethylene Glycol 3350 17 gm [Miralax Powder 17GM Med 03/25/22 16:29 Active PACKET] 17 gm PO DAILY PRN PRN Potassium Chloride Tab* [Klor Con] Med 03/25/22 17:00 Active 20 meq PO DAILY Senna/Docusate Sodium Tab [Senokot-S Tablet] Med 03/25/22 13:47 Active 2 udtab PO BID PRN PRN Simvastatin 20Mg [Zocor 20Mg] Med 03/25/22 22:00 Active 20 mg PO HS Tamsulosin HCl 0.4 mg [Flomax 0.4 MG] Med 03/25/22 17:00 Active 0.4 mg PO DAILY Warfarin Sodium 3 mg [Coumadin 3 MG] Med 03/25/22 18:00 Active 3 mg PO COU PT Eval & Treat ( Order) ONCE PT 03/26/22 09:01 Active PT Screen per Nursing Assess ONCE PT 03/25/22 15:29 Completed EKG ONCE RT 03/25/22 17:50 Completed EKG ONCE RT 03/26/22 05:00 Completed EKG ONCE RT 03/27/22 05:00 Active EKG ONCE RT 03/28/22 05:00 Active EKG Q8HX2,QAMX3,PRN RT 03/25/22 13:47 Completed Oxygen Nasal Cannula 2 lpm RT 03/25/22 18:41 Active Pulse Oximetry .spot check RT 03/25/22 18:42 Active Respiratory MDI BID RT 03/25/22 18:40 Completed Respiratory Therapy Assessment DAILY RT 03/25/22 18:41 Active Code(s): M54.50 - LOW BACK PAIN, UNSPECIFIED; G89.29 - OTHER CHRONIC PAIN (2) TIA (transient ischemic attack) Current Visit: Yes Status: Resolved Code(s): G45.9 - TRANSIENT CEREBRAL ISCHEMIC ATTACK, UNSPECIFIED (3) CHF (congestive heart failure) Current Visit: Yes Status: Chronic Qualifiers: Heart failure type: combined systolic and diastolic Heart failure chronicity: chronic Qualified Code(s): I50.42 - Chronic combined systolic (congestive) and diastolic (congestive) heart failure Code(s): I50.9 - HEART FAILURE, UNSPECIFIED
[2022-03-26] MEDS: Coumadin 3 MG PO SCH (17:17)
[2022-03-26] MEDS: NORCO 5/325 MG PO PRN ×2 (17:17→21:40)
[2022-03-26] MEDS: ZOCOR 20MG PO SCH (21:41)
[2022-03-27] MEDS: Advair Hfa 230/21 Mcg COMMON CANISTER IH SCH (06:44)
[2022-03-27] MEDS: VENTOLIN COMMON CANISTER IH SCH ×2 (06:44→10:16)
[2022-03-27] MEDS: Flomax 0.4 MG PO SCH (09:18)
[2022-03-27] MEDS: Klor Con PO SCH (09:18)
[2022-03-27] MEDS: Toprol-Xl 25MG Tablets PO SCH (09:18)
[2022-03-27] MEDS: ECOTRIN 81 MG PO SCH (09:18)
[2022-03-27] MEDS: Lasix 40 MG PO SCH (09:18)
[2022-03-27] MEDS: Mucinex 600MG ER Tabs PO SCH (09:18)
[2022-03-27] MEDS: NEURONTIN PO SCH (09:18)
[2022-03-27 12:16] VITALS: BP 142/63; PULSE 87; O2SAT 98
--- NOTE | 2022-03-27 19:41 | PCM.DS ---
Discharge Summary Date of Admission: 03/25/22 13:34 Admitting Physician: YUE AVELAR Consults: Consults on Case 03/25/22 11:40 Consult Neurology ROUTINE Primary Care Provider: YUE AVELAR Allergies Allergies Iodinated Contrast Media Allergy (Verified 03/25/22 09:59) Iodine and Iodide Containing Produc Allergy (Verified 03/25/22 09:59) Hospital Summary - Hospital Course Hospital Course: Chief Complaint Diagnosis transient loss of vision. c/o backpainfor 3 hours Allergies Allergy/AdvReac Type Severity Reaction Status Date / Time Iodinated Contrast Media Allergy Verified 03/25/22 09:59 Iodine and Iodide Containing Allergy Verified 03/25/22 09:59 Produc Vital Signs (Last 24 hours) Temp Pulse Resp BP Pulse Ox 03/27/22 12:00 97.5 F 87 17 142/63 98 03/27/22 10:16 94 H 18 94 L 03/27/22 07:43 97.3 F 70 21 155/67 98 03/27/22 06:47 68 18 96 03/27/22 04:00 98.1 F 71 20 168/57 95 03/26/22 23:36 97.9 F 90 20 122/58 96 03/26/22 19:51 97.5 F 98 H 22 115/61 96 Home Medications Medication Instructions Recorded Confirmed Last Taken Type Budesonide/Formoterol Fumarate 2 puff IH BID 03/25/22 03/25/22 03/24/22 History [Budesonide-Formoterol 160-4.5] Guaifenesin 600 mg ER [Mucinex 600 mg PO BID 03/25/22 03/25/22 03/24/22 History 600MG ER Tabs] Potassium Chloride Tab* [Klor Con] 20 meq PO DAILY 03/25/22 03/25/22 03/24/22 History Current Medications Discontinued Medications Generic Name Dose Route Start Last Admin Trade Name Freq PRN Reason Stop Dose Admin Acetaminophen 650 mg 03/25/22 13:47 03/25/22 18:52 Acetaminophen 325 Mg Tablet PO 04/24/22 13:46 650 mg Q4H PRN PRN Administration PAIN AND/OR FEVER Hydrocodone Bitart/Acetaminophen 1 tab 03/26/22 12:58 03/26/22 21:40 Hydrocodone/Apap 5/325 Mg Tablet PO 03/31/22 12:57 1 tab Q4H PRN PRN Administration PAIN Al Hydrox/Mg Hydrox/Simethicone 30 ml 03/25/22 13:47 Mag Hydrox/Al Hydrox/Simeth 30 Ml Udcup PO 04/24/22 13:46 Q4H PRN PRN INDIGESTION Albuterol Sulfate 2.5 mg 03/25/22 19:00 Albuterol Sulfate 2.5 Mg/3 Ml Neb 04/24/22 18:59 Q6HRT HARJINDER Albuterol Sulfate 4 puff 03/25/22 19:00 03/27/22 10:16 Albuterol Common Canister Inhaler IH 04/24/22 18:59 4 puff QIDRT HARJINDER Administration Aspirin 81 mg 03/25/22 17:00 03/27/22 09:18 Aspirin 81 Mg Tablet.Ec PO 04/24/22 16:59 81 mg DAILY HARJINDER Administration Docusate Sodium 100 mg 03/25/22 16:29 Docusate Sodium 100 Mg Capsule PO 04/24/22 16:28 DAILY PRN PRN CONSTIPATION Furosemide 40 mg 03/25/22 17:00 03/27/22 09:18 Furosemide 40 Mg Tablet PO 04/24/22 16:59 40 mg DAILY HARJINDER Administration Gabapentin 600 mg 03/25/22 22:00 03/27/22 09:18 Gabapentin 300 Mg Capsule PO 04/24/22 21:59 600 mg BID HARJINDER Administration Guaifenesin 600 mg 03/25/22 22:00 03/27/22 09:18 Guaifenesin 600 Mg Tablet Er PO 04/24/22 21:59 600 mg BID HARJINDER Administration Hydromorphone HCl 0.5 mg 03/25/22 15:43 03/26/22 11:33 Hydromorphone 1 Mg/1ml Inj 1 Mg/Ml Syringe IV 03/30/22 15:42 0.5 mg Q4H PRN PRN Administration PAIN Magnesium Hydroxide 30 - 60 ml 03/25/22 13:47 Magnesium Hydroxide 30 Ml Udcup PO 04/24/22 13:46 QDP PRN CONSTIPATION Metoprolol Succinate 25 mg 03/25/22 17:00 03/27/22 09:18 Metoprolol Succinate 25 Mg Xl Tab PO 04/24/22 16:59 25 mg DAILY HARJINDER Administration Miscellaneous Information 1 each 03/25/22 16:45 Medication Intervention 1 Each Each 04/24/22 16:44 .RT TO CHECK HARJINDER Morphine Sulfate 2 mg 03/25/22 13:13 03/25/22 13:19 Morphine Sulfate 2 Mg/Ml Inj IV 03/25/22 13:14 2 mg STAT ONE Administration Morphine Sulfate Confirm 03/25/22 13:18 Morphine Sulfate 2 Mg/Ml Inj Administered 03/25/22 13:19 Dose 2 mg .ROUTE .STK-MED ONE Ondansetron HCl 4 mg 03/25/22 13:47 03/25/22 21:53 Ondansetron Hcl 4 Mg/2 Ml Vial IV 04/24/22 13:46 4 mg Q4H PRN PRN Administration NAUSEA/VOMITING Polyethylene Glycol 17 gm 03/25/22 16:29 Polyethylene Glycol 3350 17 Gm Packet PO 04/24/22 16:28 DAILY PRN PRN CONSTIPATION Potassium Chloride 20 meq 03/25/22 17:00 03/27/22 09:18 Potassium Chloride Tab 10 Meq Tab PO 04/24/22 16:59 20 meq DAILY HARJINDER Administration Fluticasone/Salmeterol 2 puff 03/25/22 19:00 03/27/22 06:44 Fluticasone/Salmeterol 230/21 Common Canister IH 04/24/22 18:59 2 puff BIDRT HARJINDER Administration Senna/Docusate Sodium 2 udtab 03/25/22 13:47 Senna/Docusate Sodium 1 Udtab Tablet PO 04/24/22 13:46 BID PRN PRN CONSTIPATION Simvastatin 20 mg 03/25/22 22:00 03/26/22 21:41 Simvastatin 20 Mg Tablet PO 04/24/22 21:59 20 mg HS HARJINDER Administration Tamsulosin HCl 0.4 mg 03/25/22 17:00 03/27/22 09:18 Tamsulosin Hcl 0.4 Mg Cap PO 04/24/22 16:59 0.4 mg DAILY HARJINDER Administration Warfarin Sodium 3 mg 03/25/22 18:00 03/26/22 17:17 Warfarin Sodium 3 Mg Tablet PO 04/24/22 17:59 3 mg COU HARJINDER Administration Intake & Output (Last 24 hours) 03/25/22 03/26/22 03/27/22 03/28/22 11:59 11:59 11:59 11:59 Intake Total 720 1220 240 Output Total 1750 1050 Balance -1030 170 240 Weight 93.185 kg 94.2 kg Orders (Last 24 hours) Category Date Time Status Discharge Routine Discharge 03/27/22 12:14 Ordered EKG ONCE RT 03/27/22 05:00 Completed EKG ONCE RT 03/28/22 05:00 Completed Patient Care Notes (Last 24 hours) 03/27/22 12:12 Nursing Note by Charissa Quintero DR 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 RECEIVED ORDER FOR DISCHARGE TODAY. PT CALLED [facility] FOR TRANSPORTATION. PT WILL CONTINUE ON ALL HOME MEDICATIONS. Initialized on 03/27/22 12:12 - END OF NOTE 03/27/22 10:48 Case Management Note by Ariadne Flaherty S/W PATIENT- HE CONTINUES TO PLAN TO RETURN HOME TO HIS PRIOR LEVEL OF FUNCTIONING. HE REPORTS HE IS FUNCTIONING AT HIS BASELINE CURRENTLY. HE REFUSES HHC AT THIS TIME. HE ALREADY HASE HOME OXYGEN AND IS CURRENTLY AT HIS HOME SETTING. Initialized on 03/27/22 10:48 - END OF NOTE - Vitals & Intake/Output Vital Signs: Vital Signs Temperature 97.5 F 03/27/22 12:00 Pulse Rate 87 03/27/22 12:00 Respiratory Rate 17 03/27/22 12:00 Blood Pressure 142/63 03/27/22 12:00 O2 Sat by Pulse Oximetry 98 03/27/22 12:00 Intake & Output: Intake & Output 03/25/22 03/26/22 03/27/22 03/28/22 11:59 11:59 11:59 11:59 Intake Total 720 1220 240 Output Total 1750 1050 Balance -1030 170 240 Weight 93.185 kg 94.2 kg - Lab Result Diagrams: 03/25/22 10:10 03/25/22 10:10 - Procedures and Test Procedures and Tests throughout Hospitalization: Therapy Orders & Screens 03/25/22 13:47 EKG Q8HX2,QAMX3,PRN Comment: 03/25/22 15:29 PT Screen per Nursing Assess ONCE Comment: Protocol Order Physician Instructions: Greater than 3 points order PT Admission Screenin Reason For Exam: Triggered on Admission Diagnosis: TIA, back pain Open Wound/Cellutlitis/Pressure Ulcers: No Acute Fx/ORIF/Change in wt bearing status: No Severe MUSCULOSKELETAL pain: No ADL Dysfunction: No Acute CVA w/Hemiparesis/Hemiplegia: No Decreased Functional Mobility/Strength: No Sprain/Strain: No Acute Post-op Mobility Dysfunction: No Total Points: 0 03/25/22 17:50 EKG ONCE Comment: Diagnosis: TIA, back pain 03/25/22 18:40 Respiratory MDI BID Comment: Diagnosis: transient loss of vision. c/o backpainfor 3 hours 03/25/22 18:41 Oxygen Nasal Cannula 2 lpm Comment: Diagnosis: transient loss of vision. c/o backpainfor 3 hours Respiratory Therapy Assessment DAILY Comment: Diagnosis: transient loss of vision. c/o backpainfor 3 hours 03/26/22 05:00 EKG ONCE Comment: Diagnosis: TIA, back pain 03/26/22 09:01 PT Eval & Treat (MD Order) ONCE Reason for Eval:: Increased weakness; difficulty with ADL's; severe right lower back pain; LLE reddened and edematous, pt recently discharged from wound care Diagnosis: transient loss of vision. c/o backpainfor 3 hours 03/27/22 05:00 EKG ONCE Comment: Diagnosis: TIA, back pain 03/28/22 05:00 EKG ONCE Comment: Diagnosis: TIA, back pain Discharge Exam General Appearance: no apparent distress, alert Neurologic Exam: alert, oriented x 3, cooperative, normal mood/affect, nml cerebellar function, sensation nml, No motor deficits Eye Exam: PERRL, EOMI, eyes nml inspection Ears, Nose, Throat Exam: normal ENT inspection, pharynx normal, moist mucous membranes Neck Exam: normal inspection, non-tender, supple, full range of motion Respiratory Exam: normal breath sounds, lungs clear, No respiratory distress Cardiovascular Exam: regular rate/rhythm, normal heart sounds Gastrointestinal/Abdomen Exam: soft, No tenderness, No mass Male Genitalia Exam: deferred Rectal Exam: deferred Back Exam: normal inspection, normal range of motion, No CVA tenderness, No vertebral tenderness Extremity Exam: normal inspection, normal range of motion Skin Exam: normal color, warm, dry Final Diagnosis/Problem List - Final Discharge Diagnosis/Problem (1) Acute exacerbation of chronic low back pain Status: Acute Code(s): M54.50 - LOW BACK PAIN, UNSPECIFIED; G89.29 - OTHER CHRONIC PAIN (2) TIA (transient ischemic attack) Status: Resolved Code(s): G45.9 - TRANSIENT CEREBRAL ISCHEMIC ATTACK, UNSPECIFIED (3) CHF (congestive heart failure) Status: Chronic Code(s): I50.9 - HEART FAILURE, UNSPECIFIED - Discharge Discharge Date: 03/27/22 Disposition: Home, Self-Care Condition: Stable Prescriptions: Continue Aspirin [Aspirin EC] 81 mg PO DAILY Tamsulosin HCl 0.4 mg [Flomax 0.4 MG] 0.4 mg PO DAILY Albuterol 2.5 mg/3 ml Neb [Proventil 2.5 mg/3 ml Neb] 1 vial NEBULIZE Q6H Polyethylene Glycol 3350 [Clearlax] 17 gm PO DAILY PRN PRN Reason: Constipation Rosuvastatin Calcium 10 mg PO HS Metoprolol Succinate 25 mg PO DAILY Gabapentin 600 mg PO BID Furosemide 40 mg [Lasix 40 MG] 40 mg PO DAILY Albuterol/Ipratropium cc [Combivent Inhaler COMMON CANISTER] 1 puff IH QID Docusate Sodium [Dulcolax Stool Softener] 100 mg PO DAILY PRN PRN PRN Reason: Constipation Warfarin Sodium 3 mg PO DAILY Potassium Chloride Tab* [Klor Con] 20 meq PO DAILY Guaifenesin 600 mg ER [Mucinex 600MG ER Tabs] 600 mg PO BID Budesonide/Formoterol Fumarate [Budesonide-Formoterol 160-4.5] 2 puff IH BID Instructions: Transient Ischemic Attack (DC) Follow up with: YUE AVELAR MD [Primary Care Provider] - 04/03/22 2:00 pm ([facility]) Forms: Discharge Instructions
== END 2022-03-27 14:13 | disposition home or self-care (01) ==
LOC: ED 09:46 → MED SURG 13:34
PROVIDERS: ADMIT General Practice; ATTEND General Practice
DX: M54.50 Low back pain, unspecified (principal); G45.9 Transient cerebral ischemic attack, unspecified; I11.0 Hypertensive heart disease with heart failure; I50.9 Heart failure, unspecified; I48.91 Unspecified atrial fibrillation; H53.8 Other visual disturbances; I25.10 Atherosclerotic heart disease of native coronary artery without angina pectoris; Z79.01 Long term (current) use of anticoagulants; Z79.899 Other long term (current) drug therapy; Z20.828 Contact with and (suspected) exposure to other viral communicable diseases
CPT/HCPCS: 0241U; 36000; 36415; 70450; 71045; 72131; 80053; 80061; 81015; 83721; 83880; 84134; 84484; 85025; 85610; 85730; 93005; 93041; 93268; 94640; 94760; 96374; 97162; 97530; 99285; G0378; J1170; J2270; J2405; A9270-GY

== ENCOUNTER 2022-04-15 17:50 | Observation (INO) | payer MEDICARE ==
--- NOTE | 2022-04-15 18:07 | ERPHSYRPT ---
- History of Present Illness Time Seen by Provider: 04/15/22 18:00 Source: patient Exam Limitations: no limitations Patient Subjective Stated Complaint: Pt states "My back is killing me." Triage Nursing Assessment: Pt presented alert and oriented X 3, skin pwd. Pt ambulates with assist of 2. PT moaning and groaning with all movement. Physician History: Patient is a 86-year-old male presents to our ED with his daughter for evaluation of low back pain and hematuria. Patient saw his primary care doctor regarding his back pain and was advised that the pain was due to arthritis. Patient states the pain is somewhat worse. Patient currently on Coumadin. INR on Thursday was 5.5. Patient's primary care doctor discontinued the Coumadin for the next couple days. INR will be rechecked on Thursday. Pain described as an ache that is well localized. No radiation. Pain worse with movement pain improved with rest. No associated chest pain. No nausea vomiting or diaphoresis. Patient voices no other complaints or concerns at this time. No change in bowel bladder function. No saddle anesthesia. No lower extremity weakness. No recent back procedures. No fever. Timing/Duration: yesterday Severity: moderate Modifying Factors: Improves With: movement Associated Symptoms: denies symptoms Allergies/Adverse Reactions: Iodinated Contrast Media Allergy (Verified 03/25/22 09:59) Iodine and Iodide Containing Produc Allergy (Verified 03/25/22 09:59) Home Medications: Albuterol 2.5 mg/3 ml Neb [Proventil 2.5 mg/3 ml Neb] 1 vial NEBULIZE Q6H 12/19/14 [History] Aspirin [Aspirin EC] 81 mg PO DAILY 12/19/14 [History] Tamsulosin HCl 0.4 mg [Flomax 0.4 MG] 0.4 mg PO DAILY 12/19/14 [History] Polyethylene Glycol 3350 [Clearlax] 17 gm PO DAILY PRN 10/27/18 [History] Furosemide 40 mg [Lasix 40 MG] 40 mg PO DAILY 04/05/20 [History] Gabapentin 600 mg PO BID 04/05/20 [History] Metoprolol Succinate 25 mg PO DAILY 04/05/20 [History] Rosuvastatin Calcium 10 mg PO HS 04/05/20 [History] Albuterol/Ipratropium cc [Combivent Inhaler COMMON CANISTER] 1 puff IH QID 11/13/21 [History] Docusate Sodium [Dulcolax Stool Softener] 200 mg PO BID 11/13/21 [History] Warfarin Sodium 3 mg PO DAILY 01/06/22 [History] Budesonide/Formoterol Fumarate [Budesonide-Formoterol 160-4.5] 2 puff IH BID 03/25/22 [History] Guaifenesin 600 mg ER [Mucinex 600MG ER Tabs] 600 mg PO BID 03/25/22 [History] Potassium Chloride Tab* [Klor Con] 20 meq PO DAILY 03/25/22 [History] Hx Tetanus, Diphtheria Vaccination/Date Given: Yes Hx Influenza Vaccination/Date Given: Yes Hx Pneumococcal Vaccination/Date Given: No Immunizations Up to Date: Yes Travel Risk - International Travel Have you traveled outside of the country in past 3 weeks: No - Coronavirus Screening Are you exhibiting any of the following symptoms?: No Close contact with a COVID-19 positive Pt in past 14-21 Days: No - Vaccine Status Have you recieved a Covid-19 vaccination: Yes 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 - Vaccination Dates Date of 2cond Vaccination (if applicable): 12/07/20 - Review of Systems Constitutional: No Symptoms, No Fever, No Chills Eyes: No Symptoms Ears, Nose, & Throat: No Symptoms Respiratory: No Symptoms, No Cough, No Dyspnea Cardiac: No Symptoms, No Chest Pain, No Edema, No Syncope Abdominal/Gastrointestinal: No Symptoms, No Abdominal Pain, No Nausea, No Vomiting, No Diarrhea Genitourinary Symptoms: No Symptoms, No Dysuria Musculoskeletal: No Symptoms, No Back Pain, No Neck Pain Skin: No Symptoms, No Rash Neurological: No Symptoms, No Dizziness, No Focal Weakness, No Sensory Changes Psychological: No Symptoms Endocrine: No Symptoms Hematologic/Lymphatic: No Symptoms Immunological/Allergic: No Symptoms All Other Systems: Reviewed and Negative - Past Medical History Pertinent Past Medical History: Yes Neurological History: Stroke ENT History: No Pertinent History Cardiac History: Coronary Artery Disease, Hypertension Respiratory History: CHF, COPD Endocrine Medical History: No Pertinent History Musculoskeletal History: Osteoarthritis GI Medical History: Diverticulosis, Other History: No Pertinent History Psycho-Social History: No Pertinent History Male Reproductive Disorders: Prostate Problems Other Medical History: 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 ABOUT 1- 2 YEARS AGO HAD ANOTHER STROKE WHICH TOOK HIS VISION IN HIS LEFT EYE. States he feels he had TIA x 1 wk ago - Past Surgical History Past Surgical History: Yes Neuro Surgical History: No Pertinent History Cardiac: CABG, Cardiac Catheterization, Cardiac Stent, Internal Defibrillator, Pacemaker, Other Respiratory: Chest Surgery Gastrointestinal: Hernia Repair Genitourinary: No Pertinent History Musculoskeletal: No Pertinent History Male Surgical History: No Pertinent History Other Surgical History: colonoscopy, right cea, - Social History Smoking Status: Former smoker How long have you smoked: 10 yrs Exposure to second hand smoke: No Drug Use: none Patient Lives Alone: No - Nursing Vital Signs Nursing Vital Signs: Initial Vital Signs Temperature 98.2 F 04/15/22 17:57 Pulse Rate 58 L 04/15/22 17:57 Respiratory Rate 22 04/15/22 17:57 Blood Pressure 147/64 04/15/22 17:57 O2 Sat by Pulse Oximetry 99 04/15/22 17:57 Pain Scale Pain Intensity [Lower Back] 7 Pain Intensity 10 - Physical Exam General Appearance: no apparent distress, alert Eye Exam: PERRL/EOMI, eyes nml inspection Ears, Nose, Throat Exam: normal ENT inspection, TMs normal, pharynx normal, moist mucous membranes Neck Exam: normal inspection, non-tender, supple, full range of motion Respiratory Exam: normal breath sounds, lungs clear, airway intact, No chest tenderness, No respiratory distress Cardiovascular Exam: regular rate/rhythm, normal heart sounds, normal peripheral pulses Gastrointestinal/Abdomen Exam: soft, normal bowel sounds, No tenderness, No mass Back Exam: normal inspection, normal range of motion, No CVA tenderness, No vertebral tenderness Extremity Exam: normal inspection, normal range of motion, pelvis stable Neurologic Exam: alert, oriented x 3, cooperative, normal mood/affect, nml cerebellar function, nml station & gait, sensation nml, No motor deficits Skin Exam: normal color, warm, dry, No rash Lymphatic Exam: No adenopathy SpO2 Interpretation: normal SpO2: 99 O2 Delivery: Room Air - Course Nursing assessment & vital signs reviewed: Yes - CT Exams Abdomen/Pelvis CT Interpretation: Tele-radiologist Report (Fecal stasis, right renal cyst, urinary bladder diverticulum small left inguinal hernia scattered vascular calcifications osteopenia) Lumbar Spine CT Interpretation: Tele-radiologist Report (Osteopenia, worsening degenerative joint disease, L1 superior endplate fracture, subacute to chronic T12 and inferior L1 endplate fracture with 25% height loss) Ordered Tests: Active Orders 24 hr Category Date Time Status UA W/RFX CULTURE Stat Lab 04/16/22 02:49 Completed Medication Summary Generic Name Dose Route Start Last Admin Trade Name Freq PRN Reason Stop Dose Admin Albuterol Sulfate 2 puff 04/16/22 10:03 Albuterol Common Canister Inhaler 05/16/22 10:02 Q4HPRN PRN Albuterol/Ipratropium 3 ml 04/16/22 13:00 04/17/22 00:45 Ipratropium/Albuterol Sulfate 3 Ml Ampul.Neb IH 05/16/22 12:59 3 ml Q6HRT HARJINDER Administration Docusate Sodium 200 mg 04/16/22 10:00 04/16/22 22:13 Docusate Sodium 100 Mg Capsule PO 05/16/22 09:59 200 mg BID HARJINDRE Administration Morphine Sulfate 2 mg 04/15/22 23:20 04/16/22 15:30 Morphine Sulfate 2 Mg/Ml Inj IV 04/20/22 23:19 2 mg Q4H PRN PRN Administration PAIN Ondansetron HCl 4 mg 04/16/22 12:13 04/16/22 15:31 Ondansetron Hcl 4 Mg/2 Ml Vial IV 05/16/22 12:12 4 mg Q6H PRN PRN Administration NAUSEA/VOMITING Patient Own Medication 1 each 04/16/22 16:00 04/16/22 15:22 Patient Own Med Misc PO 05/16/22 15:59 1 each DAILY HARJINDER Administration Patient Own Medication 1 each 04/16/22 16:00 04/16/22 15:23 Patient Own Med Misc PO 05/16/22 15:59 1 each DAILY HARJINDER Administration Patient Own Medication 1 each 04/16/22 16:00 04/16/22 22:07 Patient Own Med Misc PO 05/16/22 15:59 1 each BID HARJINDER Administration Patient Own Medication 1 each 04/16/22 16:00 04/16/22 22:10 Patient Own Med Misc PO 05/16/22 15:59 1 each BID HARJINDER Administration Patient Own Medication 1 each 04/16/22 16:00 04/16/22 15:24 Patient Own Med Misc PO 05/16/22 15:59 1 each DAILY HARJINDER Administration Patient Own Medication 1 each 04/16/22 22:00 04/16/22 22:08 Patient Own Med Misc PO 05/16/22 21:59 1 each HS HARJINDER Administration Patient Own Medication 1 each 04/16/22 18:00 04/16/22 17:25 Patient Own Med Misc PO 05/16/22 17:59 1 each EVENING MEAL HARJINDER Administration Polyethylene Glycol 17 gm 04/16/22 09:42 Polyethylene Glycol 3350 17 Gm Packet PO 05/16/22 09:41 DAILY PRN CONSTIPATION Potassium Chloride 20 meq 04/16/22 10:00 04/16/22 11:02 Potassium Chloride Tab 10 Meq Tab PO 05/16/22 09:59 Not Given DAILY HARJINDER Fluticasone/Salmeterol 2 puff 04/16/22 19:00 04/16/22 19:04 Fluticasone/Salmeterol 230/21 Common Canister IH 05/16/22 18:59 2 puff BIDRT HARJINDER Administration Discontinued Medications Generic Name Dose Route Start Last Admin Trade Name Freq PRN Reason Stop Dose Admin Albuterol Sulfate mg 04/16/22 10:00 Albuterol Sulfate 2.5 Mg/3 Ml Neb 05/16/22 09:59 Q6H HARJINDER Albuterol/Ipratropium Confirm 04/16/22 08:32 Ipratropium/Albuterol Sulfate 3 Ml Ampul.Neb Administered 04/16/22 08:33 Dose 3 ml IH .STK-MED ONE Aspirin 81 mg 04/16/22 10:00 04/16/22 11:02 Aspirin 81 Mg Tablet.Ec PO 05/16/22 09:59 Not Given DAILY HARJINDER Furosemide 40 mg 04/16/22 10:00 04/16/22 11:02 Furosemide 40 Mg Tablet PO 05/16/22 09:59 Not Given DAILY HARJINDER Gabapentin 600 mg 04/16/22 10:00 04/16/22 11:03 Gabapentin 300 Mg Capsule PO 05/16/22 09:59 Not Given BID HARJINDER Guaifenesin 600 mg 04/16/22 10:00 04/16/22 11:03 Guaifenesin 600 Mg Tablet Er PO 05/16/22 09:59 Not Given BID HARJINDER Methocarbamol 500 mg 04/15/22 18:10 04/15/22 19:03 Methocarbamol 500 Mg Tablet PO 04/15/22 18:11 500 mg ONCE STA Administration Metoprolol Succinate 25 mg 04/16/22 10:00 04/16/22 11:03 Metoprolol Succinate 25 Mg Xl Tab PO 05/16/22 09:59 Not Given DAILY HARJINDER Morphine Sulfate 2 mg 04/15/22 22:38 04/15/22 22:50 Morphine Sulfate 2 Mg/Ml Inj IV 04/15/22 22:39 2 mg STAT ONE Administration Morphine Sulfate Confirm 04/15/22 22:49 Morphine Sulfate 2 Mg/Ml Inj Administered 04/15/22 22:50 Dose 2 mg .ROUTE .STK-MED ONE Simvastatin 20 mg 04/16/22 22:00 Simvastatin 20 Mg Tablet PO 05/16/22 21:59 HS [facility] Tamsulosin HCl 0.4 mg 04/16/22 10:00 04/16/22 11:02 Tamsulosin Hcl 0.4 Mg Cap PO 05/16/22 09:59 Not Given DAILY [facility] Lab/Rad Data: Laboratory Results 04/15/22 04/15/22 Range/Units 22:00 03:01 Urinalys Dipstick Clnc MAIN LAB Urine Color DARK YELLOW (YELLOW) Urine Appearance CLEAR (CLEAR) Urine pH 5.5 (5-6) Ur Specific [place] 1.025 (1.005-1.025) POC Urine Protein Conf NEGATIVE (Negative) Urine Ketones NEGATIVE (NEGATIVE) Urine Nitrite NEGATIVE (NEGATIVE) Urine Bilirubin NEGATIVE (NEGATIVE) Urine Urobilinogen 0.2 (0-1) mg/dL Urine Leukocytes NEGATIVE (NEGATIVE) Urine WBC (Auto) 0-2 (0-5) /HPF Urine RBC (Auto) 3-5 (0-2) /HPF U Hyaline Cast (Auto) 0-2 (0-2) /LPF U Epithel Cells (Auto) NONE (FEW) /HPF Urine Bacteria (Auto) NONE SEEN (NEGATIVE) /HPF Urine RBC TRACE-INTACT (0-5) Shahram/ul Ur Culture Indicated? ORDERED SEPARATELY Urine Glucose NEGATIVE (NEGATIVE) mg/dL Influenza Type A Ag NEGATIVE (NEGATIVE) Influenza Type B Ag NEGATIVE (NEGATIVE) RSV (PCR) NEGATIVE (Negative) SARS-CoV-2 (PCR) NEGATIVE (NEGATIVE) - Progress Progress: improved Progress Note: Patient reassessed. Pain improved. Due to severe back pain likely emanating from newly diagnosed fractures patient unable to go home. He is a fall risk. Patient lives with his . She is unable to care for him. Family requesting admission. Case discussed with who accepts admission to observation. Plan of care discussed with patient and family. They agree to admission at [facility] for further evaluation and treatment. Portions of this note were created with voice recognition technology. There may be grammatical, spelling, punctuation or sound alike errors 04/17/22 02:[address] Ankit Will see patient in: hospital (observation) Counseled pt/family regarding: lab results, diagnosis, rad results - Departure Departure Disposition: Observation Clinical Impression: Back pain, Renal cyst, Urinary bladder diverticulum, Small fatty left inguinal hernia, Vascular calcification, Osteopenia, Degenerative disc disease, L1 superior endplate fracture, Subacute to chronic T12 endplate fractur, Subacute to chronic inferior L1 endplate, 25% L1 height loss Condition: Stable Critical Care Time: No
[2022-04-15] MEDS ORDERED: Robaxin PO STA (18:10)
[2022-04-15 22:31] LABS: INFLUENZA A NEGATIVE (NEGATIVE); INFLUENZA B NEGATIVE (NEGATIVE); RESPIRATORY SYNCTIAL VIRUS NEGATIVE (Negative); SARS-CoV-2 Xpert Express NEGATIVE (NEGATIVE)
[2022-04-15] MEDS ORDERED: MORPHINE SULFATE 2 MG INJ IV ONE (22:38)
[2022-04-15] MEDS ORDERED: MORPHINE SULFATE 2 MG INJ ONE (22:49)
[2022-04-16] MEDS: MORPHINE SULFATE 2 MG INJ IV PRN ×3 (02:51→15:30)
[2022-04-16 03:18] LABS: Hyaline Casts 0-2 /LPF (0-2); WBC 0-2 /HPF (0-5)
[2022-04-16 03:19] LABS: Appearance CLEAR (CLEAR); Bilirubin NEGATIVE (NEGATIVE); Glucose NEGATIVE (NEGATIVE); Ketones NEGATIVE (NEGATIVE); Specific Gravity 1.025 (1.005-1.025)
[2022-04-16 03:20] LABS: Bacteria NONE SEEN /HPF (NEGATIVE); Dipstick done @ ? MAIN LAB; Nitrite NEGATIVE (NEGATIVE); Ph 5.5 (5-6); Protein,Urine Dip NEGATIVE (Negative); RBC TRACE-INTACT Ery/ul (0-5); Urine Cultured Indicated? ORDERED SEPARATELY; Urobilinogen 0.2 mg/dL (0-1)
[2022-04-16 07:36] LABS: INR 3.7 (0.8-3.0); PROTIME 34.8 SECONDS (9.4-12.5)
--- NOTE | 2022-04-16 07:59 | PCM.HP ---
History of Present Illness - Chief Complaint Chief Complaint: severe low back pain for 1 week History of Present Illness: is a 86 year old male.presents to our ED with his daughter for evaluation of low back pain and hematuria. Patient saw his primary care doctor regarding his back pain and was advised that the pain was due to arthritis. Patient states the pain is somewhat worse. Patient currently on Coumadin. INR on Thursday was 5.5. Patient's primary care doctor discontinued the Coumadin for the next couple days. INR will be rechecked on Thursday. Pain described as an ache that is well localized. No radiation. Pain worse with movement pain improved with rest. No associated chest pain. No nausea vomiting or diaphoresis. Patient voices no other complaints or concerns at this time. No change in bowel bladder function. No saddle anesthesia. No lower extremity weakness. No recent back procedures. No fever. Timing/Duration: yesterday - Review of Systems Constitutional: Lethargy, No Fever, No Chills Eyes: No Symptoms Ears, Nose, & Throat: No Symptoms Respiratory: No Cough, No Short Of Breath Cardiac: No Chest Pain, No Edema, No Syncope Abdominal/Gastrointestinal: No Abdominal Pain, No Nausea, No Vomiting, No Diarrhea Genitourinary Symptoms: No Dysuria Musculoskeletal: Back Pain, No Neck Pain Skin: No Rash Neurological: No Dizziness, No Focal Weakness, No Sensory Changes Psychological: No Symptoms Endocrine: No Symptoms Hematologic/Lymphatic: No Symptoms Immunological/Allergic: No Symptoms Medications & Allergies Home Medications: Home Medication List Albuterol 2.5 mg/3 ml Neb [Proventil 2.5 mg/3 ml Neb] 1 vial NEBULIZE Q6H 12/19/14 [History Confirmed 04/15/22] Aspirin [Aspirin EC] 81 mg PO DAILY 12/19/14 [History Confirmed 04/15/22] Tamsulosin HCl 0.4 mg [Flomax 0.4 MG] 0.4 mg PO DAILY 12/19/14 [History Confirmed 04/15/22] Polyethylene Glycol 3350 [Clearlax] 17 gm PO DAILY PRN 10/27/18 [History Confirmed 04/15/22] Furosemide 40 mg [Lasix 40 MG] 40 mg PO DAILY 04/05/20 [History Confirmed 04/15/22] Gabapentin 600 mg PO BID 04/05/20 [History Confirmed 04/15/22] Metoprolol Succinate 25 mg PO DAILY 04/05/20 [History Confirmed 04/15/22] Rosuvastatin Calcium 10 mg PO HS 04/05/20 [History Confirmed 04/15/22] Albuterol/Ipratropium cc [Combivent Inhaler COMMON CANISTER] 1 puff IH QID 11/13/21 [History Confirmed 04/15/22] Docusate Sodium [Dulcolax Stool Softener] 200 mg PO BID 11/13/21 [History Confirmed 04/16/22] Warfarin Sodium 3 mg PO DAILY 01/06/22 [History Confirmed 04/15/22] Budesonide/Formoterol Fumarate [Budesonide-Formoterol 160-4.5] 2 puff IH BID 03/25/22 [History Confirmed 04/15/22] Guaifenesin 600 mg ER [Mucinex 600MG ER Tabs] 600 mg PO BID 03/25/22 [History Confirmed 04/15/22] Potassium Chloride Tab* [Klor Con] 20 meq PO DAILY 03/25/22 [History Confirmed 04/15/22] Allergies/Adverse Reactions: Allergies Allergy/AdvReac Type Severity Reaction Status Date / Time Iodinated Contrast Media Allergy Verified 03/25/22 09:59 Iodine and Iodide Containing Allergy Verified 03/25/22 09:59 Produc - Past Medical History Past Medical History: Yes Neurological History: Stroke ENT History: Other Cardiac History: Coronary Artery Disease, Hypertension Respiratory History: CHF, COPD Endocrine Medical History: No Pertinent History Musculoskelatal History: Fractures, Osteoarthritis GI Medical History: Diverticulosis History: No Pertinent History Pyscho-Social History: No Pertinent History Male Reproductive Disorders: Prostate Problems Comment: 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 ABOUT 1-2 YEARS AGO HAD ANOTHER STROKE WHICH TOOK HIS VISION IN HIS LEFT EYE. States he feels he had TIA x 1 wk ago - Past Surgical History Past Surgical History: Yes Neuro Surgical History: No Pertinent History Cardiac History: CABG, Cardiac Catheterization, Cardiac Stent, Internal Defibrillator, Pacemaker, Other Respiratory Surgery: No Pertinent History GI Surgical History: Hernia Repair Genitourinary Surgical Hx: No Pertinent History Musculskeletal Surgical Hx: No Pertinent History Male Surgical History: No Pertinent History Other Surgical History: colonoscopy, right cea, - Social History Smoking Status: Never smoker How long have you smoked: 10 yrs Exposure to second hand smoke: No Alcohol: None Drug Use: none - Physical Exam Vital Signs: Vital Signs - 24 hr Temp Pulse Resp BP BP Pulse Ox 04/16/22 07:24 98.0 F 75 16 106/60 92 L 04/16/22 00:00 99 04/15/22 23:29 97.5 F 54 L 20 141/63 99 04/15/22 23:10 97.5 F 54 L 20 141/63 99 04/15/22 21:39 99 04/15/22 21:06 70 18 102/63 98 04/15/22 20:12 79 145/73 99 04/15/22 19:07 78 18 139/71 99 04/15/22 17:57 98.2 F 58 L 22 147/64 99 General Appearance: moderate distress, alert Neurologic Exam: alert, oriented x 3, cooperative, abnormal gait, No motor deficits Eye Exam: PERRL/EOMI, eyes nml inspection Ears, Nose, Throat Exam: normal ENT inspection, TMs normal, pharynx normal, moist mucous membranes Neck Exam: normal inspection, non-tender, supple, full range of motion Respiratory Exam: normal breath sounds, lungs clear, No respiratory distress Cardiovascular Exam: regular rate/rhythm, normal heart sounds, normal peripheral pulses Gastrointestinal/Abdomen Exam: soft, normal bowel sounds, No tenderness, No mass Back Exam: normal inspection, normal range of motion, No CVA tenderness, No vertebral tenderness Extremity Exam: normal inspection, normal range of motion, pelvis stable Skin Exam: normal color, warm, dry, No rash Lymphatic Exam: No adenopathy Results - Labs Lab/Micro Results: Lab Results-Last 24 Hours 04/15/22 04/15/22 04/16/22 Range/Units 03:01 22:00 07:22 PT 34.8 H (9.4-12.5) SECONDS INR 3.70 H (0.8-3.0) POC Glucometer (74 to 106) mg/dL Urinalys Dipstick Clnc MAIN LAB Urine Color DARK YELLOW (YELLOW) Urine Appearance CLEAR (CLEAR) Urine pH 5.5 (5-6) Ur Specific Kidder 1.025 (1.005-1.025) POC Urine Protein Conf NEGATIVE (Negative) Urine Ketones NEGATIVE (NEGATIVE) Urine Nitrite NEGATIVE (NEGATIVE) Urine Bilirubin NEGATIVE (NEGATIVE) Urine Urobilinogen 0.2 (0-1) mg/dL Urine Leukocytes NEGATIVE (NEGATIVE) Urine WBC (Auto) 0-2 (0-5) /HPF Urine RBC (Auto) 3-5 (0-2) /HPF U Hyaline Cast (Auto) 0-2 (0-2) /LPF U Epithel Cells (Auto) NONE (FEW) /HPF Urine Bacteria (Auto) NONE SEEN (NEGATIVE) /HPF Urine RBC TRACE-INTACT (0-5) Shahram/ul Ur Culture Indicated? ORDERED SEPARATELY Urine Glucose NEGATIVE (NEGATIVE) mg/dL Influenza Type A Ag NEGATIVE (NEGATIVE) Influenza Type B Ag NEGATIVE (NEGATIVE) RSV (PCR) NEGATIVE (Negative) SARS-CoV-2 (PCR) NEGATIVE (NEGATIVE) 04/16/22 Range/Units 07:41 PT (9.4-12.5) SECONDS INR (0.8-3.0) POC Glucometer 102 (74 to 106) mg/dL Urinalys Dipstick Clnc Urine Color (YELLOW) Urine Appearance (CLEAR) Urine pH (5-6) Ur Specific Kidder (1.005-1.025) POC Urine Protein Conf (Negative) Urine Ketones (NEGATIVE) Urine Nitrite (NEGATIVE) Urine Bilirubin (NEGATIVE) Urine Urobilinogen (0-1) mg/dL Urine Leukocytes (NEGATIVE) Urine WBC (Auto) (0-5) /HPF Urine RBC (Auto) (0-2) /HPF U Hyaline Cast (Auto) (0-2) /LPF U Epithel Cells (Auto) (FEW) /HPF Urine Bacteria (Auto) (NEGATIVE) /HPF Urine RBC (0-5) Shahram/ul Ur Culture Indicated? Urine Glucose (NEGATIVE) mg/dL Influenza Type A Ag (NEGATIVE) Influenza Type B Ag (NEGATIVE) RSV (PCR) (Negative) SARS-CoV-2 (PCR) (NEGATIVE) - Radiology Impressions Radiology Exams & Impressions: Radiology Procedures Category Date Time Status ABDOMEN AND PELVIS W/0 CONTRAS [CT] Stat Exams 04/15/22 18:57 Taken RECONSTRUCTION [CT] Stat Exams 04/15/22 18:02 Taken - Other Procedures and Tests Respiratory Therapy 04/16/22 05:25 Oxygen Nasal Cannula 2 lpm 04/16/22 05:33 Respiratory Therapy Assessment DAILY Assessment/Plan (1) Fracture of lumbar spine without cord injury Current Visit: Yes Status: Acute Qualifiers: Encounter type: initial encounter Fracture type: closed Qualified Code(s): S32.009A - Unspecified fracture of unspecified lumbar vertebra, initial encounter for closed fracture Assessment & Plan: Chief Complaint Diagnosis Acute lumbar spine fracture Allergies Allergy/AdvReac Type Severity Reaction Status Date / Time Iodinated Contrast Media Allergy Verified 03/25/22 09:59 Iodine and Iodide Containing Allergy Verified 03/25/22 09:59 Produc Vital Signs (Last 24 hours) Temp Pulse Resp BP BP Pulse Ox 04/16/22 07:24 98.0 F 75 16 106/60 92 L 04/16/22 00:00 99 04/15/22 23:29 97.5 F 54 L 20 141/63 99 04/15/22 23:10 97.5 F 54 L 20 141/63 99 04/15/22 21:39 99 04/15/22 21:06 70 18 102/63 98 04/15/22 20:12 79 145/73 99 04/15/22 19:07 78 18 139/71 99 04/15/22 17:57 98.2 F 58 L 22 147/64 99 Current Medications Generic Name Dose Route Start Last Admin Trade Name Lety PRN Reason Stop Dose Admin Morphine Sulfate 2 mg 04/15/22 23:20 04/16/22 07:41 Morphine Sulfate 2 Mg/Ml Inj IV 04/20/22 23:19 2 mg Q4H PRN PRN Administration PAIN Discontinued Medications Generic Name Dose Route Start Last Admin Trade Name Lety PRN Reason Stop Dose Admin Methocarbamol 500 mg 04/15/22 18:10 04/15/22 19:03 Methocarbamol 500 Mg Tablet PO 04/15/22 18:11 500 mg ONCE STA Administration Morphine Sulfate 2 mg 04/15/22 22:38 04/15/22 22:50 Morphine Sulfate 2 Mg/Ml Inj IV 04/15/22 22:39 2 mg STAT ONE Administration Morphine Sulfate Confirm 04/15/22 22:49 Morphine Sulfate 2 Mg/Ml Inj Administered 04/15/22 22:50 Dose 2 mg .ROUTE .STK-MED ONE Intake & Output (Last 24 hours) 04/13/22 04/14/22 04/15/2204/16/22 11:59 11:59 11:59 11:59 Weight 93.3 kg Microbiology Results (Last 24 hours) 04/16/22 03:20 Urine, Indwelling Catheter Urine Culture - Pending Laboratory Results (Last 24 hours) 04/16/22 04/16/22 04/15/22 07:41 07:22 22:00 PT 34.8 H INR 3.70 H POC Glucometer 102 Urinalys Dipstick Clnc Urine Color Urine Appearance Urine pH Ur Specific Kidder POC Urine Protein Conf Urine Ketones Urine Nitrite Urine Bilirubin Urine Urobilinogen Urine Leukocytes Urine WBC (Auto) Urine RBC (Auto) U Hyaline Cast (Auto) U Epithel Cells (Auto) Urine Bacteria (Auto) Urine RBC Ur Culture Indicated? Urine Glucose Influenza Type A Ag NEGATIVE Influenza Type B Ag NEGATIVE RSV (PCR) NEGATIVE SARS-CoV-2 (PCR) NEGATIVE 04/15/22 03:01 PT INR POC Glucometer Urinalys Dipstick Clnc MAIN LAB Urine Color DARK YELLOW Urine Appearance CLEAR Urine pH 5.5 Ur Specific Kidder 1.025 POC Urine Protein Conf NEGATIVE Urine Ketones NEGATIVE Urine Nitrite NEGATIVE Urine Bilirubin NEGATIVE Urine Urobilinogen 0.2 Urine Leukocytes NEGATIVE Urine WBC (Auto) 0-2 Urine RBC (Auto) 3-5 U Hyaline Cast (Auto) 0-2 U Epithel Cells (Auto) NONE Urine Bacteria (Auto) NONE SEEN Urine RBC TRACE-INTACT Ur Culture Indicated? ORDERED SEPARATELY Urine Glucose NEGATIVE Influenza Type A Ag Influenza Type B Ag RSV (PCR) SARS-CoV-2 (PCR) Orders (Last 24 hours) Category Date Time Status Bedrest ROUTINE Activity 04/15/22 23:20 Active Catheter Care Record Q6H Care 04/16/22 02:14 Active Code Status Order ROUTINE Care 04/15/22 23:20 Active Montero [Catheter-[place] Montero] STAT Care 04/16/22 02:13 Active IV Care Q6H Care 04/15/22 23:20 Active IV Insertion STAT Care 04/15/22 22:17 Completed Neuro Checks Q4H Care 04/15/22 23:[address] in Observation ROUTINE Care 04/15/22 23:20 Active Infection Control Consult ROUTINE Cons 04/16/22 09:00 Active Consistent Carbohydrate Diet 1800 Calorie Diet 04/15/22 Breakfast Active ABDOMEN AND PELVIS W/0 CONTRAS [CT] Stat Exams 04/15/22 18:57 Taken RECONSTRUCTION [CT] Stat Exams 04/15/22 18:02 Taken COVID/FLU/RSV Panel Stat Lab 04/15/22 22:00 Completed CULTURE,URINE Routine Lab 04/16/22 03:20 Received POCT GLUCOSE Stat Lab 04/16/22 07:41 Completed PT INR [PROTIME WITH INR] Routine Lab 04/16/22 07:22 Completed UA W/RFX CULTURE Stat Lab 04/16/22 02:49 Completed Methocarbamol [Robaxin] Med 04/15/22 18:10 Discontinued 500 mg PO ONCE STA Morphine Sulfate 2 mg Inj Med 04/15/22 22:49 Discontinued 2 mg .ROUTE .STK-MED ONE Morphine Sulfate 2 mg Inj Med 04/15/22 23:20 Active 2 mg IV Q4H PRN PRN Morphine Sulfate 2 mg Inj Med 04/15/22 22:38 Discontinued 2 mg IV STAT ONE Oxygen Nasal Cannula 2 lpm RT 04/16/22 05:25 Active Pulse Oximetry CONTINUOUS RT 04/15/22 23:20 Active Respiratory Therapy Assessment DAILY RT 04/16/22 05:33 Active Patient Care Notes (Last 24 hours) 04/16/22 00:06 Nursing Note by Chery Navarro Patient has an appointment with Dr. Goodwin to repair AICD wire on May 01. Initialized on 04/16/22 00:06 - END OF NOTE Code(s): S32.009A - UNSP FRACTURE OF UNSP LUMBAR VERTEBRA, INIT FOR CLOS FX (2) Back pain Current Visit: Yes Status: Acute Code(s): M54.9 - DORSALGIA, UNSPECIFIED (3) Degenerative disc disease Current Visit: Yes Status: Acute Code(s): [id number] -
[2022-04-16] MEDS ORDERED: DUONEB 0.5-3 MG/3 ml Neb IH ONE (08:32)
[2022-04-16] MEDS: DUONEB 0.5-3 MG/3 ml Neb IH SCH ×3 (08:43→19:01)
[2022-04-16] MEDS: Advair Hfa 230/21 Mcg COMMON CANISTER IH SCH ×2 (08:43→19:04)
--- NOTE | 2022-04-16 08:47 | XRAY ---
Indication: Right lower quadrant and flank pain. Trouble swallowing. Nausea and vomiting. Low back pain. Multiple contiguous assessment images obtained through the abdomen and pelvis without contrast using renal stone protocol. Comparison: March 29, 2019. Lung bases demonstrates increasing moderate bilateral dependent atelectasis. Stable multiple tiny calcified granulomas. Heart not enlarged. No renal calculus or evidence for obstructive uropathy in either system. Noncontrasted stomach and bowel loops nonobstructed with normal appendix. Again mild diffuse scattered colonic fecal debris and mild scattered colonic diverticulosis without diverticulitis. No free fluid/air. Stable small right renal cortical cyst, small left posterior urinary bladder diverticulum, and small fatty left inguinal hernia. Remaining liver, gallbladder, pancreas, spleen, adrenal glands, kidneys, ureters, and bladder are unremarkable for noncontrast exam. Again diffuse heavy scattered vascular calcifications throughout including both main renal and intrarenal arteries. No AAA. Osseous structures again demonstrates osteopenia, old left rib fractures, mild degenerative changes both hips, and progressive worsening moderate multilevel thoracolumbar degenerative spondylosis. New acute to subacute L1 superior endplate fracture with approximately 25% height loss. Also new subacute to chronic appearing superior T12 and inferior L1 endplate fractures also with approximately 25% height loss. No spinal canal or foraminal stenosis. Impression: 1. Continued negative renal calculus or evidence for obstructive uropathy. 2. New findings acute to subacute L1 superior endplate fracture and subacute to chronic T12/L1 endplate fractures as detailed. 3. Mild diffuse fecal stasis. 4. Continued chronic findings including colonic diverticulosis, right renal cysts, urinary bladder diverticulum, extensive arteriosclerotic disease, small fatty left inguinal hernia, and chronic bony findings.
--- NOTE | 2022-04-16 08:51 | XRAY ---
Indication: Low back pain. Axial, coronal, and sagittal reformatted images of the lumbar spine obtained using right data from same day CT abdomen/pelvis exam. Comparison: March 25, 2022. Osseous structures remain demineralized again with L2-S1 degenerative broad-based disc bulge, multilevel degenerative vacuum disc phenomena, and bilateral L3-S1 degenerative facet hypertrophy. Sagittal and coronal reformatted images demonstrates normal lumbar alignment with minimal levoscoliosis. New acute to subacute L1 superior endplate fracture with approximately 25% height loss. Stable chronic appearing superior T12/inferior L1 endplate fractures with approximately 25% height loss. CT abdomen/pelvis reported separately. Impression: 1. New acute to subacute L1 superior endplate fracture without spinal canal or foraminal compromise. 2. Stable osteopenia, scoliosis, L2-S1 degenerative disc disease, and T12/L1 endplate fractures.
[2022-04-16] MEDS ORDERED: Miralax Powder 17GM PACKET PO PRN (09:42)
[2022-04-16 09:54] LABS: ALBUMIN 3.4 g/dL (3.5-5.0); ALKALINE PHOSPHATASE 79 U/L (38-126); ANION GAP 9.7 MEQ/L (5-15); BLOOD UREA NITROGEN 15 mg/dL (9-20); CHLORIDE 99 mmol/L (98-107); Calcium 8.3 mg/dL (8.4-10.2); Carbon Dioxide 31 mmol/L (22-30); Creatinine 1 0.95 mg/dL (0.66-1.25); EST GLOMERULAR FILTRATION RATE > 60.0 ML/MIN; Glucose 91 mg/dL (74-106); MAGNESIUM 2.2 mg/dL (1.6-2.3); Potassium 3.5 mmol/L (3.5-5.1); SGOT/AST 30 U/L (17-59); SGPT/ALT 11 U/L (0-50); SODIUM 136 mmol/L (137-145); Total Protein 6.4 g/dL (6.3-8.2)
[2022-04-16 09:56] LABS: Hematocrit 36.2 % (42-50); Hemoglobin 11.3 g/dL (12.5-18.0); Mean Cell Volume 98.9 fL (78-100); Mean Corpuscular Hemoglobin 30.9 pg (26-32); Mean Corpuscular Hgb Concent. 31.2 g/dL (32-36); Mean Platelet Volume 10.6 fL (7.5-11.0); Platelet Count 146 x10^3/uL (150-450); Red Blood Count 3.66 x10^6/uL (4.1-5.6); Red Cell Distribution Width 13.9 % (11.5-14.0); White Blood Count 5.1 x10^3/uL (4.0-10.5)
[2022-04-16] MEDS ORDERED: Mucinex 600MG ER Tabs PO SCH (10:00)
[2022-04-16] MEDS ORDERED: NEURONTIN PO SCH (10:00)
[2022-04-16] MEDS ORDERED: PROVENTIL 2.5 MG/3 ML NEB IH SCH (10:00)
[2022-04-16] MEDS ORDERED: Toprol-Xl 25MG Tablets PO SCH (10:00)
[2022-04-16] MEDS ORDERED: ECOTRIN 81 MG PO SCH (10:00)
[2022-04-16] MEDS ORDERED: Flomax 0.4 MG PO SCH (10:00)
[2022-04-16] MEDS ORDERED: NON-FORMULARY ITEM (Gabapentin [Gabapentin] 600 MG Tablet) PO SCH (10:00)
[2022-04-16] MEDS ORDERED: Lasix 40 MG PO SCH (10:00)
[2022-04-16] MEDS ORDERED: VENTOLIN COMMON CANISTER IH PRN (10:03)
[2022-04-16] MEDS: Docusate Sodium 100 MG PO SCH ×2 (11:02→22:13)
[2022-04-16] MEDS: Klor Con PO SCH (11:02)
[2022-04-16] MEDS ORDERED: Zofran 4 MG/2 ML VIAL IV PRN (12:13)
[2022-04-16] MEDS: PATIENT OWN MEDICATION PO SCH ×7 (15:21→22:10)
[2022-04-16] MEDS ORDERED: PATIENT OWN MEDICATION PO SCH ×2 (18:00→22:00)
[2022-04-16] MEDS ORDERED: NON-FORMULARY ITEM (Rosuvastatin Calcium [Rosuvastatin Calcium] 10 MG Tablet) PO SCH (22:00)
[2022-04-16] MEDS ORDERED: ZOCOR 20MG PO SCH (22:00)
[2022-04-17] MEDS: DUONEB 0.5-3 MG/3 ml Neb IH SCH ×2 (00:45→07:00)
[2022-04-17 05:10] LABS: Hematocrit 37.2 % (42-50); Hemoglobin 11.7 g/dL (12.5-18.0); Mean Cell Volume 98.7 fL (78-100); Mean Corpuscular Hgb Concent. 31.5 g/dL (32-36); Mean Platelet Volume 10.5 fL (7.5-11.0); Platelet Count 130 x10^3/uL (150-450); Red Blood Count 3.77 x10^6/uL (4.1-5.6); Red Cell Distribution Width 14.2 % (11.5-14.0); White Blood Count 4.8 x10^3/uL (4.0-10.5)
[2022-04-17 05:39] LABS: ALBUMIN 3.5 g/dL (3.5-5.0); ALKALINE PHOSPHATASE 75 U/L (38-126); BLOOD UREA NITROGEN 13 mg/dL (9-20); CHLORIDE 95 mmol/L (98-107); Calcium 8.6 mg/dL (8.4-10.2); Carbon Dioxide 34 mmol/L (22-30); Creatinine 1 0.93 mg/dL (0.66-1.25); EST GLOMERULAR FILTRATION RATE > 60.0 ML/MIN; Glucose 91 mg/dL (74-106); Potassium 3.5 mmol/L (3.5-5.1); SGOT/AST 28 U/L (17-59); SGPT/ALT 12 U/L (0-50); SODIUM 135 mmol/L (137-145); Total Protein 6.4 g/dL (6.3-8.2)
[2022-04-17 05:40] LABS: INR 2.73 (0.8-3.0); PROTIME 26.4 SECONDS (9.4-12.5)
[2022-04-17] MEDS: Advair Hfa 230/21 Mcg COMMON CANISTER IH SCH (07:05)
[2022-04-17 07:25] LABS: Slide Review YES
[2022-04-17] MEDS: PATIENT OWN MEDICATION PO SCH ×5 (09:08→09:10)
[2022-04-17] MEDS: Docusate Sodium 100 MG PO SCH (09:11)
[2022-04-17] MEDS: Klor Con PO SCH (09:11)
--- NOTE | 2022-04-17 11:09 | PCM.DS ---
Discharge Summary Date of Admission: 04/15/22 23:19 Admitting Physician: YUE AVELAR Consults: Consults on Case 04/16/22 09:29 Consult Physician ROUTINE Primary Care Provider: YUE AVELAR Allergies Allergies Iodinated Contrast Media Allergy (Verified 03/25/22 09:59) Iodine and Iodide Containing Produc Allergy (Verified 03/25/22 09:59) Hospital Summary - Hospital Course Hospital Course: Chief Complaint Diagnosis severe low back pain for 1 week Allergies Allergy/AdvReac Type Severity Reaction Status Date / Time Iodinated Contrast Media Allergy Verified 03/25/22 09:59 Iodine and Iodide Containing Allergy Verified 03/25/22 09:59 Produc Vital Signs (Last 24 hours) Temp Pulse Resp BP Pulse Ox 04/17/22 08:00 97.8 F 67 16 99/54 96 04/17/22 07:03 80 20 94 L 04/17/22 04:00 97.3 F 88 19 124/78 98 04/17/22 02:52 99 04/17/22 00:45 70 20 94 L 04/16/22 23:37 97.3 F 84 22 118/57 95 04/16/22 20:00 97.1 F 82 20 116/55 96 04/16/22 19:47 97.6 F 77 21 111/56 96 04/16/22 19:01 67 18 90 L 04/16/22 16:00 97.6 F 77 21 111/56 96 04/16/22 13:27 84 18 91 L 04/16/22 12:00 97.3 F 70 16 136/62 98 Current Medications Generic Name Dose Route Start Last Admin Trade Name Freq PRN Reason Stop Dose Admin Albuterol Sulfate 2 puff 04/16/22 10:03 Albuterol Common Canister Inhaler 05/16/22 10:02 Q4HPRN PRN Albuterol/Ipratropium 3 ml 04/16/22 13:00 04/17/22 07:00 Ipratropium/Albuterol Sulfate 3 Ml Ampul.Neb 05/16/22 12:59 3 ml Q6HRT HARJINDER Administration Docusate Sodium 200 mg 04/16/22 10:00 04/17/22 09:11 Docusate Sodium 100 Mg Capsule PO 05/16/22 09:59 Not Given BID HARJINDER Morphine Sulfate 2 mg 04/15/22 23:20 04/16/22 15:30 Morphine Sulfate 2 Mg/Ml Inj IV 04/20/22 23:19 2 mg Q4H PRN PRN Administration PAIN Ondansetron HCl 4 mg 04/16/22 12:13 04/16/22 15:31 Ondansetron Hcl 4 Mg/2 Ml Vial IV 05/16/22 12:12 4 mg Q6H PRN PRN Administration NAUSEA/VOMITING Patient Own Med : 1 each 04/16/22 16:00 04/17/22 09:09 Aspirin 81 Mg PO 05/16/22 15:59 1 each DAILY HARJINDER Administration Patient Own Med : 1 each 04/16/22 16:00 04/17/22 09:08 Lasix 40 Mg PO 05/16/22 15:59 1 each DAILY HARJINDER Administration Patient Own Med : 1 each 04/16/22 16:00 04/17/22 09:09 Gabapentin 600 Mg PO 05/16/22 15:59 1 each BID HARJINDER Administration Patient Own Med : 1 each 04/16/22 16:00 04/17/22 09:10 Guaifenesing Er 600 PO 05/16/22 15:59 1 each Mg BID HARJINDER Administration Patient Own Med : 1 each 04/16/22 16:00 04/17/22 09:10 Metoprolol Succ Er PO 05/16/22 15:59 1 each 100 Mg DAILY HARJINDER Administration Patient Own Med : 1 each 04/16/22 22:00 04/16/22 22:08 Crestor 10 Mg PO 05/16/22 21:59 1 each HS HARJINDER Administration Patient Own Med : 1 each 04/16/22 18:00 04/16/22 17:25 Tamulosin 0.4 Mg PO 05/16/22 17:59 1 each EVENING MEAL HARJINDER Administration Polyethylene Glycol 17 gm 04/16/22 09:42 Polyethylene Glycol 3350 17 Gm Packet PO 05/16/22 09:41 DAILY PRN CONSTIPATION Potassium Chloride 20 meq 04/16/22 10:00 04/17/22 09:11 Potassium Chloride Tab 10 Meq Tab PO 05/16/22 09:59 Not Given DAILY HARJINDER Fluticasone/Salmeterol 2 puff 04/16/22 19:00 04/17/22 07:05 Fluticasone/Salmeterol Common Canister 05/16/22 18:59 Not Given BIDRT HARJINDER Discontinued Medications Generic Name Dose Route Start Last Admin Trade Name Lety PRN Reason Stop Dose Admin Albuterol Sulfate mg 04/16/22 10:00 Albuterol Sulfate 2.5 Mg/3 Ml Neb IH 05/16/22 09:59 Q6H HARJINDER Albuterol/Ipratropium Confirm 04/16/22 08:32 Ipratropium/Albuterol Sulfate 3 Ml Ampul.Neb Administered 04/16/22 08:33 Dose 3 ml IH .STK-MED ONE Aspirin 81 mg 04/16/22 10:00 04/16/22 11:02 Aspirin 81 Mg Tablet.Ec PO 05/16/22 09:59 Not Given DAILY HARJINDER Furosemide 40 mg 04/16/22 10:00 04/16/22 11:02 Furosemide 40 Mg Tablet PO 05/16/22 09:59 Not Given DAILY HARJINDER Gabapentin 600 mg 04/16/22 10:00 04/16/22 11:03 Gabapentin 300 Mg Capsule PO 05/16/22 09:59 Not Given BID HARJINDER Guaifenesin 600 mg 04/16/22 10:00 04/16/22 11:03 Guaifenesin 600 Mg Tablet Er PO 05/16/22 09:59 Not Given BID [facility] Methocarbamol 500 mg 04/15/22 18:10 04/15/22 19:03 Methocarbamol 500 Mg Tablet PO 04/15/22 18:11 500 mg ONCE STA Administration Metoprolol Succinate 25 mg 04/16/22 10:00 04/16/22 11:03 Metoprolol Succinate 25 Mg Xl Tab PO 05/16/22 09:59 Not Given DAILY HARJINDER Morphine Sulfate 2 mg 04/15/22 22:38 04/15/22 22:50 Morphine Sulfate 2 Mg/Ml Inj IV 04/15/22 22:39 2 mg STAT ONE Administration Morphine Sulfate Confirm 04/15/22 22:49 Morphine Sulfate 2 Mg/Ml Inj Administered 04/15/22 22:50 Dose 2 mg .ROUTE .STK-MED ONE Simvastatin 20 mg 04/16/22 22:00 Simvastatin 20 Mg Tablet PO 05/16/22 21:59 HS HARJINDER Tamsulosin HCl 0.4 mg 04/16/22 10:00 04/16/22 11:02 Tamsulosin Hcl 0.4 Mg Cap PO 05/16/22 09:59 Not Given DAILY HARJINDER Intake & Output (Last 24 hours) 04/14/22 04/15/22 04/16/22 04/17/22 11:59 11:59 11:59 11:59 Intake Total 120 1360 Output Total 1275 Balance 120 85 Weight 93.3 kg Microbiology Results (Last 24 hours) 04/16/22 03:20 Urine, Indwelling Catheter Urine Culture - Final <10K NORMAL SKIN DURGA PROBABLE SKIN CONTAMINANT Laboratory Results (Last 24 hours) 04/17/22 04/17/22 04/17/22 04:20 04:20 04:20 WBC 4.8 RBC 3.77 L Hgb 11.7 L Hct 37.2 L MCV 98.7 MCH 31.0 MCHC 31.5 L RDW 14.2 H Plt Count 130 L MPV 10.5 PT 26.4 H INR 2.73 Sodium 135 L Potassium 3.5 Chloride 95 L Carbon Dioxide 34 H Anion Gap 10.0 BUN 13 Creatinine 0.93 Estimated GFR > 60.0 Glucose 91 Calcium 8.6 Total Bilirubin 0.80 AST 28 ALT 12 Alkaline Phosphatase 75 Serum Total Protein 6.4 Albumin 3.5 Slides for Path Review YES Orders (Last 24 hours) Category Date Time Status House Regular Diet Diet 04/16/22 Dinner Active CBC AM.LAB Lab 04/17/22 04:20 Completed CMP AM.LAB Lab 04/17/22 04:20 Completed PT INR [PROTIME WITH INR] AM.LAB Lab 04/17/22 04:20 Completed Albuterol/Ipratropium 3ml Neb* [DUONEB 0.5-3 MG/3 ml Med 04/16/22 13:00 Active Neb] 3 ml IH Q6HRT Fluticasone/Salmeterol 230/21 [Advair Hfa 230/21 Mcg Med 04/16/22 19:00 Active COMMON CANISTER*] 2 puff IH BIDRT Ondansetron HCl 4 mg/2 ml [Zofran 4 MG/2 ML VIAL] Med 04/16/22 12:13 Active 4 mg IV Q6H PRN PRN Patient Own Med [Patient Own Medication] Med 04/16/22 16:00 Active 1 each PO BID Patient Own Med [Patient Own Medication] Med 04/16/22 16:00 Active 1 each PO BID Patient Own Med [Patient Own Medication] Med 04/16/22 16:00 Active 1 each PO DAILY Patient Own Med [Patient Own Medication] Med 04/16/22 16:00 Active 1 each PO DAILY Patient Own Med [Patient Own Medication] Med 04/16/22 16:00 Active 1 each PO DAILY Patient Own Med [Patient Own Medication] Med 04/16/22 18:00 Active 1 each PO EVENING MEAL Patient Own Med [Patient Own Medication] Med 04/16/22 22:00 Active 1 each PO HS Simvastatin 20Mg [Zocor 20Mg] Med 04/16/22 22:00 Discontinued 20 mg PO HS PT Eval & Treat (MD Order) ONCE PT 04/16/22 10:08 Completed Patient Care Notes (Last 24 hours) 04/17/22 10:27 Case Management Note by Ariadne Flaherty S/W PATIENT REGARD[facility] PATIENT NOTIFIED [facility] HAS ACCEPTED AND ARE READY FOR PATIENT WHEN DR. AVELAR RELEASES HIM. HE VERIFIED UNDERSTANDING AND STATED HIS FAMILY COULD TRANSPORT HIM Initialized on 04/17/22 10:27 - END OF NOTE 04/16/22 15:56 Case Management Note by Ariadne Flaherty HAS ACCEPTED PATIENT Initialized on 04/16/22 15:56 - END OF NOTE 04/16/22 11:30 (created 04/16/22 14:01) Case Management Note by Ariadne Flaherty REFERRAL FAXED TO [facility] Initialized on 04/16/22 14:01 - END OF NOTE - Vitals & Intake/Output Vital Signs: Vital Signs Temperature 97.8 F 04/17/22 08:00 Pulse Rate 67 04/17/22 08:00 Respiratory Rate 16 04/17/22 08:00 Blood Pressure 99/54 04/17/22 08:00 O2 Sat by Pulse Oximetry 96 04/17/22 08:00 Intake & Output: Intake & Output 04/14/22 04/15/22 04/16/22 04/17/22 11:59 11:59 11:59 11:59 Intake Total 120 1360 Output Total 1275 Balance 120 85 Weight 93.3 kg - Lab Result Diagrams: 04/17/22 04:20 04/17/22 04:20 Lab Results-Last 24 Hrs: Lab Results-Last 24 Hours 04/17/22 04/17/22 04/17/22 Range/Units 04:20 04:20 04:20 WBC 4.8 (4.0-10.5) x10^3/uL RBC 3.77 L (4.1-5.6) x10^6/uL Hgb 11.7 L (12.5-18.0) g/dL Hct 37.2 L (42-50) % MCV 98.7 (78-100) fL MCH 31.0 (26-32) pg MCHC 31.5 L (32-36) g/dL RDW 14.2 H (11.5-14.0) % Plt Count 130 L (150-450) x10^3/uL MPV 10.5 (7.5-11.0) fL PT 26.4 H (9.4-12.5) SECONDS INR 2.73 (0.8-3.0) Sodium 135 L (137-145) mmol/L Potassium 3.5 (3.5-5.1) mmol/L Chloride 95 L (98-107) mmol/L Carbon Dioxide 34 H (22-30) mmol/L Anion Gap 10.0 (5-15) MEQ/L BUN 13 (9-20) mg/dL Creatinine 0.93 (0.66-1.25) mg/dL Estimated GFR > 60.0 ML/MIN Glucose 91 (74-106) mg/dL Calcium 8.6 (8.4-10.2) mg/dL Total Bilirubin 0.80 (0.2-1.3) mg/dL AST 28 (17-59) U/L ALT 12 (0-50) U/L Alkaline Phosphatase 75 (38-126) U/L Serum Total Protein 6.4 (6.3-8.2) g/dL Albumin 3.5 (3.5-5.0) g/dL Slides for Path Review YES Micro Results-Entire Visit: Microbiology 04/16/22 03:20 Urine Culture - Final Urine, Indwelling Catheter <10K NORMAL SKIN DURGA PROBABLE SKIN CONTAMINANT - Radiology Exams Ordered Rad Exams-Entire Visit: Radiology Procedures Category Date Time Status ABDOMEN AND PELVIS W/0 CONTRAS [CT] Stat Exams 04/15/22 18:57 Completed RECONSTRUCTION [CT] Stat Exams 04/15/22 18:02 Completed - Procedures and Test Procedures and Tests throughout Hospitalization: Therapy Orders & Screens 04/16/22 05:25 Oxygen Nasal Cannula 2 lpm Comment: Diagnosis: Acute lumbar spine fracture 04/16/22 05:33 Respiratory Therapy Assessment DAILY Comment: Diagnosis: Acute lumbar spine fracture 04/16/22 08:38 Respiratory MDI BID Comment: Diagnosis: severe low back pain for 1 week 04/16/22 08:53 RT Screen per Nursing Assess ONCE Comment: Protocol Order Physician Instructions: Greater than 3 points order RT Admission Screen Reason For Exam: Triggered on Admission Diagnosis: severe low back pain for 1 week Diagnosis: severe low back pain for 1 week Pneumonia: No Home O2: Yes Asthma: No CHF: Yes Home CPAP/BIPAP: No Home Nebs/MDI: Yes Total Points: 13 04/16/22 10:08 PT Eval & Treat (MD Order) ONCE Reason for Eval:: LOW BACK PAIN - NEW ACUTE TO SUBACUTE L1 SUPERIOR ENDPLATE FX AND SUBACUTE TO CHRONIC T12/L1 ENDPLATE FRACUTES Diagnosis: severe low back pain for 1 week Discharge Exam General Appearance: no apparent distress, alert Neurologic Exam: alert, oriented x 3, cooperative, normal mood/affect, nml cerebellar function, sensation nml, No motor deficits Eye Exam: PERRL, EOMI, eyes nml inspection Ears, Nose, Throat Exam: normal ENT inspection, pharynx normal, moist mucous membranes Neck Exam: normal inspection, non-tender, supple, full range of motion Respiratory Exam: normal breath sounds, lungs clear, No respiratory distress Cardiovascular Exam: regular rate/rhythm, normal heart sounds Gastrointestinal/Abdomen Exam: soft, No tenderness, No mass Male Genitalia Exam: deferred Rectal Exam: deferred Back Exam: normal inspection, normal range of motion, No CVA tenderness, No vertebral tenderness Extremity Exam: normal inspection, normal range of motion Skin Exam: normal color, warm, dry Final Diagnosis/Problem List - Final Discharge Diagnosis/Problem (1) Fracture of lumbar spine without cord injury Current Visit: Yes Status: Acute Code(s): S32.009A - UNSP FRACTURE OF UNSP LUMBAR VERTEBRA, INIT FOR CLOS FX (2) Back pain Current Visit: Yes Status: Acute Code(s): M54.9 - DORSALGIA, UNSPECIFIED (3) Degenerative disc disease Current Visit: Yes Status: Acute Code(s): RCN3131 - - Discharge Discharge Date: 04/17/22 Disposition: DC TO ANY "OTHER" CORRECTION Condition: Stable Prescriptions: Continue Aspirin [Aspirin EC] 81 mg PO DAILY Tamsulosin HCl 0.4 mg [Flomax 0.4 MG] 0.4 mg PO DAILY Albuterol 2.5 mg/3 ml Neb [Proventil 2.5 mg/3 ml Neb] 1 vial NEBULIZE Q6H Polyethylene Glycol 3350 [Clearlax] 17 gm PO DAILY PRN PRN Reason: Constipation Rosuvastatin Calcium 10 mg PO HS Metoprolol Succinate 25 mg PO DAILY Gabapentin 600 mg PO BID Furosemide 40 mg [Lasix 40 MG] 40 mg PO DAILY Albuterol/Ipratropium cc [Combivent Inhaler COMMON CANISTER] 1 puff IH QID Docusate Sodium [Dulcolax Stool Softener] 200 mg PO BID Warfarin Sodium 3 mg PO DAILY Potassium Chloride Tab* [Klor Con] 20 meq PO DAILY Guaifenesin 600 mg ER [Mucinex 600MG ER Tabs] 600 mg PO BID Budesonide/Formoterol Fumarate [Budesonide-Formoterol 160-4.5] 2 puff IH BID Follow up with: YUE AVELAR MD [Primary Care Provider] - 7 Days
[2022-04-17 11:41] VITALS: BP 107/51; PULSE 78; O2SAT 95
== END 2022-04-17 13:12 ==
LOC: ED 17:50 → MED SURG 23:19
PROVIDERS: ADMIT General Practice; ATTEND General Practice
DX: S32.009A Unspecified fracture of unspecified lumbar vertebra, initial encounter for closed fracture (principal); M54.9 Dorsalgia, unspecified; M51.36 Other intervertebral disc degeneration, lumbar region; I25.10 Atherosclerotic heart disease of native coronary artery without angina pectoris; I10 Essential (primary) hypertension; Z20.828 Contact with and (suspected) exposure to other viral communicable diseases; Z79.899 Other long term (current) drug therapy; Z79.01 Long term (current) use of anticoagulants
CPT/HCPCS: 0241U; 36000; 36415; 74176; 76376; 80053; 81015; 82947; 83735; 85027; 85610; 87086; 94640; 94762; 96374; 97110; 97161; 97530; 99285; G0378; J2270; J2405; A9270-GY